=== PATIENT | female | born 1955 | race Caucasian/White ===

== ENCOUNTER 2018-11-03 09:38 | Inpatient (IN) | payer BC ==
[~2018-11-03] VITALS: Ht 170.2 cm; Wt 59.4 kg
[2018-11-03] MEDS ORDERED: MELATONIN 3 MG TABLET PO PRN (12:30)
[2018-11-03] MEDS ORDERED: ONDANSETRON 4 MG (ZOFRAN) ORAL DISSOLVE TAB PO PRN (12:30)
[2018-11-03] MEDS ORDERED: diphenhydrAMINE 25 MG TAB (BENADRYL) PO PRN (12:30)
[2018-11-03] MEDS ORDERED: LOPERAMIDE 2 MG (IMODIUM) TABLET PO PRN (12:30)
[2018-11-03] MEDS ORDERED: ACETAMINOPHEN 500 MG TAB (TYLENOL) PO PRN (12:30)
[2018-11-03] MEDS ORDERED: CALCIUM CARBONATE 500 MG (TUMS) TAB.CHEW PO PRN (12:30)
[2018-11-03] MEDS ORDERED: DOCUSATE SODIUM 100 MG (COLACE) CAP PO PRN (12:30)
[2018-11-03 14:11] VITALS: BP 87/54
--- OUTSIDE RECORDS SUMMARY | 2018-11-03 14:15 | XMS REPORT ---
Author Author [facility] Medical Staff Organization [facility] Address [address] [id number] Phone [phone] Care Team Providers Care Handbag Finisher Name Role Phone TABITHA VALADEZ MD PP [phone] Summary purpose TRANSITION OF CARE AUTO GENERATION Chief Complaint and Reason for Visit Admit Diagnosis 1 BACKACHE NOS Problem list No authorized problems tracked for continuity of care are available for this vis it. Encounters No authorized problems tracked for encounter diagnoses are available for this vi sit. Medications No medications recorded for this patient visit Allergies, adverse reactions, alerts Allergen Category Ingredient Status Reaction Severity Onset No known drug allergies No known drug allergies No known drug allergies Confirmed or Verified Immunizations No immunizations recorded for this patient visit Relevant diagnostic tests and/or laboratory data RESULTS Radiology Results [id number]:00 LUMBAR SPINE XRAY - 5V PACs Image DATE OF EXAM: 2014 RAD 1050-LUMBAR SPINE XRAY-5 VIEW : RADIOLOGY REPORT DATE OF SERVICE: 12/24/14 HISTORY: Patient has back pain. LUMBAR SPINE 5 VIEWS 1115 HOURS There is mild scoliosis, convex right. Vertebral body heights are maintained. There is apparent mild grade 1 anterolisthesis of L4 on L5 measuring 3 to 4 mm. The pars interarticularis are maintained and therefore this is likely pseudospondylolisthesis from degenerative change in facet joints. Unilateral partial sacralization of L5 is seen on the left with enlarged transverse process and remnant joint to the sacrum. Right transverse process is lumbar type. Interspace narrowing is seen of prominent degree on the right at L3-4 and there is at least mild, if not moderate narrowing at L4-5. On the left at L2-3, there is moderate narrowing. Sacroiliac joints are maintained. No acute fracture is seen. IMPRESSION: Scoliosis. Degenerative change. Pseudospondylolisthesis of L4 on L5 grade 1. Degenerative change in facet joints at L4-5. DO ABAD Walters/car 12/24/2014 11:43:00 / 12/24/2014 11:54:22 cc:Ankit Velasquez PA-C This document has been electronically Signed by: On: DATE OF EXAM: 2014 RAD 1050-LUMBAR SPINE XRAY-5 VIEW : RADIOLOGY REPORT DATE OF SERVICE: 12/24/14 HISTORY: Patient has back pain. LUMBAR SPINE 5 VIEWS 1115 HOURS There is mild scoliosis, convex right. Vertebral body heights are maintained. There is apparent mild grade 1 anterolisthesis of L4 on L5 measuring 3 to 4 mm. The pars interarticularis are maintained and therefore this is likely pseudospondylolisthesis from degenerative change in facet joints. Unilateral partial sacralization of L5 is seen on the left with enlarged transverse process and remnant joint to the sacrum. Right transverse process is lumbar type. Interspace narrowing is seen of prominent degree on the right at L3-4 and there is at least mild, if not moderate narrowing at L4-5. On the left at L2-3, there is moderate narrowing. Sacroiliac joints are maintained. No acute fracture is seen. IMPRESSION: Scoliosis. Degenerative change. Pseudospondylolisthesis of L4 on L5 grade 1. Degenerative change in facet joints at L4-5. Elena Coto DO /dc 12/24/2014 11:43:00 / 12/24/2014 11:54:22 cc:Ankit Velasquez PA-C This document has been electronically Signed by: ELENA COTO DO On: 20149:02P Result Amended on 2014-12-24 at 21:02:37. Previous status was MA. History of procedures Procedure Code Code Type Description Date Performed Performing Physician 32740 CPT-4 X-RAY EXAM OF LOWER SPINE 12-24-2014 ANKIT VELASQUEZ Functional status No functional or cognitive status observations are available for this visit. Vital signs No authorized vital signs are available for this visit. Social history No Social History or smoking status observations were recorded for this visit. ( Unknown if ever smoked.) Treatment Plan No treatment plan text is available for this visit. Hospital discharge instructions No discharge instruction text is available for this visit.
--- OUTSIDE RECORDS SUMMARY | 2018-11-03 14:15 | XMS REPORT ---
Author [facility] Medical Staff Organization [facility] Address [address] [id number] Phone [phone] Care Team Providers Care Diet Consultant Name Role Phone TABITHA VALADEZ MD PP [phone] TABITHA VALADEZ MD PP [phone] Summary purpose TRANSITION OF CARE AUTO GENERATION Chief Complaint and Reason for Visit Admit Diagnosis 1 RIGHT CHEVRON OSTOMY 1ST METATARSAL AND Admit Diagnosis 2 HAMMER TOE CORRECTION 2&3 TOES W/ PINS Problem list No authorized problems tracked for [...] Relevant diagnostic tests and/or laboratory data RESULTS Chemistry :20:00 Result Normal Range Units Sodium 143 134-145 mEq/l Potassium 3.7 3.5-5.1 mEq/l Chloride H 108 98-107 mEq/l CO2 H 28.3 22-28 mEq/l Glucose 102 70-105 mg/dl BUN H 29 7-18 mg/dl Creatinine 0.79 0.6-1.0 mg/dl Calcium L 8.2 8.4-10.2 mg/dl Osmolality 291.0 280-300 mOsm/L Anion GAP L 6.7 8-16 BUN/Creatinine Ratio H 36.7 10-20 Estimated GFR 74 >=60 mL/min/1.7 Hematology :20:00 Result Normal Range Units WBC 7.9 4.8-10.8 103/uL RBC 4.7 4.2-5.4 106/uL HGB 13.6 12.0-16.0 g/dl HCT 42.8 36.9-47.0 % MCV 91.5 81-99 FL MCH 29.1 27-31 pg MCHC L 31.8 33-37 g/dl RDW 12.2 11.5-15.5 % PLT 298 130-400 103/uL MPV 10.2 7.3-10.4 FL Neutro % 69.5 40-70 % Lymph % 21.8 20-40 % [place] % 5.2 0-10.0 % Eos % 2.4 0-7.0 % Baso % 0.8 0-2 % Neutro # 5.5 1.5-7.5 103/uL Lymph # 1.7 0.9-4.0 103/uL [place] # 0.4 0-0.8 103/uL Eos # 0.2 0-0.6 103/uL Baso # 0.1 0-0.1 103/uL Radiology Results :20:00 Result Normal Range Units MPV 10.2 7.3-10.4 FL History of procedures Procedure Code Code Type Description Date Performed Performing Physician 37730 CPT-4 COMPLETE CBC W/AUTO DIFF WBC 04-07-2015 MATTHEW KRISHNAMURTHY 52299 CPT-4 METABOLIC PANEL TOTAL CA 04-07-2015 MATTHEW KRISHNAMURTHY 99485 CPT-4 ROUTINE VENIPUNCTURE 04-07-2015 MATTHEW KRISHNAMURTHY 04909 CPT-4 ELECTROCARDIOGRAM, TRACING 04-07-2015 MATTHEW KRISHNAMURTHY Functional status Functional Status Finding Observation Time Hearing Prob Loc none [id number] Vision Problems no :02 Ambulation Asst Dev none [id number] Range of Motion full :55 Muscle Strength RUE 5 ROM full resist :55 Muscle Strength RLE 5 ROM full resist :55 Muscle Strength LUE 5 ROM full resist :55 Muscle Strength LLE 5 ROM full resist :55 Transfers assist x 1 :55 Ambulation in room :55 Balance unsteady :55 Bathing Assistance none :02 Eating Assistance none :02 Dressing Assistance none :02 Toileting Assistance none :02 Transfer Assistance none :02 Decline Slf Care/Mob no :02 Phys Cond Stable yes :02 Nutrition normal :55 Diet regular :55 Oral Cavity moist and intact :55 Teeth intact :55 Dental Hygiene good [id number]:55 Abdomen Appearance flat :55 Abdomen soft :55 Bowel Sounds present :55 NG Tube no :55 Feeding Tube none :55 Shaw no :55 Cont Bladder Irr no :55 Ostomy no :55 Stool normal :55 Urination normal :55 Quality sym/unlabored :55 Cough absent :55 Secretions no :55 Breath Sounds RUL clear :55 Breath Sounds RML clear :55 Breath Sounds RLL clear :55 Breath Sounds ASHKAN clear :55 Breath Sounds LLL clear :55 Airway natural :55 Oxygen no :45 C-PAP no :55 BI-PAP no :55 Temp >100.4 no :55 Temp <96.8 no :55 Chills with rigors no :55 HR > 90bpm no :55 Respirations > 20 no :55 Systolic <90 no :55 headache stiff neck no :55 Rapid Resp no :55 IV Site Location L forearm :00 IV Type peripheral :00 IV Site Information discontinued :00 IV Site Start Attmpt 2 times [id number] IV Site Deshaun 20 :00 IV Site Appearance WNL :00 IV Site Color clear : IV Site Patent yes : Dressing Type occlusive : Nursing Note pt dismissed from the unit at this time. pt in stable condition to go home. discharge instructions in hand. parents to drive pt home. :30 Cognitive Status Finding Observation Time Learning Ability comprehends well : Neurological no : Psychological no : Physical no : Hearing no : Supervisor Dumping Needed no : Sign Language no : Emotional no : Vision no : Laguage no : Financial no : Vital signs Type Value Date Respiration Rate 18breaths per minute :45 Pulse 76beats per minute :45 Oxygen Saturation 98% :45 BP Systolic 162mmHg :45 BP Diastolic 95mmHg :45 Temperature 96.7F :55 Height 67inches :57 Weight 159LB :57 Social history No Social History or smoking status observations were recorded for this visit. ( Unknown if ever smoked.) Treatment Plan No treatment plan text is available for this visit. Hospital discharge instructions Discharge Date/Time 04/09/15 1430 Accompanied By parents Relationship parent Dismissal Condition good Disposition on DC home Valuables yes Valuable Type billfold/purse DC Inst/Educ Give yes Exit Care Educ Given yes Med/Side Effects Rev yes PNE Vac never Flu Vac never Tetanus Vac 2009 Diet Explained yes Follow up appt already scheduled Follow Up Appt D/T 04/22/15 4697
--- OUTSIDE RECORDS SUMMARY | 2018-11-03 14:15 | XMS REPORT ---
Author Author [facility] Medical Staff Organization [facility] Address [address] [id number] Phone [phone] Care Team Providers Care Head Of Product Name Role Phone GALA EVANS MD PP [phone] Summary purpose TRANSITION OF CARE AUTO GENERATION Chief Complaint and Reason for Visit No authorized Reason for Visit (Admitting Diagnosis) is available for this visit . Problem list No authorized problems tracked for [...] visit Relevant diagnostic tests and/or laboratory data No authorized results are available for this patient visit History of procedures No procedures recorded for this patient visit. Functional status No functional or cognitive status [...]
--- OUTSIDE RECORDS SUMMARY | 2018-11-03 14:15 | XMS REPORT ---
Author Author [facility] Medical Staff Organization [facility] Address [address] [id number] Phone [phone] Summary purpose TRANSITION OF CARE AUTO GENERATION [...] for this patient visit History of procedures Procedure Code Code Type Description Date Performed Performing Physician 84385 CPT-4 THERAPEUTIC EXERCISES 09-23-2015 PAULINA GRULLON Functional status No functional or cognitive status [...]
--- OUTSIDE RECORDS SUMMARY | 2018-11-03 14:15 | XMS REPORT ---
Author Author [facility] Medical Staff Organization [facility] Address [address] [id number] Phone [phone] Summary purpose TRANSITION OF CARE AUTO GENERATION [...]
--- OUTSIDE RECORDS SUMMARY | 2018-11-03 14:15 | XMS REPORT ---
Author Author [facility] Medical Staff Organization [facility] [employer] [facility] Address [address] [id number] Phone [phone] Summary purpose TRANSITION OF CARE AUTO GENERATION [...] tests and/or laboratory data RESULTS Radiology Results [id number]:00 FOOT XRAY - 3 VIEW PACs Image DATE OF EXAM: May 06 2015 RAD 0649-FOOT XRAY-3 VIEW- RIGHT: RADIOLOGY REPORT DATE OF SERVICE: 05/06/15 HISTORY: Followup bunionectomy. RIGHT FOOT 3 VIEWS 1255 HOURS There are changes of distal first metatarsal osteotomy that is partially healed. Surgical line is somewhat indistinct and alignment is well maintained. There are surgical changes involving the proximal phalanx of the second toe and longitudinal wires are in place traversing the length of the second and third toes. Alignment is otherwise unremarkable. IMPRESSION: Healing distal metatarsal osteotomies. MD JOHN Coates/co05/06/2015 13:30:00 / 05/06/2015 13:35:01 cc:Dr. Ranjeet Springer This document has been electronically Signed by: On: DATE OF EXAM: May 06 2015 RAD 0649-FOOT XRAY-3 VIEW- RIGHT: RADIOLOGY REPORT DATE OF SERVICE: 05/06/15 HISTORY: Followup bunionectomy. RIGHT FOOT 3 VIEWS 1255 HOURS There are changes of distal first metatarsal osteotomy that is partially healed. Surgical line is somewhat indistinct and alignment is well maintained. There are surgical changes involving the proximal phalanx of the second toe and longitudinal wires are in place traversing the length of the second and third toes. Alignment is otherwise unremarkable. IMPRESSION: Healing distal metatarsal osteotomies. Vega Ribera MD MWBhavin/nh05/06/2015 13:30:00 / 05/06/2015 13:35:01 cc:Dr. Ranjeet Springer This document has been electronically Signed by: VEGA RIBERA MD On: May 06 20152:10P Result Amended on 2015-05-06 at 14:10:26. Previous status was PA. History of procedures No procedures recorded for [...]
--- OUTSIDE RECORDS SUMMARY | 2018-11-03 14:15 | XMS REPORT ---
Author Author [facility] Medical Staff Organization [facility] Address [address] [id number] Phone [phone] Care Team Providers Care Watch Mechanic Name Role Phone GALA EVANS MD PP [phone] Summary purpose TRANSITION OF CARE AUTO GENERATION [...]
--- OUTSIDE RECORDS SUMMARY | 2018-11-03 14:15 | XMS REPORT | CCD ---
Author Author [facility] Unknown Address [address] [place], [place] [id number] Care Team Providers Care Chemical Supervisor Name Role Phone YADI GILMORE, PAULINA SANTAMARIA Attphys S., GENET Bazan NASST B., MYLA NASST J., KYLER NASST F., DAGO NASST S., SAMANTHA GUTIERREZ NASST C., LEROY BAKER NASST M., JORDAN Walker NASST B., KAMRYN NASST K., SHADE Delcid NASST S., COLLIN NASST Vital Signs Vital Sign Value Unit Date/Time Recent/Initial? Weight Measured 140 lbs 10/22/2015 12:55 Initial VS Height 67 in 10/22/2015 12:55 Initial VS BMI (Body Mass Index) 21.93 kg/m^2 10/22/2015 12:55 Initial VS BSA (Body Surface Area) 1.73 m^2 10/22/2015 12:55 Initial VS BP Systolic 156 mmHg 10/27/2015 08:45 Initial VS BP Diastolic 82 mmHg 10/27/2015 08:45 Initial VS Respiratory Rate 13 bpm 10/27/2015 08:46 Initial VS Heart Rate 77 bpm 10/27/2015 08:46 Initial VS O2 % BldC Oximetry 98 % 10/27/2015 11:36 Initial VS Body Temperature 96.3 degrees 10/27/2015 12:50 Initial VS BP Systolic 131 mmHg 10/29/2015 11:14 Most Recent VS BP Diastolic 72 mmHg 10/29/2015 11:14 Most Recent VS Respiratory Rate 16 bpm 10/29/2015 11:14 Most Recent VS Heart Rate 75 bpm 10/29/2015 11:14 Most Recent VS O2 % BldC Oximetry 96 % 10/29/2015 11:14 Most Recent VS Body Temperature 96.9 degrees 10/29/2015 11:14 Most Recent VS Allergies Allergy Code Allergy Type Reaction Status No Known Drug Allergies 0 No known drug allergies Active Procedures Procedure Code Procedure Type Date Replacement of Left Knee Joint with Synthetic Substitute, Cemented, Open A [id number] ICD-10 PCS 10/27/2015 PT GROUP THERAPY 081566837 SNOMED CT 10/29/2015 PT GAIT TRAINING/STAIRS EA [address] 10/29/2015 KNEE 1V OR 2V 68499726 SNOMED CT 10/27/2015 CBC W/ AUTO DIFF (RFLX MAN DIFF IF IND) 1556601 SNOMED CT 10/29/2015 CBC W/ AUTO DIFF (RFLX MAN DIFF IF IND) 8224015 SNOMED CT 10/28/2015 PT GROUP THERAPY 423240051 SNOMED CT 10/28/2015 PT GROUP THERAPY 662418235 SNOMED CT 10/28/2015 PT EVALUATION 784895568 SNOMED CT 10/27/2015 THERAPEP SUBSEQUENT 595328785 SNOMED CT 10/29/2015 THERAPEP SUBSEQUENT 604209779 SNOMED CT 10/29/2015 THERAPEP SUBSEQUENT 901445901 SNOMED CT 10/29/2015 THERAPEP SUBSEQUENT 600130897 SNOMED CT 10/28/2015 THERAPEP SUBSEQUENT 388825873 SNOMED CT 10/28/2015 THERAPEP SUBSEQUENT 704726522 SNOMED CT 10/28/2015 THERAPEP SUBSEQUENT 965326289 SNOMED CT 10/28/2015 THERAPEP SUBSEQUENT 959708605 SNOMED CT 10/27/2015 THERAPEP TREATMENT 524775980 SNOMED CT 10/27/2015 ^CBC W/AUTO DIFF 4250555 SNOMED CT 10/29/2015 ^CBC W/AUTO DIFF 7548819 SNOMED CT 10/28/2015 History of Immunizations Unknown or Not Available. Problems Problem Code Start Date Resolved Date Status Primary osteoarthritis of left knee 440832456 Active Post op pain 143853628 10/27/2015 Active Status post knee replacement 8238972257268 10/27/2015 Active Degenerative joint disease 642141411 10/27/2015 Resolved Post op pain 282828426 10/27/2015 Resolved Status post knee replacement 2794784705208 10/27/2015 Resolved Results CBC W/ AUTO DIFF (RFLX MAN DIFF IF IND) - Collect Date/Time: 10/29/2015 06:10 Test Name Code Test Result Test Units Test Ref Range WBC 81345-6 7.3 TH/CMM L=4.5 H=10.8 RBC 789-8 3.27 ML/CMM L=4.20 H=5.40 HGB 718-7 9.2 G/DL L=12.0 H=16.0 HCT 4544-3 30.5 % L=37.0 H=47.0 MCV 93 FL L=81 H=99 MCH 28.1 PG L=27.0 H=33.0 MCHC 30.2 G/DL L=31.0 H=36.0 RDW SD 45 FL L=36 H=50 RDW CV 13.3 % L=0.0 H=14.8 MPV 10.5 FL L=9.3 H=12.5 PLT 777-3 214 TH/CMM L=130 H=440 NRBC# 0.00 TH/CMM L=0.00 H=0.00 NRBC% 0.0 /100WBC L=0.0 H=2.0 %NEUT 61.0 % %LYMP 25.8 % %MONO 7.1 % %EOS 5.3 % %BASO 0.5 % #NEUT 4.44 TH/CMM L=2.10 H=8.20 #LYMP 1.88 TH/CMM L=0.90 H=5.20 #MONO 0.52 TH/CMM L=0.16 H=1.00 #EOS 0.39 TH/CMM L=0.00 H=0.80 #BASO 0.04 TH/CMM L=0.00 H=0.20 MANUAL DIFF NOT IND N/A CBC W/ AUTO DIFF (RFLX MAN DIFF IF IND) - Collect Date/Time: 10/28/2015 06:40 Test Name Code Test Result Test Units Test Ref Range WBC 22253-2 11.3 TH/CMM L=4.5 H=10.8 RBC 789-8 3.75 ML/CMM L=4.20 H=5.40 HGB 718-7 10.7 G/DL L=12.0 H=16.0 HCT 4544-3 35.1 % L=37.0 H=47.0 MCV 94 FL L=81 H=99 MCH 28.5 PG L=27.0 H=33.0 MCHC 30.5 G/DL L=31.0 H=36.0 RDW SD 44 FL L=36 H=50 RDW CV 13.0 % L=0.0 H=14.8 MPV 9.9 FL L=9.3 H=12.5 PLT 777-3 266 TH/CMM L=130 H=440 NRBC# 0.00 TH/CMM L=0.00 H=0.00 NRBC% 0.0 /100WBC L=0.0 H=2.0 %NEUT 77.0 % %LYMP 16.5 % %MONO 5.5 % %EOS 0.3 % %BASO 0.3 % #NEUT 8.74 TH/CMM L=2.10 H=8.20 #LYMP 1.87 TH/CMM L=0.90 H=5.20 #MONO 0.62 TH/CMM L=0.16 H=1.00 #EOS 0.03 TH/CMM L=0.00 H=0.80 #BASO 0.03 TH/CMM L=0.00 H=0.20 MANUAL DIFF NOT IND N/A Active Medications Medication Code Dose Units Frequency Route Modification Start Date/Time Percocet 5MG-325MG Oral Tablet 9448891 1 - 2 TABLET EVERY 4 HOURS BY MOUTH 10/28/2015 18:00 Prescription Detail 1 - 2 TABLET BY MOUTH EVERY 4 HOURS amLODIPine Besylate 5MG Oral Tablet 985064 5 MILLIGRAMS AT BEDTIME ORAL 10/28/2015 17:47 Prescription Detail 5 MILLIGRAMS ORAL AT BEDTIME Tylenol 325MG Oral Tablet 288826 325 MILLIGRAMS NEEDED ORAL 10/28/2015 17:47 Prescription Detail 325 MILLIGRAMS ORAL NEEDED Aspirin 325MG Oral Tablet 990238 325 MILLIGRAMS NEEDED ORAL 10/28/2015 17:46 Prescription Detail 325 MILLIGRAMS ORAL NEEDED hold until ASA EC 325 BID is completed Aspirin 325MG Oral Tablet, Enteric Coated 880799 1 TABLET TWO TIMES A DAY BY MOUTH 10/28/2015 17:45 Prescription Detail 1 TABLET BY MOUTH TWO TIMES A DAY start 24hrs after the last Xarleto dose Thera-M Enhanced 90MG-0.03MG-0.15MG-4 Oral Tablet 543248 1 TABLET DAILY BY MOUTH 10/28/2015 17:45 Prescription Detail 1 TABLET BY MOUTH DAILY Xarelto 10MG Oral Tablet 5411959 1 TABLET DAILY BY MOUTH 10/28/2015 17:45 Prescription Detail 1 TABLET BY MOUTH DAILY for ten days Docusate Sodium 100MG Oral Capsule 4101037 1 TABLET TWO TIMES A DAY BY MOUTH 10/28/2015 17:44 Prescription Detail 1 TABLET BY MOUTH TWO TIMES A DAY hold with loose stools Medications Administered During Visit Medication Dose Units Frequency Route Date/Time of Last Dose LR 1000ML IV [PREDEFINED] CONT IV IV 10/27/2015 19:50 CEFAZOLIN [ANCEF] 2 GM IV PREMIX BAG Q6H IVPB 10/28/2015 04:29 VITAMIN (LH SUB FOR ALL MULTIVITAMINS) 1 TAB DAILY PO 10/29/2015 08:16 ASCORBIC ACID [VITAMIN C] TAB : 500 MG 500 MG DAILY PO 10/29/2015 08:16 FERROUS SULFATE 325MG TABLET 325 MG ACBID PO 10/29/2015 08:16 DOCUSATE SODIUM 100 MG [COLACE] CAPSULE 100 MG BID PO 10/29/2015 08:16 RIVAROXABAN [XARELTO] TABLET : 10MG 10 MG X1 PO 10/28/2015 08:18 RIVAROXABAN [XARELTO] TABLET : 10MG 10 MG DAILY PO 10/29/2015 08:16 HYDROmorphone [DILAUDID] INJ: 2MG/ML 0.5 MG PRN Q 1 HR IVP 10/28/2015 13:33 NORCO [HYDROCODONE/APAP] 10/325MG TAB 1 TAB PRN PO 10/28/2015 15:29 CELECOXIB [CELEBREX] CAPSULE : 200 MG 200 MG BID PO 10/29/2015 08:16 TRANEXAMIC ACID 1000MG/100ML [PREDEFINED X1 IVPB 10/27/2015 13:18 AMLODIPINE [NORVASC] TABLET : 5 MG 5 MG HS PO 10/28/2015 21:06 PERCOCET 5/325 MG TABLET (ROXICET) 2 TAB PRN PO 10/29/2015 14:26 Encounters Encounter Diagnosis Diagnosis Code Start Date Unilateral primary osteoarthritis, left knee [id number] 10/27/2015 Social History Smoking Status Code Start Date End Date Never smoker [id number] Patient Decision Aids Unknown or Not Available. Discharge Instructions You were admitted to [facility] on 10/27/2015 07:57 with a principal diagnosis of Unilateral primary osteoarthritis, left knee You had the following procedures done: Replacement of Left Knee Joint with Synthetic Substitute, Cemented, Open A You had the following tests done: CBC W/ AUTO DIFF (RFLX MAN DIFF IF IND) CBC W/ AUTO DIFF (RFLX MAN DIFF IF IND) You were discharged from [facility] on 10/29/2015 15:20 Should you have any questions prior to discharge, please contact a member of your healthcare team. If you have left the hospital and have any questions, please contact your primary care physician. INSTRUCTIONS GIVEN AND DISCHARGE TO: Patient. VOICES UNDERSTANDING OF INSTRUCTIONS: Yes. INSTRUCTIONS GIVEN BY (TYPE IN NAME AND DATE) SULEIMAN GARCÍA RNCUTTING TABLE OPERATOR PHYSICIAN OR PRACTITIONER: Paulina Maria MD, . HOME MEDICATION INSTRUCTIONS: XARELTO FOR 10 DAYS, THAN ASPIRIN 325MG TWICE DAILY FOR 30 DAYS. CHIEF COMPLAINT: C/O LEFT KNEE PAIN Chief Complaint and Reason For Visit Chief Complaint Date of Onset L TKR Function Status Unknown or Not Available. Plan of Care Unknown or Not Available. Referral/Transition of Care Unknown or Not Available.
--- OUTSIDE RECORDS SUMMARY | 2018-11-03 14:15 | XMS REPORT | CCD ---
Author KRYSTA Parker Unknown Address [address] [facility] [address] [place], [place] [id number] Care Team Providers Care Manufacturing Engineer Paint Name Role Phone YADI GILMORE, PAULINA SANTAMARIA Attphys F., DAGO NASST O., YOSELIN Sr NASST C., SCOTTY NASST C., LEROY BAKER NASST S., SCOTTY NASST G., ERIC NASST K., BETTY CUNNINGHAM NASST K., SHADE Delcid NASST S., COLLIN NASST B., MYLA NASST Vital Signs Vital Sign Value Unit Date/Time Recent/Initial? BP Systolic 166 mmHg 09/06/2015 11:00 Initial VS BP Diastolic 85 mmHg 09/06/2015 11:00 Initial VS Respiratory Rate 16 bpm 09/06/2015 11:00 Initial VS Heart Rate 81 bpm 09/06/2015 11:00 Initial VS O2 % BldC Oximetry 98 % 09/06/2015 11:00 Initial VS Weight Measured 145 lbs 09/07/2015 14:51 Initial VS Height 67 in 09/07/2015 14:51 Initial VS BMI (Body Mass Index) 22.71 kg/m^2 09/07/2015 14:51 Initial VS BSA (Body Surface Area) 1.76 m^2 09/07/2015 14:51 Initial VS Body Temperature 97.2 degrees 09/15/2015 15:45 Initial VS BP Systolic 138 mmHg 09/17/2015 10:59 Most Recent VS BP Diastolic 78 mmHg 09/17/2015 10:59 Most Recent VS Respiratory Rate 16 bpm 09/17/2015 10:59 Most Recent VS Heart Rate 76 bpm 09/17/2015 10:59 Most Recent VS O2 % BldC Oximetry 99 % 09/17/2015 10:59 Most Recent VS Body Temperature 97.1 degrees 09/17/2015 10:59 Most Recent VS Allergies Allergy Code Allergy Type Reaction Status No Known Drug Allergies 0 No known drug allergies Active Procedures Procedure Code Procedure Type Date Replacement of Right Knee Joint with Synthetic Substitute, Cemented, Open [id number] ICD-10 PCS 09/15/2015 PT GROUP THERAPY 833884230 SNOMED CT 09/17/2015 PT GAIT TRAINING/STAIRS EA [address] 09/17/2015 KNEE 1V OR 2V 08019260 SNOM[address] CT 09/15/2015 CBC W/ AUTO DIFF (RFLX MAN DIFF IF IND) 1286403 SNOMED CT 09/17/2015 CBC W/ AUTO DIFF (RFLX MAN DIFF IF IND) 4454828 SNOMED CT 09/16/2015 PT GROUP THERAPY 796433452 SNOMED CT 09/17/2015 PT GROUP THERAPY 276354613 SNOMED CT 09/16/2015 PT GROUP THERAPY 698454024 SNOMED CT 09/16/2015 PT EVALUATION 940738902 SNOMED CT 09/15/2015 THERAPEP SUBSEQUENT 663712293 SNOMED CT 09/17/2015 THERAPEP SUBSEQUENT 571921358 SNOMED CT 09/17/2015 THERAPEP SUBSEQUENT 308510301 SNOMED CT 09/16/2015 THERAPEP SUBSEQUENT 328976152 SNOMED CT 09/16/2015 THERAPEP SUBSEQUENT 751014680 SNOMED CT 09/16/2015 THERAPEP SUBSEQUENT 271405759 SNOMED CT 09/16/2015 THERAPEP TREATMENT 109183349 SNOMED CT 09/15/2015 ^CBC W/AUTO DIFF 6487348 SNOMED CT 09/17/2015 ^CBC W/AUTO DIFF 3507140 SNOMED CT 09/16/2015 History of Immunizations Unknown or Not Available. Problems Problem Code Start Date Resolved Date Status Primary osteoarthritis of left knee [id number] Active Post op pain 714439755 10/27/2015 Active Status post knee replacement 9106742882261 10/27/2015 Active Degenerative joint disease 941907969 10/27/2015 Resolved Post op pain 894218178 10/27/2015 Resolved Status post knee replacement 9652211422181 10/27/2015 Resolved Results CBC W/ AUTO DIFF (RFLX MAN DIFF IF IND) - Collect Date/Time: 09/17/2015 06:10 Test Name Code Test Result Test Units Test Ref Range WBC 95713-0 8.1 TH/CMM L=4.5 H=10.8 RBC 789-8 3.48 ML/CMM L=4.20 H=5.40 HGB 718-7 10.0 G/DL L=12.0 H=16.0 HCT 4544-3 32.3 % L=37.0 H=47.0 MCV 93 FL L=81 H=99 MCH 28.7 PG L=27.0 H=33.0 MCHC 31.0 G/DL L=31.0 H=36.0 RDW SD 45 FL L=36 H=50 RDW CV 13.3 % L=0.0 H=14.8 MPV 10.8 FL L=9.3 H=12.5 PLT 777-3 197 TH/CMM L=130 H=440 NRBC# 0.00 TH/CMM L=0.00 H=0.00 NRBC% 0.0 /100WBC L=0.0 H=2.0 %NEUT 64.5 % %LYMP 22.1 % %MONO 9.9 % %EOS 3.0 % %BASO 0.4 % #NEUT 5.20 TH/CMM L=2.10 H=8.20 #LYMP 1.78 TH/CMM L=0.90 H=5.20 #MONO 0.80 TH/CMM L=0.16 H=1.00 #EOS 0.24 TH/CMM L=0.00 H=0.80 #BASO 0.03 TH/CMM L=0.00 H=0.20 MANUAL DIFF NOT IND N/A CBC W/ AUTO DIFF (RFLX MAN DIFF IF IND) - Collect Date/Time: 09/16/2015 06:15 Test Name Code Test Result Test Units Test Ref Range WBC 50122-8 13.7 TH/CMM L=4.5 H=10.8 RBC 789-8 4.28 ML/CMM L=4.20 H=5.40 HGB 718-7 12.3 G/DL L=12.0 H=16.0 HCT 4544-3 38.7 % L=37.0 H=47.0 MCV 90 FL L=81 H=99 MCH 28.7 PG L=27.0 H=33.0 MCHC 31.8 G/DL L=31.0 H=36.0 RDW SD 43 FL L=36 H=50 RDW CV 13.1 % L=0.0 H=14.8 MPV 10.8 FL L=9.3 H=12.5 PLT 777-3 275 TH/CMM L=130 H=440 NRBC# 0.00 TH/CMM L=0.00 H=0.00 NRBC% 0.0 /100WBC L=0.0 H=2.0 %NEUT 79.9 % %LYMP 11.7 % %MONO 7.8 % %EOS 0.0 % %BASO 0.2 % #NEUT 10.90 TH/CMM L=2.10 H=8.20 #LYMP 1.60 TH/CMM L=0.90 H=5.20 #MONO 1.07 TH/CMM L=0.16 H=1.00 #EOS 0.00 TH/CMM L=0.00 H=0.80 #BASO 0.03 TH/CMM L=0.00 H=0.20 MANUAL DIFF NOT IND N/A Active Medications Medications Administered During Visit Medication Dose Units Frequency Route Date/Time of Last Dose LR 1000ML IV [PREDEFINED] CONT IV 09/15/2015 16:24 CEFAZOLIN [ANCEF] 2 GM IV PREMIX BAG Q6H 09/16/2015 08:04 VITAMIN ( SUB FOR ALL MULTIVITAMINS) 1 TAB DAILY PO 09/17/2015 08:09 ASCORBIC ACID [VITAMIN C] TAB : 500 MG 500 MG DAILY PO 09/17/2015 08:09 FERROUS SULFATE 325MG TABLET 325 MG BID PO 09/17/2015 08:09 DOCUSATE SODIUM 100 MG [COLACE] CAPSULE 100 MG BID PO 09/16/2015 20:02 RIVAROXABAN [XARELTO] TABLET : 10MG 10 MG DAILY PO 09/17/2015 08:09 NORCO [HYDROCODONE/APAP] 10/325MG TAB 1 TAB PRN PO 09/17/2015 08:09 CELECOXIB [CELEBREX] CAPSULE : 200 MG 200 MG BID PO 09/17/2015 08:09 TRANEXAMIC ACID 1000MG/100ML [PREDEFINED X1 09/15/2015 16:24 RIVAROXABAN [XARELTO] TABLET : 10MG 10 MG X1 PO 09/16/2015 10:14 AMLODIPINE [NORVASC] TABLET : 5 MG 5 MG DAILY PO 09/17/2015 08:09 Encounters Encounter Diagnosis Diagnosis Code Start Date Unilateral primary osteoarthritis, right knee [id number] 09/15/2015 Social History Smoking Status Code Start Date End Date Never smoker [id number] Patient Decision Aids Unknown or Not Available. Discharge Instructions You were admitted to [facility] on 09/15/2015 11:04 with a principal diagnosis of Unilateral primary osteoarthritis, right knee You had the following procedures done: Replacement of Right Knee Joint with Synthetic Substitute, Cemented, Open You had the following tests done: CBC W/ AUTO DIFF (RFLX MAN DIFF IF IND) CBC W/ AUTO DIFF (RFLX MAN DIFF IF IND) You were discharged from [facility] on 09/17/2015 15:45 Should you have any questions prior to discharge, please contact a member of your healthcare team. If you have left the hospital and have any questions, please contact your primary care physician. HOME DIET: as before hospitalization CONDITION AT DISMISSAL Stable. SCRIPTS WRITTEN BY DOCTOR GIVEN TO PATIENT? docusate sodium, xarelto, Finley, Aspirin, out patient therapy PRIMARY CARE PHYSICIAN OR PRACTITIONER: Paulina Maria MD, . CONTACT PHYSICIAN IF YOU EXPERIENCE ANY: pain, dizziness, bleeding, numbness in your hands/feet, fever. Shortness of Breath, Nausea/Vomiting, Redness or soreness in calf area. Odor or drainage from incision, Difficulty urinating. Swelling of extremities, Difficulty swallowing. PATIENT PORTAL/OTHER INSTRUCTIONS: Provided education info on Patient Josemanuel. INSTRUCTIONS GIVEN AND DISCHARGE TO: Patient. VOICES UNDERSTANDING OF INSTRUCTIONS: Yes. INSTRUCTIONS GIVEN BY (TYPE IN NAME AND DATE) Luis Alberto Pires RN 09/17/15 SPECIAL INSTRUCTIONS: Take Xarelto 10mg pill by mouth daily for 10 days. When taking Xarelto do not take IBUPROFEN, MOTRIN, ADVIL, ALEVE, MOBIC. 24 HOURS AFTER TAKING THE LAST XARELTO START TAKEN ASPIRIN 325MG 2 TIMES A DAY FOR 30 DAYS. CHIEF COMPLAINT: C/O RIGHT KNEE PAIN Chief Complaint and Reason For Visit Chief Complaint Date of Onset R TKR Function Status Unknown or Not Available. Plan of Care Unknown or Not Available. Referral/Transition of Care Unknown or Not Available.
--- OUTSIDE RECORDS SUMMARY | 2018-11-03 14:15 | XMS REPORT ---
Author Author [facility] Medical Staff Organization [facility] Address [address] [place] [id number] Phone [phone] Summary purpose TRANSITION OF CARE AUTO GENERATION [...] tests and/or laboratory data RESULTS Radiology Results [id number]:52:00 DEXA Scan Axial Skeletal PACs Image DATE OF EXAM: Oct 14 2015 RAD 2199-DEXA SCAN AXIAL SKELETAL : RADIOLOGY REPORT DATE OF SERVICE: 10/14/15 HISTORY: Postmenopausal female, back pain DUAL ENERGY BONE ABSORPTIOMETRY STUDY HIP AND SPINE 1500 HOURS TECHNIQUE: Dual energy x-ray densitometry was performed for both femora and the L1 through L4 levels of the lumbar spine.The T-Value represents the number of standard deviations from the measurements of a young normal person matched for gender and ethnicity. FINDINGS: Lumbar spine (L1-L4)BMD1.028! g/cm2 Young adult %87! % T-score-1.3! Age-matched 101! % Z-score0.1! Total hip meanBMD0.658! g/cm2 Young adult %65! % T-score-2.8! Age-matched 75! % Z-score-1.7! According to the guidelines of the World Health Organization: NormalT-score> -1.0 YnszzwpytkO-fdcpu-7.0 to -2.5 OsteoporosisT-score< -2.5 IMPRESSION: 1. Mild lumbar osteopenia. 2. Femoral osteoporosis. MD JOHN Coates/nh10/15/2015 10:32:00 / 10/15/2015 10:49:30 cc:Eligio Novak APRN This document has been electronically Signed by: On: DATE OF EXAM: Oct 14 2015 RAD 2199-DEXA SCAN AXIAL SKELETAL : RADIOLOGY REPORT DATE OF SERVICE: 10/14/15 HISTORY: Postmenopausal female, back pain DUAL ENERGY BONE ABSORPTIOMETRY STUDY HIP AND SPINE 1500 HOURS TECHNIQUE: Dual energy x-ray densitometry was performed for both femora and the L1 through L4 levels of the lumbar spine.The T-Value represents the number of standard deviations from the measurements of a young normal person matched for gender and ethnicity. FINDINGS: Lumbar spine (L1-L4)BMD1.028! g/cm2 Young adult %87! % T-score-1.3! Age-matched 101! % Z-score0.1! Total hip meanBMD0.658! g/cm2 Young adult %65! % T-score-2.8! Age-matched 75! % Z-score-1.7! According to the guidelines of the World Health Organization: NormalT-score> -1.0 JaemywnmvzT-tewzk-6.0 to -2.5 OsteoporosisT-score< -2.5 IMPRESSION: 1. Mild lumbar osteopenia. 2. Femoral osteoporosis. Vega Ribera MD MWD/nh10/15/2015 10:32:10/15/2015 10:49:30 cc:Eligio Novak APRN This document has been electronically Signed by: VEGA RIBERA MD On: Oct 16 20159:52A Result Amended on 2015-10-16 at 09:52:15. Previous status was MT. [id number]:54:00 MRI BRAIN W/WO CONT PACs Image DATE OF EXAM: Oct 14 2015 MRI 0036-MRI BRAIN W/WO CONTRAST : RADIOLOGY REPORT DATE OF SERVICE: 10/14/15 HISTORY: Patient has an unsteady gait and memory problems for over a year. MRI BRAIN WITH AND WITHOUT CONTRAST 1405 HOURS Multiplanar multisequence study was performed. Patient received 14 ml of Magnevist contrast intravenously. There is a solitary lesion in the white matter of the left parietal lobe measuring 7 mm. No enhancement of this structure is seen and the structure is not seen on any sequence except T2 proton density and FLAIR images. Otherwise signal intensity throughout brain is normal. There is no abnormal enhancement. Ventricular system is normal. The orbits and sinuses are normal. Flow voids of major vessels are intact. There is no evidence of an acute or subacute infarct. IMPRESSION: Solitary lesion in the white matter of the left parietal lobe likely on basis of aging. Otherwise normal study. Elena Coto DO [facility] 10/14/2015 14:18: / 10/14/2015 14:51:31 cc:Erin Borrero PA-C This document has been electronically Signed by: On: DATE OF EXAM: Oct 14 2015 MRI 0036-MRI BRAIN W/WO CONTRAST : RADIOLOGY REPORT DATE OF SERVICE: 10/14/15 HISTORY: Patient has an unsteady gait and memory problems for over a year. MRI BRAIN WITH AND WITHOUT CONTRAST 1405 HOURS Multiplanar multisequence study was performed. Patient received 14 ml of Magnevist contrast intravenously. There is a solitary lesion in the white matter of the left parietal lobe measuring 7 mm. No enhancement of this structure is seen and the structure is not seen on any sequence except T2 proton density and FLAIR images. Otherwise signal intensity throughout brain is normal. There is no abnormal enhancement. Ventricular system is normal. The orbits and sinuses are normal. Flow voids of major vessels are intact. There is no evidence of an acute or subacute infarct. IMPRESSION: Solitary lesion in the white matter of the left parietal lobe likely on basis of aging. Otherwise normal study. Elena Coto DO [facility] 10/14/2015 14:18: / 10/14/2015 14:51:31 cc:Erin Borrero PA-C This document has been electronically Signed by: ELENA COTO DO On: Oct 14 20156:54P Result Amended on 2015-10-14 at 18:54:53. Previous status was MT. History of procedures No procedures recorded for [...]
--- OUTSIDE RECORDS SUMMARY | 2018-11-03 14:15 | XMS REPORT ---
Author Author [facility] Medical Staff Organization [facility] Address [address] [place] [id number] Phone [phone] Summary purpose CCDA Sent to [facility] Chief Complaint and Reason for Visit No authorized Reason for Visit (Admitting Diagnosis) is available for this visit . Problem list No authorized problems tracked for continuity of care are available for this vis it. Encounters No authorized problems tracked for encounter diagnoses are available for this vi sit. Medications No medications recorded for this patient visit Allergies, adverse reactions, alerts No allergy information is available for this patient. Immunizations No immunizations recorded for this patient visit Relevant diagnostic tests and/or laboratory data No authorized results are available for this patient visit History of procedures Procedure Code Code Type Description Date Performed Performing Physician 64838 CPT-4 X-RAY EXAM OF KNEE, 1 OR 2 08-24-2015 PAULINA GRULLON 44607 CPT-4 X-RAY EXAM OF KNEES 08-24-2015 PAULINA GRULLON Functional status No functional or [...]
--- OUTSIDE RECORDS SUMMARY | 2018-11-03 14:15 | XMS REPORT ---
Author Author [facility] Medical Staff Organization [facility] [employer] [facility] Address [address] [id number] Phone [phone] Summary purpose TRANSITION OF CARE AUTO GENERATION [...] tests and/or laboratory data RESULTS Radiology Results [id number]:10:00 FOOT XRAY - 3 VIEW PACs Image [...] IMPRESSION: Healing distal metatarsal osteotomies. MD JOHN Coates/ak05/06/2015 13:30:00 / 05/06/2015 13:35:01 cc:Dr. Ranjeet Springer [...] IMPRESSION: Healing distal metatarsal osteotomies. MD JOHN Coates/nh05/06/2015 13:30:00 / 05/06/2015 13:35:01 cc:Dr. Ranjeet Springer This document has been electronically Signed by: LATOSHA BOGGS MD On: May 06 20152:10P Result Amended on 2015-05-06 at 14:10:26. Previous status was MS. History of procedures Procedure Code Code Type Description Date Performed Performing Physician 17874 CPT-4 X-RAY EXAM OF FOOT 05-06-2015 RANJEET SPRINGER Functional status No functional or cognitive status [...]
--- OUTSIDE RECORDS SUMMARY | 2018-11-03 14:15 | XMS REPORT ---
Author [facility] [employer] [facility] Medical Staff Organization [facility] Address [address] [id number] Phone [phone] Summary purpose TRANSITION OF CARE AUTO GENERATION [...]
--- OUTSIDE RECORDS SUMMARY | 2018-11-03 14:16 | XMS REPORT ---
Author Author [facility] [employer] [facility] Medical Staff Organization [facility] [employer] [facility] Address [address] [place] [id number] Phone [phone] Summary purpose TRANSITION OF CARE AUTO GENERATION [...] diagnostic tests and/or laboratory data RESULTS Chemistry [id number]:27:00 Result Normal Range Units Sodium 140 134-145 mEq/l Potassium L 3.1 3.5-5.1 mEq/l Chloride 103 98-107 mEq/l CO2 26.7 22-28 mEq/l Glucose H 122 70-105 mg/dl BUN H 20 7-18 mg/dl Creatinine 0.85 0.6-1.0 mg/dl Calcium 9.0 8.4-10.2 mg/dl TP - Total Protein 7.2 6.0-8.3 g/dl Albumin L 3.2 3.5-5 g/dl Bilirubin - Total 0.2 0.1-1.0 mg/dl AST 15 10-42 IU/L ALT 20 12-65 IU/L ALP H 101 25-72 IU/L Osmolality 283.3 280-300 mOsm/L Albumin/Globulin Ratio 0.8 0-8 Anion GAP 10.3 8-16 BUN/Creatinine Ratio H 23.5 10-20 Estimated GFR 68 >=60 mL/min/1.7 Hematology [id number]:27:00 Result Normal Range Units WBC 9.7 4.8-10.8 103/uL RBC 4.7 4.2-5.4 106/uL HGB 13.2 12.0-16.0 g/dl HCT 40.7 36.9-47.0 % MCV 87.0 81-99 FL MCH 28.2 27-31 pg MCHC L 32.4 33-37 g/dl RDW 13.3 11.5-15.5 % PLT 317 130-400 103/uL MPV H 11.0 7.3-10.4 FL Neutro % H 74.8 40-70 % Lymph % L 14.8 20-40 % [place] % 7.6 0-10.0 % Eos % 2.0 0-7.0 % Baso % 0.5 0-2 % Neutro # 7.3 1.5-7.5 103/uL Lymph # 1.4 0.9-4.0 103/uL [place] # 0.7 0-0.8 103/uL Eos # 0.2 0-0.6 103/uL Baso # 0.1 0-0.1 103/uL Radiology Results :27:00 Result Normal Range Units MPV H 11.0 7.3-10.4 FL History of procedures No procedures recorded for this patient visit. Functional status Functional Status Finding Observation Time Ambulation Asst Dev none :15 Diet regular :15 Abdomen Appearance flat :15 Abdomen non-tender :15 Bowel Sounds present :15 Shaw no :15 Urination normal :15 Quality sym/unlabored :15 Cough absent :15 Secretions no :15 Secretion Consist thin :15 Secretion Color clear :15 Breath Sounds RUL clear :15 Breath Sounds RML clear :15 Breath Sounds RLL clear :15 Breath Sounds ASHKAN clear :15 Breath Sounds LLL clear :15 Airway natural :15 Oxygen no :05 Temp >100.4 no :15 Temp <96.8 no :15 Chills with rigors no :15 HR > 90bpm no :15 Respirations > 20 no :15 Systolic <90 no :15 headache stiff neck no :15 Rapid Resp no :15 Nursing Note Dismissed home per Fredrick Alamo PA-C. Discharge instructions given and understood by pt who verbalized understanding. Wheeled to exit in stable condition. :05 Vital signs Type Value Date Respiration Rate 18breaths per minute :05 Pulse 100beats per minute :05 Oxygen Saturation 99% :05 BP Systolic 146mmHg :05 BP Diastolic 82mmHg :05 Temperature 99.4F :05 Weight 140LB 60-30-853858:45 Social history No Social History or smoking status observations were recorded for this visit. ( Unknown if ever smoked.) Treatment Plan No treatment plan text is available for this visit. Hospital discharge instructions Dismissal Condition good Disposition on DC home DC Inst/Educ Give yes Med/Side Effects Rev yes PNE Vac None Flu Vac None Tetanus Vac Current
--- OUTSIDE RECORDS SUMMARY | 2018-11-03 14:16 | XMS REPORT ---
Author Author [facility] Medical Staff Organization [facility] Address [address] [id number] Phone [phone] Care Team Providers Care Towel Hemmer Name Role Phone NATHAN GILMORE, GALA PP [phone] Summary purpose TRANSITION OF CARE AUTO GENERATION [...] Relevant diagnostic tests and/or laboratory data RESULTS Blood Cultures [id number]:00:00 Blood Culture Plate Date and Time 09/21/2015 22:10 SourceBLOOD CULTURE REPORT NoGrowth at 1 day. Unless otherwise notified. Final report in 5 Days. Release Date/Time: 09/23/2015 09:31 CULTURE REPORT No growth in 5 days. Release Date/Time: 09/27/2015 07:29 [id number]:55:00 Blood Culture Plate Date and Time 09/21/2015 22:10 SourceBLOOD CULTURE REPORT NoGrowth at 1 day. Unless otherwise notified. Final report in 5 Days. Release Date/Time: 09/23/2015 09:31 CULTURE REPORT No growth in 5 days. Release Date/Time: 09/27/2015 07:29 Chemistry [id number]:00:00 Result Normal Range Units Sodium 138 134-145 mEq/l Potassium 3.8 3.5-5.1 mEq/l Chloride 102 98-107 mEq/l CO2 H 28.8 22-28 mEq/l Glucose 98 70-105 mg/dl BUN 15 7-18 mg/dl Creatinine 0.69 0.6-1.0 mg/dl Calcium 8.5 8.4-10.2 mg/dl TP - Total Protein 6.7 6.0-8.3 g/dl Albumin L 3.0 3.5-5 g/dl Bilirubin - Total 0.8 0.1-1.0 mg/dl AST 18 10-42 IU/L ALT 32 12-65 IU/L ALP H 112 25-72 IU/L Osmolality L 276.5 280-300 mOsm/L Albumin/Globulin Ratio 0.8 0-8 Anion GAP L 7.2 8-16 BUN/Creatinine Ratio H 21.7 10-20 Estimated GFR 86 >=60 mL/min/1.7 Hematology [id number]:00:00 Result Normal Range Units WBC 8.4 4.8-10.8 103/uL RBC L 3.6 4.2-5.4 106/uL HGB L 10.6 12.0-16.0 g/dl HCT L 32.3 36.9-47.0 % MCV 90.5 81-99 FL MCH 29.7 27-31 pg MCHC L 32.8 33-37 g/dl RDW 12.5 11.5-15.5 % PLT 330 130-400 103/uL MPV H 10.5 7.3-10.4 FL Neutro % H 71.3 40-70 % Lymph % L 15.0 20-40 % [place] % 7.8 0-10.0 % Eos % 5.1 0-7.0 % Baso % 0.6 0-2 % Neutro # 6.0 1.5-7.5 103/uL Lymph # 1.3 0.9-4.0 103/uL [place] # 0.7 0-0.8 103/uL Eos # 0.4 0-0.6 103/uL Baso # 0.1 0-0.1 103/uL Radiology Results [id number]:00:00 Result Normal Range Units MPV H 10.5 7.3-10.4 FL History of procedures Procedure Code Code Type Description Date Performed Performing Physician 23698 CPT-4 COMPLETE CBC W/AUTO DIFF WBC 09-21-2015 DEMETRIA ROBERTS 05165 CPT-4 COMPREHEN METABOLIC PANEL 09-21-2015 DEMETRIA ROBERTS 50993 CPT-4 BLOOD CULTURE FOR BACTERIA 09-21-2015 DEMETRIA ROBERTS 51545 CPT-4 BLOOD CULTURE FOR BACTERIA 09-21-2015 DEMETRIA ROBERTS 66722 CPT-4 ROUTINE VENIPUNCTURE 09-21-2015 DEMETRIA ROBERTS 40910 CPT-4 ROUTINE VENIPUNCTURE 09-21-2015 DEMETRIA ROBERTS 15391 CPT-4 EMERGENCY DEPT VISIT 09-21-2015 DEMETRIA ROBERTS 32581 CPT-4 EMERGENCY DEPT VISIT 09-21-2015 DEMETRIA ROBERTS Functional status Functional Status Finding Observation Time Diet regular :30 Abdomen Appearance flat :30 Abdomen non-tender :30 Shaw no :30 Urination normal :30 Quality sym/unlabored : Cough absent : Secretions no : Breath Sounds RUL clear :30 Breath Sounds RML clear :30 Breath Sounds RLL clear :30 Breath Sounds ASHKAN clear : Breath Sounds LLL clear :30 Airway natural :30 Chest Tube no :30 Oxygen no :00 Temp >100.4 no : Temp <96.8 no : Chills with rigors no : HR > 90bpm no : Respirations > 20 no : Systolic <90 no :30 headache stiff neck no :30 IV Site Location L forearm :55 IV Type peripheral :55 IV Site Information new :55 IV Site Start Attmpt 1 times :55 IV Site Deshaun 20 :55 IV Site Appearance WNL :55 IV Site Color clear :55 IV Site Patent yes :55 Dressing Type occlusive :55 Nursing Note Dismissed home per Dr Roberts. Discharge instructions given and understood by pt and son who verbalized understanding. Wheeled to exit in stable condition escorted by this RN. :02 Vital signs Type Value Date Respiration Rate 18breaths per minute : Pulse 92beats per minute Oxygen Saturation 99% : BP Systolic 130mmHg : BP Diastolic 84mmHg : Temperature 98.7F : Social history Type Value Smoking Status NEVER SMOKER Treatment Plan No treatment plan text is available for this visit. Hospital discharge instructions Dismissal Condition good Disposition on DC home DC Inst/Educ Give yes Med/Side Effects Rev yes PNE Vac None Flu Vac None Tetanus Vac Current
--- OUTSIDE RECORDS SUMMARY | 2018-11-03 14:16 | XMS REPORT ---
Author Author [facility] Medical Staff Organization [facility] Address [address] [place] [id number] Phone [phone] Care Team Providers Care Java Lead Architect Name Role Phone RORY GILMORE, TABITHA PP [phone] Summary purpose TRANSITION OF CARE AUTO GENERATION [...] Relevant diagnostic tests and/or laboratory data RESULTS Therapeutic Drug Monitoring [id number]:40:00 Result Normal Range Units Vancomycin Trough 14.8 10-22 ug/ml [id number]:25:00 Result Normal Range Units Vancomycin Trough 16.2 10-22 ug/ml 50-55-088022:35:00 Result Normal Range Units Vancomycin Trough L 2.9 10-22 ug/ml History of procedures Procedure Code Code Type Description Date Performed Performing Physician 38300 CPT-4 ROUTINE VENIPUNCTURE 04-24-2015 ANKIT FLORENCE 24204 CPT-4 ROUTINE VENIPUNCTURE 04-26-2015 ANKIT FLORENCE 77479 CPT-4 ASSAY OF VANCOMYCIN 04-24-2015 ANKIT FLORENCE 34520 CPT-4 ASSAY OF VANCOMYCIN 04-26-2015 ANKTI FLORENCE 36300 CPT-4 THER/PROPH/DIAG IV INF, INIT 04-23-2015 ANKIT FLORENCE 17488 CPT-4 THER/PROPH/DIAG IV INF, INIT 04-23-2015 ANKIT FLORENCE 90401 CPT-4 THER/PROPH/DIAG IV INF, INIT 04-24-2015 ANKIT FLORENCE 30179 CPT-4 THER/PROPH/DIAG IV INF, INIT 04-25-2015 ANKIT FLORENCE 37630 CPT-4 THER/PROPH/DIAG IV INF, INIT 04-25-2015 ANKIT FLORENCE 88542 CPT-4 THER/PROPH/DIAG IV INF, INIT 04-26-2015 ANKIT FLORENCE 38987 CPT-4 THER/PROPH/DIAG IV INF, INIT 04-26-2015 ANKIT FLORENCE 40839 CPT-4 THER/PROPH/DIAG IV INF, INIT 04-27-2015 ANKIT FLORENCE 32572 CPT-4 THER/PROPH/DIAG IV INF, INIT 04-27-2015 ANKIT LFORENCE 92885 CPT-4 THER/PROPH/DIAG IV INF ADDON 04-24-2015 ANKIT FLORENCE 59193 CPT-4 THER/PROPH/DIAG IV INF ADDON 04-25-2015 ANKIT FLORENCE 25514 CPT-4 THER/PROPH/DIAG IV INF ADDON 04-25-2015 ANKIT FLORENCE 11446 CPT-4 THER/PROPH/DIAG IV INF ADDON 04-26-2015 ANKIT FLORENCE 67017 CPT-4 THER/PROPH/DIAG IV INF ADDON 04-26-2015 ANKIT FLORENCE 79028 CPT-4 THER/PROPH/DIAG IV INF ADDON 04-27-2015 ANKIT FLORENCE 58793 CPT-4 THER/PROPH/DIAG IV INF ADDON 04-27-2015 ANKIT FLORENCE 39724 CPT-4 TX/PROPH/DG ADDL SEQ IV INF 04-26-2015 ANKIT FLORENCE 67236 CPT-4 TX/PROPH/DG ADDL SEQ IV INF 04-27-2015 ANKIT FLORENCE 67595 CPT-4 TX/PROPH/DG ADDL SEQ IV INF 04-27-2015 ANKIT FLORENCE J0696 CPT-4 CEFTRIAXONE SODM 250MG INJ 04-26-2015 ANKIT FLORENCE J0696 CPT-4 CEFTRIAXONE SODM 250MG INJ 04-27-2015 ANKIT FLORENCE J0696 CPT-4 CEFTRIAXONE SODM 250MG INJ 04-27-2015 ANKIT FLORENCE J0696 CPT-4 CEFTRIAXONE SODM 250MG INJ 04-28-2015 ANKIT FLORENCE J0696 CPT-4 CEFTRIAXONE SODM 250MG INJ 04-28-2015 ANKIT FLORENCE J3370 CPT-4 VANCOMYCIN HCL INJECTION 04-23-2015 ANKIT FLORENCE J3370 CPT-4 VANCOMYCIN HCL INJECTION 04-24-2015 ANKIT FLORENCE J3370 CPT-4 VANCOMYCIN HCL INJECTION 04-25-2015 ANKIT FLORENCE J3370 CPT-4 VANCOMYCIN HCL INJECTION 04-25-2015 ANKIT FLORENCE J3370 CPT-4 VANCOMYCIN HCL INJECTION 04-26-2015 ANKIT FLORENCE J3370 CPT-4 VANCOMYCIN HCL INJECTION 04-26-2015 ANKIT FLORENCE J3370 CPT-4 VANCOMYCIN HCL INJECTION 04-26-2015 ANKIT FLORENCE J3370 CPT-4 VANCOMYCIN HCL INJECTION 04-27-2015 ANKIT FLORENCE J3370 CPT-4 VANCOMYCIN HCL INJECTION 04-27-2015 ANKIT FLORENCE J3370 CPT-4 VANCOMYCIN HCL INJECTION 04-28-2015 ANKIT FLORENCE J3370 CPT-4 VANCOMYCIN HCL INJECTION 04-28-2015 ANKIT FLORENCE J7040 CPT-4 NORMAL SALINE SOLUTION INFUS 04-23-2015 ANKIT FLORENCE J7040 CPT-4 NORMAL SALINE SOLUTION INFUS 04-24-2015 ANKIT FLORENCE J7040 CPT-4 NORMAL SALINE SOLUTION INFUS 04-25-2015 ANKIT FLORENCE J7040 CPT-4 NORMAL SALINE SOLUTION INFUS 04-26-2015 ANKIT FLORENCE J7040 CPT-4 NORMAL SALINE SOLUTION INFUS 04-26-2015 ANKIT FLORENCE J7040 CPT-4 NORMAL SALINE SOLUTION INFUS 04-26-2015 ANKIT FLORENCE J7040 CPT-4 NORMAL SALINE SOLUTION INFUS 04-27-2015 ANKIT FLORENCE J7040 CPT-4 NORMAL SALINE SOLUTION INFUS 04-27-2015 ANKIT FLORENCE J7040 CPT-4 NORMAL SALINE SOLUTION INFUS 04-28-2015 ANKIT FLORENCE J7040 CPT-4 NORMAL SALINE SOLUTION INFUS 04-28-2015 ANKIT FLORENCE J7050 CPT-4 NORMAL SALINE SOLUTION INFUS 04-25-2015 ANKIT FLORENCE Functional status Functional Status Finding Observation Time Hearing Prob Loc none 98-06-474724:00 Vision Problems no 43-61-043316:00 Ambulation Asst Dev none 19-65-340291:00 Bathing Assistance none 15-50-683790:00 Eating Assistance none [id number]:00 Dressing Assistance none 32-82-450434:00 Toileting Assistance none :00 Transfer Assistance none :00 Decline Slf Care/Mob no :00 Phys Cond Stable yes :00 Oxygen no :15 Oxygen Flow Rate RA :23 IV Site Location RFA :20 IV Type peripheral :20 IV Site Information discontinued :20 IV Site Start Attmpt 2 times :05 IV Site Deshaun 20 :35 IV Site Appearance WNL :35 IV Site Color clear :35 IV Site Patent no :35 Dressing Changed no (explain) Comment: CDI :00 Dressing Type occlusive :35 Nursing Note Pt dismissed to home in stable condition. This RN escorted pt out ER admission exit via WC to private vehicle. :30 Cognitive Status Finding Observation Time Oriented To Date 5 Yes :[address] 5 Yes :00 Name 3 Objects 3 Yes :00 Name Object in Rm 2 Yes :00 Recall 3 Objects 3 Yes :00 Repeats a Phrase 1 Yes :00 Follows Verbal Direc 3 Yes :00 Follows Written Dire 1 Yes :00 Write a Sentance 1 Yes :00 Draw an Object 1 Yes :00 Mini Mental Total 25 points :00 Less than 20 Phys not applicable :00 Learning Ability comprehends well : Neurological no :00 Psychological no :00 Physical no :00 Hearing no :00 Braille Teacher Needed no :00 Sign Language no :00 Emotional no :00 Vision no :00 Laguage no :00 Financial no :00 Vital signs Type Value Date Respiration Rate 18breaths per minute :15 Pulse 97beats per minute :15 Oxygen Saturation 99% :15 BP Systolic 162mmHg :15 BP Diastolic 97mmHg :15 Temperature 97.7F :15 Height 67inches :16 Weight 145.0LB :16 Social history No Social History or smoking status observations were recorded for this visit. ( Unknown if ever smoked.) Treatment Plan No treatment plan text is available for this visit. Hospital discharge instructions Valuables no PNE Vac never Flu Vac never Tetanus Vac 2009
--- OUTSIDE RECORDS SUMMARY | 2018-11-03 14:16 | XMS REPORT ---
Author Author [facility] Medical Staff Organization [facility] Address [address] [id number] Phone [phone] Care Team Providers Care Pit Crane Operator Name Role Phone GALA EVANS MD PP [phone] Summary purpose TRANSITION OF CARE AUTO GENERATION [...]
--- OUTSIDE RECORDS SUMMARY | 2018-11-03 14:16 | XMS REPORT ---
Author Author [facility] Medical Staff Organization [facility] Address [address] [id number] Phone [phone] Care Team Providers Care Clay Pigeon Loader Name Role Phone NATHAN GILMORE, GALA PP [phone] Summary purpose TRANSITION OF CARE AUTO GENERATION [...] diagnostic tests and/or laboratory data RESULTS Chemistry :00:00 Result Normal Range Units Sodium 138 134-145 [...] 10-20 Estimated GFR 86 >=60 mL/min/1.7 Hematology :00:00 Result Normal Range Units WBC 8.4 4.8-10.8 103/uL RBC L 3.6 4.2-5.4 106/uL HGB L 10.6 12.0-16.0 g/dl HCT L 32.3 36.9-47.0 % MCV 90.5 81-99 FL MCH 29.7 27-31 pg MCHC L 32.8 33-37 g/dl RDW 12.5 11.5-15.5 % PLT 330 130-400 103/uL MPV H 10.5 7.3-10.4 FL Neutro % H 71.3 40-70 % Lymph % L 15.0 20-40 % [place] % 7.8 0-10.0 % Eos % 5.1 0-7.0 % Baso % 0.6 0-2 % Neutro # 6.0 1.5-7.5 103/uL Lymph # 1.3 0.9-4.0 103/uL [place] # 0.7 0-0.8 103/uL Eos # 0.4 0-0.6 103/uL Baso # 0.1 0-0.1 103/uL Radiology Results :00:00 Result Normal Range Units MPV H 10.5 7.3-10.4 FL History of procedures No procedures recorded for this patient visit. Functional status Functional Status Finding Observation Time Diet regular : Abdomen Appearance flat :30 Abdomen non-tender :30 Shaw no :30 Urination normal :30 Quality sym/unlabored : Cough absent :30 Secretions no :30 Breath Sounds RUL clear :30 Breath Sounds RML clear :30 Breath Sounds RLL clear :30 Breath Sounds ASHKAN clear :30 Breath Sounds LLL clear :30 Airway natural :30 Chest Tube no :30 Oxygen no [id number]:00 Temp >100.4 no :30 Temp <96.8 no 52-05-289939:30 Chills with rigors no :30 HR > 90bpm no :30 Respirations > 20 no : Systolic <90 no : headache stiff neck no :30 IV Site Location L forearm :55 IV Type peripheral :55 IV Site Information new :55 IV Site Start Attmpt 1 times :55 IV Site Deshaun 20 :55 IV Site Appearance WNL :55 IV Site Color clear : IV Site Patent yes : Dressing Type occlusive :55 Nursing Note Dismissed home per Dr Kitchen. Discharge instructions given and understood by pt and son who verbalized understanding. Wheeled to exit in stable condition escorted by this RN. :02 Vital signs Type Value Date Respiration Rate 18breaths per minute : Pulse 92beats per minute : Oxygen Saturation 99% :00 BP Systolic 130mmHg :00 BP Diastolic 84mmHg :00 Temperature 98.7F :00 Social history Type Value Smoking Status NEVER SMOKER Treatment Plan No treatment plan text is available for this visit. Hospital discharge instructions Dismissal Condition good Disposition on DC home DC Inst/Educ Give yes Med/Side Effects Rev yes PNE Vac None Flu Vac None Tetanus Vac Current
--- OUTSIDE RECORDS SUMMARY | 2018-11-03 14:16 | XMS REPORT ---
Author Author [facility] Medical Staff Organization [facility] Address [address] [place] [id number] Phone [phone] Summary purpose TRANSITION OF CARE AUTO GENERATION [...] diagnostic tests and/or laboratory data RESULTS Chemistry [id number]:38:00 Result Normal Range Units Sodium 141 134-145 mEq/l Potassium L 3.3 3.5-5.1 mEq/l Chloride 104 98-107 mEq/l CO2 26.9 22-28 mEq/l Glucose H 114 70-105 mg/dl BUN 17 7-18 mg/dl Creatinine 0.80 0.6-1.0 mg/dl Calcium 8.9 8.4-10.2 mg/dl TP - Total Protein 7.2 6.0-8.3 g/dl Albumin 3.7 3.5-5 g/dl Bilirubin - Total 0.3 0.1-1.0 mg/dl AST 22 10-42 IU/L ALT 24 12-65 IU/L ALP H 116 25-72 IU/L Osmolality 283.7 280-300 mOsm/L Albumin/Globulin Ratio 1.1 0-8 Anion GAP 10.1 8-16 BUN/Creatinine Ratio H 21.2 10-20 Estimated GFR 73 >=60 mL/min/1.7 Hematology [id number]:38:00 Result Normal Range Units WBC 6.9 4.8-10.8 103/uL RBC 4.2 4.2-5.4 106/uL HGB 12.2 12.0-16.0 g/dl HCT 37.6 36.9-47.0 % MCV 90.4 81-99 FL MCH 29.3 27-31 pg MCHC L 32.4 33-37 g/dl RDW 12.7 11.5-15.5 % PLT 312 130-400 103/uL MPV H 10.6 7.3-10.4 FL Neutro % 60.2 40-70 % Lymph % 28.8 20-40 % [place] % 5.5 0-10.0 % Eos % 4.4 0-7.0 % Baso % 1.0 0-2 % Neutro # 4.1 1.5-7.5 103/uL Lymph # 2.0 0.9-4.0 103/uL [place] # 0.4 0-0.8 103/uL Eos # 0.3 0-0.6 103/uL Baso # 0.1 0-0.1 103/uL Reference Lab ([facility]) [id number]:38:00 Result Normal Range Units Parathyroid Hormone 57 14-64 pg/mL Interpretive GuideIntact PTH Calcium ------- Normal ParathyroidNormal Normal HypoparathyroidismLow or Low NormalLow Hyperparathyroidism PrimaryNormal or High High SecondaryHigh Normal or Low Tertiary High High Non-Parathyroid HypercalcemiaLow or Low NormalHigh TEST PERFORMED AT: [facility] [address] [place] [address] MATTHEW MEJIA DO,MPH Vit D 25 OH Total L 25 30-100 ng/mL 25-OHD3 indicates both endogenous production and supplementation. 25-OHD2 is an indicator of exogenous sources, such as diet or supplementation. Therapy is based on measurement of Total 25-OHD, with levels <20 ng/mL indicative of Vitamin D deficiency, while levels between 20 ng/mL and 30 ng/mL suggest insufficiency. Optimal levels are > or=30 ng/mL. Vit D 25 OH D3 25 See Below ng/mL Reference Range: Not established Vit D 25 OH D2 < 4 See Below ng/mL Reference Range: Not established TEST PERFORMED AT: [facility] [address] [place] [address] JEFF SEVERINO MD,FCAP Radiology Results [id number]:38:00 Result Normal Range Units MPV H 10.6 7.3-10.4 FL History of procedures Procedure Code Code Type Description Date Performed Performing Physician 86708 CPT-4 COMPLETE CBC W/AUTO DIFF WBC 10-26-2015 ROGER TAYLOR 16541 CPT-4 COMPREHEN METABOLIC PANEL 10-26-2015 ROGER TAYLOR 63428 CPT-4 ASSAY OF PARATHORMONE 10-26-2015 ROGER TAYLOR 42243 CPT-4 ASSAY OF VITAMIN D 10-26-2015 ROGER TAYLOR Functional status No functional or cognitive status [...]
--- OUTSIDE RECORDS SUMMARY | 2018-11-03 14:16 | XMS REPORT ---
Author Author [facility] Medical Staff Organization [facility] Address [address] [id number] Phone [phone] Care Team Providers Care Cullet Crusher Name Role Phone NATHAN GILMORE, GALA PP [phone] Summary purpose TRANSITION OF CARE AUTO GENERATION [...] Code Type Description Date Performed Performing Physician 80344 CPT-4 PT EVALUATION 11-03-2015 PAULINA GRULLON 11885 CPT-4 THERAPEUTIC EXERCISES 11-03-2015 PAULINA GRULLON 17881 CPT-4 THERAPEUTIC EXERCISES 11-05-2015 PAULINA GRULLON Functional status No functional or [...]
--- OUTSIDE RECORDS SUMMARY | 2018-11-03 14:16 | XMS REPORT ---
Author Author [facility] Medical Staff Organization [facility] Address [address] [id number] Phone [phone] Care Team Providers Care Biomedical Analytical Scientist Name Role Phone RORY GILMORE, TABITHA PP [phone] Summary purpose TRANSITION OF CARE AUTO GENERATION [...] Relevant diagnostic tests and/or laboratory data RESULTS Other Hematology - Misc. [id number]:15:00 Result Normal Range Units WBC 313674 /cumm RBC 876331 /cumm Segs 97.0 % Lymphs 3.0 % Crystal Evaluation Calcium pyrophosphate crystals (pseudogout). Body Fluid 96-15-141404:15:00 Result Normal Range Units WBC 774488 /cumm RBC 190252 /cumm Segs 97.0 % Lymphs 3.0 % Hematology - Other (Misc) 96-78-178564:15:00 Crystal Evaluation Calcium pyrophosphate crystals (pseudogout). History of procedures No procedures recorded for [...]
--- OUTSIDE RECORDS SUMMARY | 2018-11-03 14:16 | XMS REPORT ---
Author Author [facility] Medical Staff Organization [facility] Address [address] [id number] Phone [phone] Care Team Providers Care Radio Tester Name Role Phone RORY GILMORE, TABITHA PP [phone] Summary purpose TRANSITION OF CARE AUTO GENERATION [...] tests and/or laboratory data RESULTS Radiology Results [id number]:24:00 FOOT XRAY - 3 VIEW PACs Image DATE OF EXAM: 2014 RAD 0649-FOOT XRAY-3 VIEW- RIGHT: RADIOLOGY REPORT DATE OF SERVICE: 03/25/15 HISTORY: Right foot pain, bunion. RIGHT FOOT 3 VIEWS 1245 HOURS There is metatarsus primus varus and mild hallux valgus. There is dorsal subluxation of the second toe at the metatarsophalangeal joint. There are no erosive changes. There is a small inferior heel spur. There is no fracture. IMPRESSION: Dorsal subluxation of the second MTP joint. Hallux valgus and metatarsus primus varus with bunion formation. MD JOHN Coates/il03/25/2015 13:01:00 / 03/25/2015 13:20:57 cc:Dr. Ranjeet Springer This document has been electronically Signed by: On: DATE OF EXAM: 2014 RAD 0649-FOOT XRAY-3 VIEW- RIGHT: RADIOLOGY REPORT DATE OF SERVICE: 03/25/15 HISTORY: Right foot pain, bunion. RIGHT FOOT 3 VIEWS 1245 HOURS There is metatarsus primus varus and mild hallux valgus. There is dorsal subluxation of the second toe at the metatarsophalangeal joint. There are no erosive changes. There is a small inferior heel spur. There is no fracture. IMPRESSION: Dorsal subluxation of the second MTP joint. Hallux valgus and metatarsus primus varus with bunion formation. Vega Ribera MD MWD/nh03/25/2015 13:01:00 / 03/25/2015 13:20:57 cc:Dr. Ranjeet Springer This document has been electronically Signed by: VEGA RIBERA MD On: 20143:24P Result Amended on 2015-03-25 at 15:24:34. Previous status was [place]. History of procedures No procedures recorded for [...]
--- OUTSIDE RECORDS SUMMARY | 2018-11-03 14:16 | XMS REPORT ---
Author Author [facility] Medical Staff Organization [facility] Address [address] [id number] Phone [phone] Care Team Providers Care Communications Professional Name Role Phone NATHAN GILMORE, GALA PP [phone] Summary purpose TRANSITION OF CARE AUTO GENERATION [...] Code Type Description Date Performed Performing Physician 92193 CPT-4 THERAPEUTIC EXERCISES 09-21-2015 PAULINA GRULLON 65635 CPT-4 PT RE-EVALUATION 09-21-2015 PAULINA GRULLON Functional status No functional or [...]
--- OUTSIDE RECORDS SUMMARY | 2018-11-03 14:17 | XMS REPORT | Continuity of Care Document ---
Author Author [facility] Organization [facility] Address [address] [place] [address] Phone Unavailable Care Team Providers Care Blood Bank Attendant Name Role Phone KRZYSZTOF NARAYAN DPM PCP Insurance Providers Guarantor Mukul Aguilar Address [address] [place] [address] Payer [facility] Policy Number [id number] Subscriber's Name AguilarMukul luis Hortensia Relationship 18 Self / Same As Patient Group Number [id number] Effective Date 17 Advance Directives Directive Response Recorded Date/Time Living Will No 10/03/17 6:46am Power of Spar Cap Beveler No 10/03/17 6:46am Advance Directives No 10/03/17 6:59am Problems No problem information available. Medications Current Home Medications Medication Dose Units Route Directions Days Qty Instructions Start Date Amantadine Hcl (Amantadine) 100 Mg Capsule 100 Mg Oral As Directed for Unknown Amlodipine Besylate 10 Mg Tablet 10 Mg Oral Once A Day for Hypertension Carbidopa/Levodopa (Sinemet Cr 25-100 Tablet) 1 Each Tablet.er 1 Each Oral As Directed for Parkinson's Disease Diclofenac Sodium 50 Mg Tablet.dr 50 Mg Oral As Directed for Pain Hydrocodone Bit/Acetaminophen (Louise 5/325 Mg Tablet) 1 Tab Tablet 1 Tab Oral As Directed as needed for Pain Social History No social history information available. Hospital Discharge Instructions No hospital discharge instruction information available. Plan of Care Discharge Date 10/03/17 10:23am Prescriptions See Medication Section Functional Status No functional status information available. Allergies, Adverse Reactions, Alerts No known allergies. Immunizations No immunization information available. Vital Signs Acute Vital Signs Vital Response Date/Time Temperature (Fahrenheit) 97.3 degrees F (97.6 - 99.5) 10/03/2017 10:20am Temperature (Calculated Celsius) 36.39644 degrees C (36.4 - 37.5) 10/03/2017 10:20am Temperature Source Temporal Artery Scan 10/03/2017 10:20am Pulse Pulse Rate (adult) 67 beats per minute (60 - 90) 10/03/2017 10:20am Oxygen Saturation Respiratory Rate 18 breaths per minute (12 - 24) 10/03/2017 10:20am O2 Sat by Pulse Oximetry 95 % (90 - 100) 10/03/2017 10:20am Blood Pressure 149/83 mm Hg 10/03/2017 10:20am Blood Pressure Mean 105 mm Hg 10/03/2017 10:20am Results No relevant diagnostic test, laboratory data and/or discharge summary informatio n available. Procedures Procedure Status Date Provider(s) Sergio osteotomy Completed 10/03/17 KRZYSZTOF NARAYAN DPM Amputation of toe through metatarsal head Completed 10/03/17 KRZYSZTOF NARAYAN DPM Resection, bone, metatarsal Completed 10/03/17 KRZYSZTOF NARAYAN DPM Encounters Encounter Location Arrival/Admit Date Discharge/Depart Date Attending Provider Departed [facility] Day [facility] 10/03/17 6:48am 10/03/17 10:23am KRZYSZTOF NARAYAN DPM
--- OUTSIDE RECORDS SUMMARY | 2018-11-03 14:17 | XMS REPORT | Continuity of Care Document ---
Author Author [facility] Organization [facility] Address [address] [place] [address] Phone Unavailable Care Team Providers Care Button Station Worker Name Role Phone JANIS MICHELLE PCP Insurance Providers Guarantor Mukul Aguilar Address [address] [place] [address] Payer [facility] Policy Number [id number] Subscriber's Name Mukul Aguilar Relationship 18 Self / Same As Patient Group Number [id number] Effective Date 17 Advance Directives Directive Response Recorded Date/Time Living Will No 10/03/17 6:46am Advance Directives No 10/02/18 6:35am Advance Directive on File No 10/02/18 6:35am Problems No problem information available. Medications Current Home Medications Medication Dose Units Route Directions Days Qty Instructions Start Date Amantadine Hcl (Amantadine) 100 Mg Capsule 100 Mg Oral Twice A Day for Unknown Amlodipine Besylate 10 Mg Tablet 10 Mg Oral Once A Day for Hypertension Carbidopa/Levodopa (Sinemet Cr 25-100 Tablet) 1 Each Tablet.er 1 Each Oral As Directed for Parkinson's Disease Diclofenac Sodium 50 Mg Tablet.dr 50 Mg Oral Twice A Day for Pain Hydrocodone Bit/Acetaminophen (Clifton 5/325 Mg Tablet) 1 Tab Tablet 1 Tab Oral Every Six Hours as needed for Pain Losartan Potassium 25 Mg Tablet 25 Mg Oral Once A Day for Hypertension Past Home Medications Medication Directions Ordered Status Hydrocodone Bit/Acetaminophen (Clifton 5/325 Mg Tablet) 1 Tab Tablet, 1 Tab Oral As Directed as needed for Pain Discontinued Social History No social history information available. Hospital Discharge Instructions No hospital discharge instruction information available. Plan of Care Discharge Date 10/02/18 10:35am Prescriptions See Medication Section Functional Status No functional status information available. Allergies, Adverse Reactions, Alerts No known allergies. Immunizations No immunization information available. Vital Signs Acute Vital Signs Vital Response Date/Time Temperature (Fahrenheit) 97.4 degrees F (97.6 - 99.5) 10/02/2018 10:30am Temperature (Calculated Celsius) 36.22073 degrees C (36.4 - 37.5) 10/02/2018 10:30am Temperature Source Temporal Artery Scan 10/02/2018 10:30am Pulse Pulse Rate (adult) 67 beats per minute (60 - 90) 10/02/2018 10:30am Oxygen Saturation Respiratory Rate 19 breaths per minute (12 - 24) 10/02/2018 10:30am O2 Sat by Pulse Oximetry 96 % (90 - 100) 10/02/2018 10:30am Blood Pressure 130/77 mm Hg 10/02/2018 10:30am Blood Pressure Mean 94 mm Hg 10/02/2018 10:30am Results No relevant diagnostic test, laboratory data and/or discharge summary informatio n available. Procedures Procedure Status Date Provider(s) Osteotomy, metatarsal, second Completed 10/02/18 KRZYSZTOF NARAYAN DPM Osteotomy, metatarsal, second Completed 10/02/18 KRZYSZTOF NARAYAN DPM X-ray of foot, three views Completed 10/02/18 KRZYSZTOF NARAYAN DPM X-ray of foot, three views Completed 10/02/18 KRZYSZTOF NARAYAN DPM Encounters Encounter Location Arrival/Admit Date Discharge/Depart Date Attending Provider Departed Surgical Day Care [facility] 10/02/18 6:32am 10/02/18 10:35am KRZYSZTOF NARAYAN DPM
--- OUTSIDE RECORDS SUMMARY | 2018-11-03 14:17 | XMS REPORT ---
Author Author [facility] Medical Staff Organization [facility] Address [address] [id number] Phone [phone] Care Team Providers Care Art Editor Name Role Phone NATHAN GILMORE, GALA PP [phone] Summary purpose TRANSITION OF CARE AUTO GENERATION [...] Code Type Description Date Performed Performing Physician 83536 CPT-4 PT EVALUATION 11-03-2015 PAULINA GRULLON 20587 CPT-4 THERAPEUTIC EXERCISES 11-03-2015 PAULINA GRULLON 67374 CPT-4 THERAPEUTIC EXERCISES 11-05-2015 PAULINA GRULLON Functional [...]
--- OUTSIDE RECORDS SUMMARY | 2018-11-03 14:17 | XMS REPORT ---
Author Author [facility] Medical Staff Organization [facility] Address [address] [id number] Phone [phone] Care Team Providers Care Studio Musician Name Role Phone GALA EVANS MD PP [phone] Summary purpose TRANSITION OF CARE AUTO GENERATION [...]
--- OUTSIDE RECORDS SUMMARY | 2018-11-03 14:17 | XMS REPORT ---
Author Author [facility] [employer] [facility] Medical Staff Organization [facility] Address [address] [place] [id number] Phone [phone] Summary purpose TRANSITION OF CARE AUTO GENERATION [...] diagnostic tests and/or laboratory data RESULTS Chemistry [id number]:38:00 Result Normal Range Units Sodium 141 134-145 [...] 10-20 Estimated GFR 73 >=60 mL/min/1.7 Hematology 83-42-460605:38:00 Result Normal Range Units WBC 6.9 4.8-10.8 103/uL RBC 4.2 4.2-5.4 106/uL HGB 12.2 12.0-16.0 g/dl HCT 37.6 36.9-47.0 % MCV 90.4 81-99 FL MCH 29.3 27-31 pg MCHC L 32.4 33-37 g/dl RDW 12.7 11.5-15.5 % PLT 312 130-400 103/uL MPV H 10.6 7.3-10.4 FL Neutro % 60.2 40-70 % Lymph % 28.8 20-40 % [place] % 5.5 0-10.0 % Eos % 4.4 0-7.0 % Baso % 1.0 0-2 % Neutro # 4.1 1.5-7.5 103/uL Lymph # 2.0 0.9-4.0 103/uL [place] # 0.4 0-0.8 103/uL Eos # 0.3 0-0.6 103/uL Baso # 0.1 0-0.1 103/uL Radiology Results [id number]:38:00 Result Normal Range Units MPV H 10.6 7.3-10.4 FL History of procedures No procedures [...]
--- OUTSIDE RECORDS SUMMARY | 2018-11-03 14:17 | XMS REPORT ---
Author Author [facility] Medical Staff Organization [facility] Address [address] [id number] Phone [phone] Care Team Providers Care Senior Speech Pathologist Name Role Phone RORY GILMORE, TABITHA PP [phone] Summary purpose TRANSITION OF CARE AUTO GENERATION [...]
--- OUTSIDE RECORDS SUMMARY | 2018-11-03 14:17 | XMS REPORT ---
Author Author [email or web address] Medical Staff Organization [facility] Address [address] [id number] Phone [phone] Summary purpose TRANSITION OF CARE AUTO GENERATION [...] Code Type Description Date Performed Performing Physician 14692 CPT-4 THERAPEUTIC EXERCISES 09-23-2015 PAULINA GRULLON Functional [...]
--- OUTSIDE RECORDS SUMMARY | 2018-11-03 14:17 | XMS REPORT ---
Author Author [facility] Organization [facility] Address [address] [place] [id number] Phone [phone] Care Team Providers Care Sewing Pattern Layout Technician Name Role Phone RORY GILMORE, TABITHA PP [phone] Summary purpose TRANSITION OF CARE AUTO GENERATION [...] and/or laboratory data RESULTS Therapeutic Drug Monitoring [id number]:40:00 Result Normal Range Units Vancomycin Trough 14.8 10-22 ug/ml 16-00-079518:25:00 Result Normal Range Units Vancomycin Trough 16.2 10-22 ug/ml 48-40-649485:35:00 Result Normal Range Units Vancomycin Trough L 2.9 10-22 ug/ml History of procedures Procedure Code Code Type Description Date Performed Performing Physician 67693 CPT-4 ROUTINE VENIPUNCTURE 04-24-2015 ANKIT FLORENCE 18054 CPT-4 ROUTINE VENIPUNCTURE 04-26-2015 ANKIT FLORENCE 94787 CPT-4 ASSAY OF VANCOMYCIN 04-24-2015 ANKIT FLORENCE 14601 CPT-4 ASSAY OF VANCOMYCIN 04-26-2015 ANKIT FLORENCE 90069 CPT-4 THER/PROPH/DIAG IV INF, INIT 04-23-2015 ANKIT FLORENCE 69957 CPT-4 THER/PROPH/DIAG IV INF, INIT 04-23-2015 ANKIT FLORENCE 03209 CPT-4 THER/PROPH/DIAG IV INF, INIT 04-24-2015 ANKIT FLORENCE 78390 CPT-4 THER/PROPH/DIAG IV INF, INIT 04-25-2015 ANKIT FLORENCE 13432 CPT-4 THER/PROPH/DIAG IV INF, INIT 04-25-2015 ANKIT FLORENCE 73730 CPT-4 THER/PROPH/DIAG IV INF, INIT 04-26-2015 ANKIT FLORENCE 02720 CPT-4 THER/PROPH/DIAG IV INF, INIT 04-26-2015 ANKIT FLORENCE 05412 CPT-4 THER/PROPH/DIAG IV INF, INIT 04-27-2015 ANKIT FLORENCE 95538 CPT-4 THER/PROPH/DIAG IV INF, INIT 04-27-2015 ANKIT FLORENCE 13811 CPT-4 THER/PROPH/DIAG IV INF ADDON 04-24-2015 ANKIT FLORENCE 98463 CPT-4 THER/PROPH/DIAG IV INF ADDON 04-25-2015 ANKIT FLORENCE 24087 CPT-4 THER/PROPH/DIAG IV INF ADDON 04-25-2015 ANKIT FLORENCE 38855 CPT-4 THER/PROPH/DIAG IV INF ADDON 04-26-2015 ANKIT FLORENCE 27645 CPT-4 THER/PROPH/DIAG IV INF ADDON 04-26-2015 ANKIT FLORENCE 86697 CPT-4 THER/PROPH/DIAG IV INF ADDON 04-27-2015 ANKIT FLORENCE 58969 CPT-4 THER/PROPH/DIAG IV INF ADDON 04-27-2015 ANKIT FLORENCE 68602 CPT-4 TX/PROPH/DG ADDL SEQ IV INF 04-26-2015 ANKIT FLORENCE 98170 CPT-4 TX/PROPH/DG ADDL SEQ IV INF 04-27-2015 ANKIT FLORENCE 14721 CPT-4 TX/PROPH/DG ADDL SEQ IV INF 04-27-2015 [...] Finding Observation Time Hearing Prob Loc none 47-97-834295:00 Vision Problems no 43-76-463943:00 Ambulation Asst Dev none 68-54-356980:00 Bathing Assistance none 89-60-858115:00 Eating Assistance none 56-91-345890:00 Dressing Assistance none 64-68-894147:00 Toileting Assistance none :00 Transfer Assistance none [...] :00 Physical no :00 Hearing no :00 Binder Operator Needed no :00 Sign Language no :00 [...]
--- OUTSIDE RECORDS SUMMARY | 2018-11-03 14:17 | XMS REPORT ---
Author Author [facility] Medical Staff Organization [facility] Address [address] [id number] Phone [phone] Care Team Providers Care Human Resources Analyst Name Role Phone GALA EVANS MD PP [phone] Summary purpose TRANSITION OF CARE AUTO GENERATION [...]
--- OUTSIDE RECORDS SUMMARY | 2018-11-03 14:17 | XMS REPORT ---
Author Author [facility] Medical Staff Organization [facility] [employer] [facility] Address [address] [id number] Phone [phone] Care Team Providers Care Mobile Developer Name Role Phone TABITHA VALADEZ MD PP [phone] Summary purpose TRANSITION OF CARE AUTO GENERATION [...] tests and/or laboratory data RESULTS Radiology Results [id number]:02:00 LUMBAR SPINE XRAY - 5V PACs Image [...] change in facet joints at L4-5. Elena Coto, DO MW/car 12/24/2014 11:43: / 12/24/2014 11:54:22 cc:Kings Velasquez PA-C This document has been electronically [...] facet joints at L4-5. Elena Coto DO [facility] 12/24/2014 11:43:12/24/2014 11:54:22 cc:Kings Velasquez PA-C This document has been electronically Signed by: ELENA COTO DO On: 20149:02P Result Amended on 2014-12-24 at 21:02:37. Previous status was [place]. History of procedures No procedures recorded for [...]
--- OUTSIDE RECORDS SUMMARY | 2018-11-03 14:17 | XMS REPORT ---
Author Author [facility] Medical Staff Organization [place] [employer] [facility] Address [address] [id number] Phone [phone] Care Team Providers Care Powerbuilder Name Role Phone RORY GILMORE, TABITHA PP [phone] Summary purpose TRANSITION OF CARE AUTO GENERATION [...] Code Type Description Date Performed Performing Physician J1885 CPT-4 TORADOL SYR 30MG/ML 04-11-2015 COLIN MART J3010 CPT-4 FENTANYL CITRATE INJECITON 04-11-2015 COLIN MART J3360 CPT-4 DIAZEPAM INJECTION 04-11-2015 COLIN MART 16280 CPT-4 EMERGENCY DEPT VISIT 04-11-2015 COLIN MART 24455 CPT-4 EMERGENCY DEPT VISIT 04-11-2015 COLIN MART 48361 CPT-4 THER/PROPH/DIAG INJ, IV PUSH 04-11-2015 COLIN MART 81877 CPT-4 TX/PRO/DX INJ NEW DRUG ADDON 04-11-2015 COLIN MART Functional status Functional Status Finding Observation Time Diet regular 18-30-943871:05 Abdomen Appearance flat 47-74-539807:05 Abdomen non-tender 90-51-593031:05 Shaw no 55-14-043808:05 Urination normal 64-48-026800:05 Quality sym/unlabored 68-70-484959:05 Cough absent : Secretions no :05 Breath Sounds RUL clear :05 Breath Sounds RML clear : Breath Sounds RLL clear : Breath Sounds ASHKAN clear : Breath Sounds LLL clear :05 Airway natural : Chest Tube no : Oxygen no :15 Temp >100.4 no : Temp <96.8 no :15 Chills with rigors no : HR > 90bpm no : Respirations > 20 no : Systolic <90 no :15 headache stiff neck no :15 Rapid Resp no :15 IV Site Location L FA :15 IV Type peripheral :25 IV Site Information discontinued :15 IV Site Start Attmpt 1 times :25 IV Site Deshaun 20 :25 IV Site Appearance WNL :25 IV Site Color clear : IV Site Patent yes :25 Dressing Type occlusive :25 Nursing Note SL dcd intact. Pt verb understanding of inst and pt assisted off unit per w/c in stable condition. :15 Vital signs Type Value Date Respiration Rate 16breaths per minute :15 Pulse 83beats per minute :15 Oxygen Saturation 100% :15 BP Systolic 138mmHg :15 BP Diastolic 82mmHg :15 Temperature 98.0F :15 Social history Type Value Smoking Status NEVER SMOKER Treatment Plan No treatment plan text is available for this visit. Hospital discharge instructions Dismissal Condition fair Disposition on DC home DC Inst/Educ Give yes Med/Side Effects Rev yes PNE Vac None Flu Vac None Tetanus Vac Current
--- OUTSIDE RECORDS SUMMARY | 2018-11-03 14:17 | XMS REPORT ---
Author Author [facility] Medical Staff Organization [facility] Address [address] [place] [id number] Phone [phone] Summary purpose TRANSITION OF CARE AUTO GENERATION [...] tests and/or laboratory data RESULTS Radiology Results [id number]:54:00 MRI BRAIN W/WO CONT PACs Image DATE [...] on basis of aging. Otherwise normal study. DO ABAD Walters/car 10/14/2015 14:18:00 / 10/14/2015 14:51:31 cc:Erin Borrero PA-C This [...] aging. Otherwise normal study. Elena Coto DO /ma 10/14/2015 14:18:00 / 10/14/2015 14:51:31 cc:Erin Borrero PA-C This document has been electronically Signed by: ELENA COTO DO On: Oct 14 20156:54P Result Amended on 2015-10-14 at 18:54:53. Previous status was [place]. History of procedures No procedures recorded for [...]
--- OUTSIDE RECORDS SUMMARY | 2018-11-03 14:17 | XMS REPORT ---
Author Author [facility] Medical Staff Organization [place] [employer] [facility] Address [address] [id number] Phone [phone] Care Team Providers Care Internal Revenue Agent Name Role Phone RORY GILMORE, TABITHA PP [phone] Summary purpose TRANSITION OF CARE AUTO GENERATION [...] Relevant diagnostic tests and/or laboratory data RESULTS Routine Cultures [id number]:10:00 Wound Culture Plate Date and Time 04/26/2015 11:32 Source[employer]OT CULTURE REPORT No Pathogens Isolated at 24 hours. Release Date/Time: 04/27/2015 09:55 CULTURE REPORT Small Amount of Staphylococcus species.ID & Sensitivity to follow Release Date/Time: 04/28/2015 10:43 GRAM STAIN Rare Amount WBC's No Organisms Seen. Release Date/Time: 04/27/2015 09:32 ORGID #1:Small Amount STAPHYLOCOCCUS AUREUS Release Date/Time: 04/29/2015 08:38 Sensitivity #1: STAAUR AMPICILLIN > 8 R AMOX CLAV<=4/2 S CLINDAMYCIN<=0.5S CEFAZOLIN<=4S CIPROFLOXACIN<=1S DAPTOMYCIN 1 S GENTAMICIN <=4S AMPICILLIN SULBACTAM <=8/4 S LEVOFLOXACIN <=1S LINEZOLID4 S MOXIFLOXACIN <=0.5S OXACILLIN0.5 S PENICILLIN > 8 R RIFAMPIN <=1S TRIMETHSULFA <=0.5/9.5 S TETRACYCLINE <=4S VANCOMYCIN 2 S History of procedures Procedure Code Code Type Description Date Performed Performing Physician 82000 CPT-4 CULTR BACTERIA EXCEPT BLOOD 04-26-2015 ANKIT FLORENCE 22998 CPT-4 SMEAR GRAM STAIN 04-26-2015 ANKIT FLORENCE Functional status No functional or cognitive status [...]
--- OUTSIDE RECORDS SUMMARY | 2018-11-03 14:18 | XMS REPORT | Continuity of Care Document ---
Author Organization Unknown Address Unknown Allergies Active Description Code Type Severity Reaction Onset Reported/Identified Relationship to Patient Clinical Status Yes No known drug allergies [id number] ND N/A N/A Yes No known allergies Drug N/A N/A Medications There is no data. Problems Date Dx Coded Attending Type Code Diagnosis Diagnosed By 08/24/2015 YADI GILMORE, PAULINA Delcid M25.561 Pain in right knee 08/24/2015 PAULINA GRULLON MD M25.562 Pain in left knee 09/25/2018 Magaly Brady Final I10 Essential (primary) hypertension 09/25/2018 Magaly Brady Final M19.90 Unspecified osteoarthritis, unspecified site 09/25/2018 Magaly Brady Reason For Visit Z01.818 Encounter for other preprocedural examination 10/09/2018 VALENTINE HOSKINS Reason For Visit R56.9 Unspecified convulsions 10/10/2018 ROBIN RUSSELL Final B95.62 Methicillin resistant Staphylococcus aureus infection as the cause of diseases classified elsewhere 10/10/2018 ROBIN RUSSELL D72.829 Elevated white blood cell count, unspecified 10/10/2018 ROBIN RUSSELL Final E87.6 Hypokalemia 10/10/2018 ROBIN RUSSELL Final G20 Parkinson's disease 10/10/2018 ROBIN RUSSELL Final I10 Essential (primary) hypertension 10/10/2018 ROBIN RUSSELL Final L03.116 Cellulitis of left lower limb 10/10/2018 ROBIN RUSSELL Final R41.82 Altered mental status, unspecified 10/10/2018 ROBIN RUSSELL Final R53.1 Weakness 10/10/2018 ROBIN RUSSELL Reason For Visit R56.9 Unspecified convulsions 10/10/2018 ROBIN RUSSELL Final R73.9 Hyperglycemia, unspecified 10/10/2018 ROBIN RUSSELL Final T81.49XA Infection following a procedure, other surgical site, initial encounter 10/10/2018 ROBIN RUSSELL Final Z16.11 Resistance to penicillins 10/10/2018 ROBIN RUSSELL Final Z79.899 Other prison (current) drug therapy 10/13/2018 VALENTINE HOSKINS Final G20 Parkinson's disease 10/13/2018 VALENTINE HOSKINS Final G25.81 Restless legs syndrome 10/13/2018 VALENTINE HOSKINS Reason For Visit R56.9 Unspecified convulsions 10/23/2018 ROBIN RUSSELL Final G20 Parkinson's disease 10/23/2018 ROBIN RUSSELL Final I10 Essential (primary) hypertension 10/23/2018 ROBIN RUSSELL Final R35.0 Frequency of micturition 10/23/2018 ROBIN RUSSELL Final R53.83 Other fatigue 10/23/2018 ROBIN RUSSELL Admitting T81.40XA Infection following a procedure, unspecified, initial encounter 10/23/2018 ROBIN RUSSELL Final T81.49XA Infection following a procedure, other surgical site, initial encounter 10/23/2018 ROBIN RUSSELL Final Z79.899 Other prison (current) drug therapy 10/25/2018 Darwin Justice Final 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 10/25/2018 Darwin Justice Reason For Visit T81.49XA Infection following a procedure, other surgical site, initial encounter 10/26/2018 Darwin Justice Final 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 10/26/2018 Darwin Justice Reason For Visit T81.49XA Infection following a procedure, other surgical site, initial encounter Procedures Code Description [place] [address] X-RAY EXAM OF FOOT 03/26/2015 66445 ROUTINE VENIPUNCTURE 04/08/2015 92029 METABOLIC PANEL TOTAL CA 04/08/2015 37684 COMPLETE CBC W/AUTO DIFF WBC 04/08/2015 97487 ROUTINE VENIPUNCTURE 04/09/2015 36873 METABOLIC PANEL TOTAL CA 04/09/2015 81462 COMPLETE CBC W/AUTO DIFF WBC 04/09/2015 06894 ELECTROCARDIOGRAM, TRACING 04/09/2015 12281 THER/PROPH/DIAG INJ, IV PUSH 04/11/2015 16097 TX/PRO/DX INJ NEW DRUG ADDON 04/11/2015 08117 EMERGENCY DEPT VISIT 04/11/2015 J1885 TORADOL SYR 30MG/ML 04/11/2015 J3010 FENTANYL CITRATE INJECITON 04/11/2015 J3360 DIAZEPAM INJECTION 04/11/2015 74241 ROUTINE VENIPUNCTURE 05/05/2015 49316 ASSAY OF VANCOMYCIN 05/05/2015 J7040 NORMAL SALINE SOLUTION INFUS 05/05/2015 J7050 NORMAL SALINE SOLUTION INFUS 05/05/2015 77041 X-RAY EXAM OF KNEE 1 OR 2 PAULINA GRULLON MD R 08/24/2015 75070 X-RAY EXAM OF KNEES PAULINA GRULLON MD R 08/24/2015 46369 ROUTINE VENIPUNCTURE 09/21/2015 86143 COMPREHEN METABOLIC PANEL 09/21/2015 71833 COMPLETE CBC W/AUTO DIFF WBC 09/21/2015 00428 BLOOD CULTURE FOR BACTERIA 09/21/2015 29926 EMERGENCY DEPT VISIT 09/21/2015 47754 EMERGENCY DEPT VISIT 09/21/2015 21915 PT RE-EVALUATION 09/21/2015 46233 THERAPEUTIC EXERCISES 09/21/2015 22814 THERAPEUTIC EXERCISES 09/29/2015 48429 COMPREHEN METABOLIC PANEL 10/26/2015 11645 ASSAY OF VITAMIN D 10/26/2015 82141 ASSAY OF PARATHORMONE 10/26/2015 32365 COMPLETE CBC W/AUTO DIFF WBC 10/26/2015 Results Test Result Range CRYSTAL EXAM - 10/22/14 00:00 CRYST CAPYRO CELL COUNT BDY FLD - 10/22/14 00:00 FLD WBC 693348 /cumm FLD RBC 927318 /cumm FLD MENG 97.0 % FLD LYM 3.0 % CBC WITH DIFF - 10/23/14 00:00 BASO% 0.5 % 0-2 EOS% 2.0 % 0-7.0 HCT 40.7 % 36.9-47.0 HGB 13.2 G/DL 12.0-16.0 LYMPH% 14.8 % 20-40 MCH 28.2 PG 27-31 MCHC 32.4 G/DL 33-37 MCV 87.0 FL 81-99 MONO% 7.6 % 0-10.0 MPV 11.0 FL 7.3-10.4 NEUTRO% 74.8 % 40-70 PLT 317 10^3u 130-400 RBC 4.7 10^6u 4.2-5.4 RDW 13.3 % 11.5-15.5 WBC 9.7 10^3u 4.8-10.8 NEUTRO# 7.3 10^3u 1.5-7.5 LYMPH# 1.4 10^3u 0.9-4.0 MONO# 0.7 10^3u 0-0.8 EOS# 0.2 10^3u 0-0.6 BASO# 0.1 10^3u 0-0.1 IMM GRANULOCYTE % 0.3 % IMM GRANULOCYTE # 0.0 10^3u 0-5 CMP - 10/23/14 00:00 ALB 3.2 G/DL 3.5-5 ALP 101 IU/L 25-72 ALT 20 IU/L 12-65 AST 15 IU/L 10-42 BCR 23.5 10-20 BUN 20 MG/DL 7-18 CA 9.0 MG/DL 8.4-10.2 CL 103 MEQ/L 98-107 CO2 26.7 MEQ/L 22-28 CREA 0.85 MG/DL 0.6-1.0 EGFR 68 eGFR >=60 GLU 122 MG/DL 70-105 K 3.1 MEQ/L 3.5-5.1 NA 140 MEQ/L 134-145 OSMSC 283.3 MOSML 280-300 TBIL 0.2 MG/DL 0.1-1.0 TP 7.2 G/DL 6.0-8.3 Albumin/Globulin Ratio 0.8 0-8 Anion Gap 10.3 8-16 CBC WITH DIFF - 04/07/15 00:00 BASO% 0.8 % 0-2 EOS% 2.4 % 0-7.0 HCT 42.8 % 36.9-47.0 HGB 13.6 G/DL 12.0-16.0 LYMPH% 21.8 % 20-40 MCH 29.1 PG 27-31 MCHC 31.8 G/DL 33-37 MCV 91.5 FL 81-99 MONO% 5.2 % 0-10.0 MPV 10.2 FL 7.3-10.4 NEUTRO% 69.5 % 40-70 PLT 298 10^3u 130-400 RBC 4.7 10^6u 4.2-5.4 RDW 12.2 % 11.5-15.5 WBC 7.9 10^3u 4.8-10.8 NEUTRO# 5.5 10^3u 1.5-7.5 LYMPH# 1.7 10^3u 0.9-4.0 MONO# 0.4 10^3u 0-0.8 EOS# 0.2 10^3u 0-0.6 BASO# 0.1 10^3u 0-0.1 IMM GRANULOCYTE % 0.3 % IMM GRANULOCYTE # 0.0 10^3u 0-5 BMP - 04/07/15 00:00 BCR 36.7 10-20 BUN 29 MG/DL 7-18 CA 8.2 MG/DL 8.4-10.2 CL 108 MEQ/L 98-107 CO2 28.3 MEQ/L 22-28 CREA 0.79 MG/DL 0.6-1.0 EGFR 74 eGFR >=60 GLU 102 MG/DL 70-105 K 3.7 MEQ/L 3.5-5.1 NA 143 MEQ/L 134-145 OSMSC 291.0 MOSML 280-300 Anion Gap 6.7 12-06 VANCOT - 04/24/15 00:00 VANCOT 2.9 UG/ML 02-11 VANCOT - 04/26/15 00:00 VANCOT 16.2 UG/ML 02-11 VANCOT - 04/29/15 00:00 VANCOT 14.8 UG/ML 02-11 CBC WITH DIFF - 09/21/15 00:00 BASO% 0.6 % 0-2 EOS% 5.1 % 0-7.0 HCT 32.3 % 36.9-47.0 HGB 10.6 G/DL 12.0-16.0 LYMPH% 15.0 % 20-40 MCH 29.7 PG 27-31 MCHC 32.8 G/DL 33-37 MCV 90.5 FL 81-99 MONO% 7.8 % 0-10.0 MPV 10.5 FL 7.3-10.4 NEUTRO% 71.3 % 40-70 PLT 330 10^3u 130-400 RBC 3.6 10^6u 4.2-5.4 RDW 12.5 % 11.5-15.5 WBC 8.4 10^3u 4.8-10.8 NEUTRO# 6.0 10^3u 1.5-7.5 LYMPH# 1.3 10^3u 0.9-4.0 MONO# 0.7 10^3u 0-0.8 EOS# 0.4 10^3u 0-0.6 BASO# 0.1 10^3u 0-0.1 IMM GRANULOCYTE % 0.2 % IMM GRANULOCYTE # 0.0 10^3u 0-5 CMP - 09/21/15 00:00 ALB 3.0 G/DL 3.5-5 ALP 112 IU/L 25-72 ALT 32 IU/L 12-65 AST 18 IU/L 10-42 BCR 21.7 10-20 BUN 15 MG/DL 7-18 CA 8.5 MG/DL 8.4-10.2 CL 102 MEQ/L 98-107 CO2 28.8 MEQ/L 22-28 CREA 0.69 MG/DL 0.6-1.0 EGFR 86 eGFR >=60 GLU 98 MG/DL 70-105 K 3.8 MEQ/L 3.5-5.1 NA 138 MEQ/L 134-145 OSMSC 276.5 MOSML 280-300 TBIL 0.8 MG/DL 0.1-1.0 TP 6.7 G/DL 6.0-8.3 Albumin/Globulin Ratio 0.8 0-8 Anion Gap 7.2 8-16 CMP - 10/26/15 00:00 ALB 3.7 G/DL 3.5-5 ALP 116 IU/L 25-72 ALT 24 IU/L 12-65 AST 22 IU/L 10-42 BCR 21.2 10-20 BUN 17 MG/DL 7-18 CA 8.9 MG/DL 8.4-10.2 CL 104 MEQ/L 98-107 CO2 26.9 MEQ/L 22-28 CREA 0.80 MG/DL 0.6-1.0 EGFR 73 eGFR >=60 GLU 114 MG/DL 70-105 K 3.3 MEQ/L 3.5-5.1 NA 141 MEQ/L 134-145 OSMSC 283.7 MOSML 280-300 TBIL 0.3 MG/DL 0.1-1.0 TP 7.2 G/DL 6.0-8.3 Albumin/Globulin Ratio 1.1 0-8 Anion Gap 10.1 8-16 CBC WITH DIFF - 10/26/15 00:00 BASO% 1.0 % 0-2 EOS% 4.4 % 0-7.0 HCT 37.6 % 36.9-47.0 HGB 12.2 G/DL 12.0-16.0 LYMPH% 28.8 % 20-40 MCH 29.3 PG 27-31 MCHC 32.4 G/DL 33-37 MCV 90.4 FL 81-99 MONO% 5.5 % 0-10.0 MPV 10.6 FL 7.3-10.4 NEUTRO% 60.2 % 40-70 PLT 312 10^3u 130-400 RBC 4.2 10^6u 4.2-5.4 RDW 12.7 % 11.5-15.5 WBC 6.9 10^3u 4.8-10.8 NEUTRO# 4.1 10^3u 1.5-7.5 LYMPH# 2.0 10^3u 0.9-4.0 MONO# 0.4 10^3u 0-0.8 EOS# 0.3 10^3u 0-0.6 BASO# 0.1 10^3u 0-0.1 IMM GRANULOCYTE % 0.1 % IMM GRANULOCYTE # 0.0 10^3u 0-5 PTH INTACT - 10/26/15 00:00 PTH INTACT 57 pg/mL 14-64 VITAMIN D 25 HYDROXY - 10/26/15 00:00 VITD 25 OH TOTAL 25 ng/mL 30-100 VIT D 25 OH D2 < 4 ng/mL See Below VIT D 25 OH D3 25 ng/mL See Below Encounters ACCT No. Visit Date/Time Discharge Status Pt. Type Provider Facility Loc./Unit Complaint [id number] 08/24/2015 14:34:00 08/24/2015 14:34:00 DIS Outpatient YADI GILMORE, PAULINA Duran [facility] OTHER [id number] 11/22/2015 00:01:00 12/22/2015 23:59:00 DIS Outpatient PAULINA GRULLON [facility] PT [id number] 11/03/2015 10:54:00 11/21/2015 23:59:00 DIS Outpatient PAULINA GRULLON [facility] PT [id number] 10/22/2015 00:01:00 11/21/2015 23:59:00 DIS Outpatient PAULINA GRULLON [facility] PT [id number] 10/26/2015 16:25:00 10/26/2015 16:25:00 DIS Outpatient ROGER TAYLOR [facility] PANACE [id number] 09/22/2015 00:01:00 10/21/2015 23:59:00 DIS Outpatient PAULINA GRULLON [facility] PT [id number] 10/14/2015 12:48:00 10/14/2015 12:48:00 DIS Outpatient GAGANDEEP TRA [facility] RAD [id number] 10/12/2015 12:54:00 10/12/2015 12:54:00 CAN Outpatient GAGANDEEP TRA [facility] RAD [id number] 09/21/2015 09:20:00 09/21/2015 23:59:00 DIS Outpatient PAULINA GRULLON [facility] PT [id number] 09/21/2015 21:14:00 09/21/2015 23:06:00 DIS Emergency DEMETRIA ROBERTS [facility] EMR [id number] 05/06/2015 12:35:00 05/06/2015 12:35:00 DIS Outpatient MATTHEW KRISHNAMURTHY [facility] RAD [id number] 05/06/2015 07:48:00 05/06/2015 07:48:00 DIS Outpatient GAGANDEEP TRA [facility] RAD [id number] 04/23/2015 19:51:00 05/04/2015 20:30:00 DIS Outpatient ANKIT FLORENCE [facility] OBS [id number] 04/26/2015 11:19:00 04/26/2015 11:19:00 DIS Outpatient ANKIT FLORENCE [facility] LAB [id number] 04/11/2015 04:53:00 04/11/2015 10:20:00 DIS Emergency COLIN MART [facility] EMR [id number] 04/09/2015 09:23:00 04/09/2015 14:30:00 DIS Outpatient MATTHEW KRISHNAMURTHY [facility] OPS [id number] 03/25/2015 00:00:00 03/25/2015 00:00:00 DIS Outpatient MATTHEW KRISHNAMURTHY [facility] RAD [id number] 12/24/2014 10:53:00 12/24/2014 10:53:00 DIS Outpatient ANKIT FLORENCE Bhavin [facility] RAD [id number] 10/23/2014 18:47:00 10/23/2014 20:10:00 DIS Emergency MIKAEL AMAYA [facility] EMR [id number] 10/22/2014 14:14:00 10/22/2014 23:59:59 CLS Outpatient ANKIT FLORENCE [facility] ORTHO [id number] 03/22/2015 00:00:00 Document Registration [id number] 03/22/2015 00:00:00 Document Registration [id number] 03/22/2015 00:00:00 Document Registration [id number] 03/22/2014 00:00:00 Document Registration [id number] 03/22/2014 00:00:00 Document Registration [id number] 03/22/2014 00:00:00 Document Registration [id number] 10/13/2018 12:38:05 10/28/2018 16:11:00 DIS R YVONNE [facility] SARA INF Left foot post op infection; MRSA [id number] 10/26/2018 20:39:58 10/26/2018 23:59:59 DIS Outpatient Vinh [facility] [id number] 10/25/2018 16:54:00 10/25/2018 18:36:00 DIS Emergency Vinh [facility] SARA ED ed visit [id number] 10/23/2018 13:08:04 10/23/2018 23:59:59 CLS Preadmit [facility] SARA PT D/C from Hospital [id number] 10/20/2018 09:16:21 10/23/2018 14:08:00 DIS Inpatient ROBIN RUSSELL [facility] SARA MS weakness, frequent falls, inability to do ADLs, cellulitis [id number] 10/13/2018 09:49:00 10/13/2018 12:20:00 DIS Emergency VALENTINE HOSKINS [facility] SRAA ED ed visit [id number] 10/10/2018 11:06:01 10/12/2018 14:15:00 DIS Inpatient ROBIN RUSSELL [facility] SARA MS (L) FOOT CELLULITIS, POST-OP INFECTION, ABCESS, NEW ONSET SEIZURE-LIKE ACTIVITY, WEAKNESS, AMS [id number] 10/09/2018 15:58:00 10/10/2018 10:28:00 DIS V ROBIN RUSSELL [facility] SARA MS new onset seizure activity [id number] 10/09/2018 05:57:18 10/09/2018 23:59:59 DIS Outpatient VALENTINE HOSKINS [facility] [id number] 09/25/2018 14:00:00 09/25/2018 23:59:59 DIS Outpatient Magaly Brady [facility] [id number] 09/24/2018 13:30:00 09/24/2018 23:59:59 CLS Outpatient Magaly Brady [facility] [id number] 09/17/2018 14:30:00 09/17/2018 23:59:59 CLS Outpatient Aminta Price [facility] [id number] 09/10/2018 14:57:19 09/10/2018 23:59:59 DIS Outpatient Aminta Price [facility] SARA RAD blue toe left foot 3rd toe [id number] 09/10/2018 14:19:50 09/10/2018 23:59:59 DIS Outpatient Aminta Price [facility] lab, xray [id number] 09/10/2018 13:46:08 09/10/2018 23:59:59 DIS Outpatient Aminta Price [facility] [id number] 04/10/2018 14:02:31 06/19/2018 16:25:00 DIS Naomi Phillips [facility] SARA PT Parkinsons [id number] 05/03/2018 13:45:00 05/03/2018 23:59:59 DIS Outpatient ROBIN RUSSELL [facility] [id number] 09/26/2017 11:22:17 09/26/2017 23:59:59 DIS Outpatient Magaly Brady [facility] lab [id number] 09/26/2017 10:45:00 09/26/2017 23:59:59 DIS Outpatient Magaly Brady [facility] [id number] 03/12/2017 14:33:02 03/12/2017 23:59:59 DIS Outpatient YVONNE ROBIN [facility] Lab lab [id number] 03/12/2017 13:30:00 03/12/2017 23:59:59 DIS Outpatient YVONNE [facility] [id number] 01/22/2017 13:30:00 01/22/2017 23:59:59 DIS Outpatient YVONNE [facility] [id number] 01/22/2017 13:58:08 Document Registration [id number] 10/25/2018 20:05:56 ACT Unknown [id number] 04/05/2016 09:47:36 04/05/2016 23:59:59 CLS Outpatient Jarad Donaldson [id number] 11/04/2015 11:50:58 11/04/2015 23:59:59 CLS Outpatient Selam Yee
[2018-11-03 15:34] VITALS: BP 80/44
[2018-11-03] MEDS ORDERED: NS IV 1000 ML 1,000 ML IV SCH (15:45)
[2018-11-03 15:56] LABS: BASOPHILS % (AUTO) 0 % (0-10); EOSINOPHILS # (AUTO) 0.1 10^3/uL (0.0-0.3); EOSINOPHILS % (AUTO) 1 % (0-10); HEMATOCRIT 33 % (35-52); LYMPHOCYTES # (AUTO) 1.1 X 10^3 (1.0-4.0); LYMPHOCYTES % (AUTO) 6 % (12-44); MEAN CORPUSCULAR HEMOGLOBIN 27 PG (25-34); MEAN CORPUSCULAR HGB CONC 31 G/DL (32-36); MEAN CORPUSCULAR VOLUME 87 FL (80-99); MEAN PLATELET VOLUME 10.4 FL (7.4-10.4); MONOCYTES # (AUTO) 1.6 X 10^3 (0.0-1.0); MONOCYTES % (AUTO) 9 % (0-12); NEUTROPHILS # (AUTO) 15.4 X 10^3 (1.8-7.8); NEUTROPHILS % (AUTO) 85 % (42-75); PLATELET COUNT 600 10^3/uL (130-400); RED CELL DISTRIBUTION WIDTH 20.5 % (10.0-14.5); WHITE BLOOD COUNT 18.2 10^3/uL (4.3-11.0)
[2018-11-03] MEDS ORDERED: ACETAMINOPHEN 325 MG TABLET PO PRN (16:00)
[2018-11-03 16:12] LABS: ANISOCYTOSIS MODERATE; BAND NEUTROPHILS 0 %; BASOPHILS % (MANUAL) 0 %; ELLIPT/OVALOCYTES SLIGHT; EOSINOPHILS % (MANUAL) 0 %; HYPOCHROMASIA MODERATE; LYMPHOCYTES % (MANUAL) 7 %; MONOCYTES % (MANUAL) 7 %; NEUTROPHILS % (MANUAL) 86 %; POLYCHROMASIA SLIGHT; TARGET CELLS SLIGHT; TEAR DROP CELLS SLIGHT
[2018-11-03 16:16] LABS: ALANINE AMINOTRANSFERASE < 6 U/L (0-55); ALBUMIN 3.5 GM/DL (3.2-4.5); ALKALINE PHOSPHATASE 130 U/L (40-136); BILIRUBIN,TOTAL 0.3 MG/DL (0.1-1.0); BUN/CREATININE RATIO 31; CALCIUM 9.1 MG/DL (8.5-10.1); CARBON DIOXIDE 19 MMOL/L (21-32); CHLORIDE 103 MMOL/L (98-107); CREATININE SERUM 1.43 MG/DL (0.60-1.30); GFR ESTIMATED 37; GLUCOSE 108 MG/DL (70-105); SODIUM 136 MMOL/L (135-145); TOTAL PROTEIN 6.3 GM/DL (6.4-8.2)
[2018-11-03] MEDS ORDERED: ARTIFICAL TEARS 0.4 ML UNIT DOSE (REFRESH PLUS) OU PRN (16:30)
[2018-11-03] MEDS ORDERED: HALOPERIDOL 5 MG (HALDOL) TAB PO PRN (16:30)
[2018-11-03] MEDS ORDERED: DOXYCYCLINE 100 MG (VIBRAMYCIN) TABLET PO SCH (17:00)
[2018-11-03] MEDS ORDERED: SINEMET 25/100 (CARBIDOPA/LEVODOPA) TAB PO SCH (17:00)
[2018-11-03] MEDS ORDERED: LEVETIRACETAM 500 MG (KEPPRA) TAB PO SCH (21:00)
[2018-11-03] MEDS ORDERED: LOSARTAN 25 MG (COZAAR) TAB PO SCH (21:00)
[2018-11-03] MEDS ORDERED: SINEMET CR 50/200 (CARBIDOPA/LEVODOPA SA) TAB PO SCH (21:00)
[2018-11-03] MEDS ORDERED: QUEtiapine 25 MG (SEROquel) TAB IMMEDIATE RELEASE PO SCH (21:00)
[2018-11-03] MEDS ORDERED: AMANTADINE 100 MG (SYMMETREL) CAP PO SCH (21:00)
[2018-11-03] MEDS ORDERED: SENNA W/DOCUSATE (SENOKOT S) TABLET PO SCH (21:00)
[2018-11-03] MEDS ORDERED: MELATONIN 3 MG TABLET PO SCH (21:00)
[2018-11-04] MEDS ORDERED: COLLAGENASE 30 GM (SANTYL) TUBE TP SCH (09:00)
[2018-11-04 10:38] LABS: POTASSIUM 4.3 MMOL/L (3.6-5.0)
--- NOTE | 2018-11-04 10:59 | PM&R H&P / Post Admit Assess ---
History of Present Illness HPI/Chief Complaint Proposed IRF admit but patient required ICU transfer shortly after arrival due to severe hypotension with sepsis: Chief complaint: Severe sepsis requiring ICU transfer History of present illness: This is a 62-year-old white female patient of health care provider Ayde Hickman out of [place], [place] who originally was to be admitted in inpatient rehab today from [facility] for intensive rehab and recovery following encephalopathy and seizure-like activity with severe rigidity from Parkinson's disease following a very complex left foot surgery status post bunionectomy 1 month ago 10/02/18 in [facility]. Apparently she had problems and required a revision 1 week after the original surgery then it showed an a bscess formation on 10/13/18 which required incision and drainage and placement of IV antibiotics of Vanc and Levaquin to cover MRSA and Pseudomonas in the infusion center at [place], [place]. She had presented to the ER there with confusion and visual hallucinations on 10/25/18 and her son reported that her Parkinson's medications have been "messed up" since before her surgery when she originally was told to stop taking her blood pressure medication of losartan and instead she stopped the amantadine that further complicated the situation. Patient was transferred to on 10/27/18 for higher level of care and to be treated by Dr Fernandez her Neurologist. She was placed on Keppra for the seizure-like activity and EEG showed slowed background and they suspected to not be an epileptic seizure but maintained on Keppra in the meantime. Orthopedics saw her found the patient not to be a surgical candidate at this time until the ulcers healed and hardware would be removed in 6-12 months from now. She remains not weightbearing on the left foot. Extensive records from reviewed and conferred with Dr. Choi ship officer since she presented to inpatient rehab with a blood pressure of 80/43 and that was rechecked and confirmed patient appeared to be lethargic so labs were obtained stat showing leukocytosis of 18,000 and elevated lactic acid 2.1 that was rechecked at 3.0 requiring aggressive IV fluids per severe sepsis protocol. I appreciate Dr. Choi's intervention and her plan is to check a C. difficile colitis sample because of diarrhea reports and placement back on antibiotic coverage recommended by infectious disease at . Source: patient, RN/MD, old records Exam Limitations: clinical condition Date Seen 11/03/18 Time Seen by a Provider: 17:15 Attending Physician Roxanne Lima DO PCP No,Local Physician Referring Physician Date of Admission Nov 03, 2018 at 13:41 Home Medications & Allergies Home Medications Reviewed patient Home Medication Reconciliation performed by pharmacy medication reconciliations microcomputer technician and/or nursing. Patients Allergies have been reviewed. Allergies Allergies Coded Allergies No Known Drug Allergies (Unverified11/03/18) Past Jeynize-Ftxfrn-Erncyv Hx Past Med/Social Hx: Reviewed Nursing Past Med/Soc Hx, Reviewed and Corrections made Patient Social History Marrital Status: single Employed/Student: employed ([employer]) Alcohol Use: Denies Use Recreational Drug Use: No Smoking Status: Never a Smoker Physical Abuse Screen: No Sexual Abuse: No Recent Foreign Travel: No Contact w/other who traveled: No Recent Hopitalizations: Yes Recent Infectious Disease Expo: No Immunizations Up To Date Pediatric: Yes Seasonal Allergies Seasonal Allergies: No Past Medical History Surgeries: Orthopedic Currently Using CPAP: No Currently Using BIPAP: No Neurological: Parkinson's Disease : No Psychosocial: Anxiety History of Blood Disorders: No Adverse Reaction to Blood Degroot: No Family History Alcoholism 19 MOTHER Diabetes mellitus G8 BROTHER Parkinson's disease 19 FATHER Review of Systems Constitutional: see HPI, dizziness, fever, malaise, weakness EENTM: no symptoms reported Respiratory: no symptoms reported Cardiovascular: no symptoms reported Gastrointestinal: diarrhea, loss of appetite Genitourinary: no symptoms reported Musculoskeletal: joint pain (left foot) Skin: no symptoms reported Psychiatric/Neurological: No Symptoms Reported All Other Systems Reviewed Negative Unless Noted: Yes Physical Exam Exam Vital Signs Vital Signs Date Time Temp Pulse Resp B/P (MAP) Pulse Ox O2 Delivery O2 Flow Rate FiO2 11/03/18 15:34 99.0 80 18 80/44 (56) 96 Room Air Capillary Refill : Less Than 3 Seconds General Appearance: Anxious, Chronically ill, Cachetic, Mild Distress, Thin HEENT: PERRL/EOMI, Normal ENT Inspection, Pharynx Normal, Moist Mucous Membranes, Other (dry MM) Neck: Full Range of Motion, Normal Inspection, Non Tender, Supple Respiratory: Chest Non Tender, Lungs Clear, Normal Breath Sounds, No Accessory Muscle Use, No Respiratory Distress Cardiovascular: Regular Rate, Rhythm, No Edema, No Gallop, No JVD, No Murmur Gastrointestinal: Normal Bowel Sounds, No Organomegaly, No Pulsatile Mass, Non Tender, Soft Back: Normal Inspection, No CVA Tenderness, No Vertebral Tenderness Extremity: Normal Capillary Refill, Normal Inspection, Normal Range of Motion, Non Tender, No Calf Tenderness, No Pedal Edema, Other (left foot dressing intact reviewed ulcers ) Neurologic/Psychiatric: Alert, Oriented x3, No Motor/Sensory Deficits, Normal Mood/Affect, blueprint machine operator II-XII Norm as Tested Skin: Normal Color, Warm/Dry Lymphatic: No Adenopathy Results Results/Procedures Labs Laboratory Tests 11/03/18 15:44 Patient resulted labs reviewed. Assessment/Plan Assessment and Plan Assess & Plan/Chief Complaint Assessment: Severe sepsis requiring ICU transfer Plan: See ICU plan Admit back to IRF once stable Post Admission Physician Asses Date seen by provider: Nov 03, 2018 Time seen by provider: 17:15 Admisison Dx: (1) Severe sepsis Status: Acute (2) Cachexia Status: Acute (3) Dehydration Status: Acute (4) Anemia of chronic disease Status: Chronic (5) Confusion Status: Acute (6) Diarrhea Status: Acute (7) Renal failure, acute Status: Acute (8) Leukocytosis Status: Acute (9) Parkinson disease Status: Chronic (10) Visual hallucinations Status: Acute (11) Sepsis Status: Acute (12) Debility Status: Acute (13) Hypotension Status: Acute (14) Thrombocytosis Status: Acute (15) Encephalopathy acute Status: Acute (16) Rigidity Status: Acute (17) Polymicrobial bacterial infection Status: Acute (18) Osteomyelitis of foot Status: Acute (19) Witnessed seizure-like activity Status: Acute (20) Wound of left foot Status: Acute The preadmission screen agrees with the post admission assessment that the patient is a good candidate for inpatient rehabilitation. The patient will have a comprehensive program of inpatient rehabilitation with a goal of maximizing level of functional independence prior to discharge home with family. The patient will have PT/OT ninety minutes per day, each discipline, five days a week for gait, strengthening, conditioning, balance, ADLs, any patient/family/caregiver training as necessary. Speech therapy to do cognitive assessment and treat as indicated. Rehabilitation nursing to assist with bowel, bladder, skin, wound care, medication administration, pain management. Compressed Gases Tester to assist with discharge planning, community reentry. SCD's for DVT prophylaxis. She appears to be well motivated to participate in three hours of therapy a day. She should be able to tolerate three hours of therapy a day from a medical standpoint. She should benefit from the three hours of therapy a day. She has a reasonable discharge plan, reasonable discharge rehabilitation goals and a supportive family. She has various comorbidities that need to be closely monito red with medications and treatments adjusted on a daily basis as needed. These include: see list Barriers to discharge for this patient who had been independent prior to this are for her to be modified independent to supervision for ADLs and mobility skills prior to discharge home with family, so as to lessen the burden of the caregivers. Risks for this patient include: 1. Fall 2. Fracture 3. DVT 4. Pulmonary embolism 5. Wound infection 6. Skin breakdown 7. Contractures 8. Poorly controlled pain 9. Urinary retention 10. UTI 11. Respiratory infection 12. Aspiration Estimated Length of Stay: 14 days Prognosis: Rehab prognosis appears good for goal of discharge home with family modified independent to supervision for ADLs and mobility skills. Will assess the patient after stable from ICU ROXANNE LIMA DO Nov 04, 2018 10:59
[2018-11-04] MEDS ORDERED: LEVOFLOXACIN 750 MG TAB (LEVAQUIN) PO SCH (11:00)
[2018-11-04] MEDS ORDERED: GABA-486 PO (11:34)
[2018-11-04] MEDS ORDERED: HYDR-3812 PO (11:34)
[2018-11-04] MEDS ORDERED: MIRT30TA6 PO (11:34)
[2018-11-04] MEDS ORDERED: DICL50TA6 PO (11:34)
[2018-11-04] MEDS ORDERED: CARB1TAB19 PO (11:34)
[2018-11-04] MEDS ORDERED: LOSA25TA41 PO (11:34)
[2018-11-04] MEDS ORDERED: LEVO500T80 PO (11:34)
[2018-11-04] MEDS ORDERED: CARB1TAB41 PO (11:34)
[2018-11-04] MEDS ORDERED: AMAN100C18 PO (11:34)
[2018-11-04] MEDS ORDERED: LEVE500T99 PO (11:36)
== END 2018-11-03 17:20 | disposition short-term general hospital (02) | DRG 56 ==
LOC: UNDOLOA 17:34
PROVIDERS: ADMIT Internal Medicine; ATTEND Internal Medicine
DX: G20 Parkinson's disease (principal); G93.40 Encephalopathy, unspecified; A41.9 Sepsis, unspecified organism; N17.9 Acute kidney failure, unspecified; L97.529 Non-pressure chronic ulcer of other part of left foot with unspecified severity; I95.9 Hypotension, unspecified; R19.7 Diarrhea, unspecified; F41.9 Anxiety disorder, unspecified
CPT/HCPCS: 36415; 80053; 83605; 85007; 85027; 87040

== ENCOUNTER 2018-11-03 17:21 | Inpatient (IN) | payer BC ==
[2018-11-03] VITALS (7 sets, daily range): BP systolic 119–147; BP diastolic 66–91
[~2018-11-03] VITALS: Ht 170.2 cm; Wt 59.9 kg
--- OUTSIDE RECORDS SUMMARY | 2018-11-03 17:29 | XMS REPORT | Continuity of Care Document ---
Author Organization Unknown Address Unknown Allergies Active Description Code Type Severity Reaction Onset Reported/Identified Relationship to Patient Clinical Status Yes No known drug allergies [id number] ND N/A N/A Yes No known allergies [...] penicillins 10/10/2018 ROBIN RUSSELL Final Z79.899 Other custodial (current) drug therapy 10/13/2018 VALENTINE HOSKINS Final [...] encounter 10/23/2018 ROBIN RUSSELL Final Z79.899 Other custodial (current) drug therapy 10/25/2018 Darwin Justice Final [...] Procedures Code [place] [address] X-RAY EXAM OF FOOT 03/26/2015 39203 ROUTINE VENIPUNCTURE 04/08/2015 74269 METABOLIC PANEL TOTAL CA 04/08/2015 68170 COMPLETE CBC W/AUTO DIFF WBC 04/08/2015 15326 ROUTINE VENIPUNCTURE 04/09/2015 63499 METABOLIC PANEL TOTAL CA 04/09/2015 52236 COMPLETE CBC W/AUTO DIFF WBC 04/09/2015 93069 ELECTROCARDIOGRAM, TRACING 04/09/2015 01072 THER/PROPH/DIAG INJ, IV PUSH 04/11/2015 56837 TX/PRO/DX INJ NEW DRUG ADDON 04/11/2015 49927 EMERGENCY DEPT VISIT 04/11/2015 J1885 TORADOL SYR 30MG/ML 04/11/2015 J3010 FENTANYL CITRATE INJECITON 04/11/2015 J3360 DIAZEPAM INJECTION 04/11/2015 43282 ROUTINE VENIPUNCTURE 05/05/2015 09233 ASSAY OF VANCOMYCIN 05/05/2015 J7040 NORMAL SALINE SOLUTION INFUS 05/05/2015 J7050 NORMAL SALINE SOLUTION INFUS 05/05/2015 75883 X-RAY EXAM OF KNEE 1 OR 2 PAULINA GRULLON MD R 08/24/2015 92907 X-RAY EXAM OF KNEES PAULINA GRULLON MD R 08/24/2015 04465 ROUTINE VENIPUNCTURE 09/21/2015 04080 COMPREHEN METABOLIC PANEL 09/21/2015 73342 COMPLETE CBC W/AUTO DIFF WBC 09/21/2015 08406 BLOOD CULTURE FOR BACTERIA 09/21/2015 05812 EMERGENCY DEPT VISIT 09/21/2015 50767 EMERGENCY DEPT VISIT 09/21/2015 98869 PT RE-EVALUATION 09/21/2015 18395 THERAPEUTIC EXERCISES 09/21/2015 19021 THERAPEUTIC EXERCISES 09/29/2015 75836 COMPREHEN METABOLIC PANEL 10/26/2015 76358 ASSAY OF VITAMIN D 10/26/2015 79511 ASSAY OF PARATHORMONE 10/26/2015 46224 COMPLETE CBC W/AUTO DIFF WBC 10/26/2015 Results Test Result Range CRYSTAL EXAM - 10/22/14 00:00 CRYST CAPYRO CELL COUNT BDY FLD - 10/22/14 00:00 FLD WBC 937799 /cumm FLD RBC 756649 /cumm FLD MENG 97.0 % FLD LYM [...] Status Pt. Type Provider Facility Loc./Unit Complaint [id number] 08/24/2015 14:34:00 08/24/2015 14:34:00 DIS Outpatient YADI GILMORE, PAULINA [facility] OTHER [id number] 11/22/2015 00:01:00 12/22/2015 23:59:00 DIS Outpatient PAULINA GRULLON [facility] PT [id number] 11/03/2015 10:54:00 11/21/2015 23:59:00 DIS Outpatient PAULINA GRULLON [facility] PT [id number] 10/22/2015 00:01:00 11/21/2015 23:59:00 DIS Outpatient PAULINA GRULLON [facility] PT [id number] 10/26/2015 16:25:00 10/26/2015 16:25:00 DIS Outpatient ROGER TAYLOR [facility] PANACE [id number] 09/22/2015 00:01:00 10/21/2015 23:59:00 DIS Outpatient PAULINA GRULLON [facility] PT [id number] 10/14/2015 12:48:00 10/14/2015 12:48:00 DIS Outpatient GAGANDEEP TRA [facility] RAD [id number] 10/12/2015 12:54:00 10/12/2015 12:54:00 CAN Outpatient GAGANDEEP TRA [facility] RAD [id number] 09/21/2015 09:20:00 09/21/2015 23:59:00 DIS Outpatient PAULINA GRULLON [facility] PT [id number] 09/21/2015 21:14:00 09/21/2015 23:06:00 DIS Emergency DEMETRIA ROBERTS [facility] EMR [id number] 05/06/2015 12:35:00 05/06/2015 12:35:00 DIS Outpatient MATTHEW KRISHNAMURTHY [facility] RAD [id number] 05/06/2015 07:48:00 05/06/2015 07:48:00 DIS Outpatient GAGANDEEP TRA [facility] RAD [id number] 04/23/2015 19:51:00 05/04/2015 20:30:00 DIS Outpatient ANKIT FLORENCE [facility] OBS [id number] 04/26/2015 11:19:00 04/26/2015 11:19:00 DIS Outpatient ANKIT FLORENCE [facility] LAB [id number] 04/11/2015 04:53:00 04/11/2015 10:20:00 DIS Emergency COLIN MART [facility] EMR [id number] 04/09/2015 09:23:00 04/09/2015 14:30:00 DIS Outpatient MATTHEW KRISHNAMURTHY [facility] OPS [id number] 03/25/2015 00:00:00 03/25/2015 00:00:00 DIS Outpatient MATTHEW KRISHNAMURTHY [facility] RAD [id number] 12/24/2014 10:53:00 12/24/2014 10:53:00 DIS Outpatient ANKIT FLORENCE Bhavin [facility] RAD [id number] 10/23/2014 18:47:00 10/23/2014 20:10:00 DIS Emergency MIKAEL AMAYA [facility] EMR [id number] 10/22/2014 14:14:00 10/22/2014 23:59:59 CLS Outpatient ANKIT FLORENCE [facility] ORTHO [id number] 03/22/2015 00:00:00 Document Registration [id number] 03/22/2015 00:00:00 Document Registration [id number] 03/22/2015 00:00:00 Document Registration [id number] 03/22/2014 00:00:00 Document Registration [id number] 03/22/2014 00:00:00 Document Registration [id number] 03/22/2014 00:00:00 Document Registration [id number] 10/13/2018 12:38:05 10/28/2018 16:11:00 DIS R YVONNE [facility] SARA INF Left foot post op infection; MRSA [id number] 10/26/2018 20:39:58 10/26/2018 23:59:59 DIS Outpatient Vinh [facility] [id number] 10/25/2018 16:54:00 10/25/2018 18:36:00 DIS Emergency Vinh [facility] SARA ED ed visit [id number] 10/23/2018 13:08:04 10/23/2018 23:59:59 CLS Preadmit [facility] SARA PT D/C from Hospital [id number] 10/20/2018 09:16:21 10/23/2018 14:08:00 DIS Inpatient ROBIN RUSSELL [facility] SARA MS weakness, frequent falls, inability to do ADLs, cellulitis [id number] 10/13/2018 09:49:00 10/13/2018 12:20:00 DIS Emergency VALENTINE HOSKINS [facility] SARA ED ed visit [id number] 10/10/2018 11:06:01 10/12/2018 14:15:00 DIS Inpatient ROBIN RUSSELL [facility] SARA MS (L) FOOT CELLULITIS, POST-OP INFECTION, ABCESS, NEW ONSET SEIZURE-LIKE ACTIVITY, WEAKNESS, AMS [id number] 10/09/2018 15:58:00 10/10/2018 10:28:00 DIS V ROBIN RUSSELL [facility] SARA MS new onset seizure activity [id number] 10/09/2018 05:57:18 10/09/2018 23:59:59 DIS Outpatient VALENTINE HOSKINS [facility] [id number] 09/25/2018 14:00:00 09/25/2018 23:59:59 DIS Outpatient Magaly Brady [facility] [id number] 09/24/2018 13:30:00 09/24/2018 23:59:59 CLS Outpatient Magaly Brady [facility] [id number] 09/17/2018 14:30:00 09/17/2018 23:59:59 CLS Outpatient Aminta Price [facility] [id number] 09/10/2018 14:57:19 09/10/2018 23:59:59 DIS Outpatient Aminta Price [facility] SARA RAD blue toe left foot 3rd toe [id number] 09/10/2018 14:19:50 09/10/2018 23:59:59 DIS Outpatient Aminta Price [facility] lab, xray [id number] 09/10/2018 13:46:08 09/10/2018 23:59:59 DIS Outpatient Aminta Price [facility] [id number] 04/10/2018 14:02:31 06/19/2018 16:25:00 DIS Naomi Phillips [facility] SARA PT Parkinsons [id number] 05/03/2018 13:45:00 05/03/2018 23:59:59 DIS Outpatient ROBIN RUSSELL [facility] [id number] 09/26/2017 11:22:17 09/26/2017 23:59:59 DIS Outpatient Magaly Brady [facility] lab [id number] 09/26/2017 10:45:00 09/26/2017 23:59:59 DIS Outpatient Magaly Brady [facility] [id number] 03/12/2017 14:33:02 03/12/2017 23:59:59 DIS Outpatient YVONNE ROBIN [facility] Lab lab [id number] 03/12/2017 13:30:00 03/12/2017 23:59:59 DIS Outpatient YVONNE [facility] [id number] 01/22/2017 13:30:00 01/22/2017 23:59:59 DIS Outpatient YVONNE [facility] [id number] 01/22/2017 13:58:08 Document Registration [id number] 10/25/2018 20:05:56 ACT Unknown [id number] 04/05/2016 09:47:36 04/05/2016 23:59:59 CLS Outpatient Jarad Donaldson [id number] 11/04/2015 11:50:58 11/04/2015 23:59:59 CLS Outpatient Selam Yee
[2018-11-03] MEDS ORDERED: VANCOMYCIN INJECTION 0.1 MG in NS (IVPB) 250 ML IV SCH (17:45)
[2018-11-03] MEDS ORDERED: MEROPENEM 1,000 MG in WATER (STERILE) FOR INJECTION 20 ML IV SCH (17:45)
[2018-11-03] MEDS ORDERED: MEROPENEM 1000 MG (MERREM) VIAL IV ONE (18:07)
[2018-11-03] MEDS ORDERED: WATER (STERILE) FOR INJECTION 20 ML ONE (18:08)
[2018-11-03] MEDS: NS IV 1000 ML 1,000 ML IV SCH ×3 (18:21→21:12)
[2018-11-03] MEDS ORDERED: NS IV 1000 ML 1,000 ML IV SCH (18:45)
[2018-11-03] MEDS ORDERED: HALOPERIDOL 5 MG/ML (HALDOL) AMP IV PRN (20:00)
[2018-11-03] MEDS ORDERED: HALOPERIDOL 5 MG/ML (HALDOL) AMP IV ONE (20:00)
[2018-11-03] MEDS: metroNIDAZOLE 500MG/100ML IVPB 100 ML IV SCH (21:12)
[2018-11-03] MEDS: morphine INJ 10 MG/ML 1ML (SYR OR VIAL) IVP PRN (21:13)
--- NOTE | 2018-11-03 21:21 | History & Physical ---
History of Present Illness HPI/Chief Complaint Chief complaint: Severe sepsis requiring ICU transfer History of present illness: This is a 62-year-old white female patient of health care provider Ayde Hickman out of [place], [place] who originally was to be admitted in inpatient rehab today from [facility] for intensive rehab and recovery following encephalopathy and seizure-like activity with severe rigidity from Parkinson's disease following a very complex left foot surgery status post bunionectomy 1 month ago 10/02/18 in [facility]. Apparently she had problems and required a revision 1 week after the original surgery then it showed an abscess formation on 10/13/18 which required incision and drainage and placement of IV antibiotics of Vanc and Levaquin to cover MRSA and Pseudomonas in the infusion center at [place], [place]. She had presented to the ER there with confusion and visual hallucinations on 10/25/18 and her son reported that her Parkinson's medications have been "messed up" since before her surgery when she originally was told to stop taking her blood pressure medication of losartan and instead she stopped the amantadine that further complicated the situation. Patient was transferred to on 10/27/18 for higher level of care and to be treated by Dr Fernandez her Neurologist. She was placed on Keppra for the seizure- like activity and EEG showed slowed background and they suspected to not be an epileptic seizure but maintained on Keppra in the meantime. Orthopedics saw her found the patient not to be a surgical candidate at this time until the ulcers healed and hardware would be removed in 6-12 months from now. She remains not weightbearing on the left foot. Extensive records from reviewed and conferred with Dr. Choi tie maker since she presented to inpatient rehab with a blood pressure of 80/43 and that was rechecked and confirmed patient appeared to be lethargic so labs were obtained stat showing leukocytosis of 18,000 and elevated lactic acid 2.1 that was rechecked at 3.0 requiring aggressive IV fluids per severe sepsis protocol. I appreciate Dr. Choi's intervention and her plan is to check a C. difficile colitis sample because of diarrhea reports and placement back on antibiotic coverage recommended by i nfectious disease at . Source: patient, RN/MD, old records Exam Limitations: clinical condition Date Seen 11/03/18 Time Seen by a Provider: 17:15 Attending Physician Roxanne Lima DO PCP No,Local Physician Referring Physician Date of Admission Nov 03, 2018 at 17:21 Home Medications & Allergies Home Medications Reviewed patient Home Medication Reconciliation performed by pharmacy medication reconciliations r and d lab technician and/or nursing. Patients Allergies have been reviewed. Allergies Allergies Coded Allergies No Known Drug Allergies (Unverified11/03/18) Past Hfbydvi-Udlbim-Vmympz Hx Past Med/Social Hx: Reviewed Nursing Past Med/Soc Hx, Reviewed and Corrections made Patient Social History Marrital Status: single Employed/Student: employed ([employer]) Alcohol Use: Denies Use Smoking Status: Never a Smoker Recent Hopitalizations: Yes Immunizations Up To Date Pediatric: Yes Seasonal Allergies Seasonal Allergies: No Past Medical History Surgeries: Orthopedic (left foot 10/09 bunion) Currently Using CPAP: No Currently Using BIPAP: No Cardiac: Hypertension Neurological: Parkinson's Disease Psychosocial: Anxiety History of Blood Disorders: No Adverse Reaction to Blood Degroot: No Family History Alcoholism 19 MOTHER Diabetes mellitus G8 BROTHER Parkinson's disease 19 FATHER Review of Systems Constitutional: see HPI, dizziness, malaise, weakness EENTM: no symptoms reported Respiratory: no symptoms reported Cardiovascular: no symptoms reported Gastrointestinal: diarrhea, loss of appetite, nausea Genitourinary: no symptoms reported Musculoskeletal: joint pain (left foot) Skin: see HPI Psychiatric/Neurological: Anxiety, Depressed All Other Systems Reviewed Negative Unless Noted: Yes Physical Exam Physical Exam Vital Signs Vital Signs - First Documented 11/03/18 11/03/18 17:03 20:00 Temp 98.5 Pulse 87 Resp 15 B/P (MAP) 119/91 (100) Pulse Ox 100 O2 Delivery Room Air Capillary Refill : Height, Weight, BMI Height: 5'7.00" Weight: 130lbs. 0.3oz. 58.565014ja; 20.4 BMI Method: General Appearance: WD/WN, Anxious, Chronically ill, Cachetic, Mild Distress, Thin, Other (frail, frightened) Eyes: Bilateral Eye Normal Inspection, Bilateral Eye PERRL HEENT: PERRL/EOMI, Normal ENT Inspection, Pharynx Normal, Other (dry mucous membranes) Neck: Full Range of Motion, Normal Inspection, Non Tender, Supple, Carotid Bruit Respiratory: Chest Non Tender, Lungs Clear, Normal Breath Sounds, No Accessory Muscle Use, No Respiratory Distress Cardiovascular: No Edema, No Gallop, No JVD, No Murmur, Normal Peripheral Pulses, Tachycardia Gastrointestinal: Normal Bowel Sounds, No Organomegaly, No Pulsatile Mass, Non Tender, Soft Back: Normal Inspection, No CVA Tenderness, No Vertebral Tenderness Extremity: Normal Capillary Refill, Normal Inspection, Normal Range of Motion, Non Tender, No Calf Tenderness, No Pedal Edema, Other (left foot with dressing and foot brace) Neurologic/Psychiatric: Alert, Oriented x3, No Motor/Sensory Deficits, Normal Mood/Affect Skin: Normal Color, Warm/Dry Lymphatic: No Adenopathy Results Results/Procedures Labs Patient resulted labs reviewed. Assessment/Plan Admission Diagnosis Assessment: Severe Sepsis Hypotension Leukocytosis Dehydration Encephalopathy Poor reserve with severe debility Seizure-like activity requiring Keppra initiation EEG 10/10/18 mild background slowing 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 per [facility] AR[facility] Severe PD Left foot cellulitis and osteomyelitis placed on Levaquin and Doxycycline per ID at [facility] s/p two dorsal open foot ulcers with tendon visible previous bunion surgery 10/02/18 in [place], [place] with revision 1 week later s/p abscess drained now ortho allowing wounds to heal before hardware removed Anemia Diarrhea Plan: Aggressive IVF Abx Seizure precautions C diff check Pain control ICU monitoring Admission Status: Inpatient Order (span 2 midnights) Reason for Inpatient Admission: Severe sepsis with ARF and hypotension will require ICU management and pancultured Diagnosis/Problems Diagnosis/Problems (1) Severe sepsis Status: Acute (2) Sepsis Status: Acute Qualifiers: Sepsis type: sepsis due to unspecified organism Qualified Codes: A41.9 - Sepsis, unspecified organism (3) Parkinson disease Status: Chronic (4) Cachexia Status: Acute (5) Dehydration Status: Acute (6) Anemia of chronic disease Status: Chronic (7) Confusion Status: Acute (8) Diarrhea Status: Acute Qualifiers: Diarrhea type: presumed infectious Qualified Codes: R19.7 - Diarrhea, unspecified (9) Renal failure, acute Status: Acute Qualifiers: Acute renal failure type: unspecified Qualified Codes: N17.9 - Acute kidney failure, unspecified (10) Leukocytosis Status: Acute Qualifiers: Leukocytosis type: leukemoid reaction Qualified Codes: D72.823 - Leukemoid reaction (11) Visual hallucinations Status: Acute (12) Debility Status: Acute (13) Hypotension Status: Acute Qualifiers: Hypotension type: unspecified hypotension type Qualified Codes: I95.9 - Hypotension, unspecified (14) Thrombocytosis Status: Acute (15) Encephalopathy acute Status: Acute (16) Rigidity Status: Acute (17) Polymicrobial bacterial infection Status: Acute (18) Osteomyelitis of foot Status: Acute Qualifiers: Laterality: left (19) Witnessed seizure-like activity Status: Acute (20) Wound of left foot Status: Acute Clinical Quality Measures DVT/VTE Risk/Contraindication: Risk Factor Score Per Nursin RFS Level Per Nursing on Admit: 4+=Very High ROXANNE LIMA DO Nov 03, 2018 21:21
[2018-11-03] MEDS ORDERED: morphine INJ 4 MG/ML 1 ML (VIAL/SYRINGE) IVP PRN (22:30)
[2018-11-04] VITALS (18 sets, daily range): BP systolic 105–164; BP diastolic 61–94
[2018-11-04] MEDS: NS IV 1000 ML 1,000 ML IV SCH ×3 (00:47→16:10)
[2018-11-04] MEDS: MEROPENEM 500 MG/SWFI 10 ML IV PUSH IV SCH ×6 (02:49→18:58)
[2018-11-04 03:17] LABS: BASOPHILS % (AUTO) 0 % (0-10); EOSINOPHILS # (AUTO) 0.2 10^3/uL (0.0-0.3); EOSINOPHILS % (AUTO) 2 % (0-10); HEMATOCRIT 32 % (35-52); LYMPHOCYTES # (AUTO) 1.7 X 10^3 (1.0-4.0); LYMPHOCYTES % (AUTO) 11 % (12-44); MEAN CORPUSCULAR HEMOGLOBIN 27 PG (25-34); MEAN CORPUSCULAR HGB CONC 31 G/DL (32-36); MEAN CORPUSCULAR VOLUME 86 FL (80-99); MEAN PLATELET VOLUME 10.4 FL (7.4-10.4); MONOCYTES # (AUTO) 1.2 X 10^3 (0.0-1.0); MONOCYTES % (AUTO) 8 % (0-12); NEUTROPHILS # (AUTO) 12.1 X 10^3 (1.8-7.8); NEUTROPHILS % (AUTO) 79 % (42-75); PLATELET COUNT 476 10^3/uL (130-400); RED CELL DISTRIBUTION WIDTH 20.1 % (10.0-14.5); WHITE BLOOD COUNT 15.3 10^3/uL (4.3-11.0)
[2018-11-04 03:42] LABS: CREATININE SERUM 1.24 MG/DL (0.60-1.30); MAGNESIUM 1.9 MG/DL (1.8-2.4); PHOSPHORUS 4.6 MG/DL (2.3-4.7); POTASSIUM 4.1 MMOL/L (3.6-5.0)
[2018-11-04] MEDS: morphine INJ 10 MG/ML 1ML (SYR OR VIAL) IVP PRN (05:22)
[2018-11-04] MEDS: metroNIDAZOLE 500MG/100ML IVPB 100 ML IV SCH ×3 (05:27→22:50)
--- NOTE | 2018-11-04 05:41 | Pulmonary Consultation ---
History of Present Illness History of Present Illness Date of Consultation 11/04/18 05:41 Time Seen by Provider: 06:49 Date of Admission History of Present Illness 62yo pt presented as direct admit to ICU from ARU secondary to worsening sepsis, and hypotension. PT was just admitted to ARU today from for rehabilitation. She has a dx of encephalopathy, Parkinson's, cellulitis/osteomyelitis of left foot post buninectomy 1 month ago at [place]. After buninectomy pt required revision then developed abscess that required I&D. She was treated in patient with Levaquin, and vanco from MRSA and Pseudomonas infections. While at pt was placed on Keppra for seizure-like activity. Ortho is planning on removing hardware in 6-12months after ulcer heals. Pt has also been having diarrhea. I am consulted for ICU management. Allergies and Home Medications Allergies Coded Allergies: No Known Drug Allergies (Unverified , 11/03/18) Past Idywvaf-Hnvnro-Lphssw Hx Past Med/Social Hx: Reviewed Nursing Past Med/Soc Hx, Reviewed and Corrections made Patient Social History Alcohol Use: Denies Use Smoking Status: Never a Smoker Recent Hopitalizations: Yes Immunizations Up To Date PED Vaccines UTD: Yes Seasonal Allergies Seasonal Allergies: No Past Medical History Surgeries: Yes Orthopedic (left foot 10/09 bunion) Respiratory: No Currently Using CPAP: No Currently Using BIPAP: No Cardiac: Yes Hypertension Neurological: Yes Parkinson's Disease Genitourinary: No Gastrointestinal: No Musculoskeletal: Yes (osteomylitis-2nd/3rd toe removed) Endocrine: No HEENT: No Cancer: No Psychosocial: Yes Anxiety Integumentary: No Blood Disorders: No Adverse Reaction/Blood Tranf: No Family Medical History Alcoholism 19 MOTHER Diabetes mellitus G8 BROTHER Parkinson's disease 19 FATHER Review of Systems Time Seen by Provider: 06:57 Constitutional: Fever, Chills, Sweats, Weakness, Malaise, Other Eyes: No: Pain, Vision change, Conjunctivae inflammation, Eyelid inflammation, Other, Redness ENT: Nose congestion; No: Ear pain, Ear discharge, Nose pain, Nose discharge, Mouth pain, Mouth swelling, Throat pain, Throat swelling, Other Respiratory: Shortness of breath, SOB with excertion; No: Cough, Dry, Wheezing, Hemoptysis, Pleuritic Pain, Sputum, Wheezing, Other Cardiovascular: Lt Headedness; No: Chest Pain, Palpitations, Orthopnea, Paroxysmal Noc. Dyspnea, Edema, Other Gastrointestinal: No: Nausea, Vomiting, Abdominal Pain, Diarrhea, Constipation, Melena, Hematochezia, Other Neurological: Incoordination, Confusion, Seizures; No: Change in speech Sepsis Event Evaluation Height, Weight, BMI Height: 5'7.00" Weight: 130lbs. 0.3oz. 58.739573yd; 20.4 BMI Method: Exam Exam Vital Signs Date Time Temp Pulse Resp B/P (MAP) Pulse Ox O2 Delivery O2 Flow Rate FiO2 11/04/18 04:55 98.2 11/04/18 03:00 101 11 141/87 (105) 100 Room Air 11/04/18 02:00 97 15 159/89 (112) 100 Room Air 11/04/18 01:00 104 13 160/88 (112) 97 Room Air 11/04/18 01:00 104 11/04/18 00:46 97.9 11/04/18 00:20 Room Air 11/04/18 00:00 96 20 155/87 (109) 98 Room Air 11/03/18 23:00 104 12 147/74 (98) 100 Room Air 11/03/18 22:00 98 9 141/68 (92) 99 Room Air 11/03/18 21:00 99 12 119/66 (83) 100 Room Air 11/03/18 20:02 Room Air 11/03/18 20:00 98.5 11/03/18 20:00 90 12 147/76 (99) 93 Room Air 11/03/18 19:00 106 11/03/18 19:00 106 11 137/76 (96) Room Air 11/03/18 18:00 83 14 135/67 (89) 100 Room Air 11/03/18 17:30 96 Room Air 11/03/18 17:03 84 15 119/91 (100) 100 Room Air 11/03/18 17:03 87 I & O 11/04/18 06:59 Intake Total 3100 ml Output Total 0 ml Balance 3100 ml Height & Weight Height: 5'7.00" Weight: 130lbs. 0.3oz. 58.838767mg; 20.4 BMI Method: General Appearance: WD/WN, Anxious, Chronically ill, Cachetic, Mild Distress, Thin, Other (frail, frightened) HEENT: PERRL/EOMI, Normal ENT Inspection, Pharynx Normal, Other (dry mucous membranes) Neck: Full Range of Motion, Normal Inspection, Non Tender, Supple, Carotid Bruit Respiratory: Chest Non Tender, Lungs Clear, Normal Breath Sounds, No Accessory Muscle Use, No Respiratory Distress Cardiovascular: No Edema, No Gallop, No JVD, No Murmur, Normal Peripheral Pulses, Tachycardia Extremity: Normal Capillary Refill, Normal Inspection, Normal Range of Motion, Non Tender, No Calf Tenderness, No Pedal Edema, Other (left foot with dressing and foot brace) Neurologic/Psychiatric: Alert, Oriented x3, No Motor/Sensory Deficits, Normal Mood/Affect Skin: Normal Color, Warm/Dry Lymphatic: No Adenopathy Results Lab Laboratory Tests 11/04/18 03:02 Assessment/Plan Assessment/Plan Severe sepsis probably secondary to osteomyelitis and left foot wound -Consult wound care -Not septic shock -Start Vanco, Merrem, and Flagyl -Yoon cultures Hypotension secondary to dehydration -Improved with IVF Diarrhea -check Cdiff toxin Delirium/ Psychosis with visual hallucinations -Haldol PRN -Add morphine PRN Parkinson's with dementia Acute renal failure with dehydration -IVF Anemia -Monitor Seizures -BREEZY Bragg DO Nov 04, 2018 05:41
--- NOTE | 2018-11-04 05:47 | Pulmonary Progress Note ---
Subjective Time Seen by a Provider: 07:08 Subjective/Events-last exam PT required Haldol last night secondary to confusion and agitation. Sepsis Event Evaluation Height, Weight, BMI Height: 5'7.00" Weight: 130lbs. 0.3oz. 58.112145db; 20.4 BMI Method: Exam Exam Vital Signs Date Time Temp Pulse Resp B/P (MAP) Pulse Ox O2 Delivery O2 Flow Rate FiO2 11/04/18 04:55 98.2 11/04/18 03:00 101 11 141/87 (105) 100 Room Air 11/04/18 02:00 97 15 159/89 (112) 100 Room Air 11/04/18 01:00 104 13 160/88 (112) 97 Room Air 11/04/18 01:00 104 11/04/18 00:46 97.9 11/04/18 00:20 Room Air 11/04/18 00:00 96 20 155/87 (109) 98 Room Air 11/03/18 23:00 104 12 147/74 (98) 100 Room Air 11/03/18 22:00 98 9 141/68 (92) 99 Room Air 11/03/18 21:00 99 12 119/66 (83) 100 Room Air 11/03/18 20:02 Room Air 11/03/18 20:00 98.5 11/03/18 20:00 90 12 147/76 (99) 93 Room Air 11/03/18 19:00 106 11/03/18 19:00 106 11 137/76 (96) Room Air 11/03/18 18:00 83 14 135/67 (89) 100 Room Air 11/03/18 17:30 96 Room Air 11/03/18 17:03 84 15 119/91 (100) 100 Room Air 11/03/18 17:03 87 I & O 11/04/18 06:59 Intake Total 3100 ml Output Total 0 ml Balance 3100 ml Height & Weight Height: 5'7.00" Weight: 130lbs. 0.3oz. 58.115383bg; 20.4 BMI Method: General Appearance: WD/WN, Anxious, Chronically ill, Cachetic, Mild Distress, Thin HEENT: PERRL/EOMI, Normal ENT Inspection, Pharynx Normal, Other (dry mucous membranes) Neck: Full Range of Motion, Normal Inspection, Non Tender, Supple, Carotid Bruit Respiratory: Chest Non Tender, Lungs Clear, Normal Breath Sounds, No Accessory Muscle Use, No Respiratory Distress Cardiovascular: No Edema, No Gallop, No JVD, No Murmur, Normal Peripheral Pulses, Tachycardia Extremity: Normal Capillary Refill, Normal Inspection, Normal Range of Motion, Non Tender, No Calf Tenderness, No Pedal Edema, Other (left foot with dressing and foot brace) Neurologic/Psychiatric: Alert, Oriented x3, No Motor/Sensory Deficits, Normal Mood/Affect Skin: Normal Color, Warm/Dry Lymphatic: No Adenopathy Results Lab Laboratory Tests 11/04/18 03:02 Assessment/Plan Assessment/Plan Severe sepsis probably secondary to osteomyelitis and left foot wound -Consult wound care -Not septic shock -Vanco, Merrem, and Flagyl -Yoon cultures Hypotension secondary to dehydration - Now resolved -Improved with IVF Metabolic acidosis -repeat LA and check ABG HTN -Add Lopressor, and Lisinopril Diarrhea -check Cdiff toxin - pending Delirium/ Psychosis with visual hallucinations -Haldol PRN - morphine PRN -Family requests Seroquel QHS - Will add Parkinson's with dementia -Obtain and restart home meds Acute renal failure with dehydration -IVF Anemia -Monitor Seizures -BREEZY Bragg DO Nov 04, 2018 05:47
[2018-11-04] MEDS ORDERED: POTASSIUM CL 10MEQ/50ML IVPB 50 ML IV SCH (06:00)
[2018-11-04] MEDS ORDERED: KCL 20 MEQ TAB (K-DUR) PO SCH (06:00)
[2018-11-04] MEDS ORDERED: MAGNESIUM 1 GM/100 ML IVPB 100 ML IV SCH (06:00)
[2018-11-04 06:53] LABS: ABG BASE EXCESS -7.3 MMOL/L (-2.5-2.5); ABG OXYGEN SATURATION 97 % (94-100); ABG PCO2 31 MMHG (35-45); ABG PH 7.36 (7.37-7.43); ABG PO2 96 MMHG (79-93); ABG TCO2 17.9 MMOL/L (21.0-31.0)
[2018-11-04 07:13] LABS: ALLENS TEST YES-POS; INSPIRED O2 ROOM AIR; PATIENT TEMP 99.1; VENTILATOR NO
[2018-11-04] MEDS ORDERED: HALOPERIDOL 5 MG/ML (HALDOL) AMP IV PRN (07:15)
[2018-11-04] MEDS: meTOprolol TARTRATE 25 MG (LOPRESSOR) TABLET PO SCH ×2 (08:24→21:36)
[2018-11-04] MEDS: lisINopril 10 MG (PRINIVIL) TABLET PO SCH (08:25)
[2018-11-04] MEDS ORDERED: VANCOMYCIN 1250 MG/NS 250 ML IVPB IV NR ×2 (08:30)
[2018-11-04] MEDS ORDERED: LEVETIRACETAM 500 MG (KEPPRA) TAB PO SCH (09:00)
--- NOTE | 2018-11-04 09:27 | Diagnostic Imaging Report ---
EXAMINATION: Chest radiograph, portable AP view. DATE: November 04, 2018 at 0506 hours. INDICATION: 62-year-old female, sepsis. COMPARISON: None. FINDINGS: Heart size and mediastinal contours are unremarkable. There is no identified pneumothorax. There is no large pleural effusion. There is no identified focal airspace consolidation. IMPRESSION: No identified acute cardiopulmonary abnormality. Dictated by: Dictated on workstation # [id number]
[2018-11-04 09:50] LABS: BILIRUBIN,URINE NEGATIVE (NEGATIVE); CLARITY,URINE CLEAR; COLOR,URINE YELLOW; GLUCOSE, URINE (UA) NEGATIVE (NEGATIVE); KETONES,URINE NEGATIVE (NEGATIVE); LEUKOCYTE ESTERASE ,URINE 2+ (NEGATIVE); NITRITE,URINE NEGATIVE (NEGATIVE); PH,URINE 5 (5-9); PROTEIN,URINE 1+ (NEGATIVE); UROBILINOGEN,URINE NORMAL (NORMAL)
[2018-11-04 10:06] LABS: BACTERIA,URINE FEW /HPF; SQUAMOUS EPITHELIAL CELL,UR 0-2 /HPF
--- NOTE | 2018-11-04 10:46 | Progress Note - Hospitalist ---
Subjective HPI/CC On Admission Date Seen by Provider: Nov 04, 2018 Time Seen by Provider: 09:30 Chief complaint: Severe sepsis requiring ICU transfer History of present illness: This is a 62-year-old white female patient of health care provider Ayde Hickman out of [place], [place] who originally was to be admitted in inpatient rehab today from [facility] for intensive rehab and recovery following encephalopathy and seizure-like activity with severe rigidity from Parkinson's disease following a very complex left foot surgery status post bunionectomy 1 month ago 10/02/18 in [facility]. Apparently she had problems and required a revision 1 week after the original surgery then it showed an abscess formation on 10/13/18 which required incision and drainage and placement of IV antibiotics of Vanc and Levaquin to cover MRSA and Pseudomonas in the infusion center at [place], [place]. She had presented to the ER there with confusion and visual hallucinations on 10/25/18 and her son reported that her Parkinson's medications have been "messed up" since before her surgery when she originally was told to stop taking her blood pressure medication of losartan and instead she stopped the amantadine that further complicated the situation. Patient was transferred to on 10/27/18 for higher level of care and to be christian ated by Dr Fernandez her Neurologist. She was placed on Keppra for the seizure-like activity and EEG showed slowed background and they suspected to not be an epileptic seizure but maintained on Keppra in the meantime. Orthopedics saw her found the patient not to be a surgical candidate at this time until the ulcers healed and hardware would be removed in 6-12 months from now. She remains not weightbearing on the left foot. Extensive records from reviewed and conferred with Dr. Choi computer network and systems engineer since she presented to inpatient rehab with a blood pressure of 80/43 and that was rechecked and confirmed patient appeared to be lethargic so labs were obtained stat showing leukocytosis of 18,000 and elevated lactic acid 2.1 that was rechecked at 3.0 requiring aggressive IV fluids per severe sepsis protocol. I appreciate Dr. Choi's intervention and her plan is to check a C. difficile colitis sample because of diarrhea reports and placement back on antibiotic coverage recommended by [facility] ctious disease at . Subjective/Events-last exam Pt had an uneventful night in the ICU Home meds will be restarted Increased oral intake of nutrition noted PT and OT will be ordered will see the left foot wound and manage accordingly Shaw catheter in No more diarrhea BUN remains high at 51 making me suspicious of GI bleed but she denies any blood in her stool but will check that to be sure Checked meds and labs Reviewed Dr. Choi consultation Creatinine improved at 1.2 Review of Systems General: Fatigue Musculoskeletal: foot pain Neurological: Weakness, Numbness, Incoordination, Confusion Focused Exam Lactate Level 11/04/18 06:10: Lactic Acid Level 0.94 Objective Exam Vital Signs Vital Signs Date Time Temp Pulse Resp B/P (MAP) Pulse Ox O2 Delivery O2 Flow Rate FiO2 11/04/18 18:00 100.2 86 18 154/77 (102) 97 Room Air Capillary Refill : General Appearance: No Apparent Distress, WD/WN, Anxious, Chronically ill, Cachetic, Thin HEENT: PERRL/EOMI, Normal ENT Inspection, Pharynx Normal, Other (dry mucous membranes) Neck: Full Range of Motion, Normal Inspection, Non Tender, Supple, Carotid Bruit Respiratory: Chest Non Tender, Lungs Clear, Normal Breath Sounds, No Accessory Muscle Use, No Respiratory Distress Cardiovascular: No Edema, No Gallop, No JVD, No Murmur, Normal Peripheral Pulses, Tachycardia Gastrointestinal: Normal Bowel Sounds, No Organomegaly, No Pulsatile Mass, Non Tender, Soft Back: Normal Inspection, No CVA Tenderness, No Vertebral Tenderness Extremity: Normal Capillary Refill, Normal Inspection, Normal Range of Motion, Non Tender, No Calf Tenderness, No Pedal Edema, Other (left foot with dressing and foot brace) Neurologic/Psychiatric: Alert, Oriented x3, No Motor/Sensory Deficits, Normal Mood/Affect Skin: Normal Color, Warm/Dry Lymphatic: No Adenopathy Results/Procedures Lab Laboratory Tests 11/04/18 03:02 Patient resulted labs reviewed. Assessment/Plan Assessment and Plan Assess & Plan/Chief Complaint Assessment: Severe Sepsis Hypotension Leukocytosis Dehydration Encephalopathy Poor reserve with severe debility Seizure-like activity requiring Keppra initiation EEG 10/10/18 mild background slowing 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 per [facility] Severe PD Left foot cellulitis and osteomyelitis placed on Levaquin and Doxycycline per ID at [facility] s/p two dorsal open foot ulcers with tendon visible previous bunion surgery 10/02/18 in [place], [place] with revision 1 week later s/p abscess drained now ortho allowing wounds to heal before hardware removed Anemia Diarrhea Plan: Continue IVF Abx Seizure precautions C diff check Pain control Transfer to 4th floor Diagnosis/Problems Diagnosis/Problems (1) Severe sepsis Status: Acute (2) Sepsis Status: Acute Qualifiers: Sepsis type: sepsis due to unspecified organism Qualified Codes: A41.9 - Sepsis, unspecified organism (3) Parkinson disease Status: Chronic (4) Cachexia Status: Acute (5) Dehydration Status: Acute (6) Anemia of chronic disease Status: Chronic (7) Confusion Status: Acute (8) Diarrhea Status: Acute Qualifiers: Diarrhea type: presumed infectious Qualified Codes: R19.7 - Diarrhea, unspecified (9) Renal failure, acute Status: Acute Qualifiers: Acute renal failure type: unspecified Qualified Codes: N17.9 - Acute kidney failure, unspecified (10) Leukocytosis Status: Acute Qualifiers: Leukocytosis type: leukemoid reaction Qualified Codes: D72.823 - Leukemoid reaction (11) Visual hallucinations Status: Acute (12) Debility Status: Acute (13) Hypotension Status: Acute Qualifiers: Hypotension type: unspecified hypotension type Qualified Codes: I95.9 - Hypotension, unspecified (14) Thrombocytosis Status: Acute (15) Encephalopathy acute Status: Acute (16) Rigidity Status: Acute (17) Polymicrobial bacterial infection Status: Acute (18) Osteomyelitis of foot Status: Acute Qualifiers: Laterality: left (19) Witnessed seizure-like activity Status: Acute (20) Wound of left foot Status: Acute Clinical Quality Measures DVT/VTE Risk/Contraindication: Risk Factor Score Per Nursin RFS Level Per Nursing on Admit: 4+=Very High SHANNON LIMA DO Nov 04, 2018 10:46
[2018-11-04] MEDS ORDERED: AMAN100C18 PO (11:34)
[2018-11-04] MEDS ORDERED: MIRT30TA6 PO (11:34)
[2018-11-04] MEDS ORDERED: CARB1TAB19 PO (11:34)
[2018-11-04] MEDS ORDERED: LOSA25TA41 PO (11:34)
[2018-11-04] MEDS ORDERED: DICL50TA6 PO (11:34)
[2018-11-04] MEDS ORDERED: CARB1TAB41 PO (11:34)
[2018-11-04] MEDS ORDERED: LEVO500T80 PO (11:34)
[2018-11-04] MEDS ORDERED: GABA-486 PO (11:34)
[2018-11-04] MEDS ORDERED: HYDR-3812 PO (11:34)
[2018-11-04] MEDS ORDERED: LEVE500T99 PO (11:36)
--- NOTE | 2018-11-04 11:37 | NUR ---
PATIENT WAS TO BE ADMITTED TO REHAB HOWEVER IS IN ICU NOW. I UPDATED HER MED REC TO THE LIST OF MEDICATIONS SHE WAS TAKING AT HOME PRIOR TO DISCHARGE FROM USING THE EXT MED HX WELL THE DISCHARGE ORDERS FROM . THE FOLLOWING CHANGES WERE MADE AT DISCHARGE FROM THAT ARE NOT CURRENTLY REFLECTED ON THE HOME MED REC: START TAKING: TYLENOL 325MG 2 TABS Q4H PRN SANTYL OINTMENT APPLY TO FOOT DAILY GENTEAL TEARS 1 DROP OU QID PRN DRY EYES DOXYCYCLINE 100MG TABLET BID HALDOL 0.5MG 5 TABS Q4H PRN MELATONIN 5MG HS SEROQUEL 50MG HS CONTINUE THESE MEDICATIONS WHICH HAVE BEEN CHANGED OR REFILLED: SINEMET 25/100 1.5 TAB QID (WAS FILLED 2 TID BUT PATIENT REPORTED TAKING IT 2 BID) LEVAQUIN 750MG DAILY (HAD FILLED 250MG BID) CONTINUE THESE WHICH HAVE NOT CHANGED: AMANTADINE 10MG BID SINEMET CR 50-200MG HS KEPPRA 250MG TAKE 500MG BID (WAS MOST RECENTLY FILLED 250MG BID) LOSARTAN 25MG BID DISCONTINUE: VOLTAREN 50MG (FILLED BID, PUT IT ON MED REC PRN) GABAPENTIN 100MG (FILLED BID, BUT HAD BEEN REPORTED HS ONLY) HYDROCODONE 5-325MG (FILLED Q4H PRN) I PUT THE SINEMET 25-100 AND GABAPENTIN DOSES REPORTED AT HOW THE PATIENT WAS TAKING IT PRIOR TO ADMISSION DESPITE THEM BEING FILLED DIFFERENTLY. I DID ADD REMERON TO THE MED REC THAT WAS NOT ADDRESSED ON [facility]S DISCHARGE BECAUSE IT WAS FILLED AND PICKED UP RECENTLY.
--- NOTE | 2018-11-04 11:55 | Physical Therapy Evaluation ---
PT Evaluation-General Medical Diagnosis Admission Date Nov 03, 2018 at 17:21 Medical Diagnosis: sepsis Onset Date: Nov 03, 2018 Therapy Diagnosis Therapy Diagnosis: generalized weakness/debility Height/Weight Height (Feet): 5 Height (Inches): 7.00 Weight (Pounds): 128 Weight (Ounces): 3.0 Precautions Precautions/Isolations: Contact Isolation, Fall Prevention Referral Physician: Jerry Reason for Referral: Evaluation/Treatment Medical History Pertinent Medical History: HTN, Parkinson's, Renal Insufficiency Additional Medical History seizure protocol Current History transfer from to ARU to ICU due to sepsis Reviewed History: Yes Social History Home: Single Level Prior/Core FIM Prior Level of Function Therapy Code Descriptions/Definitions Functional [place] Measure: 0=Not Assessed/NA 4=Minimal Assistance 1=Total Assistance 5=Supervision or Setup 2=Maximal Assistance 6=Modified [place] 3=Moderate Assistance 7=Complete [place] Therapy Quality Codes: 6 Independent with activity with or without an assistive device 5 Patient requires set up or clean up by helper. Patient completes activity by themselves 4 Supervision or touching assist (CGA). [place] provide cues , steadying assist 3 The helper provides less than half the effort to complete the activity 2 The helper provides more than half the effort to complete the activity 1 Dependent. The helper does all the effort to complete an activity 7 Patient refused to complete or attempt activity 9 The patient did not perform the activity before the current illness or injury 88 Not attempted due to Medical conditions or safety concerns Functional Abilities and Goals: Independent: Patient completed the activities by him/herself, with or without an assistive device, with no assistance from a helper. Needed Some Help: Patient needed partial assistance from another person to complete activities. Dependent: A helper completed the activities for the patient. Unknown: Not Applicable: Bed Mobility: 6 Transfers (B,C,W/C) (FIM): 6 Gait: 6 Indoor Mobility (Ambulation): Independent Prior Devices Use: Walker PT Evaluation-Current Subjective Patient is very confused. Objective Patient Orientation: Confused Problem Solving: Poor Attachments: Shaw Catheter, IV ROM/Strength ROM Lower Extremities rigid LE due to Parkinson's and no medication currently Strength Lower Extremities 2-/5 grossly bilaterally Integumentary/Posture Integumentary left foot wrapped and in surgical shoe due to osteomyelitis Bladder Incontinence: Shaw Cath Posture slightly kyphotic/cervical flexion Neuromuscular (Tone, Coordination, Reflexes) currently, severe Parkinson's Sensory Vision: Functional Sensation Right Lower Extremit: Impaired Sensation Left Lower Extremity: Impaired Transfers Therapy Code Descriptions/Definitions Functional [place] Measure: 0=Not Assessed/NA 4=Minimal Assistance 1=Total Assistance 5=Supervision or Setup 2=Maximal Assistance 6=Modified [place] 3=Moderate Assistance 7=Complete [place] Transfers (B, C, W/C) (FIM): 1 Scootin Supine to/from Sit: 1 Sit to/from Stand: 1 bed t/f WC(FIM only if WC use): 1 patient unable to assist with all mobility/no weight bearing through bilateral LE with transfers Balance Sitting Static: Fair Sitting Dynamic: Poor Standing Static: Poor Standing Dynamic: Poor Assessment/Needs 62 y.o. female, will benefit from skilled PT to address functional strength and mobility to improve current LOF. Patient, when medically stable may transfer to 4th floor medical or to ARU. From a PT standpoint, patient would benefit from extended care facility due to severity of Parkinson's and inability to assist with any mobility. Rehab Potential: Guarded PT Engineer Byproduct Goals Fpc Goals PT Fpc Goals Time Frame: Nov 23, 2018 Transfers (B,C,W/C) (FIM): 3 Gait (FIM): 1 Gait distance (FIM): 1=up to 49 ft Distance: 15' Gait Level of Assist: 3 Gait Assistive Device: FWW PT Plan Problem List Problem List: Activity Tolerance, Functional Strength, Safety, Balance, Gait, Transfer, Bed Mobility, ROM Treatment/Plan Treatment Plan: Continue Plan of Care Treatment Plan: Bed Mobility, Education, Functional Activity Bakari, Functional Strength, Gait, Safety, Therapeutic Exercise, Transfers Treatment Duration: Nov 23, 2018 Frequency: 6 times per week Estimated Hrs Per Day: .5 hour per day Patient and/or Family Agrees t: Yes Discharge Recommendations Therapy D/C Recommendations: Acute Rehab, Long-Term Placement, Residential (TCU/NH) Time/GCodes Time In: 1125 Time Out: 1145 Total Billed Treatment Time: 20 Total Billed Treatment 1 visit EVModC 20 min SRIDHAR ARMENDARIZ PT Nov 04, 2018 11:55
[2018-11-04] MEDS ORDERED: NON-FORMULARY MEDICATION 1 EA EA (Mirtazapine 15 MG) PO PRN (14:00)
--- NOTE | 2018-11-04 14:08 | Occupational Therapy Eval ---
OT Evaluation-General/PLF Medical Diagnosis Admission Date Nov 03, 2018 at 17:21 Medical Diagnosis: sepsis Onset Date: Nov 03, 2018 Therapy Diagnosis Therapy Diagnosis: impaired ADLs and mobility Height/Weight Height (Feet): 5 Height (Inches): 7.00 Weight (Pounds): 128 Weight (Ounces): 3.0 Precautions Precautions/Isolations: Contact Isolation, Fall Prevention Safety Interventions: Notify Family, Bed Exit Alarm, Diversional Activity, Reorient-Attempt, Reorient-PRN Referral Physician: Jerry Referral Reason: Activity Tolerance, Self Care, Evaluation/Treatment, Strengthening/ROM Medical History Pertinent Medical History: HTN, Parkinson's, Renal Insufficiency Additional Medical History Surgeries: Orthopedic (left foot 10/09 bunion) Currently Using CPAP: No Currently Using BIPAP: No Cardiac: Hypertension Neurological: Parkinson's Disease Psychosocial: Anxiety History of Blood Disorders: No Adverse Reaction to Blood Degroot: No Current History per H&P: "History of present illness: This is a 62-year-old white female patient of health care provider Ayde Hickman out of [place], [place] who originally was to be admitted in inpatient rehab today from [facility] for intensive rehab and recovery following encephalopathy and seizure-like activity with severe rigidity from Parkinson's disease following a very complex left foot surgery status post bunionectomy 1 month ago 10/02/[address] [facility]. Apparently she had problems and required a revision 1 week after the original surgery then it showed an abscess formation on 10/13/18 which required incision and drainage and placement of IV antibiotics of Vanc and Levaquin to cover MRSA and Pseudomonas in the infusion center at [place], [place]. She had presented to the ER there with confusion and visual hallucinations on 10/25/18 and her son reported that her Parkinson's medications have been "messed up" since before her surgery when she originally was told to stop taking her blood pressure medication of losartan and instead she stopped the amantadine that further complicated the situation. Patient was transferred to on 10/27/18 for higher level of care and to be treated by Dr Fernandez her Neurologist. She was placed on Keppra for the seizure- like activity and EEG showed slowed background and they suspected to not be an epileptic seizure but maintained on Keppra in the meantime. Orthopedics saw her found the patient not to be a surgical candidate at this time until the ulcers healed and hardware would be removed in 6-12 months from now. She remains not weightbearing on the left foot. Extensive records from reviewed and conferred with Dr. Choi master printer since she presented to inpatient rehab with a blood pressure of 80/43 and that was rechecked and confirmed patient cy kamara to be lethargic so labs were obtained stat showing leukocytosis of 18,000 and elevated lactic acid 2.1 that was rechecked at 3.0 requiring aggressive IV fluids per severe sepsis protocol. I appreciate Dr. Choi's intervention and her plan is to check a C. difficile colitis sample because of diarrhea reports and placement back on antibiotic coverage recommended by infectious disease at ." Reviewed History: Yes Social History Home: Single Level Current Living Status: Alone Entry Into Home: Stairs With Railing Steps Into Home: 3 ADL-Prior Level of Function Therapy Code Descriptions/Definitions Functional [place] Measure: 0=Not Assessed/NA 4=Minimal Assistance 1=Total Assistance 5=Supervision or Setup 2=Maximal Assistance 6=Modified [place] 3=Moderate Assistance 7=Complete [place] Therapy Quality Codes: 6 Independent with activity with or without an assistive device 5 Patient requires set up or clean up by helper. Patient completes activity by themselves 4 Supervision or touching assist (CGA). [place] provide cues , steadying assist 3 The helper provides less than half the effort to complete the activity 2 The helper provides more than half the effort to complete the activity 1 Dependent. The helper does all the effort to complete an activity 7 Patient refused to complete or attempt activity 9 The patient did not perform the activity before the current illness or injury 88 Not attempted due to Medical conditions or safety concerns Functional Abilities and Goals: Independent: Patient completed the activities by him/herself, with or without an assistive device, with no assistance from a helper. Needed Some Help: Patient needed partial assistance from another person to comp lete activities. Dependent: A helper completed the activities for the patient. 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 pt agreed to OT evaluation session. pt reports no pain. 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 pt stated she has not had her Parkinson medication in the past c ouple days leading to rigidity. Mental Status/Objective Patient Orientation: Normal For Age Attachments: Shaw Catheter, Other-See Comments (L surgical shoe ) Current Glasses/Contacts: Yes Hearing Aids: No Dentures/Partials: No Hand Dominance: Right Upper Extremity ROM limited ROM secondary to UE rigidity likely related to Parkinson's. shoulder flexion approx 100 degrees, elbow flex 90 degrees. Upper Extremity Coordination decrease GMC and FMC secondary to Parkinsons. Upper Extremity Sensation impaired light touch UE/ LE Upper Extremity Strength 2-/5 MMT ADL-Treatment Therapy Code Descriptions/Definitions Functional [place] Measure: 0=Not Assessed/NA 4=Minimal Assistance 1=Total Assistance 5=Supervision or Setup 2=Maximal Assistance 6=Modified [place] 3=Moderate Assistance 7=Complete [place] Therapy Quality Codes: 6 Independent with activity with or without an assistive device 5 Patient requires set up or clean up by helper. Patient completes activity by themselves 4 Supervision or touching assist (CGA). [place] provide cues , steadying assist 3 The helper provides less than half the effort to complete the activity 2 The helper provides more than half the effort to complete the activity 1 Dependent. The helper does all the effort to complete an activity 7 Patient refused to complete or attempt activity 9 The patient did not perform the activity before the current illness or injury 88 Not attempted due to Medical conditions or safety concerns pt currently requires TA for all ADLs and functional transfers secondary to rigidity of UE/ LE and Parkinson's. build up handles given to pt to increase indep with eating. noted decrease coordination and MAX spillage of food items requiring TA for eating. Other Treatments pt required MAX A to perform supine to sit and MOD A to maintain static seated balance pt attempt to wash face while seated EOB but unable to complete and required TA. pt required TA to perform sit to supine. pt laying in bed post OT Session, call light within reach, NSG aware of pt position. all needs met. Education OT Patient Education: Modified ADL techniques, Progress toward Goal/Update tx plan, Purpose of tx/functional activities, Reviewed precautions, Safety issues, Transfer techniques, Use of adapted equipment Teaching Recipient: Patient Teaching Methods: Demonstration, Discussion Response to Teaching: Verbalize Understanding, Return Demonstration OT Short Term Goals Short Term Goals Time Frame: Nov 18, 2018 Eating(FIM): 4 Grooming(FIM): 4 Bathing(FIM): 4 Upper Body Dressing(FIM): 4 Lower Body Dressing(FIM): 4 Toileting(FIM): 3 Transfers (B,C,W/C) (FIM): 3 Toilet/Commode Transfer(FIM): 3 Additional Short Term Goals: 1-Demonstrate ADL Tasks, 2-Verbalize Understanding, 3-ImproveStrength/Bakari 1=Demonstrate adherence to instructed precautions during ADL tasks. 2=Patient will verbalize/demonstrate understanding of assistive devices/modifications for ADL. 3=Patient will improve strength/tolerance for activity to enable patient to perform ADL's. OT Sales Representative Education Courses Goals Group Home Goals Time Frame: Dec 02, 2018 Eating (FIM): 6 Grooming(FIM): 5 Bathing(FIM): 5 Bathing Location: L Arm, R Arm, L Upper Leg, R Upper Leg, L Lower Leg (including foot), R Lower Leg (including foot), Chest, Abdomen, Buttocks, Perineal Area Upper Body Dressing(FIM): 5 Lower Body Dressing(FIM): 5 Toileting(FIM): 5 Transfers (B,C,W/C) (FIM): 5 Toilet/Commode Transfer(FIM): 5 Additional Goals: 1-Demonstrate ADL Tasks, 2-Verbalize Understanding, 3- ImproveStrength/Bakari 1=Demonstrate adherence to instructed precautions during ADL tasks. 2=Patient will verbalize/demonstrate understanding of assistive devices/modifications for ADL. 3=Patient will improve strength/tolerance for activity to enable patient to perform ADL's. OT Education/Plan Problem List/Assessment Assessment: Decreased Activ Tolerance, Decreased Safety Aware, Decreased UE Strength, Dependent Transfers, Impaired Bed Mobility, Impaired Coordination, Impaired Funct Balance, Impaired I ADL's, Impaired Self-Care Skills, Restricted Funct UE ROM, Visual-Perceptual Deficit pt presents with functional limitations affecting areas of ADLS and functional transfers with deficits in the above mention. pt would benefit from OT services to increase independence with ADLs and functional transfers. Based on today's evaluation pt will benefit from extended care facility due to severity of Parkinson's requiring total assist for all ADLs and functional mobility. Discharge Recommendations Plan/Recommendations: Continue POC Therapy D/C Recommendations: 24 hr Supervision, Intermediate (TCU/NH) Treatment Plan/Plan of Care Treatment,Training & Education: Yes Patient would benefit from OT for education, treatment and training to promote independence in ADL's, mobility, safety and/or upper extremity function for ADL's. Plan of Care: ADL Retraining, Caregiver Training, Functional Mobility, Group Exercise/Act as Ind, UE Funct Exercise/Act Treatment Duration: Dec 02, 2018 Frequency: 5 times per week Estimated Hrs Per Day: .25 hour per day Agreement: Yes Rehab Potential: Guarded Time/GCodes Start Time: 13:35 Stop Time: 14:00 Billed Treatment Time EVM 15 minutes ADL 10 minutes, 1 unit ROSENDO BARROSO OT Nov 04, 2018 14:07
[2018-11-04] MEDS ORDERED: SINEMET 25/100 (CARBIDOPA/LEVODOPA) TAB PO SCH (14:26)
[2018-11-04] MEDS ORDERED: ETODOLAC 200 MG (LODINE) CAP PO PRN (14:45)
--- NOTE | 2018-11-04 17:03 | Wound Care Assessment ---
Wound Care Assessment Date Seen by Provider: Nov 04, 2018 Time Seen by Provider: 12:45 Chief Complaint Ulcers dorsum L foot x 2. HPI The patient is an unfortunate 62 year old female with a complicated recent medical history, involving multiple recent L foot operations, abscess, and two resulting ulcers of the L foot. She is [id number] on that foot, was to be admitted for rehab, but found to have evidence of sepsis. She has Parkinson's disease, and control of her symptoms has decreased and she has developed seizure-like activity. She is interviewed in ICU bed 10, is alert and in no distress. She reportedly has had an abscess of the foot drained and is on antibiotics, per Infectious Disease service. Past Medical History: Denies Diabetes Type II, Denies Heart Disease, Denies Peripheral Artery Disease (Has Parkinson's Disease.) Smoking Status: Never a Smoker Alcohol Use: Denies Use Review of Systems General: No Chills; Fatigue HEENT: No Visual Changes Pulmonary: No Dyspnea Cardiovascular: No: Chest Pain Gastrointestinal: No: Abdominal Pain Genitourinary: No Dysuria Musculoskeletal: leg pain, foot pain Neurological: Weakness, Incoordination (Has Parkinson's Disease.) Other systems Integumentary -- wounds of L foot. Endocrine -- No abnormalities. Exam Vital Signs Date Time Temp Pulse Resp B/P (MAP) Pulse Ox O2 Delivery O2 Flow Rate FiO2 11/04/18 16:00 87 12 156/79 (104) 99 Room Air 11/04/18 12:00 98.6 Capillary Refill : General Appearance: no apparent distress, thin HEENT: normal ENT inspection Neck: normal inspection Cardiovascular: regular rate, rhythm Respiratory: lungs clear, no respiratory distress Gastrointestinal: normal bowel sounds, non tender, soft Extremities: No normal range of motion (Mild hip flexion.) Neurologic/Psychiatric: alert (Very soft spoken, slow responses.) Skin: other (Dorsum L foot, medial -- 2.1 x 1.4 x 0.2 cm, base 100% slough, mod. s.s. drainage; Dorsum L foot, lateral -- 2.5 x 0.9 x 0.2 cm, base 100% slough, mod. s.s drainage.) Results Laboratory Tests 11/04/18 03:02: White Blood Count 15.3H, Red Blood Count 3.74L, Hemoglobin 10.0L, Hematocrit 32L , Mean Corpuscular Volume 86, Mean Corpuscular Hemoglobin 27, Mean Corpuscular Hemoglobin Concent 31L, Red Cell Distribution Width 20.1H, Platelet Count 476H, Mean Platelet Volume 10.4, Neutrophils (%) (Auto) 79H, Lymphocytes (%) (Auto) 11L, Monocytes (%) (Auto) 8, Eosinophils (%) (Auto) 2, Basophils (%) (Auto) 0, Neutrophils # (Auto) 12.1H, Lymphocytes # (Auto) 1.7, Monocytes # (Auto) 1.2H, Eosinophils # (Auto) 0.2, Basophils # (Auto) 0.0, Sodium Level 140, Potassium Level 4.1, Chloride Level 111H, Carbon Dioxide Level 16L, Anion Gap 13, Blood Urea Nitrogen 51H, Creatinine 1.24, Estimat Glomerular Filtration Rate 44, BUN/Creatinine Ratio 41, Glucose Level 100, Calcium Level 9.0, Phosphorus Level 4.6, Magnesium Level 1.9 11/04/18 06:10: Lactic Acid Level 0.94 11/04/18 06:46: Blood Gas Puncture Site RT RADIAL, Blood Gas Patient Temperature 99.1, Arterial Blood pH 7.36L, Arterial Blood Partial Pressure CO2 31L, Arterial Blood Partial Pressure O2 96H, Arterial Blood HCO3 17*L, Arterial Blood Total CO2 17.9L, Arterial Blood Oxygen Saturation 97, Arterial Blood Base Excess -7.3L, Bernard Test YES-POS, Blood Gas Ventilator Setting NO, Blood Gas Inspired Oxygen ROOM AIR 11/04/18 09:31: Urine Color YELLOW, Urine Clarity CLEAR, Urine pH 5, Urine Specific Perry 1.025H, Urine Protein 1+H, Urine Glucose (UA) NEGATIVE, Urine Ketones NEGATIVE, Urine Nitrite NEGATIVE, Urine Bilirubin NEGATIVE, Urine Urobilinogen NORMAL, Urine Leukocyte Esterase 2+H, Urine RBC (Auto) 2+H, Urine RBC 2-5H, Urine WBC 10-25H, Urine Squamous Epithelial Cells 0-2, Urine Crystals NONE, Urine Bacteria FEWH, Urine Casts NONE, Urine Mucus NEGATIVE, Urine Culture Indicated YES Microbiology 11/03/18 Blood Culture - Preliminary, Resulted No growth Microbiology 11/03/18 Blood Culture - Preliminary, Resulted No growth Assessment/Plan/Dx 1. Ulcer, dorsum L foot, x 2, full thickness. 2. Disruption of superficial operative site. 3. Abscess L foot, s/p drainage with residual open wounds. 4. Parkinson's Disease, with interval deterioration of functioning. Plan: In view of the level slough present in the wound base, will begin dakin's dressings and monitor for resolution of inflammation. Will follow and plan to change to a less aggressive dressing when wound progress warrants. LATOSHA GERARDO MD Nov 04, 2018 17:03
[2018-11-04] MEDS ORDERED: diphenhydrAMINE 25 MG TAB (BENADRYL) PO PRN (20:15)
[2018-11-04] MEDS ORDERED: MELATONIN 3 MG TABLET PO PRN (20:15)
[2018-11-04] MEDS ORDERED: ACETAMINOPHEN 500 MG TAB (TYLENOL) PO PRN (20:15)
[2018-11-04] MEDS ORDERED: CALCIUM CARBONATE 500 MG (TUMS) TAB.CHEW PO PRN (20:15)
[2018-11-04] MEDS ORDERED: ONDANSETRON 4 MG/2 ML (SDV) Z0FRAN IVP PRN (20:15)
[2018-11-04] MEDS: GABAPENTIN 100 MG (NEURONTIN) CAP PO SCH (21:36)
[2018-11-04] MEDS: QUEtiapine 25 MG (SEROquel) TAB IMMEDIATE RELEASE PO SCH (21:37)
[2018-11-04] MEDS: VANCOMYCIN 1 GM/NS 250 ML IVPB IV SCH ×2 (21:37)
[2018-11-04] MEDS: LEVETIRACETAM 500 MG (KEPPRA) TAB PO SCH (21:37)
[2018-11-04] MEDS: SINEMET CR 50/200 (CARBIDOPA/LEVODOPA SA) TAB PO SCH (21:37)
[2018-11-04] MEDS: SENNA W/DOCUSATE (SENOKOT S) TABLET PO SCH (21:37)
[2018-11-04] MEDS: DAKIN'S 1/4 STRENGTH (0.125%) 473 ML BTL TOP SCH (21:38)
[2018-11-04] MEDS: POTASSIUM CHLORIDE INJ 10 MEQ in NS IV 1000 ML 1,000 ML IV SCH (22:50)
[2018-11-05 00:07] VITALS: BP 129/56
[2018-11-05] MEDS: MEROPENEM 500 MG/SWFI 10 ML IV PUSH IV SCH ×6 (03:30→18:49)
[2018-11-05 04:42] VITALS: BP 119/69
[2018-11-05 05:50] LABS: BASOPHILS % (AUTO) 0 % (0-10); EOSINOPHILS # (AUTO) 0.1 10^3/uL (0.0-0.3); EOSINOPHILS % (AUTO) 1 % (0-10); HEMATOCRIT 28 % (35-52); HEMOGLOBIN 8.5 G/DL (11.5-16.0); LYMPHOCYTES # (AUTO) 0.9 X 10^3 (1.0-4.0); LYMPHOCYTES % (AUTO) 8 % (12-44); MEAN CORPUSCULAR HEMOGLOBIN 26 PG (25-34); MEAN CORPUSCULAR HGB CONC 31 G/DL (32-36); MEAN CORPUSCULAR VOLUME 86 FL (80-99); MONOCYTES # (AUTO) 1.1 X 10^3 (0.0-1.0); MONOCYTES % (AUTO) 10 % (0-12); NEUTROPHILS # (AUTO) 8.7 X 10^3 (1.8-7.8); NEUTROPHILS % (AUTO) 80 % (42-75); PLATELET COUNT 401 10^3/uL (130-400); RED CELL DISTRIBUTION WIDTH 20.9 % (10.0-14.5); WHITE BLOOD COUNT 10.8 10^3/uL (4.3-11.0)
[2018-11-05 06:08] LABS: ALANINE AMINOTRANSFERASE < 6 U/L (0-55); ALKALINE PHOSPHATASE 122 U/L (40-136); BILIRUBIN,TOTAL 0.5 MG/DL (0.1-1.0); BUN/CREATININE RATIO 35; CALCIUM 8.9 MG/DL (8.5-10.1); CARBON DIOXIDE 18 MMOL/L (21-32); CHLORIDE 115 MMOL/L (98-107); GFR ESTIMATED > 60; GLUCOSE 99 MG/DL (70-105); POTASSIUM 3.8 MMOL/L (3.6-5.0); SODIUM 140 MMOL/L (135-145); TOTAL PROTEIN 5.2 GM/DL (6.4-8.2)
[2018-11-05] MEDS: metroNIDAZOLE 500MG/100ML IVPB 100 ML IV SCH ×3 (06:16→22:30)
[2018-11-05 08:00] VITALS: BP 125/68
--- NOTE | 2018-11-05 08:23 | Pulmonary Progress Note ---
Subjective Time Seen by a Provider: 08:21 Subjective/Events-last exam PT appears to be doing better. Sepsis Event Evaluation Height, Weight, BMI Height: 5'7.00" Weight: 128lbs. 3.0oz. [id number]; 20.4 BMI Method: Focused Exam Lactate Level 11/04/18 06:10: Lactic Acid Level 0.94 Exam Exam Vital Signs Date Time Temp Pulse Resp B/P (MAP) Pulse Ox O2 Delivery O2 Flow Rate FiO2 11/05/18 04:42 98.8 78 20 119/69 (86) 97 Room Air 11/05/18 00:07 99.7 77 16 129/56 (80) 97 Room Air 11/04/18 20:30 97 Room Air 11/04/18 20:00 99.9 96 20 160/76 (104) 97 Room Air 11/04/18 18:00 100.2 86 18 154/77 (102) 97 Room Air 11/04/18 17:00 101 22 156/79 (104) 97 11/04/18 16:00 87 12 156/79 (104) 99 Room Air 11/04/18 15:00 86 14 100 Room Air 11/04/18 14:00 91 15 156/81 (106) 98 Room Air 11/04/18 13:00 82 11/04/18 13:00 85 14 144/80 (101) 99 Room Air 11/04/18 12:15 90 40 160/83 (108) Room Air 11/04/18 12:00 98.6 11/04/18 12:00 Room Air 11/04/18 11:00 82 17 125/94 (104) 98 Room Air 11/04/18 10:00 82 14 105/65 (78) 98 Room Air 11/04/18 09:00 92 20 98 Room Air I & O 11/05/18 07:00 Intake Total 660 ml Output Total 2175 ml Balance -1515 ml Height & Weight Height: 5'7.00" Weight: 128lbs. 3.0oz. [id number]; 20.4 BMI Method: General Appearance: No Apparent Distress, WD/WN, Anxious, Chronically ill, Cachetic, Thin HEENT: PERRL/EOMI, Normal ENT Inspection, Pharynx Normal, Other (dry mucous membranes) Neck: Full Range of Motion, Normal Inspection, Non Tender, Supple, Carotid Bruit Respiratory: Chest Non Tender, Lungs Clear, Normal Breath Sounds, No Accessory Muscle Use, No Respiratory Distress Cardiovascular: No Edema, No Gallop, No JVD, No Murmur, Normal Peripheral Pulses, Tachycardia Gastrointestinal: normal bowel sounds, non tender, soft Extremity: Normal Capillary Refill, Normal Inspection, Normal Range of Motion, Non Tender, No Calf Tenderness, No Pedal Edema, Other (left foot with dressing and foot brace) Neurologic/Psychiatric: Alert, Oriented x3, No Motor/Sensory Deficits, Normal Mood/Affect Skin: Normal Color, Warm/Dry Lymphatic: No Adenopathy Results Lab Laboratory Tests 11/04/18 03:02 11/05/18 05:20 Assessment/Plan Assessment/Plan Severe sepsis probably secondary to osteomyelitis and left foot wound - Improving -Consult wound care -Carie Dacosta -Yoon cultures HTN Delirium/ Psychosis with visual hallucinations -Haldol PRN - morphine PRN -Family requests Seroquel QHS - Will add Parkinson's with dementia Acute renal failure with dehydration -IVF Anemia -Monitor Seizures -BREEZY Bragg DO Nov 05, 2018 08:23
[2018-11-05] MEDS ORDERED: SINEMET 25/100 (CARBIDOPA/LEVODOPA) TAB PO SCH (09:00)
[2018-11-05] MEDS: lisINopril 10 MG (PRINIVIL) TABLET PO SCH (09:42)
[2018-11-05] MEDS: meTOprolol TARTRATE 25 MG (LOPRESSOR) TABLET PO SCH ×2 (09:43→21:11)
[2018-11-05] MEDS: LEVETIRACETAM 500 MG (KEPPRA) TAB PO SCH ×2 (09:43→21:11)
[2018-11-05] MEDS: SENNA W/DOCUSATE (SENOKOT S) TABLET PO SCH ×2 (09:43→21:11)
--- NOTE | 2018-11-05 09:43 | Physical Therapy Daily Note ---
PT Daily Note-Current Subjective Patient is in bed, incontinent BM (everywhere), unresponsive to verbal stimuli, responded minimally to sternal rub. Mental Status Patient Orientation: Mumbles, Listless Transfers Therapy Code Descriptions/Definitions Functional [place] Measure: 0=Not Assessed/NA 4=Minimal Assistance 1=Total Assistance 5=Supervision or Setup 2=Maximal Assistance 6=Modified [place] 3=Moderate Assistance 7=Complete [place] Therapy Quality Codes: 6 Independent with activity with or without an assistive device 5 Patient requires set up or clean up by helper. Patient completes activity by themselves 4 Supervision or touching assist (CGA). [place] provide cues , steadying assist 3 The helper provides less than half the effort to complete the activity 2 The helper provides more than half the effort to complete the activity 1 Dependent. The helper does all the effort to complete an activity 7 Patient refused to complete or attempt activity 9 The patient did not perform the activity before the current illness or in jury 88 Not attempted due to Medical conditions or safety concerns Transfers (B, C, W/C) (FIM): 1 Scootin Rollin Supine to/from Sit: 1 Sit to/from Stand: 1 Bed to/from Chair: 1 Patient incontinent BM requiring dependent assist x 2 to cleanse and change patient. Dependent assist x 2 with all bed mobility and transfer bed to recliner with patient not weight bearing on her legs at all. Surgical shoe donned left foot to protect wound. Exercises Supine Ex: Heel Slides, Straight leg raise, Hip abd/add Supine Reps: 10 (PROM) Seated Therapy Exercises: Long arc quads Seated Reps: 15 (PROM) Assessment Patient became more alert during transfer to recliner with ROUNDHOUSE FIRER/FIREMAN in to assist with feeding patient due to patient's inability to perform this task. From a PT sta ndpoint, patient will require extended care to regain functional mobility and strength. PT Short Term Goals Short Term Goals Transfers (B,C,W/C) (FIM): 3 PT Procurement Inspector Goals Procurement Inspector Goals PT Procurement Inspector Goals Time Frame: Nov 23, 2018 Transfers (B,C,W/C) (FIM): 3 Gait (FIM): 1 Gait distance (FIM): 1=up to 49 ft Distance: 15' Gait Level of Assist: 3 Gait Assistive Device: FWW PT Plan Treatment/Plan Treatment Plan: Continue Plan of Care Treatment Plan: Bed Mobility, Education, Functional Activity Bakari, Functional Strength, Gait, Safety, Therapeutic Exercise, Transfers Treatment Duration: Nov 23, 2018 Frequency: 6 times per week Estimated Hrs Per Day: .5 hour per day Patient and/or Family Agrees t: Yes Discharge Recommendations Therapy D/C Recommendations: Residential Placement, Jail (TCU/NH) Time/GCodes Time In: 847 Time Out: 912 Total Billed Treatment Time: 25 Total Billed Treatment 1 visit FA x 2 25 min SRIDHAR ARMENDARIZ PT Nov 05, 2018 09:43
[2018-11-05] MEDS: DAKIN'S 1/4 STRENGTH (0.125%) 473 ML BTL TOP SCH ×2 (09:44→21:12)
[2018-11-05] MEDS: VANCOMYCIN 1 GM/NS 250 ML IVPB IV SCH ×4 (09:46→21:10)
--- NOTE | 2018-11-05 09:52 | Progress Note - Hospitalist ---
Subjective HPI/CC On Admission Date Seen by Provider: Nov 05, 2018 Time Seen by Provider: 09:00 Chief complaint: Severe sepsis requiring ICU transfer History of present illness: This is a 62-year-old white female patient of health care provider Ayde Hickman out of [place], [place] who originally was to be admitted in inpatient rehab today from [facility] for intensive rehab and recovery following encephalopathy and seizure-like activity with severe rigidity from Parkinson's disease following a very complex left foot surgery status post bunionectomy 1 month ago 10/02/18 in [facility]. Apparently she had problems and required a revision 1 week after the original surgery then it showed an abscess formation on 10/13/18 which required incision and drainage and placement of IV antibiotics of Vanc and Levaquin to cover MRSA and Pseudomonas in the infusion center at [place], [place]. She had presented to the ER there with confusion and visual hallucinations on 10/25/18 and her son reported that her Parkinson's medications have been "messed up" since before her surgery when she originally was told to stop taking her blood pressure medication of losartan and instead she stopped the amantadine that further complicated the situation. Patient was transferred to on 10/27/18 for higher level of care and to be christian ated by Dr Fernandez her Neurologist. She was placed on Keppra for the seizure-like activity and EEG showed slowed background and they suspected to not be an epileptic seizure but maintained on Keppra in the meantime. Orthopedics saw her found the patient not to be a surgical candidate at this time until the ulcers healed and hardware would be removed in 6-12 months from now. She remains not weightbearing on the left foot. Extensive records from reviewed and conferred with Dr. Choi derrick barge operator since she presented to inpatient rehab with a blood pressure of 80/43 and that was rechecked and confirmed patient appeared to be lethargic so labs were obtained stat showing leukocytosis of 18,000 and elevated lactic acid 2.1 that was rechecked at 3.0 requiring aggressive IV fluids per severe sepsis protocol. I appreciate Dr. Choi's intervention and her plan is to check a C. difficile colitis sample because of diarrhea reports and placement back on antibiotic coverage recommended by infe ctious disease at . Subjective/Events-last exam Pt had an uneventful night. No Haldol was given for 24 hours now. Feels very frustrated and very difficult to express herself due to the severity of her Parkinson's. No SOB. No significant pain reported. Fecal and urinary incontinence continues as she had at . PT and OT will work with her. Low-grade fever noted that she did not have at admission. WBC count is much improved. Overall labs improved with IV fluid since BUN is near normal at 22 and creatinine 1.0. Will monitor Pt closely. Will adjust Levadopa per dosing and that will be corrected by pharmacy. I feel like she deserves a chance at inpatient rehab to aggressively treat her to see if we can lessen the burden even if she ends up going to skilled to i mprove her quality of life. Review of Systems General: Fatigue Gastrointestinal: Diarrhea Genitourinary: Incontinence Musculoskeletal: foot pain Neurological: Confusion Focused Exam Lactate Level 11/04/18 06:10: Lactic Acid Level 0.94 Objective Exam Vital Signs Vital Signs Date Time Temp Pulse Resp B/P (MAP) Pulse Ox O2 Delivery O2 Flow Rate FiO2 11/05/18 16:00 98.3 77 20 158/79 (105) 100 Room Air Capillary Refill : General Appearance: No Apparent Distress, WD/WN, Anxious, Chronically ill, Cachetic, Thin HEENT: PERRL/EOMI, Normal ENT Inspection, Pharynx Normal, Other (dry mucous membranes) Neck: Full Range of Motion, Normal Inspection, Non Tender, Supple, Carotid Bruit Respiratory: Chest Non Tender, Lungs Clear, Normal Breath Sounds, No Accessory Muscle Use, No Respiratory Distress Cardiovascular: No Edema, No Gallop, No JVD, No Murmur, Normal Peripheral Pulses, Tachycardia Gastrointestinal: Normal Bowel Sounds, No Organomegaly, No Pulsatile Mass, Non Tender, Soft Back: Normal Inspection, No CVA Tenderness, No Vertebral Tenderness Extremity: Normal Capillary Refill, Normal Inspection, Normal Range of Motion, Non Tender, No Calf Tenderness, No Pedal Edema, Other (left foot with dressing and foot brace) Neurologic/Psychiatric: Alert, Oriented x3, No Motor/Sensory Deficits, Normal Mood/Affect Skin: Normal Color, Warm/Dry Lymphatic: No Adenopathy Results/Procedures Lab Laboratory Tests 11/05/18 05:20 Patient resulted labs reviewed. Assessment/Plan Assessment and Plan Assess & Plan/Chief Complaint Assessment: Severe Sepsis Hypotension Leukocytosis Dehydration Encephalopathy Poor reserve with severe debility Seizure-like activity requiring Keppra initiation EEG 10/10/18 mild background slowing 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 per [facility] Severe PD Left foot cellulitis and osteomyelitis placed on Levaquin and Doxycycline per ID at [facility] s/p two dorsal open foot ulcers with tendon visible previous bunion surgery 10/02/18 in [place], [place] with revision 1 week later s/p abscess drained now ortho allowing wounds to heal before hardware removed Anemia Diarrhea Incontinence bowel and bladder Plan: Continue IVF but decrease rate to prevent overload Abx Seizure precautions Pain control IRF but long recovery expected Diagnosis/Problems Diagnosis/Problems (1) Severe sepsis Status: Acute (2) Sepsis Status: Acute Qualifiers: Sepsis type: sepsis due to unspecified organism Qualified Codes: A41.9 - Sepsis, unspecified organism (3) Parkinson disease Status: Chronic (4) Cachexia Status: Acute (5) Dehydration Status: Acute (6) Anemia of chronic disease Status: Chronic (7) Confusion Status: Acute (8) Diarrhea Status: Acute Qualifiers: Diarrhea type: presumed infectious Qualified Codes: R19.7 - Diarrhea, unspecified (9) Renal failure, acute Status: Acute Qualifiers: Acute renal failure type: unspecified Qualified Codes: N17.9 - Acute kidney failure, unspecified (10) Leukocytosis Status: Acute Qualifiers: Leukocytosis type: leukemoid reaction Qualified Codes: D72.823 - Leukemoid reaction (11) Visual hallucinations Status: Acute (12) Debility Status: Acute (13) Hypotension Status: Acute Qualifiers: Hypotension type: unspecified hypotension type Qualified Codes: I95.9 - Hypotension, unspecified (14) Thrombocytosis Status: Acute (15) Encephalopathy acute Status: Acute (16) Rigidity Status: Acute (17) Polymicrobial bacterial infection Status: Acute (18) Osteomyelitis of foot Status: Acute Qualifiers: Laterality: left (19) Witnessed seizure-like activity Status: Acute (20) Wound of left foot Status: Acute (21) Incontinence of bowel Status: Acute Qualifiers: Fecal incontinence type: unspecified Qualified Codes: R15.9 - Full incontinence of feces (22) Incontinence of urine Status: Acute Qualifiers: Urinary Incontinence type: unspecified incontinence Qualified Codes: R32 - Unspecified urinary incontinence (23) Anemia Status: Chronic Qualifiers: Anemia type: unspecified type Qualified Codes: D64.9 - Anemia, unspecified Clinical Quality Measures DVT/VTE Risk/Contraindication: Risk Factor Score Per Nursin RFS Level Per Nursing on Admit: 4+=Very High SHANNON LIMA DO Nov 05, 2018 09:52
[2018-11-05] MEDS: SINEMET 25/100 (CARBIDOPA/LEVODOPA) TAB PO SCH ×3 (11:40→18:49)
[2018-11-05 12:00] VITALS: BP 134/72
--- NOTE | 2018-11-05 12:01 | Occupational Ther Daily Note ---
OT Current Status-Daily Note Subjective Pt alert, sitting in recliner. Pt mumbles, difficult to understand. Pt was able to say that she was in [place], [place]. During session, pt was attempting to scoot forward in chair because she saw two ants on bed spread. Mental Status/Objective Patient Orientation: Person, Place Therapy Code Descriptions/Definitions Functional [place] Measure: 0=Not Assessed/NA 4=Minimal Assistance 1=Total Assistance 5=Supervision or Setup 2=Maximal Assistance 6=Modified [place] 3=Moderate Assistance 7=Complete [place] ADL-Treatment Pt's grasp is loose and uncoordinated making it difficult to use hands for any functional tasks. Attempted universal cuff, pt able to bring food to mouth with some spillage and CGA. Pt unable to scoop food with universal cuff at this time. Pt unable to activate nrsg call light, easy push call light place in pt's room. Pt required CGA and using two hands to hold milk carton then bring to mouth with guidance. Pt demonstrated decreased coordination throughout session, decrease UE/hand strength and decreased ROM of UE/hand. Light resistance therapy foam given to pt. Pt having difficulty also with visual perceptual skills. After therapy, pt sitting in recliner with call light/phone in reach. All needs met in room. OT Short Term Goals Short Term Goals Time Frame: Nov 18, 2018 Eating(FIM): 4 Grooming(FIM): 4 Bathing(FIM): 4 Upper Body Dressing(FIM): 4 Lower Body Dressing(FIM): 4 Toileting(FIM): 3 Transfers (B,C,W/C) (FIM): 3 Toilet/Commode Transfer(FIM): 3 Additional Short Term Goals: 1-Demonstrate ADL Tasks, 2-Verbalize Understanding, 3-ImproveStrength/Bakari 1=Demonstrate adherence to instructed precautions during ADL tasks. 2=Patient will verbalize/demonstrate understanding of assistive devices/modifications for ADL. 3=Patient will improve strength/tolerance for activity to enable patient to perform ADL's. OT Program Host Goals Program Host Goals Time Frame: Dec 02, 2018 Eating (FIM): 6 Grooming(FIM): 5 Bathing(FIM): 5 Bathing Location: L Arm, R Arm, L Upper Leg, R Upper Leg, L Lower Leg (including foot), R Lower Leg (including foot), Chest, Abdomen, Buttocks, Perineal Area Upper Body Dressing(FIM): 5 Lower Body Dressing(FIM): 5 Toileting(FIM): 5 Transfers (B,C,W/C) (FIM): 5 Toilet/Commode Transfer(FIM): 5 Additional Goals: 1-Demonstrate ADL Tasks, 2-Verbalize Understanding, 3-Improv eStrength/Bakari 1=Demonstrate adherence to instructed precautions during ADL tasks. 2=Patient will verbalize/demonstrate understanding of assistive devices/modifications for ADL. 3=Patient will improve strength/tolerance for activity to enable patient to p erform ADL's. OT Education/Plan Problem List/Assessment Assessment: Decreased Activ Tolerance, Decreased Safety Aware, Decreased UE Strength, Dependent Transfers, Impaired Cognition, Impaired Coordination, Impa ired Funct Balance, Impaired I ADL's, Impaired Self-Care Skills, Restricted Funct UE ROM, Visual-Perceptual Deficit pt presents with functional limitations affecting areas of ADLS and functional transfers with deficits in the above mention. pt would benefit from OT services to increase independence with ADLs and functional transfers. Based on today's evaluation pt will benefit from extended care facility due to severity of Parkinson's requiring total assist for all ADLs and functional mobility. Discharge Recommendations Plan/Recommendations: Continue POC Treatment Plan/Plan of Care Patient would benefit from OT for education, treatment and training to promote independence in ADL's, mobility, safety and/or upper extremity function for ADL's. Plan of Care: ADL Retraining, Caregiver Training, Functional Mobility, Group Exercise/Act as Ind, UE Funct Exercise/Act Treatment Duration: Dec 02, 2018 Frequency: 5 times per week Estimated Hrs Per Day: .25 hour per day Agreement: Yes Rehab Potential: Guarded Time/GCodes Start Time: 11:17 Stop Time: 11:35 Total Time Billed (hr/min): 52 Billed Treatment Time 1 visit-ADL 2 (35 min) FA 1 (17 min) MARCY BOUDREAUX Nov 05, 2018 12:01
[2018-11-05] MEDS: POTASSIUM CHLORIDE INJ 10 MEQ in NS IV 1000 ML 1,000 ML IV SCH (14:57)
[2018-11-05 16:00] VITALS: BP 158/79
--- NOTE | 2018-11-05 16:31 | Pulmonary Progress Note ---
Subjective Time Seen by a Provider: 16:30 Subjective/Events-last exam No complications noted. Sepsis Event Evaluation Height, Weight, BMI Height: 5'7.00" Weight: 128lbs. 3.0oz. 58.475946ed; 20.4 BMI Method: Focused Exam Lactate Level 11/04/18 06:10: Lactic Acid Level 0.94 Exam Exam Vital Signs Date Time Temp Pulse Resp B/P (MAP) Pulse Ox O2 Delivery O2 Flow Rate FiO2 11/05/18 12:00 98.6 63 18 134/72 (92) 97 Room Air 11/05/18 09:00 97 Room Air 11/05/18 08:00 98.6 84 18 125/68 (87) 98 Room Air 11/05/18 04:42 98.8 78 20 119/69 (86) 97 Room Air 11/05/18 00:07 99.7 77 16 129/56 (80) 97 Room Air 11/04/18 20:30 97 Room Air 11/04/18 20:00 99.9 96 20 160/76 (104) 97 Room Air 11/04/18 18:00 100.2 86 18 154/77 (102) 97 Room Air 11/04/18 17:00 101 22 156/79 (104) 97 I & O 11/05/18 07:00 Intake Total 660 ml Output Total 2175 ml Balance -1515 ml Height & Weight Height: 5'7.00" Weight: 128lbs. 3.0oz. 58.535870eb; 20.4 BMI Method: General Appearance: No Apparent Distress, WD/WN, Anxious, Chronically ill, Cachetic, Thin HEENT: PERRL/EOMI, Normal ENT Inspection, Pharynx Normal, Other (dry mucous membranes) Neck: Full Range of Motion, Normal Inspection, Non Tender, Supple, Carotid Bruit Respiratory: Chest Non Tender, Lungs Clear, Normal Breath Sounds, No Accessory Muscle Use, No Respiratory Distress Cardiovascular: No Edema, No Gallop, No JVD, No Murmur, Normal Peripheral Pulses, Tachycardia Gastrointestinal: normal bowel sounds, non tender, soft Extremity: Normal Capillary Refill, Normal Inspection, Normal Range of Motion, Non Tender, No Calf Tenderness, No Pedal Edema, Other (left foot with dressing and foot brace) Neurologic/Psychiatric: Alert, Oriented x3, No Motor/Sensory Deficits, Normal Mood/Affect Skin: Normal Color, Warm/Dry Lymphatic: No Adenopathy Results Lab Laboratory Tests 11/04/18 03:02 11/05/18 05:20 Assessment/Plan Assessment/Plan Severe sepsis probably secondary to osteomyelitis and left foot wound - Improving -Consult wound care -Carie Dacosta -Yoon cultures HTN Delirium/ Psychosis with visual hallucinations -Haldol PRN - morphine PRN -Seroquel QHS - Parkinson's with dementia Acute renal failure with dehydration -IVF Anemia -Monitor Seizures -BREEZY Bragg DO Nov 05, 2018 16:31
[2018-11-05 20:00] VITALS: BP 137/67
[2018-11-05] MEDS ORDERED: TROUGH ORDER-PHARMACY XX NR (20:00)
[2018-11-05] MEDS: QUEtiapine 25 MG (SEROquel) TAB IMMEDIATE RELEASE PO SCH (21:10)
[2018-11-05] MEDS: SINEMET CR 50/200 (CARBIDOPA/LEVODOPA SA) TAB PO SCH (21:11)
[2018-11-05] MEDS: GABAPENTIN 100 MG (NEURONTIN) CAP PO SCH (21:11)
[2018-11-06] VITALS (7 sets, daily range): BP systolic 94–138; BP diastolic 54–76
[2018-11-06] MEDS: MEROPENEM 500 MG/SWFI 10 ML IV PUSH IV SCH ×6 (03:10→18:11)
[2018-11-06] MEDS: POTASSIUM CHLORIDE INJ 10 MEQ in NS IV 1000 ML 1,000 ML IV SCH ×2 (04:13→05:39)
[2018-11-06 05:33] LABS: BASOPHILS % (AUTO) 0 % (0-10); EOSINOPHILS # (AUTO) 0.2 10^3/uL (0.0-0.3); EOSINOPHILS % (AUTO) 2 % (0-10); HEMATOCRIT 28 % (35-52); HEMOGLOBIN 8.7 G/DL (11.5-16.0); LYMPHOCYTES # (AUTO) 0.9 X 10^3 (1.0-4.0); LYMPHOCYTES % (AUTO) 10 % (12-44); MEAN CORPUSCULAR HEMOGLOBIN 27 PG (25-34); MEAN CORPUSCULAR HGB CONC 31 G/DL (32-36); MEAN CORPUSCULAR VOLUME 86 FL (80-99); MEAN PLATELET VOLUME 10.9 FL (7.4-10.4); MONOCYTES % (AUTO) 10 % (0-12); NEUTROPHILS # (AUTO) 7.5 X 10^3 (1.8-7.8); NEUTROPHILS % (AUTO) 78 % (42-75); PLATELET COUNT 344 10^3/uL (130-400); RED CELL DISTRIBUTION WIDTH 20.6 % (10.0-14.5); WHITE BLOOD COUNT 9.7 10^3/uL (4.3-11.0)
[2018-11-06 05:51] LABS: ALANINE AMINOTRANSFERASE < 6 U/L (0-55); ALBUMIN 2.9 GM/DL (3.2-4.5); ALKALINE PHOSPHATASE 114 U/L (40-136); BILIRUBIN,TOTAL 0.3 MG/DL (0.1-1.0); BUN/CREATININE RATIO 35; CALCIUM 8.6 MG/DL (8.5-10.1); CARBON DIOXIDE 18 MMOL/L (21-32); CHLORIDE 116 MMOL/L (98-107); CREATININE SERUM 0.71 MG/DL (0.60-1.30); GFR ESTIMATED > 60; GLUCOSE 99 MG/DL (70-105); POTASSIUM 3.9 MMOL/L (3.6-5.0); SODIUM 141 MMOL/L (135-145); TOTAL PROTEIN 5.2 GM/DL (6.4-8.2)
[2018-11-06] MEDS: metroNIDAZOLE 500MG/100ML IVPB 100 ML IV SCH ×3 (06:07→21:58)
[2018-11-06] MEDS: SINEMET 25/100 (CARBIDOPA/LEVODOPA) TAB PO SCH ×4 (06:08→18:11)
--- NOTE | 2018-11-06 07:25 | Pulmonary Progress Note ---
Subjective Time Seen by a Provider: 07:25 Subjective/Events-last exam No complications noted. Sepsis Event Evaluation Height, Weight, BMI Height: 5'7.00" Weight: 143lbs. 1.0oz. 64.423620hp; 20.4 BMI Method: Focused Exam Lactate Level 11/04/18 06:10: Lactic Acid Level 0.94 Exam Exam Vital Signs Date Time Temp Pulse Resp B/P (MAP) Pulse Ox O2 Delivery O2 Flow Rate FiO2 11/06/18 04:27 99.0 84 18 132/70 (90) 98 Room Air 11/06/18 00:05 98.2 84 18 106/54 (71) 97 Room Air 11/05/18 21:00 Room Air 11/05/18 20:00 98.9 89 18 137/67 (90) 98 Room Air 11/05/18 16:00 98.3 77 20 158/79 (105) 100 Room Air 11/05/18 12:00 98.6 63 18 134/72 (92) 97 Room Air 11/05/18 09:00 97 Room Air 11/05/18 08:00 98.6 84 18 125/68 (87) 98 Room Air I & O 11/06/18 07:00 Intake Total 2620 ml Output Total 1825 ml Balance 795 ml Height & Weight Height: 5'7.00" Weight: 143lbs. 1.0oz. 64.829506se; 20.4 BMI Method: General Appearance: No Apparent Distress, WD/WN, Anxious, Chronically ill, Cachetic, Thin HEENT: PERRL/EOMI, Normal ENT Inspection, Pharynx Normal, Other (dry mucous membranes) Neck: Full Range of Motion, Normal Inspection, Non Tender, Supple, Carotid Br uit Respiratory: Chest Non Tender, Lungs Clear, Normal Breath Sounds, No Accessory Muscle Use, No Respiratory Distress Cardiovascular: No Edema, No Gallop, No JVD, No Murmur, Normal Peripheral Pulses, Tachycardia Gastrointestinal: normal bowel sounds, non tender, soft Extremity: Normal Capillary Refill, Normal Inspection, Normal Range of Motion, Non Tender, No Calf Tenderness, No Pedal Edema, Other (left foot with dressing and foot brace) Neurologic/Psychiatric: Alert, Oriented x3, No Motor/Sensory Deficits, Normal Mood/Affect Skin: Normal Color, Warm/Dry Lymphatic: No Adenopathy Results Lab Laboratory Tests 11/05/18 05:20 11/06/18 05:18 Assessment/Plan Assessment/Plan Severe sepsis probably secondary to osteomyelitis and left foot wound - Improving - wound care -Carie Dacosta Flagyl -Yoon cultures HTN Delirium/ Psychosis with visual hallucinations -improved Parkinson's with dementia Acute renal failure with dehydration -IVF Anemia -Monitor Seizures -Keppra I am going to sign off please call with any questions or concerns. BREEZY HERNÁNDEZ DO Nov 06, 2018 07:25
[2018-11-06] MEDS: VANCOMYCIN 1 GM/NS 250 ML IVPB IV SCH ×4 (09:01→20:41)
[2018-11-06] MEDS: meTOprolol TARTRATE 25 MG (LOPRESSOR) TABLET PO SCH ×2 (09:02→20:40)
[2018-11-06] MEDS: LEVETIRACETAM 500 MG (KEPPRA) TAB PO SCH ×2 (09:02→20:40)
[2018-11-06] MEDS: lisINopril 10 MG (PRINIVIL) TABLET PO SCH (09:02)
[2018-11-06] MEDS: SENNA W/DOCUSATE (SENOKOT S) TABLET PO SCH ×2 (09:03→20:40)
[2018-11-06] MEDS: DAKIN'S 1/4 STRENGTH (0.125%) 473 ML BTL TOP SCH ×2 (09:06→20:41)
--- NOTE | 2018-11-06 09:26 | Physical Therapy Daily Note ---
PT Daily Note-Current Subjective Patient in bed pre tx, agrees to PT, has no complaints of pain. Will be co- treating with OT due to poor patient mobility, strength, sitting and standing balance, the need to coordinate UE and LE activity for safety. Appearance Patient in recliner post tx with nurse call, phone, tray, chair alarm on. Mental Status Patient Orientation: Person, Confused Attachments: IV Transfers Therapy Code Descriptions/Definitions Functional [place] Measure: 0=Not Assessed/NA 4=Minimal Assistance 1=Total Assistance 5=Supervision or Setup 2=Maximal Assistance 6=Modified [place] 3=Moderate Assistance 7=Complete [place] Therapy Quality Codes: 6 Independent with activity with or without an assistive device 5 Patient requires set up or clean up by helper. Patient completes activity by themselves 4 Supervision or touching assist (CGA). [place] provide cues , steadying assist 3 The helper provides less than half the effort to complete the activity 2 The helper provides more than half the effort to complete the activity 1 Dependent. The helper does all the effort to complete an activity 7 Patient refused to complete or attempt activity 9 The patient did not perform the activity before the current illness or injury 88 Not attempted due to Medical conditions or safety concerns Transfers (B, C, W/C) (FIM): 2 Scootin Rollin Supine to/from Sit: 2 Sit to/from Stand: 2 Bed to/from Chair: 2 Cues for hand placement and safety. Very stiff. Knees buckle when sitting. Patient performed a stand pivot transfer to recliner. OT helped bathe patient when going from supine to sit and while sitting and assisted with UE positioning during transfer. Exercises Seated Therapy Exercises: Ankle pumps, Long arc quads Seated Reps: 10 Treatments bed mobility and transfers, ambulation Assessment Current Status: Fair Progress Patient is more awake today and was able to participate in therapy. PT Short Term Goals Short Term Goals Transfers (B,C,W/C) (FIM): 3 PT Building Insulation Installer Goals Building Insulation Installer Goals PT Chcf Goals Time Frame: Nov 23, 2018 Transfers (B,C,W/C) (FIM): 3 Gait (FIM): 1 Gait distance (FIM): 1=up to 49 ft Distance: 15' Gait Level of Assist: 3 Gait Assistive Device: FWW PT Plan Problem List Problem List: Activity Tolerance, Functional Strength, Safety, Balance, Gait, Transfer, Bed Mobility, ROM Treatment/Plan Treatment Plan: Continue Plan of Care Treatment Plan: Bed Mobility, Education, Functional Activity Bakari, Functional Strength, Gait, Safety, Therapeutic Exercise, Transfers Treatment Duration: Nov 23, 2018 Frequency: 6 times per week Estimated Hrs Per Day: .5 hour per day Patient and/or Family Agrees t: Yes Safety Risks/Education Patient Education: Transfer Techniques, Correct Positioning, Safety Issues Teaching Recipient: Patient Teaching Methods: Demonstration, Discussion Response to Teaching: Reinforcement Needed Time/GCodes Time In: 09 Time Out: 919 Total Billed Treatment Time: 20 Total Billed Treatment 1 visit FA 20' co-treated with OT for the whole ' TIGIST PAIGE PT Nov 06, 2018 09:26
--- NOTE | 2018-11-06 09:49 | Occupational Ther Daily Note ---
OT Current Status-Daily Note Subjective Pt alert, lying in bed. Pt agrees to therapy. Nrsg in room. Pt mumbles and is difficult to understand. Pt states where she is. Mental Status/Objective Patient Orientation: Person, Place Therapy Code Descriptions/Definitions Functional [place] Measure: 0=Not Assessed/NA 4=Minimal Assistance 1=Total Assistance 5=Supervision or Setup 2=Maximal Assistance 6=Modified [place] 3=Moderate Assistance 7=Complete [place] ADL-Treatment Pt dependent on bathing. Attempted to get pt to wash her face and she stated, "I don't want to wash my face with pee water." EVANS assured pt that it was a clean cloth. Co-treat with PT due to need of 2 skilled clinicians for bed mobility, transfers, core stabilization, UE/LE placement with transfers. PT worked on LE strengthening, transfers and bed mobility. OT worked on ADLs, UE placement during transfers and bed mobility. Pt did finally take cloth and wash face once sitting. Pt dependent of bed mobility and transfers. Using universal cuff and physical cues, pt able to spear banana and bring to mouth. Pt then wanted to call , while on phone pt tried to get to come get her at 1:30 stating that she was discharging. Pt then started yelling saying that her sister and mother were supposed to come and if she didn't get to see them people would be in trouble. Pt reassured that if visitors came they would be able to come into her room. After therapy, nrsg in room and call light/phone in reach. Safety measures in place all needs met in room. Eating (FIM): 2 Grooming (FIM): 1 Bathing (FIM): 1 Upper Body (FIM): 1 Lower Body Dressing (FIM): 1 Transfers (B, C, W/C) (FIM): 1 OT Short Term Goals Short Term Goals Time Frame: Nov 18, 2018 Eating(FIM): 4 Grooming(FIM): 4 Bathing(FIM): 4 Upper Body Dressing(FIM): 4 Lower Body Dressing(FIM): 4 Toileting(FIM): 3 Transfers (B,C,W/C) (FIM): 3 Toilet/Commode Transfer(FIM): 3 Additional Short Term Goals: 1-Demonstrate ADL Tasks, 2-Verbalize Understand ing, 3-ImproveStrength/Bakari 1=Demonstrate adherence to instructed precautions during ADL tasks. 2=Patient will verbalize/demonstrate understanding of assistive devices/modifications for ADL. 3=Patient will improve strength/tolerance for activity to enable patient to perform ADL's. OT Machine Heel Builder Goals Machine Heel Builder Goals Time Frame: Dec 02, 2018 Eating (FIM): 6 Grooming(FIM): 5 Bathing(FIM): 5 Bathing Location: L Arm, R Arm, L Upper Leg, R Upper Leg, L Lower Leg (including foot), R Lower Leg (including foot), Chest, Abdomen, Buttocks, Perineal Area Upper Body Dressing(FIM): 5 Lower Body Dressing(FIM): 5 Toileting(FIM): 5 Transfers (B,C,W/C) (FIM): 5 Toilet/Commode Transfer(FIM): 5 Additional Goals: 1-Demonstrate ADL Tasks, 2-Verbalize Understanding, 3-I mproveStrength/Bakari 1=Demonstrate adherence to instructed precautions during ADL tasks. 2=Patient will verbalize/demonstrate understanding of assistive devices/modifications for ADL. 3=Patient will improve strength/tolerance for activity to enable patient to perform ADL's. OT Education/Plan Problem List/Assessment Assessment: Decreased Activ Tolerance, Decreased Safety Aware, Decreased UE Strength, Dependent Transfers, Impaired Bed Mobility, Impaired Cognition, Impaired Coordination, Impaired Funct Balance, Impaired I ADL's, Impaired Self- Care Skills, Restricted Funct UE ROM pt presents with functional limitations affecting areas of ADLS and functional transfers with deficits in the above mention. pt would benefit from OT services to increase independence with ADLs and functional transfers. Based on today's evaluation pt will benefit from extended care facility due to severity of Parkinson's requiring total assist for all ADLs and functional mobility. Discharge Recommendations Plan/Recommendations: Continue POC Treatment Plan/Plan of Care Patient would benefit from OT for education, treatment and training to promote independence in ADL's, mobility, safety and/or upper extremity function for ADL's. Plan of Care: ADL Retraining, Caregiver Training, Functional Mobility, Group Exercise/Act as Ind, UE Funct Exercise/Act Treatment Duration: Dec 02, 2018 Frequency: 5 times per week Estimated Hrs Per Day: .25 hour per day Agreement: Yes Rehab Potential: Guarded Time/GCodes Start Time: 09:00 Stop Time: 09:35 Total Time Billed (hr/min): 35 Billed Treatment Time 1 visit-ADL 2 (30 min) co-treat with PT [id number], individual [id number] MARCY BOUDREAUX Nov 06, 2018 09:48
--- NOTE | 2018-11-06 10:36 | Progress Note - Hospitalist ---
Subjective HPI/CC On Admission Date Seen by Provider: Nov 06, 2018 Time Seen by Provider: 09:30 Chief complaint: Severe sepsis requiring ICU transfer History of present illness: This is a 62-year-old white female patient of health care provider Ayde Hickman out of [place], [place] who originally was to be admitted in inpatient rehab today from [facility] for intensive rehab and recovery following encephalopathy and seizure-like activity with severe rigidity from Parkinson's disease following a very complex left foot surgery status post bunionectomy 1 month ago 10/02/18 in [facility]. Apparently she had problems and required a revision 1 week after the original surgery then it showed an abscess formation on 10/13/18 which required incision and drainage and placement of IV antibiotics of Vanc and Levaquin to cover MRSA and Pseudomonas in the infusion center at [place], [place]. She had presented to the ER there with confusion and visual hallucinations on 10/25/18 and her son reported that her Parkinson's medications have been "messed up" since before her surgery when she originally was told to stop taking her blood pressure medication of losartan and instead she stopped the amantadine that further complicated the situation. Patient was transferred to on 10/27/18 for higher level of care and to be christian ated by Dr Fernandez her Neurologist. She was placed on Keppra for the seizure-like activity and EEG showed slowed background and they suspected to not be an epileptic seizure but maintained on Keppra in the meantime. Orthopedics saw her found the patient not to be a surgical candidate at this time until the ulcers healed and hardware would be removed in 6-12 months from now. She remains not weightbearing on the left foot. Extensive records from reviewed and conferred with Dr. Choi equipment engineering technician since she presented to inpatient rehab with a blood pressure of 80/43 and that was rechecked and confirmed patient appeared to be lethargic so labs were obtained stat showing leukocytosis of 18,000 and elevated lactic acid 2.1 that was rechecked at 3.0 requiring aggressive IV fluids per severe sepsis protocol. I appreciate Dr. Choi's intervention and her plan is to check a C. difficile colitis sample because of diarrhea reports and placement back on antibiotic coverage recommended by [facility] at . Subjective/Events-last exam Pt very much improved but confusion continues but much improved Will DC Shaw No BM produced yet so no fecal incontinence Will heplock IV fluid and will increase PO nutrition and fluids Overall denies any pain Extensive medical management required for this pt, it appears sepsis has resolved but pt is very complex need to pursue inpatient rehab prior to going home because she is so debilitated and hopefully confusion will clear also Dramatically improved but still a lot of work to do before she can go home Wants to go home desperately Review of Systems General: Fatigue Musculoskeletal: foot pain Neurological: Confusion Focused Exam Lactate Level 11/04/18 06:10: Lactic Acid Level 0.94 Objective Exam Vital Signs Vital Signs Date Time Temp Pulse Resp B/P (MAP) Pulse Ox O2 Delivery O2 Flow Rate FiO2 11/06/18 19:33 99.5 95 18 131/71 (91) 98 Room Air Capillary Refill : General Appearance: No Apparent Distress, WD/WN, Anxious, Chronically ill, Cachetic, Thin HEENT: PERRL/EOMI, Normal ENT Inspection, Pharynx Normal, Other (dry mucous membranes) Neck: Full Range of Motion, Normal Inspection, Non Tender, Supple, Carotid Bruit Respiratory: Chest Non Tender, Lungs Clear, Normal Breath Sounds, No Accessory Muscle Use, No Respiratory Distress Cardiovascular: No Edema, No Gallop, No JVD, No Murmur, Normal Peripheral Pulses, Tachycardia Gastrointestinal: Normal Bowel Sounds, No Organomegaly, No Pulsatile Mass, Non Tender, Soft Back: Normal Inspection, No CVA Tenderness, No Vertebral Tenderness Extremity: Normal Capillary Refill, Normal Inspection, Normal Range of Motion, Non Tender, No Calf Tenderness, No Pedal Edema, Other (left foot with dressing and foot brace) Neurologic/Psychiatric: Alert, Oriented x3, No Motor/Sensory Deficits, Normal Mood/Affect Skin: Normal Color, Warm/Dry Lymphatic: No Adenopathy Results/Procedures Lab Laboratory Tests 11/06/18 05:18 Patient resulted labs reviewed. Assessment/Plan Assessment and Plan Assess & Plan/Chief Complaint Assessment: Severe Sepsis Hypotension Leukocytosis Dehydration Encephalopathy Poor reserve with severe debility Seizure-like activity requiring Keppra initiation EEG 10/10/18 mild background slowing 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 per [facility] Severe PD Left foot cellulitis and osteomyelitis placed on Levaquin and Doxycycline per ID at [facility] s/p two dorsal open foot ulcers with tendon visible previous bunion surgery 10/02/18 in [place], [place] with revision 1 week later s/p abscess drained now ortho allowing wounds to heal before hardware removed Anemia Diarrhea Incontinence bowel and bladder Plan: HLIVF Abx Seizure precautions Pain control IRF but long recovery expected PT/OT Lovenox for DVT PPx small dose Diagnosis/Problems Diagnosis/Problems (1) Severe sepsis Status: Resolved Resolution Date/Time: 11/06/18 @ 21:05 (2) Sepsis Status: Resolved Qualifiers: Sepsis type: sepsis due to unspecified organism Qualified Codes: A41.9 - Sepsis, unspecified organism Resolution Date/Time: 11/06/18 @ 21:05 (3) Parkinson disease Status: Chronic (4) Cachexia Status: Acute (5) Dehydration Status: Acute (6) Anemia of chronic disease Status: Chronic (7) Confusion Status: Acute (8) Diarrhea Status: Acute Qualifiers: Diarrhea type: presumed infectious Qualified Codes: R19.7 - Diarrhea, unspecified (9) Renal failure, acute Status: Acute Qualifiers: Acute renal failure type: unspecified Qualified Codes: N17.9 - Acute kidney failure, unspecified (10) Leukocytosis Status: Acute Qualifiers: Leukocytosis type: leukemoid reaction Qualified Codes: D72.823 - Leukemoid reaction (11) Visual hallucinations Status: Acute (12) Debility Status: Acute (13) Hypotension Status: Acute Qualifiers: Hypotension type: unspecified hypotension type Qualified Codes: I95.9 - Hypotension, unspecified (14) Thrombocytosis Status: Acute (15) Encephalopathy acute Status: Acute (16) Rigidity Status: Acute (17) Polymicrobial bacterial infection Status: Acute (18) Osteomyelitis of foot Status: Acute Qualifiers: Laterality: left (19) Witnessed seizure-like activity Status: Acute (20) Wound of left foot Status: Acute (21) Incontinence of bowel Status: Acute Qualifiers: Fecal incontinence type: unspecified Qualified Codes: R15.9 - Full incontinence of feces (22) Incontinence of urine Status: Acute Qualifiers: Urinary Incontinence type: unspecified incontinence Qualified Codes: R32 - Unspecified urinary incontinence (23) Anemia Status: Chronic Qualifiers: Anemia type: unspecified type Qualified Codes: D64.9 - Anemia, unspecified Clinical Quality Measures DVT/VTE Risk/Contraindication: Risk Factor Score Per Nursin RFS Level Per Nursing on Admit: 4+=Very High SHANNON LIMA DO Nov 06, 2018 10:36
[2018-11-06] MEDS: SINEMET CR 50/200 (CARBIDOPA/LEVODOPA SA) TAB PO SCH (20:40)
[2018-11-06] MEDS: QUEtiapine 25 MG (SEROquel) TAB IMMEDIATE RELEASE PO SCH (20:40)
[2018-11-06] MEDS: GABAPENTIN 100 MG (NEURONTIN) CAP PO SCH (20:40)
[2018-11-06] MEDS: MIRTAZAPINE 15 MG (REMERON) TAB PO PRN (20:40)
[2018-11-06] MEDS: HYDROcodone/APAP 5 MG/325 MG (LORTAB) TAB PO PRN (20:57)
[2018-11-06] MEDS ORDERED: HALOPERIDOL 5 MG/ML (HALDOL) AMP IM PRN (21:15)
[2018-11-07] MEDS: MEROPENEM 500 MG/SWFI 10 ML IV PUSH IV SCH ×6 (02:55→18:14)
[2018-11-07 04:45] VITALS: BP 132/70
[2018-11-07] MEDS: metroNIDAZOLE 500MG/100ML IVPB 100 ML IV SCH (05:49)
[2018-11-07] MEDS: SINEMET 25/100 (CARBIDOPA/LEVODOPA) TAB PO SCH ×4 (05:49→18:15)
[2018-11-07 07:01] LABS: BASOPHILS % (AUTO) 0 % (0-10); EOSINOPHILS # (AUTO) 0.4 10^3/uL (0.0-0.3); EOSINOPHILS % (AUTO) 4 % (0-10); HEMATOCRIT 29 % (35-52); HEMOGLOBIN 9.2 G/DL (11.5-16.0); LYMPHOCYTES % (AUTO) 12 % (12-44); MEAN CORPUSCULAR HEMOGLOBIN 27 PG (25-34); MEAN CORPUSCULAR HGB CONC 31 G/DL (32-36); MEAN CORPUSCULAR VOLUME 85 FL (80-99); MEAN PLATELET VOLUME 10.5 FL (7.4-10.4); MONOCYTES # (AUTO) 0.8 X 10^3 (0.0-1.0); MONOCYTES % (AUTO) 10 % (0-12); NEUTROPHILS # (AUTO) 6.2 X 10^3 (1.8-7.8); NEUTROPHILS % (AUTO) 74 % (42-75); PLATELET COUNT 368 10^3/uL (130-400); RED CELL DISTRIBUTION WIDTH 20.6 % (10.0-14.5); WHITE BLOOD COUNT 8.3 10^3/uL (4.3-11.0)
[2018-11-07 07:24] LABS: ALANINE AMINOTRANSFERASE < 6 U/L (0-55); ALBUMIN 3.1 GM/DL (3.2-4.5); ALKALINE PHOSPHATASE 119 U/L (40-136); BILIRUBIN,TOTAL 0.4 MG/DL (0.1-1.0); BUN/CREATININE RATIO 33; CALCIUM 8.7 MG/DL (8.5-10.1); CARBON DIOXIDE 20 MMOL/L (21-32); CHLORIDE 112 MMOL/L (98-107); CREATININE SERUM 0.66 MG/DL (0.60-1.30); GFR ESTIMATED > 60; GLUCOSE 97 MG/DL (70-105); POTASSIUM 3.6 MMOL/L (3.6-5.0); SODIUM 139 MMOL/L (135-145); TOTAL PROTEIN 5.6 GM/DL (6.4-8.2)
[2018-11-07 07:59] VITALS: BP 154/74
[2018-11-07] MEDS ORDERED: ENOXAPARIN 40 MG/0.4 ML (LOVENOX) SYR SC SCH (08:00)
[2018-11-07] MEDS: LEVETIRACETAM 500 MG (KEPPRA) TAB PO SCH ×2 (08:39→20:55)
[2018-11-07] MEDS: metroNIDAZOLE 500 MG (FLAGYL) TAB PO SCH ×3 (08:39→20:55)
[2018-11-07] MEDS: VANCOMYCIN 1 GM/NS 250 ML IVPB IV SCH ×4 (08:39→20:54)
[2018-11-07] MEDS: DAKIN'S 1/4 STRENGTH (0.125%) 473 ML BTL TOP SCH ×2 (08:40→20:56)
[2018-11-07] MEDS: lisINopril 10 MG (PRINIVIL) TABLET PO SCH (08:40)
[2018-11-07] MEDS: SENNA W/DOCUSATE (SENOKOT S) TABLET PO SCH ×2 (08:40→20:56)
[2018-11-07] MEDS: meTOprolol TARTRATE 25 MG (LOPRESSOR) TABLET PO SCH ×2 (08:40→20:55)
--- NOTE | 2018-11-07 10:23 | Progress Note - Hospitalist ---
Subjective HPI/CC On Admission Date Seen by Provider: Nov 07, 2018 Time Seen by Provider: 09:30 Chief complaint: Severe sepsis requiring ICU transfer History of present illness: This is a 62-year-old white female patient of health care provider Ayde Hickman out of [place], [place] who originally was to be admitted in inpatient rehab today from [facility] for intensive rehab and recovery following encephalopathy and seizure-like activity with severe rigidity from Parkinson's disease following a very complex left foot surgery status post bunionectomy 1 month ago 10/02/18 in [facility]. Apparently she had problems and required a revision 1 week after the original surgery then it showed an abscess formation on 10/13/18 which required incision and drainage and placement of IV antibiotics of Vanc and Levaquin to cover MRSA and Pseudomonas in the infusion center at [place], [place]. She had presented to the ER there with confusion and visual hallucinations on 10/25/18 and her son reported that her Parkinson's medications have been "messed up" since before her surgery when she originally was told to stop taking her blood pressure medication of losartan and instead she stopped the amantadine that further complicated the situation. Patient was transferred to on 10/27/18 for higher level of care and to be christian ated by Dr Fernandez her Neurologist. She was placed on Keppra for the seizure-like activity and EEG showed slowed background and they suspected to not be an epileptic seizure but maintained on Keppra in the meantime. Orthopedics saw her found the patient not to be a surgical candidate at this time until the ulcers healed and hardware would be removed in 6-12 months from now. She remains not weightbearing on the left foot. Extensive records from reviewed and conferred with Dr. Choi equipment validation engineer since she presented to inpatient rehab with a blood pressure of 80/43 and that was rechecked and confirmed patient appeared to be lethargic so labs were obtained stat showing leukocytosis of 18,000 and elevated lactic acid 2.1 that was rechecked at 3.0 requiring aggressive IV fluids per severe sepsis protocol. I appreciate Dr. Choi's intervention and her plan is to check a C. difficile colitis sample because of diarrhea reports and placement back on antibiotic coverage recommended by infe ctious disease at . Subjective/Events-last exam Inpatient rehab evaluation put in. Eating about 60% with feeder. Large BM early this morning. Pain is not reported. Still on broad spectrum antibiotics. T Max 99.5. Checked labs and meds. Hgb remains at 9.2. Will initiate Lovenox for DVT prophylaxis. Review of Systems General: Fatigue Neurological: Confusion Objective Exam Vital Signs Vital Signs Date Time Temp Pulse Resp B/P (MAP) Pulse Ox O2 Delivery O2 Flow Rate FiO2 11/07/18 20:13 98.9 80 18 142/74 (96) 100 Room Air Capillary Refill : General Appearance: No Apparent Distress, WD/WN, Anxious, Chronically ill, Cachetic, Thin HEENT: PERRL/EOMI, Normal ENT Inspection, Pharynx Normal, Other (dry mucous membranes) Neck: Full Range of Motion, Normal Inspection, Non Tender, Supple, Carotid Bruit Respiratory: Chest Non Tender, Lungs Clear, Normal Breath Sounds, No Accessory Muscle Use, No Respiratory Distress Cardiovascular: No Edema, No Gallop, No JVD, No Murmur, Normal Peripheral Pulses, Tachycardia Gastrointestinal: Normal Bowel Sounds, No Organomegaly, No Pulsatile Mass, Non Tender, Soft Back: Normal Inspection, No CVA Tenderness, No Vertebral Tenderness Extremity: Normal Capillary Refill, Normal Inspection, Normal Range of Motion, Non Tender, No Calf Tenderness, No Pedal Edema, Other (left foot with dressing and foot brace) Neurologic/Psychiatric: Alert, Oriented x3, No Motor/Sensory Deficits, Normal Mood/Affect Skin: Normal Color, Warm/Dry Lymphatic: No Adenopathy Results/Procedures Lab Laboratory Tests 11/07/18 06:50 Patient resulted labs reviewed. Assessment/Plan Assessment and Plan Assess & Plan/Chief Complaint Assessment: Severe Sepsis Hypotension Leukocytosis Dehydration Encephalopathy Poor reserve with severe debility Seizure-like activity requiring Keppra initiation EEG 10/10/18 mild background slowing 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 per [facility] Severe PD Left foot cellulitis and osteomyelitis placed on Levaquin and Doxycycline per ID at [facility] s/p two dorsal open foot ulcers with tendon visible previous bunion surgery 10/02/18 in [place], [place] with revision 1 week later s/p abscess drained n ow ortho allowing wounds to heal before hardware removed Anemia Diarrhea Incontinence bowel and bladder Plan: HLIVF Abx Seizure precautions Pain control IRF but long recovery expected PT/OT Lovenox for DVT PPx small dose Diagnosis/Problems Diagnosis/Problems (1) Severe sepsis Status: Resolved Resolution Date/Time: 11/06/18 @ 21:05 (2) Sepsis Status: Resolved Qualifiers: Sepsis type: sepsis due to unspecified organism Qualified Codes: A41.9 - Sepsis, unspecified organism Resolution Date/Time: 11/06/18 @ 21:05 (3) Parkinson disease Status: Chronic (4) Cachexia Status: Acute (5) Dehydration Status: Acute (6) Anemia of chronic disease Status: Chronic (7) Confusion Status: Acute (8) Diarrhea Status: Acute Qualifiers: Diarrhea type: presumed infectious Qualified Codes: R19.7 - Diarrhea, unspecified (9) Renal failure, acute Status: Acute Qualifiers: Acute renal failure type: unspecified Qualified Codes: N17.9 - Acute kidney failure, unspecified (10) Leukocytosis Status: Acute Qualifiers: Leukocytosis type: leukemoid reaction Qualified Codes: D72.823 - Leukemoid reaction (11) Visual hallucinations Status: Acute (12) Debility Status: Acute (13) Hypotension Status: Acute Qualifiers: Hypotension type: unspecified hypotension type Qualified Codes: I95.9 - Hypotension, unspecified (14) Thrombocytosis Status: Acute (15) Encephalopathy acute Status: Acute (16) Rigidity Status: Acute (17) Polymicrobial bacterial infection Status: Acute (18) Osteomyelitis of foot Status: Acute Qualifiers: Laterality: left (19) Witnessed seizure-like activity Status: Acute (20) Wound of left foot Status: Acute (21) Incontinence of bowel Status: Acute Qualifiers: Fecal incontinence type: unspecified Qualified Codes: R15.9 - Full incontinence of feces (22) Incontinence of urine Status: Acute Qualifiers: Urinary Incontinence type: unspecified incontinence Qualified Codes: R32 - Unspecified urinary incontinence (23) Anemia Status: Chronic Qualifiers: Anemia type: unspecified type Qualified Codes: D64.9 - Anemia, unspecified Clinical Quality Measures DVT/VTE Risk/Contraindication: Risk Factor Score Per Nursin RFS Level Per Nursing on Admit: 4+=Very High SHANNON LIMA DO Nov 07, 2018 10:23
--- NOTE | 2018-11-07 10:41 | Physical Therapy Daily Note ---
PT Daily Note-Current Subjective Patient in bed pre tx, agrees to PT, has no complaints of pain. Appearance Patient in recliner post tx with nurse call, phone, tray, all needs met, chair alarm on. Patient has a sitter. Mental Status Patient Orientation: Person, Confused Transfers Therapy Code Descriptions/Definitions Functional [place] Measure: 0=Not Assessed/NA 4=Minimal Assistance 1=Total Assistance 5=Supervision or Setup 2=Maximal Assistance 6=Modified [place] 3=Moderate Assistance 7=Complete [place] Therapy Quality Codes: 6 Independent with activity with or without an assistive device 5 Patient requires set up or clean up by helper. Patient completes activity by themselves 4 Supervision or touching assist (CGA). [place] provide cues , steadying assist 3 The helper provides less than half the effort to complete the activity 2 The helper provides more than half the effort to complete the activity 1 Dependent. The helper does all the effort to complete an activity 7 Patient refused to complete or attempt activity 9 The patient did not perform the activity before the current illness or injury 88 Not attempted due to Medical conditions or safety concerns Transfers (B, C, W/C) (FIM): 2 Scootin Rollin Supine to/from Sit: 3 Sit to/from Stand: 2 Bed to/from Chair: 2 Improved supine to sit, still max assist during transfer, she bears little to no weight through her right leg. Attempted to get patient to stand using a rolling walker but she is not able to certified professional controller the walker and bear weight through her arms. Exercises Seated Therapy Exercises: Ankle pumps, Long arc quads, Hip flexion Seated Reps: 20 Patient has poor compliance with exercises, has trouble following directions due to confusion. Treatments bed mobility and transfers, LE exercise Assessment Current Status: Fair Progress improved bed mobility and supine to sit PT Short Term Goals Short Term Goals Transfers (B,C,W/C) (FIM): 3 PT Broiler Supervisor Goals Residential Goals PT Broiler Supervisor Goals Time Frame: Nov 23, 2018 Transfers (B,C,W/C) (FIM): 3 Gait (FIM): 1 Gait distance (FIM): 1=up to 49 ft Distance: 15' Gait Level of Assist: 3 Gait Assistive Device: FWW PT Plan Problem List Problem List: Activity Tolerance, Functional Strength, Safety, Balance, Gait, Transfer, Bed Mobility, ROM Treatment/Plan Treatment Plan: Continue Plan of Care Treatment Plan: Bed Mobility, Education, Functional Activity Bakari, Functional Strength, Gait, Safety, Therapeutic Exercise, Transfers Treatment Duration: Nov 23, 2018 Frequency: 6 times per week Estimated Hrs Per Day: .5 hour per day Patient and/or Family Agrees t: Yes Safety Risks/Education Patient Education: Transfer Techniques, Reviewed Precautions, Correct Positioning, Safety Issues Teaching Recipient: Patient Teaching Methods: Demonstration, Discussion Response to Teaching: Reinforcement Needed Time/GCodes Time In: 1020 Time Out: 1035 Total Billed Treatment Time: 15 Total Billed Treatment 1 visit FA Lorenza' TIGIST PAIGE PT Nov 07, 2018 10:41
[2018-11-07 12:00] VITALS: BP 113/59
--- NOTE | 2018-11-07 13:41 | Occupational Ther Daily Note ---
OT Current Status-Daily Note Subjective Pt alert, sitting in recliner. Pt has sitter in room. Pt continues to demonstrate confusion mingled with times of lucidity. Mental Status/Objective Patient Orientation: Person, Place Therapy Code Descriptions/Definitions Functional [place] Measure: 0=Not Assessed/NA 4=Minimal Assistance 1=Total Assistance 5=Supervision or Setup 2=Maximal Assistance 6=Modified [place] 3=Moderate Assistance 7=Complete [place] Attachments: IV ADL-Treatment Pt requested to use BSC. Max A x's 2 for toilet transfer and toileting x2. Pt used universal cuff to feed self after set up. Pt then decided not to feed self and have nrsg feed self. After therapy, pt sitting in room with call light/phone in reach. Nrsg in room. Other Treatment Pt's hand coordination appears to have progressed slightly, able to reach to designated area but unable to sustain controlled movement. Light resistance therapy foam in room, completed 1 set 10 reps of hand site damage prevention technician strengthening. Pt then able to follow directions to complete shldr flexion 1 set 10 reps. OT Short Term Goals Short Term Goals Time Frame: Nov 18, 2018 Eating(FIM): 4 Grooming(FIM): 4 Bathing(FIM): 4 Upper Body Dressing(FIM): 4 Lower Body Dressing(FIM): 4 Toileting(FIM): 3 Transfers (B,C,W/C) (FIM): 3 Toilet/Commode Transfer(FIM): 3 Additional Short Term Goals: 1-Demonstrate ADL Tasks, 2-Verbalize Understanding, 3-ImproveStrength/[place]ak[place] 1=Demonstrate adherence to instructed precautions during ADL tasks. 2=Patient will verbalize/demonstrate understanding of assistive devices/modifications for ADL. 3=Patient will improve strength/tolerance for activity to enable patient to perform ADL's. OT Skilled Nursing Goals Skilled Nursing Goals Time Frame: Dec 02, 2018 Eating (FIM): 6 Grooming(FIM): 5 Bathing(FIM): 5 Bathing Location: L Arm, R Arm, L Upper Leg, R Upper Leg, L Lower Leg (including foot), R Lower Leg (including foot), Chest, Abdomen, Buttocks, Perineal Area Upper Body Dressing(FIM): 5 Lower Body Dressing(FIM): 5 Toileting(FIM): 5 Transfers (B,C,W/C) (FIM): 5 Toilet/Commode Transfer(FIM): 5 Additional Goals: 1-Demonstrate ADL Tasks, 2-Verbalize Understanding, 3- ImproveStrength/Bakari 1=Demonstrate adherence to instructed precautions during ADL tasks. 2=Patient will verbalize/demonstrate understanding of assistive devices/modifications for ADL. 3=Patient will improve strength/tolerance for activity to enable patient to perform ADL's. OT Education/Plan Problem List/Assessment Assessment: Decreased Activ Tolerance, Decreased Safety Aware, Impaired Cogniti on, Impaired Coordination, Impaired Funct Balance, Impaired Self-Care Skills, Restricted Funct UE ROM pt presents with functional limitations affecting areas of ADLS and functional transfers with deficits in the above mention. pt would benefit from OT services to increase independence with ADLs and functional transfers. Based on today's evaluation pt will benefit from extended care facility due to severity of Parkinson's requiring total assist for all ADLs and functional mobility. Discharge Recommendations Plan/Recommendations: Continue POC Treatment Plan/Plan of Care Patient would benefit from OT for education, treatment and training to promote independence in ADL's, mobility, safety and/or upper extremity function for ADL's. Plan of Care: ADL Retraining, Caregiver Training, Functional Mobility, Group Exercise/Act as Ind, UE Funct Exercise/Act Treatment Duration: Dec 02, 2018 Frequency: 5 times per week Estimated Hrs Per Day: .25 hour per day Agreement: Yes Rehab Potential: Guarded Time/GCodes Start Time: 13:05 Stop Time: 13:31 Total Time Billed (hr/min): 26 Billed Treatment Time 1 visit-EX 1 (10 min) ADL 1 (16 min) MARCY BOUDREAUX Nov 07, 2018 13:41
--- NOTE | 2018-11-07 15:06 | Wound Care Assessment ---
Wound Care Assessment Date Seen by Provider: Nov 07, 2018 Time Seen by Provider: 14:40 Chief Complaint Ulcers dorsum L foot x 2. HPI The patient is an unfortunate 62 year old female with a complicated recent medical history, involving multiple recent L foot operations, abscess, and two resulting ulcers of the L foot. She is [id number] on that foot, was to be admitted for rehab, but found to have evidence of sepsis. She has Parkinson's disease, and control of her symptoms has decreased and she has developed seizure-like activity. She is interviewed in ICU bed 10, is alert and in no distress. She reportedly has had an abscess of the foot drained and is on antibiotics, per Infectious Disease service. 11/07/18 -- Interval not: The patient is confused, in no distress. Tolerating dressings, wounds improving. will continue same dressings. At discharge, will be followed up in [facility]. Past Medical History: Denies Diabetes Type II, Denies Heart Disease, Denies Peripheral Artery Disease (Has Parkinson's Disease.) Smoking Status: Never a Smoker Alcohol Use: Denies Use Exam Vital Signs Date Time Temp Pulse Resp B/P (MAP) Pulse Ox O2 Delivery O2 Flow Rate FiO2 11/07/18 12:00 98.7 83 20 113/59 (77) 100 Room Air Capillary Refill : Results Laboratory Tests 11/07/18 06:50: White Blood Count 8.3, Red Blood Count 3.46L, Hemoglobin 9.2L, Hematocrit 29L, Mean Corpuscular Volume 85, Mean Corpuscular Hemoglobin 27, Mean Corpuscular Hemoglobin Concent 31L, Red Cell Distribution Width 20.6H, Platelet Count 368, Mean Platelet Volume 10.5H, Neutrophils (%) (Auto) 74, Lymphocytes (%) (Auto) 12, Monocytes (%) (Auto) 10, Eosinophils (%) (Auto) 4, Basophils (%) (Auto) 0, Neutrophils # (Auto) 6.2, Lymphocytes # (Auto) 1.0, Monocytes # (Auto) 0.8, Eosinophils # (Auto) 0.4H, Basophils # (Auto) 0.0, Sodium Level 139, Potassium Level 3.6, Chloride Level 112H, Carbon Dioxide Level 20L, Anion Gap 7, Blood Urea Nitrogen 22H, Creatinine 0.66, Estimat Glomerular Filtration Rate > 60, BUN/Creatinine Ratio 33, Glucose Level 97, Calcium Level 8.7, Corrected Calcium 9.4, Total Bilirubin 0.4, Aspartate Amino Transf (AST/SGOT) 20, Alanine Aminotransferase (ALT/SGPT) < 6, Alkaline Phosphatase 119, Total Protein 5.6L, Albumin 3.1L Microbiology 11/03/18 Blood Culture - Preliminary, Resulted No growth 11/05/18 C. difficile GDH Antigen & Toxins - Final, Complete 11/04/18 MRSA Screen - Final, Complete MRSA not isolated 11/04/18 Urine Culture - Final, Complete NO GROWTH Assessment/Plan/Dx 1. Ulcer, dorsum L foot, x 2, full thickness. 2. Disruption of superficial operative site. 3. Abscess L foot, s/p drainage with residual open wounds. 4. Parkinson's Disease, with interval deterioration of functioning. Plan: In view of the level slough present in the wound base, will begin dakin's dressings and monitor for resolution of inflammation. Will follow and plan to change to a less aggressive dressing when wound progress warrants. LATOSHA GERARDO MD Nov 07, 2018 15:06
[2018-11-07 15:50] VITALS: BP 128/70
[2018-11-07 20:13] VITALS: BP 142/74
[2018-11-07] MEDS: MIRTAZAPINE 15 MG (REMERON) TAB PO PRN (20:54)
[2018-11-07] MEDS: HYDROcodone/APAP 5 MG/325 MG (LORTAB) TAB PO PRN (20:55)
[2018-11-07] MEDS: GABAPENTIN 100 MG (NEURONTIN) CAP PO SCH (20:55)
[2018-11-07] MEDS: SINEMET CR 50/200 (CARBIDOPA/LEVODOPA SA) TAB PO SCH (20:55)
[2018-11-07] MEDS: QUEtiapine 25 MG (SEROquel) TAB IMMEDIATE RELEASE PO SCH (20:55)
--- NOTE | 2018-11-07 23:44 | NUR ---
PATIENT WAS IN ROOM YELLING "SHUT THE FUCK UP! FUCK YOU!" AT THE SITTER IN THE ROOM WHEN THE SITTER WOULD ASK PATIENT NOT TO GET OUT OF BED. THIS NURSE WENT TO PATIENT ROOM TO ASSESS AND PATIENT WAS UPSET BECAUSE SHE WANTS TO GET OUT OF BED AND GO TO HER CAR SO THAT SHE CAN GO TO [employer]. THIS NURSE ATTEMPTED TO RE-ORIENT PATIENT WITHOUT SUCCESS. PATIENT AGITATION WAS INCREASING. PRN HALDOL ADMINISTERED PER ORDER. PATIENT THEN REQUESTED THE CAKE FAMILY HAD BROUGHT IN EARLIER. THIS NURSE ASSISTED PATIENT WITH EATING HER SNACK. PATIENT IS RESTING QUIETLY WITH EYES CLOSED AT THIS TIME.
[2018-11-08] MEDS: MEROPENEM 500 MG/SWFI 10 ML IV PUSH IV SCH ×4 (03:11→11:15)
[2018-11-08 03:49] VITALS: BP 151/75
[2018-11-08 05:24] VITALS: BP 175/91
[2018-11-08 05:34] LABS: BASOPHILS % (AUTO) 0 % (0-10); EOSINOPHILS # (AUTO) 0.4 10^3/uL (0.0-0.3); EOSINOPHILS % (AUTO) 4 % (0-10); HEMATOCRIT 31 % (35-52); HEMOGLOBIN 9.7 G/DL (11.5-16.0); LYMPHOCYTES % (AUTO) 11 % (12-44); MEAN CORPUSCULAR HEMOGLOBIN 27 PG (25-34); MEAN CORPUSCULAR HGB CONC 31 G/DL (32-36); MEAN CORPUSCULAR VOLUME 85 FL (80-99); MEAN PLATELET VOLUME 11.5 FL (7.4-10.4); MONOCYTES # (AUTO) 0.8 X 10^3 (0.0-1.0); MONOCYTES % (AUTO) 8 % (0-12); NEUTROPHILS # (AUTO) 7.2 X 10^3 (1.8-7.8); NEUTROPHILS % (AUTO) 77 % (42-75); PLATELET COUNT 372 10^3/uL (130-400); RED CELL DISTRIBUTION WIDTH 20.8 % (10.0-14.5); WHITE BLOOD COUNT 9.4 10^3/uL (4.3-11.0)
[2018-11-08 05:52] LABS: ALANINE AMINOTRANSFERASE < 6 U/L (0-55); ALBUMIN 3.2 GM/DL (3.2-4.5); ALKALINE PHOSPHATASE 125 U/L (40-136); BILIRUBIN,TOTAL 0.2 MG/DL (0.1-1.0); BUN/CREATININE RATIO 32; CARBON DIOXIDE 20 MMOL/L (21-32); CHLORIDE 112 MMOL/L (98-107); CREATININE SERUM 0.69 MG/DL (0.60-1.30); GFR ESTIMATED > 60; GLUCOSE 107 MG/DL (70-105); POTASSIUM 3.4 MMOL/L (3.6-5.0); SODIUM 143 MMOL/L (135-145)
[2018-11-08] MEDS: SINEMET 25/100 (CARBIDOPA/LEVODOPA) TAB PO SCH ×2 (06:25→11:15)
[2018-11-08] MEDS ORDERED: ENOXAPARIN 40 MG/0.4 ML (LOVENOX) SYR SC SCH (08:00)
[2018-11-08 08:08] VITALS: BP 192/97
[2018-11-08] MEDS: meTOprolol TARTRATE 25 MG (LOPRESSOR) TABLET PO SCH (08:53)
[2018-11-08] MEDS: metroNIDAZOLE 500 MG (FLAGYL) TAB PO SCH ×2 (08:53→13:18)
[2018-11-08] MEDS: VANCOMYCIN 1 GM/NS 250 ML IVPB IV SCH ×2 (08:53)
[2018-11-08] MEDS: lisINopril 10 MG (PRINIVIL) TABLET PO SCH (08:53)
[2018-11-08] MEDS: SENNA W/DOCUSATE (SENOKOT S) TABLET PO SCH (08:53)
[2018-11-08] MEDS: LEVETIRACETAM 500 MG (KEPPRA) TAB PO SCH (08:53)
[2018-11-08] MEDS: DAKIN'S 1/4 STRENGTH (0.125%) 473 ML BTL TOP SCH (08:54)
--- NOTE | 2018-11-08 10:21 | Physical Therapy Daily Note ---
PT Daily Note-Current Subjective Pt mumbles nonsensical; but can give her home address, where she works and what she does there. Mental Status Patient Orientation: Person, Confused Transfers Therapy Code Descriptions/Definitions Functional [place] Measure: 0=Not Assessed/NA 4=Minimal Assistance 1=Total Assistance 5=Supervision or Setup 2=Maximal Assistance 6=Modified [place] 3=Moderate Assistance 7=Complete [place] Therapy Quality Codes: 6 Independent with activity with or without an assistive device 5 Patient requires set up or clean up by helper. Patient completes activity by themselves 4 Supervision or touching assist (CGA). [place] provide cues , steadying assist 3 The helper provides less than half the effort to complete the activity 2 The helper provides more than half the effort to complete the activity 1 Dependent. The helper does all the effort to complete an activity 7 Patient refused to complete or attempt activity 9 The patient did not perform the activity before the current illness or injury 88 Not attempted due to Medical conditions or safety concerns Transfers (B, C, W/C) (FIM): 2 Sit to/from Stand: 2 (Sit to stand x 5 reps with max assist of 2. ) pt requires max assist to come to astand with assist of 2 to help her hold onto the walker for for foot placement and to maintain standing. Does not fully extend hips or knees; attempts to with skilled cues but is ineffective. Uncoordinated and jerky movement noted. Pt in chair with chair alarm activated and nurse present post treatment. Exercises Seated Therapy Exercises: Ankle pumps, Long arc quads, Hip flexion Seated Reps: 5 (to promote LE ROM and activity) Assessment Pt was cooperative and does follow cues. Unable to come to a full stand. Confused. PT Short Term Goals Short Term Goals Transfers (B,C,W/C) (FIM): 3 PT Extended Insurance Clerk Goals Extended Insurance Clerk Goals PT Snf Goals Time Frame: Nov 23, 2018 Transfers (B,C,W/C) (FIM): 3 Gait (FIM): 1 Gait distance (FIM): 1=up to 49 ft Distance: 15' Gait Level of Assist: 3 Gait Assistive Device: FWW PT Plan Problem List Problem List: Activity Tolerance, Functional Strength, Safety Treatment/Plan Treatment Plan: Continue Plan of Care Treatment Plan: Bed Mobility, Education, Functional Activity Bakari, Functional Strength, Gait, Safety, Therapeutic Exercise, Transfers Treatment Duration: Nov 23, 2018 Frequency: 6 times per week Estimated Hrs Per Day: .5 hour per day Patient and/or Family Agrees t: Yes Safety Risks/Education Patient Education: Safety Issues Teaching Recipient: Patient Teaching Methods: Discussion Response to Teaching: Reinforcement Needed Time/GCodes Time In: 845 Time Out: 905 Total Billed Treatment Time: 20 Total Billed Treatment visit FA 20 MARCY RO PT Nov 08, 2018 10:21
--- NOTE | 2018-11-08 10:55 | Progress Note - Hospitalist ---
Subjective HPI/CC On Admission Date Seen by Provider: Nov 08, 2018 Time Seen by Provider: 09:30 Chief complaint: Severe sepsis requiring ICU transfer History of present illness: This is a 62-year-old white female patient of health care provider Ayde Hickman out of [place], [place] who originally was to be admitted in inpatient rehab today from [facility] for intensive rehab and recovery following encephalopathy and seizure-like activity with severe rigidity from Parkinson's disease following a very complex left foot surgery status post bunionectomy 1 month ago 10/02/18 in [facility]. Apparently she had problems and required a revision 1 week after the original surgery then it showed an abscess formation on 10/13/18 which required incision and drainage and placement of IV antibiotics of Vanc and Levaquin to cover MRSA and Pseudomonas in the infusion center at [place], [place]. She had presented to the ER there with confusion and visual hallucinations on 10/25/18 and her son reported that her Parkinson's medications have been "messed up" since before her surgery when she originally was told to stop taking her blood pressure medication of losartan and instead she stopped the amantadine that further complicated the situation. Patient was transferred to on 10/27/18 for higher level of care and to be christian ated by Dr Fernandez her Neurologist. She was placed on Keppra for the seizure-like activity and EEG showed slowed background and they suspected to not be an epileptic seizure but maintained on Keppra in the meantime. Orthopedics saw her found the patient not to be a surgical candidate at this time until the ulcers healed and hardware would be removed in 6-12 months from now. She remains not weightbearing on the left foot. Extensive records from reviewed and conferred with Dr. Choi sole stitcher hand since she presented to inpatient rehab with a blood pressure of 80/43 and that was rechecked and confirmed patient appeared to be lethargic so labs were obtained stat showing leukocytosis of 18,000 and elevated lactic acid 2.1 that was rechecked at 3.0 requiring aggressive IV fluids per severe sepsis protocol. I appreciate Dr. Choi's intervention and her plan is to check a C. difficile colitis sample because of diarrhea reports and placement back on antibiotic coverage recommended by eliezere ctious disease at . Objective Exam Vital Signs Vital Signs Date Time Temp Pulse Resp B/P (MAP) Pulse Ox O2 Delivery O2 Flow Rate FiO2 11/08/18 09:00 Room Air 11/08/18 08:08 98.8 93 20 192/97 (128) 95 Capillary Refill : General Appearance: No Apparent Distress, WD/WN, Anxious, Chronically ill, Cachetic, Thin HEENT: PERRL/EOMI, Normal ENT Inspection, Pharynx Normal, Other (dry mucous membranes) Neck: Full Range of Motion, Normal Inspection, Non Tender, Supple, Carotid Bruit Respiratory: Chest Non Tender, Lungs Clear, Normal Breath Sounds, No Accessory Muscle Use, No Respiratory Distress Cardiovascular: No Edema, No Gallop, No JVD, No Murmur, Normal Peripheral Pulses, Tachycardia Gastrointestinal: Normal Bowel Sounds, No Organomegaly, No Pulsatile Mass, Non Tender, Soft Back: Normal Inspection, No CVA Tenderness, No Vertebral Tenderness Extremity: Normal Capillary Refill, Normal Inspection, Normal Range of Motion, Non Tender, No Calf Tenderness, No Pedal Edema, Other (left foot with dressing and foot brace) Neurologic/Psychiatric: Alert, Oriented x3, No Motor/Sensory Deficits, Normal Mood/Affect Skin: Normal Color, Warm/Dry Lymphatic: No Adenopathy Results/Procedures Lab Laboratory Tests 11/08/18 04:29 Patient resulted labs reviewed. Assessment/Plan Assessment and Plan Assess & Plan/Chief Complaint Assessment: Severe Sepsis Hypotension Leukocytosis Dehydration Encephalopathy Poor reserve with severe debility Seizure-like activity requiring Keppra initiation EEG 10/10/18 mild background slowing 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 per [facility] Severe PD Left foot cellulitis and osteomyelitis placed on Levaquin and Doxycycline per ID at [facility] s/p two dorsal open foot ulcers with tendon visible previous bunion surgery 10/02/18 in [place], [place] with revision 1 week later s/p abscess drained now ortho allowing wounds to heal before hardware removed Anemia Diarrhea Incontinence bowel and bladder Plan: HLIVF Abx Seizure precautions Pain control IRF but long recovery expected PT/OT Lovenox for DVT PPx small dose Diagnosis/Problems Diagnosis/Problems (1) Severe sepsis Status: Resolved Resolution Date/Time: 11/06/18 @ 21:05 (2) Sepsis Status: Resolved Qualifiers: Sepsis type: sepsis due to unspecified organism Qualified Codes: A41.9 - Sepsis, unspecified organism Resolution Date/Time: 11/06/18 @ 21:05 (3) Parkinson disease Status: Chronic (4) Cachexia Status: Acute (5) Dehydration Status: Acute (6) Anemia of chronic disease Status: Chronic (7) Confusion Status: Acute (8) Diarrhea Status: Acute Qualifiers: Diarrhea type: presumed infectious Qualified Codes: R19.7 - Diarrhea, unspecified (9) Renal failure, acute Status: Acute Qualifiers: Acute renal failure type: unspecified Qualified Codes: N17.9 - Acute kidney failure, unspecified (10) Leukocytosis Status: Acute Qualifiers: Leukocytosis type: leukemoid reaction Qualified Codes: D72.823 - Leukemoid reaction (11) Visual hallucinations Status: Acute (12) Debility Status: Acute (13) Hypotension Status: Acute Qualifiers: Hypotension type: unspecified hypotension type Qualified Codes: I95.9 - Hypotension, unspecified (14) Thrombocytosis Status: Acute (15) Encephalopathy acute Status: Acute (16) Rigidity Status: Acute (17) Polymicrobial bacterial infection Status: Acute (18) Osteomyelitis of foot Status: Acute Qualifiers: Laterality: left (19) Witnessed seizure-like activity Status: Acute (20) Wound of left foot Status: Acute (21) Incontinence of bowel Status: Acute Qualifiers: Fecal incontinence type: unspecified Qualified Codes: R15.9 - Full incontinence of feces (22) Incontinence of urine Status: Acute Qualifiers: Urinary Incontinence type: unspecified incontinence Qualified Codes: R32 - Unspecified urinary incontinence (23) Anemia Status: Chronic Qualifiers: Anemia type: unspecified type Qualified Codes: D64.9 - Anemia, unspecified Clinical Quality Measures DVT/VTE Risk/Contraindication: Risk Factor Score Per Nursin RFS Level Per Nursing on Admit: 4+=Very High SHANNON LIMA DO Nov 08, 2018 10:54
--- NOTE | 2018-11-08 11:11 | Discharge Summary ---
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 per [facility] Severe PD Left foot cellulitis and osteomyelitis placed on Levaquin and Doxycycline per ID at [facility] s/p two dorsal open foot ulcers with tendon visible previous bunion s urgery 10/02/18 in [place], [place] with revision 1 week later s/p abscess drained now ortho allowing wounds to heal before hardware removed Anemia Diarrhea Plan: Aggressive IVF Abx Seizure precautions C diff check Pain control ICU monitoring Discharge Diagnosis (1) Severe sepsis Status: Resolved (2) Sepsis Status: Resolved (3) Parkinson disease Status: Chronic (4) Cachexia Status: Acute (5) Dehydration Status: Acute (6) Anemia of chronic disease Status: Chronic (7) Confusion Status: Acute (8) Diarrhea Status: Acute (9) Renal failure, acute Status: Acute (10) Leukocytosis Status: Acute (11) Visual hallucinations Status: Acute (12) Debility Status: Acute (13) Hypotension Status: Acute (14) Thrombocytosis Status: Acute (15) Encephalopathy acute Status: Acute (16) Rigidity Status: Acute (17) Polymicrobial bacterial infection Status: Acute (18) Osteomyelitis of foot Status: Acute (19) Witnessed seizure-like activity Status: Acute (20) Wound of left foot Status: Acute (21) Incontinence of bowel Status: Acute (22) Incontinence of urine Status: Acute (23) Anemia Status: Chronic Discharge Summary Discharge Physical Exam Allergies: Coded Allergies: No Known Drug Allergies (Unverified , 11/03/18) Vitals & I&Os Vital Signs Date Time Temp Pulse Resp B/P (MAP) Pulse Ox O2 Delivery O2 Flow Rate FiO2 11/08/18 09:00 Room Air 11/08/18 08:08 98.8 93 20 192/97 (128) 95 General Appearance: No Apparent Distress, WD/WN, Chronically ill, Thin Respiratory: Chest Non Tender, Lungs Clear, Normal Breath Sounds, No Accessory Muscle Use, No Respiratory Distress Cardiovascular: Regular Rate, Rhythm, No Edema, No Gallop, No JVD, No Murmur, Normal Peripheral Pulses Neurologic/Psychiatric: Alert, No Motor/Sensory Deficits, Normal Mood/Affect, returned goods sorter II-XII Norm as Tested, Depressed Affect, Disoriented Hospital Course Was the Problem List Reviewed?: Yes Hospital course: Patient had an uneventful hospital course although she was originally admitted from to inpatient rehabilitation unit and within 2 hours was transferred to the ICU for hypotension and presumed sepsis. Workup ensued and no definitive source of infection confirmed but she was placed on broad- spectrum antibiotics of meropenem along with Levaquin that she had been on and remained on aggressive IV fluid resuscitation along with Dr. Choi nuclear weapons mechanical specialist consultation. Labs returned back to normal and stability. All home medications including Parkinson's specialty meds were restarted with psychosis and confusion from encephalopathy continued. She was felt to still have benefit from inpatient rehabilitation so she was transferred down and reverted back to Levaquin and doxycycline per infectious disease direction from [facility] and will initiate Haldol oral on a scheduled basis and maintained on Seroquel at night. Prognosis guarded and may need skilled care at [place]. Labs (last 24 hrs) Laboratory Tests 11/08/18 04:29: White Blood Count 9.4, Red Blood Count 3.65L, Hemoglobin 9.7L, Hematocrit 31L, Mean Corpuscular Volume 85, Mean Corpuscular Hemoglobin 27, Mean Corpuscular Hemoglobin Concent 31L, Red Cell Distribution Width 20.8H, Platelet Count 372, Mean Platelet Volume 11.5H, Neutrophils (%) (Auto) 77H, Lymphocytes (%) (Auto) 11L, Monocytes (%) (Auto) 8, Eosinophils (%) (Auto) 4, Basophils (%) (Auto) 0, Neutrophils # (Auto) 7.2, Lymphocytes # (Auto) 1.0, Monocytes # (Auto) 0.8, Eosinophils # (Auto) 0.4H, Basophils # (Auto) 0.0, Sodium Level 143, Potassium Level 3.4L, Chloride Level 112H, Carbon Dioxide Level 20L, Anion Gap 11, Blood Urea Nitrogen 22H, Creatinine 0.69, Estimat Glomerular Filtration Rate > 60, BUN/Creatinine Ratio 32, Glucose Level 107H, Calcium Level 9.0, Corrected Calcium 9.6, Total Bilirubin 0.2, Aspartate Amino Transf (AST/SGOT) 17, Alanine Aminotransferase (ALT/SGPT) < 6, Alkaline Phosphatase 125, Total Protein 6.0L, Albumin 3.2 Microbiology 11/03/18 Blood Culture - Preliminary, Resulted No growth 11/05/18 C. difficile GDH Antigen & Toxins - Final, Complete 11/04/18 MRSA Screen - Final, Complete MRSA not isolated 11/04/18 Urine Culture - Final, Complete NO GROWTH Patient resulted labs reviewed. Pending Labs Laboratory Tests 11/08/18 04:29: White Blood Count 9.4, Red Blood Count 3.65, Hemoglobin 9.7, Hematocrit 31, Mean Corpuscular Volume 85, Mean Corpuscular Hemoglobin 27, Mean Corpuscular Hemoglobin Concent 31, Red Cell Distribution Width 20.8, Platelet Count 372, Mean Platelet Volume 11.5, Neutrophils (%) (Auto) 77, Lymphocytes (%) (Auto) 11, Monocytes (%) (Auto) 8, Eosinophils (%) (Auto) 4, Basophils (%) (Auto) 0, Neutrophils # (Auto) 7.2, Lymphocytes # (Auto) 1.0, Monocytes # (Auto) 0.8, Eosinophils # (Auto) 0.4, Basophils # (Auto) 0.0, Sodium Level 143, Potassium Level 3.4, Chloride Level 112, Carbon Dioxide Level 20, Anion Gap 11, Blood Urea Nitrogen 22, Creatinine 0.69, Estimat Glomerular Filtration Rate > 60, BUN/Creatinine Ratio 32, Glucose Level 107, Calcium Level 9.0, Corrected Calcium 9.6, Total Bilirubin 0.2, Aspartate Amino Transf (AST/SGOT) 17, Alanine Aminotransferase (ALT/SGPT) < 6, Alkaline Phosphatase 125, Total Protein 6.0, Albumin 3.2 Discussion & Recommendations Discharge Planning: <30 minutes discharge planning Discharge Home Medications: Active Scripts Active Reported Keppra (Levetiracetam) 500 Mg Tablet 250 Mg PO BID Mirtazapine 30 Mg Tablet 15 Mg PO HS PRN TAKES 1/2 (30MG) TABLET Losartan Potassium 25 Mg Tablet 25 Mg PO BID Levofloxacin 500 Mg Tablet 250 Mg PO DAILY 5 Days #3 TABLETS FOR A 5 DAY SUPPLY FILLED 10-23-18 Hydrocodone-Acetamin 5-325 mg (Hydrocodone/Acetaminophen) 1 Each Tablet 1 Tab PO Q4H PRN Gabapentin 100 Mg Capsule 100 Mg PO HS Diclofenac Sodium 50 Mg Tablet.dr 50 Mg PO BID PRN Carbidopa-Levodopa 25-100 Tab (Carbidopa/Levodopa) 1 Each Tablet 2 Tab PO BID Carbidopa-Levo ER 50-200 Tab (Carbidopa/Levodopa) 1 Each Tablet.er 1 Tab PO HS Amantadine (Amantadine HCl) 100 Mg Capsule 100 Mg PO BID Instructions to patient/family Please see electronic discharge instructions given to patient. Clinical Quality Measures DVT/VTE Risk/Contraindication: Risk Factor Score Per Nursin RFS Level Per Nursing on Admit: 4+=Very High Problem Qualifiers (1) Sepsis: Sepsis type: sepsis due to unspecified organism Qualified Codes: A41.9 - Sepsis, unspecified organism (2) Diarrhea: Diarrhea type: presumed infectious Qualified Codes: R19.7 - Diarrhea, unspecified (3) Renal failure, acute: Acute renal failure type: unspecified Qualified Codes: N17.9 - Acute kidney failure, unspecified (4) Leukocytosis: Leukocytosis type: leukemoid reaction Qualified Codes: D72.823 - Leukemoid reaction (5) Hypotension: Hypotension type: unspecified hypotension type Qualified Codes: I95.9 - Hypotension, unspecified (6) Osteomyelitis of foot: Laterality: left (7) Incontinence of bowel: Fecal incontinence type: unspecified Qualified Codes: R15.9 - Full incontinence of feces (8) Incontinence of urine: Urinary Incontinence type: unspecified incontinence Qualified Codes: R32 - Unspecified urinary incontinence (9) Anemia: Anemia type: unspecified type Qualified Codes: D64.9 - Anemia, unspecified SHANNON LIMA DO Nov 08, 2018 11:11
[2018-11-08 13:23] VITALS: BP 192/97
--- NOTE | 2018-11-08 13:32 | NUR ---
PT DISCHARGED DOWN TO REHAP -- PT TO FLOOR AND TOOK PT DOWN TO REHAP PER BAD --
== END 2018-11-08 13:25 | DRG 872 ==
LOC: ICU 17:21 → 4TH 11-04 17:33
PROVIDERS: ADMIT Internal Medicine; ATTEND Internal Medicine
DX: A41.9 Sepsis, unspecified organism (principal); R65.20 Severe sepsis without septic shock; M86.9 Osteomyelitis, unspecified; L97.506 Non-pressure chronic ulcer of other part of unspecified foot with bone involvement without evidence of necrosis; G93.40 Encephalopathy, unspecified; T81.31XA Disruption of external operation (surgical) wound, not elsewhere classified, initial encounter; N17.9 Acute kidney failure, unspecified; R64 Cachexia; G20 Parkinson's disease; E86.0 Dehydration; I95.89 Other hypotension; R32 Unspecified urinary incontinence; R15.9 Full incontinence of feces; R56.9 Unspecified convulsions; R53.81 Other malaise; Z98.890 Other specified postprocedural states; D63.8 Anemia in other chronic diseases classified elsewhere; R19.7 Diarrhea, unspecified; F41.9 Anxiety disorder, unspecified; F32.9 Major depressive disorder, single episode, unspecified; G31.83 Neurocognitive disorder with Lewy bodies; F02.80 Dementia in other diseases classified elsewhere, unspecified severity, without behavioral disturbance, psychotic disturbance, mood disturbance, and anxiety; R44.1 Visual hallucinations; D47.3 Essential (hemorrhagic) thrombocythemia
CPT/HCPCS: 36415; 36600; 71045; 80048; 80053; 80202; 81000; 82274; 82805; 83605; 83735; 84100; 85025; 87040; 87081; 87088; 87324; 87449

== ENCOUNTER 2018-11-08 11:13 | Inpatient (IN) | payer MEDICARE, BC ==
[~2018-11-08] VITALS: Ht 170.2 cm; Wt 56.9 kg
[~2018-11-08 11:13] MED LIST: AMAN100C18 PO; CARB1TAB19 PO; CARB1TAB41 PO; DICL50TA6 PO; GABA-486 PO; HYDR-3812 PO; LEVE500T99 PO; LEVO500T80 PO; LOSA25TA41 PO; MIRT30TA6 PO
--- NOTE | 2018-11-08 13:41 | Occupational Therapy Eval ---
OT Evaluation-General/PLF Medical Diagnosis Admission Date November 08, 2018 Medical Diagnosis: sepsis Onset Date: Nov 03, 2018 Therapy Diagnosis Therapy Diagnosis: decr self care, weaknes, decr funct mobility, decr act giselle, decr coord Height/Weight Height (Feet): 5 Height (Inches): 7.00 Weight (Pounds): 132 Weight (Ounces): 2.0 Precautions Precautions/Isolations: Contact Isolation (MRSA in wound), Fall Prevention Safety Interventions: Bed Exit Alarm, Reorient-PRN Weight Bear Status Weight Bearing Restriction: Non Weight Bearing Location Restriction: LT FOOT Medical History Pertinent Medical History: HTN, Parkinson's, Renal Insufficiency Additional Medical History L foot surgery 10-02-18, with revision, then abscess. Transferred to [facility] 10-27-18. Admitted to IRF on 11-03-18 but had sepsis to transferred to ICU. Non-weight bearing L foot. Anxiety Current History Admitted to IRF 11-08-18 Reviewed History: Yes Social History Home: Single Level Current Living Status: Alone Entry Into Home: Stairs With Railing Steps Into Home: 3 ADL-Prior Level of Function Therapy Code Descriptions/Definitions Functional [place] Measure: 0=Not Assessed/NA 4=Minimal Assistance 1=Total Assistance 5=Supervision or Setup 2=Maximal Assistance 6=Modified [place] 3=Moderate Assistance 7=Complete [place] Therapy Quality Codes: 6 Independent with activity with or without an assistive device 5 Patient requires set up or clean up by helper. Patient completes activity by themselves 4 Supervision or touching assist (CGA). [place] provide cues , steadying assist 3 The helper provides less than half the effort to complete the activity 2 The helper provides more than half the effort to complete the activity 1 Dependent. The helper does all the effort to complete an activity 7 Patient refused to complete or attempt activity 9 The patient did not perform the activity before the current illness or injury 88 Not attempted due to Medical conditions or safety concerns Functional Abilities and Goals: Independent: Patient completed the activities by him/herself, with or without an assistive device, with no assistance from a helper. Needed Some Help: Patient needed partial assistance from another person to complete activities. Dependent: A helper completed the activities for the patient. 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 Pain not mentioned Appearance Sleepy, some difficulty to keep awake. Speech initially intelligible, then more difficulty to understand. She mumbles at times Current Glasses/Contacts: Yes Hearing Aids: No Dentures/Partials: No Hand Dominance: Right Upper Extremity ROM Grossly WFL bilat except hands. Shoulder and elbow movement have improved since acute care OT eval. Unable to make complete fist due to arthritic changes in hands. Unable to oppose with L thumb Upper Extremity Coordination Impaired bilat Upper Extremity Strength 3/5 bilat ADL-Treatment ADL-Current ADLs deferred. Pt has been requiring max assist of two people for toilet tr ansfer/toileting and using universal cuff for self feeding, with help. Education OT Patient Education: Purpose of tx/functional activities, Rehab process Teaching Recipient: Patient Teaching Methods: Discussion Response to Teaching: Verbalize Understanding, Reinforcement Needed OT Short Term Goals Short Term Goals Time Frame: Nov 15, 2018 Eating(FIM): 5 Upper Body Dressing(FIM): 4 Toileting(FIM): 3 Toilet/Commode Transfer(FIM): 3 Additional Short Term Goals: 1-Demonstrate ADL Tasks, 2-Verbalize Understandin g, 3-ImproveStrength/Bakari 1=Demonstrate adherence to instructed precautions during ADL tasks. 2=Patient will verbalize/demonstrate understanding of assistive devices/modifications for ADL. 3=Patient will improve strength/tolerance for activity to enable patient to perform ADL's. OT Half-Way Goals Half-Way Goals Time Frame: Nov 29, 2018 Eating (FIM): 6 Eating (QC): 6 Groomin Oral Hygiene (QC): 6 Bathing(FIM): 5 Shower/Bathe Self (QC): 5 Upper Body Dressing(FIM): 6 Upper Body Dressing (QC): 6 Lower Body Dressing(FIM): 6 Lower Body Dressing (QC): 6 On/Off Footwear (QC): 6 Toileting(FIM): 6 Toileting Hygiene (QC): 6 Toilet/Commode Transfer(FIM): 6 Toilet/Commode Transfer (QC): 6 Shower Transfer(FIM): 5 Additional Goals: 1-Demonstrate ADL Tasks, 2-Verbalize Understanding, 3- ImproveStrength/Bakari 1=Demonstrate adherence to instructed precautions during ADL tasks. 2=Patient will verbalize/demonstrate understanding of assistive devices/modifications for ADL. 3=Patient will improve strength/tolerance for activity to enable patient to perform ADL's. OT Education/Plan Problem List/Assessment Assessment: Decreased Activ Tolerance, Decreased Safety Aware, Decreased UE Strength, Dependent Transfers, Impaired Bed Mobility, Impaired Cognition, Impaired Coordination, Impaired Funct Balance, Impaired Self-Care Skills Pt would benefit from skilled OT to increase her independence iin basic self car to allow her to return to her home safely after surgery and medical care. Discharge Recommendations Plan/Recommendations: Continue POC Treatment Plan/Plan of Care Treatment,Training & Education: Yes Patient would benefit from OT for education, treatment and training to promote independence in ADL's, mobility, safety and/or upper extremity function for ADL's. Plan of Care: ADL Retraining, Functional Mobility, Group Exercise/Act as Ind (education, exercise, funct activity, funct mobility, socialization, communication), UE Funct Exercise/Act, UE Neuromus Re-Ed/Coord, W/C Management Training Treatment Duration: Nov 29, 2018 Frequency: Modified Program (IRF) Estimated Hrs Per Day: 1.5 hours per day (1.25 to 1.5) Agreement: Yes Rehab Potential: Fair Time/GCodes Start Time: 13:20 Stop Time: 13:30 Total Time Billed (hr/min): 10 Billed Treatment Time visit, 10 minutes evaluation moderate intensity ANY AKERS OT Nov 08, 2018 13:41
--- NOTE | 2018-11-08 14:38 | Physical Therapy Evaluation ---
PT Evaluation-General Medical Diagnosis Admission Date Nov 08, 2018 at 13:20 Medical Diagnosis: sepsis Onset Date: Nov 03, 2018 Therapy Diagnosis Therapy Diagnosis: impaired mobility, strength, endurance, balance Height/Weight Height (Feet): 5 Height (Inches): 7.00 Weight (Pounds): 132 Weight (Ounces): 2.0 Precautions Precautions/Isolations: Contact Isolation (MRSA in wound), Fall Prevention Weight Bear Status Left Lower Extremity: Left Non Weight Bearing Referral Physician: Roxanne Edwards DO Reason for Referral: Evaluation/Treatment Medical History Pertinent Medical History: HTN, Parkinson's, Renal Insufficiency Reviewed History: Yes Social History Home: Single Level Current Living Status: Alone Entry Into Home: Stairs With Railing PT Steps Into Home: 3 Prior/Core FIM Prior Level of Function Therapy Code Descriptions/Definitions Functional E[place] Measure: 0=Not Assessed/NA 4=Minimal Assistance 1=Total Assistance 5=Supervision or Setup 2=Maximal Assistance 6=Modified Ewing 3=Moderate Assistance 7=Complete Ewing Therapy Quality Codes: 6 Independent with activity with or without an assistive device 5 Patient requires set up or clean up by helper. Patient completes activity by themselves 4 Supervision or touching assist (CGA). [place] provide cues , steadying assist 3 The helper provides less than half the effort to complete the activity 2 The helper provides more than half the effort to complete the activity 1 Dependent. The helper does all the effort to complete an activity 7 Patient refused to complete or attempt activity 9 The patient did not perform the activity before the current illness or injury 88 Not attempted due to Medical conditions or safety concerns Functional Abilities and Goals: Independent: Patient completed the activities by him/herself, with or without an assistive device, with no assistance from a helper. Needed Some Help: Patient needed partial assistance from another person to complete activities. Dependent: A helper completed the activities for the patient. Unknown: Not Applicable: Bed Mobility: 6 Transfers (B,C,W/C) (FIM): 6 Gait: 6 Stairs: 6 Indoor Mobility (Ambulation): Independent Stairs: Independent Prior Devices Use: Walker PT Evaluation-Current Subjective Patient in bed pre tx, she seems to agree to PT, she says she has some back pain. Patient mumbles and speaks incredibly fast and is extremely hard to understand. She is confused and talks about inapropriate things. Pt/Family Goals none stated Objective Patient Orientation: Person, Confused, Mumbles surgical shoe left foot ROM/Strength ROM Lower Extremities Impaired due to significantly increased muscle tone in legs and spasms. Strenght Lower Extremities Unable to assess accurately but she seems to have about 2/5 gross in bilateral lower extremities Sensory Vision: Wears Glasses Hearing: Functional Hand Dominance: Right Sensation Right Lower Extremit: Impaired Sensation Left Lower Extremity: Impaired Transfers Therapy Code Descriptions/Definitions Functional Ewing Measure: 0=Not Assessed/NA 4=Minimal Assistance 1=Total Assistance 5=Supervision or Setup 2=Maximal Assistance 6=Modified Ewing 3=Moderate Assistance 7=Complete Ewing Therapy Quality Codes: 6 Independent with activity with or without an assistive device 5 Patient requires set up or clean up by helper. Patient completes activity by themselves 4 Supervision or touching assist (CGA). [place] provide cues , steadying assist 3 The helper provides less than half the effort to complete the activity 2 The helper provides more than half the effort to complete the activity 1 Dependent. The helper does all the effort to complete an activity 7 Patient refused to complete or attempt activity 9 The patient did not perform the activity before the current illness or injury 88 Not attempted due to Medical conditions or safety concerns Transfers (B, C, W/C) (FIM): 1 Scootin Rollin Roll Left to Right (QC): 2 Supine to/from Sit: 2 Sit to/from Stand: 1 bed t/f WC(FIM only if WC use): 1 Sit to Lying (QC): 2 Lying to Sitting/Side of Bed(Q: 2 Sit to Stand (QC): 1 Chair/Ypm-nl-Vtttp Xfer(QC): 1 Car Transfer (QC): 1 Patient performs bed mobility with max assist, supine <-> sit with max assist, sit <-> stand dependent, transfers dependent, car transfer dependent. 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 She is not compliant with her weight bearing status but even if she tried she could because she is too weak to bear any weight. Gait Does the Patient Walk?: No and Walking Goal NOT indicated Wheelchair Training Does the Pt Use a Wheelchair?: Yes Wheelchair (FIM): 1 Distance: 150' Wheelchair Level of Assist: 1 Wheel 50 ft with 2 turns (QC): 1 Wheel 150 ft (QC): 1 Type of Wheelchair: Manual Patient is dependent for wheelchair mobility. She cannot push the wheels with her weak hands and she attempts to help propel her wheelchair using her right leg but it is not enough to be considered even max assist. Stairs If not tested on admit;explain patient is non-ambulatory Balance Sitting Static: Fair Sitting Dynamic: Poor Standing Static: Poor Standing Dynamic: Poor Treatment extensive wheelchair adjustments, she needs a left footrest that also has a calf rest or she will flex at the knee and drag her toes on the ground when in her wheelchair. Also, seated exercises x20 (AP, LAQ, marching) Assessment/Needs Patient has impaired mobility, strength, endurance, balance. She is confused and a high fall risk. Patient handed off to OT after PT. Rehab Potential: Poor PT Short Term Goals Short Term Goals Time Frame: Nov 15, 2018 Transfers (B,C,W/C) (FIM): 2 Wheelchair (FIM): 1 Wheelchair Distance: 20' Wheelchair Level of Assist: 4 PT Sql Developer Goals Correction Goals PT Correction Goals Time Frame: Nov 29, 2018 Transfers (B,C,W/C) (FIM): 3 Sit to Lying (QC): 2 Lying-Sitting on Side/Bed(QC): 2 Sit to Stand (QC): 2 Rollin Roll Left to Right (QC): 2 Chair/Yqo-sz-Ewskh Xfer(QC): 2 Car Transfer (QC): 2 Wheelchair (FIM): 2 Distance: 50' Wheelchair Level of Assist: 4 Wheel 50 feet with 2 turns (QC: 3 PT Plan Problem List Problem List: Activity Tolerance, Functional Strength, Safety, Balance, Gait, Transfer, Bed Mobility, ROM Treatment/Plan Treatment Plan: Continue Plan of Care Treatment Plan: Bed Mobility, Concurrent Therapy, Education, Functional Activity Bakari, Functional Strength, Group Therapy, Gait, Safety, Therapeutic E xercise, Transfers Treatment Duration: Nov 29, 2018 Frequency: At least 5 of 7 days/Wk (IRF) Estimated Hrs Per Day: 1.5 hours per day Patient and/or Family Agrees t: Yes Safety Risks/Education Patient Education: Transfer Techniques, Reviewed Precautions, Correct Positioning, W/C Management, Safety Issues Teaching Recipient: Patient Teaching Methods: Demonstration, Discussion Response to Teaching: Reinforcement Needed Discharge Recommendations Plan Patient will perform bed mobility and transfer training, balance and endurance training, functional strengthening, gait training, and education, to improve functional mobility and independence at home. Therapy D/C Recommendations: Home w/ Family Support, Intermediate (TCU/NH) Time/GCodes Time In: 1330 Time Out: 1430 Total Billed Treatment Time: 60 Total Billed Treatment 1 visit EV 30' [facility] 15' FA 15' TGIIST PAIGE PT Nov 08, 2018 14:38
--- NOTE | 2018-11-08 15:31 | NUR ---
Within 30minutes of admission to ARU,HEALTH OCCUPATIONS TEACHER received call from patient's son, Isidro requesting that patient be transferred to [facility] in [place]. Isidro states that he was unaware that patient would transfer from 4th floor to ARU, but had requested [facility] as the first option, since finding out that patient has Medicare benefits as a secondary insurance source. HEALTH OCCUPATIONS TEACHER reviewed the benefits of ARU and the level of therapies that will be provided at this setting in comparison to the duration and intensity level at a SNF. Isidro voices understanding, but states that he believe patient's cognition will improve when being at a facility closer to home with familiar visitors and believes that this will reduce her agitation. Isidro requests HEALTH OCCUPATIONS TEACHER to send referral to campus administrator of [facility], Marco. HEALTH OCCUPATIONS TEACHER sent referral and spoke with Ion regarding the patient's current need for Max A x2 and a sitter due to impulsivity, agitation and confusion. Marco will discuss with team and contact HEALTH OCCUPATIONS TEACHER on Sunday to provide determination. HEALTH OCCUPATIONS TEACHER contacted patient's primary insurance, [employer] to inquire about skilled benefit. Per Demetrice GOLDEN, patient does not have SNF benefits; therefore, SNF can defer to [facility] for billing purposes. Dr. Edwards and RN have been informed of current status. HEALTH OCCUPATIONS TEACHER will continue to follow.
--- NOTE | 2018-11-08 15:43 | Physical Therapy Daily Note ---
PT Daily Note-Current Subjective Pt. confused part of the time, stating we are at [facility]. Pt. speaks non sense 75%of time, needs reoriented and guided Pain Comment: pt. reports pain but does not rate Appearance eyes closed, flexed at trunk, reaches for things not there Mental Status Patient Orientation: Person Attachments: Other-See Comments (boot left foot) Transfers Therapy Code Descriptions/Definitions Functional [place] Measure: 0=Not Assessed/NA 4=Minimal Assistance 1=Total Assistance 5=Supervision or Setup 2=Maximal Assistance 6=Modified [place] 3=Moderate Assistance 7=Complete [place] Therapy Quality Codes: 6 Independent with activity with or without an assistive device 5 Patient requires set up or clean up by helper. Patient completes activity by themselves 4 Supervision or touching assist (CGA). [place] provide cues , steadying assist 3 The helper provides less than half the effort to complete the activity 2 The helper provides more than half the effort to complete the activity 1 Dependent. The helper does all the effort to complete an activity 7 Patient refused to complete or attempt activity 9 The patient did not perform the activity before the current illness or in jury 88 Not attempted due to Medical conditions or safety concerns Transfers (B, C, W/C) (FIM): 1 Scootin Rollin Supine to/from Sit: 1 Sit to/from Stand: 1 Bed to/from Chair: 1 sup to sit and sit to sup assist of 2, TRF seated at bed to BSC max assist 2, shoe on right foot but pt. still not completely compliant with NWBing left, attempted sit to stand using FWW but pt. slides forward needing stabilized at knees bilat. Weight Bearing Left Lower Extremity: Left Non Weight Bearing Exercises Supine Ex: Ankle pumps (HC stretches R 3 x 20s), Rolling (max assist), Heel Slides (passive), Scooting (max), Straight leg raise (PROM bilat gentle), Hip abd/add (PROM) Treatments co Rx OT PT for bathing, sit to stand attempts , toilet on BSC, rolling, all max to mod assist of 2, pt. rigid, confused , resistive at times Assessment Current Status: Fair Progress difficult movement patterns, confusion, rigidity, max assist for stablization balance and total [place] for all ADLs PT Short Term Goals Short Term Goals Time Frame: Nov 15, 2018 Transfers (B,C,W/C) (FIM): 2 Wheelchair (FIM): 1 Wheelchair Distance: 20' Wheelchair Level of Assist: 4 PT Investigation Division Captain Goals Senior Care Goals PT Senior Care Goals Time Frame: Nov 29, 2018 Transfers (B,C,W/C) (FIM): 3 Sit to Lying (QC): 2 Lying-Sitting on Side/Bed(QC): 2 Sit to Stand (QC): 2 Rollin Roll Left to Right (QC): 2 Chair/Vat-jj-Baokn Xfer(QC): 2 Car Transfer (QC): 2 Wheelchair (FIM): 2 Distance: 50' Wheelchair Level of Assist: 4 Wheel 50 feet with 2 turns (QC: 3 PT Plan Treatment/Plan Treatment Plan: Continue Plan of Care Treatment Plan: Bed Mobility, Concurrent Therapy, Education, Functional Activity Bakari, Functional Strength, Group Therapy, Gait, Safety, Therapeutic Exercise, Transfers Treatment Duration: Nov 29, 2018 Frequency: At least 5 of 7 days/Wk (IRF) Estimated Hrs Per Day: 1.5 hours per day Patient and/or Family Agrees t: Yes Safety Risks/Education Patient Education: Transfer Techniques, Correct Positioning, Disease Process, Safety Issues Teaching Recipient: Patient Teaching Methods: Discussion Response to Teaching: Unable to Return Demonstration, Unable to Comprehend, Reinforcement Needed Time/GCodes Time In: 1430 Time Out: 1530 Total Billed Treatment Time: 60 Total Billed Treatment 1,FA45m,EX15m G Codes Necessary: ADIN Goodrich DETECTIVE HOMICIDE SQUAD Nov 08, 2018 15:43
--- NOTE | 2018-11-08 15:44 | Occupational Ther Daily Note ---
OT Current Status-Daily Note Subjective Pt alert, sitting on EOB. Pt agrees to therapy. Pt talks rapidly and is difficulty to understand. Pt has hallucinations and attempts to reach and grab. Pt crying at times due to these hallucinations and not being able to do what she would normally be able to do. Mental Status/Objective Patient Orientation: Person, Confused Therapy Code Descriptions/Definitions Functional [place] Measure: 0=Not Assessed/NA 4=Minimal Assistance 1=Total Assistance 5=Supervision or Setup 2=Maximal Assistance 6=Modified [place] 3=Moderate Assistance 7=Complete [place] Attachments: IV ADL-Treatment OT/PT co-treat, requires skills of 2 clinicians for core stability, standing balance, adhering to NWB in standing and UE/LE placement during transfers and functional tasks. PT worked on standing, transferring, bed mobility and core stabilization. OT worked on ADLs, functional transfers and UE placement with transfers and mobility. Pt would become rigid during transfers and EOB sitting. Assist x2 for transfers and bed mobility. Therapy Code Descriptions/Definitions Functional [place] Measure: 0=Not Assessed/NA 4=Minimal Assistance 1=Total Assistance 5=Supervision or Setup 2=Maximal Assistance 6=Modified [place] 3=Moderate Assistance 7=Complete [place] Therapy Quality Codes: 6 Independent with activity with or without an assistive device 5 Patient requires set up or clean up by helper. Patient completes activity by themselves 4 Supervision or touching assist (CGA). [place] provide cues , steadying assist 3 The helper provides less than half the effort to complete the activity 2 The helper provides more than half the effort to complete the activity 1 Dependent. The helper does all the effort to complete an activity 7 Patient refused to complete or attempt activity 9 The patient did not perform the activity before the current illness or injury 88 Not attempted due to Medical conditions or safety concerns Eating (FIM): 2 (Pt has universal cuff to assist grasping in eating. Pt requires physical cues to spear food and bring to mouth a few times before ability to complete. ) Eating (QC): 2 Grooming (FIM): 2 (Assist to set up, built up handle for utensils and assist to coordinate movement for combing hair or brushing teeth.) Oral Hygiene (QC): 2 Bathing (FIM): 1 (Assist x2 to stand and cleanse buttocks and amairani area. Sitting EOB pt attempts to cleanse self though unable to hold onto clothes. Assist to complete all bath.) Shower/Bathe Self (QC): 1 Upper Body (FIM): 2 (Pt attempts to assist though with decreased emergency technician, unable to emergency technician material and pull. Assist needed.) Upper Body Dressing (QC): 2 Lower Body Dressing (FIM): 1 (Assist x2 to complete hiking pants over hips. Assist to don/doff clothing over feet.) Lower Body Dressing (QC): 1 On/Off Footwear (QC): 2 Toileting (FIM): 1 (Assist x2 to complete hygiene and clothing manipulation.) Toileting Hygiene (QC): 1 Transfers (B, C, W/C) (FIM): 1 (Assist x2) Toilet/Commode Transfer (FIM): 1 (Assist x2 for transfer.) Toilet Transfer (QC): 1 OT Short Term Goals Short Term Goals Time Frame: Nov 15, 2018 Eating(FIM): 5 Upper Body Dressing(FIM): 4 Toileting(FIM): 3 Transfers (B,C,W/C) (FIM): 2 Toilet/Commode Transfer(FIM): 3 Additional Short Term Goals: 1-Demonstrate ADL Tasks, 2-Verbalize Understanding, 3-ImproveStrength/Bakari 1=Demonstrate adherence to instructed precautions during ADL tasks. 2=Patient will verbalize/demonstrate understanding of assistive devices/modifications for ADL. 3=Patient will improve strength/tolerance for activity to enable patient to perform ADL's. OT Care Home Goals Alternative Energy Engineer Goals Time Frame: Nov 29, 2018 Eating (FIM): 6 Eating (QC): 6 Groomin Oral Hygiene (QC): 6 Bathing(FIM): 5 Shower/Bathe Self (QC): 5 Upper Body Dressing(FIM): 6 Upper Body Dressing (QC): 6 Lower Body Dressing(FIM): 6 Lower Body Dressing (QC): 6 On/Off Footwear (QC): 6 Toileting(FIM): 6 Toileting Hygiene (QC): 6 Toilet/Commode Transfer(FIM): 6 Toilet/Commode Transfer (QC): 6 Shower Transfer(FIM): 5 Additional Goals: 1-Demonstrate ADL Tasks, 2-Verbalize Understanding, 3- ImproveStrength/Bakari 1=Demonstrate adherence to instructed precautions during ADL tasks. 2=Patient will verbalize/demonstrate understanding of assistive devices/modifications for ADL. 3=Patient will improve strength/tolerance for activity to enable patient to perform ADL's. OT Education/Plan Problem List/Assessment Assessment: Decreased Activ Tolerance, Decreased Safety Aware, Dependent Transfers, Impaired Bed Mobility, Impaired Cognition, Impaired Coordination, Impaired Funct Balance, Impaired I ADL's, Impaired Self-Care Skills, Restricted Funct UE ROM Pt would benefit from skilled OT to increase her independence iin basic self car to allow her to return to her home safely after surgery and medical care. Discharge Recommendations Plan/Recommendations: Continue POC Treatment Plan/Plan of Care Patient would benefit from OT for education, treatment and training to promote independence in ADL's, mobility, safety and/or upper extremity function for ADL's. Plan of Care: ADL Retraining, Functional Mobility, Group Exercise/Act as Ind (education, exercise, funct activity, funct mobility, socialization, communication), UE Funct Exercise/Act, UE Neuromus Re-Ed/Coord, W/C Management Training Treatment Duration: Nov 29, 2018 Frequency: Modified Program (IRF) Estimated Hrs Per Day: 1.5 hours per day (1.25 to 1.5) Agreement: Yes Rehab Potential: Poor Time/GCodes Start Time: 14:30 Stop Time: 15:30 Total Time Billed (hr/min): 60 Billed Treatment Time 1 visit-ADL 4 (60 min) co-treat with PT entire session MARCY BOUDREAUX Nov 08, 2018 15:44
[2018-11-08 16:11] VITALS: BP 151/81
[2018-11-08] MEDS ORDERED: ACETAMINOPHEN 500 MG TAB (TYLENOL) PO PRN (16:15)
[2018-11-08] MEDS ORDERED: diphenhydrAMINE 25 MG TAB (BENADRYL) PO PRN (16:15)
[2018-11-08] MEDS ORDERED: ETODOLAC 200 MG (LODINE) CAP PO PRN (16:15)
[2018-11-08] MEDS ORDERED: MIRTAZAPINE 15 MG (REMERON) TAB PO PRN (16:15)
[2018-11-08] MEDS ORDERED: MELATONIN 3 MG TABLET PO PRN (16:15)
[2018-11-08] MEDS ORDERED: CALCIUM CARBONATE 500 MG (TUMS) TAB.CHEW PO PRN (16:15)
[2018-11-08] MEDS ORDERED: morphine INJ 4 MG/ML 1 ML (VIAL/SYRINGE) IVP PRN (16:15)
[2018-11-08] MEDS ORDERED: ONDANSETRON 4 MG/2 ML (SDV) Z0FRAN IVP PRN (16:15)
[2018-11-08] MEDS ORDERED: HALOPERIDOL 5 MG/ML (HALDOL) AMP IM PRN (16:15)
--- NOTE | 2018-11-08 16:36 | ST Cognitive Linguistic Eval ---
Speech Evaluation-General Medical Diagnosis sepsis Onset Date: Nov 03, 2018 Therapy Diagnosis Therapy Diagnosis: Cognitive-communication Precautions Precautions/Isolations: Contact Isolation Medical History Pertinent Medical History: HTN, Parkinson's, Renal Insufficiency Reviewed History: Yes Social History Current Living Status: Alone Speech PLF-Current Status Prior Level of Function The patient lived home alone and was independent for most of her daily needs. Subjective The patient was cooperative with the cognitive evaluation. Language Eval: Auditory Comprehends Simple Yes/No Ques: Functional Indent/Objects Multiple Fitzpatrick: Functional Ident/Pics in Multiple Fitzpatrick: Mild Follows 1-Step Commands: Functional Follows Complex Directions: Moderate Follows General Conversations: Functional Language Eval: Verbal Language Completes Spontaneous Greeting: Functional Produces Auto, Serial Info: Functional Imitates Simple Words/Phrases: Functional Word Finding: Mild Requests Basic Needs: Mild States Basic Personal Info: Mild Expresses Complex Ideas: Moderate Objective Cognitive Domain Attention: Mild Memory: Moderate Problem Solving: Moderate Executive Functions: Moderate Visuospatial Skills: Moderate Composite Severity Rating: Moderate Clock Drawing Severity Rating: Moderate Objective Formal/Standardized Tests [facility] Status ([facility]) Results The patient scored 10/30 which places her in the dementia range of function. Oral Motor/Speech Production Patient's speech is difficult to understand due to speaking very low and rapid. Impression The patient is a 62 year old female who was admitted to the ARU for skilled services s/p hospitalization for sepsis. The patient is very confused and requires frequent redirection. She currently has a CONVEYOR OPERATOR present for her own safety. The patient completed the SLUMS at bedside with a score of 10/30. She is very difficult to understand due to her low and rapid speech production. The patient will receive skilled cognitive therapy as well as speech therapy with focus on safety awareness and communication, Communication/Social Cognition Comprehension: 5 Expression: 4 Social Interaction: 4 Problem Solvin Memory: 3 Speech Patient Assess Expression of Ideas/Wants: Exhibits (3) Understanding Verbal Content: Sometimes Understands(2) Brief Interview-Mental Status: Yes Repetition of Three Words: Two (2) Temporal Orientation: Year: Correct (3) Temporal Orientation: Month: Accurate within 5 days(2) Temporal Orientation: Day: Correct (1) Recall : Wear to say "Sock": No, could not recall (0) Recall : Color: Yes, after cueing (1) Recall : Bed: No, could not recall (0) Memory/Recall Ability: Current season, That he or she is in a hsp/hsp unit Speech Short Term Goals Short Term Goals Short Term Goals 1) The patient will complete memory tasks with 80% or greater accuracy given verbal cues. 2) The patient will complete problem solving tasks with 80% or greater accuracy given verbal cues. 3) The patient will complete safety awareness tasks with 80% or greater accuracy given verbal cues. 4) The patient will complete speech production exercises with 80% or greater accuracy given verbal cues. Speech Senior Care Goals Trading Manager Goals The patient will improve her cognitive and speech abilities for increased level of function. Speech-Plan Patient/Family Goals Patient/Family Goals: The patient plans to return home post rehab. Treatment Plan Speech Therapy Treatment Plan: Continue Plan of Care The patient will receive skilled therapy. Treatment Duration: Nov 08, 2018 Frequency: 5 times per week Estimated Hrs Per Day: .5 hour per day Rehab Potential: Poor Barriers to Learning: The patient has significant cognitive deficits. Pt/Family Agrees to Plan: Yes Safety Risks/Education Teaching Recipient: Patient Teaching Methods: Discussion Response to Teaching: Verbalize Understanding Education Topics Provided: Safety within her room. Time Speech Therapy Time In: 16:15 Speech Therapy Time Out: 16:30 Total Billed Time: 15 Billed Treatment Time 1, SPSNDANDREW Rivero Nov 08, 2018 16:36
[2018-11-08 17:14] VITALS: BP 151/81
[2018-11-08] MEDS: LEVOFLOXACIN 500 MG TAB (LEVAQUIN) PO SCH (19:35)
[2018-11-08] MEDS: DOXYCYCLINE 100 MG (VIBRAMYCIN) TABLET PO SCH (19:35)
[2018-11-08] MEDS: SINEMET 25/100 (CARBIDOPA/LEVODOPA) TAB PO SCH (19:43)
--- OUTSIDE RECORDS SUMMARY | 2018-11-08 20:46 | XMS REPORT | Continuity of Care Document ---
Author Organization Unknown Address Unknown Allergies Active Description Code Type Severity Reaction Onset Reported/Identified Relationship to Patient Clinical Status Yes No known drug allergies [id number] ND N/A N/A Yes No known allergies [...] RUSSELL Final I10 Essential (primary) hypertension 10/10/2018 RBOIN RUSSELL Final L03.116 Cellulitis of left lower [...] penicillins 10/10/2018 ROBIN RUSSELL Final Z79.899 Other nursing home (current) drug therapy 10/13/2018 VALENTINE HOSKINS Final [...] encounter 10/23/2018 ROBIN RUSSELL Final Z79.899 Other nursing home (current) drug therapy 10/25/2018 Darwin uJstice Final 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 10/25/2018 Darwin Justice Reason For Visit T81.49XA Infection following a procedure, other surgical site, initial encounter 10/26/2018 Darwin Justice Final 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 10/26/2018 Darwin Justice Reason For Visit T81.49XA Infection following a procedure, other surgical site, initial encounter 10/28/2018 ROBIN RUSSELL Final B95.62 Methicillin resistant Staphylococcus aureus infection as the cause of diseases classified elsewhere 10/28/2018 ROBIN RUSSELL Final L03.116 Cellulitis of left lower limb 10/28/2018 ROBIN RUSSELL Reason For Visit T81.49XA Infection following a procedure, other surgical site, initial encounter Procedures Code [place] [address] X-RAY EXAM OF FOOT 03/26/2015 90770 ROUTINE VENIPUNCTURE 04/08/2015 09663 METABOLIC PANEL TOTAL CA 04/08/2015 68160 COMPLETE CBC W/AUTO DIFF WBC 04/08/2015 08615 ROUTINE VENIPUNCTURE 04/09/2015 75132 METABOLIC PANEL TOTAL CA 04/09/2015 07346 COMPLETE CBC W/AUTO DIFF WBC 04/09/2015 03483 ELECTROCARDIOGRAM, TRACING 04/09/2015 01199 THER/PROPH/DIAG INJ, IV PUSH 04/11/2015 83763 TX/PRO/DX INJ NEW DRUG ADDON 04/11/2015 89544 EMERGENCY DEPT VISIT 04/11/2015 J1885 TORADOL SYR 30MG/ML 04/11/2015 J3010 FENTANYL CITRATE INJECITON 04/11/2015 J3360 DIAZEPAM INJECTION 04/11/2015 46323 ROUTINE VENIPUNCTURE 05/05/2015 38292 ASSAY OF VANCOMYCIN 05/05/2015 J7040 NORMAL SALINE SOLUTION INFUS 05/05/2015 J7050 NORMAL SALINE SOLUTION INFUS 05/05/2015 35998 X-RAY EXAM OF KNEE 1 OR 2 PAULINA GRULLON MD 08/24/2015 77309 X-RAY EXAM OF KNEES PAULINA GRULLON MD R 08/24/2015 26185 ROUTINE VENIPUNCTURE 09/21/2015 85803 COMPREHEN METABOLIC PANEL 09/21/2015 49362 COMPLETE CBC W/AUTO DIFF WBC 09/21/2015 71688 BLOOD CULTURE FOR BACTERIA 09/21/2015 67642 EMERGENCY DEPT VISIT 09/21/2015 03812 EMERGENCY DEPT VISIT 09/21/2015 20107 PT RE-EVALUATION 09/21/2015 09995 THERAPEUTIC EXERCISES 09/21/2015 98973 THERAPEUTIC EXERCISES 09/29/2015 14397 COMPREHEN METABOLIC PANEL 10/26/2015 54771 ASSAY OF VITAMIN D 10/26/2015 63691 ASSAY OF PARATHORMONE 10/26/2015 37041 COMPLETE CBC W/AUTO DIFF WBC 10/26/2015 Results Test Result Range CRYSTAL EXAM - 10/22/14 00:00 CRYST CAPYRO CELL COUNT BDY FLD - 10/22/14 00:00 FLD WBC 611276 /cumm FLD RBC 287153 /cumm FLD MENG 97.0 % FLD LYM [...] % IMM GRANULOCYTE # 0.0 10^3u 0-5 [facility] - 09/21/15 00:00 ALB 3.0 G/DL 3.5-5 ALP 112 IU/L 25-72 ALT 32 IU/L AST 18 IU/L -42 BCR 21.7 10-20 BUN 15 MG/DL 7-18 CA 8.5 MG/DL 8.4-10.2 CL 102 MEQ/L 98-107 CO2 28.8 MEQ/L 22-28 CREA 0.69 MG/DL 0.6-1.0 EGFR 86 eGFR >=60 GLU 98 MG/DL 70-105 K 3.8 MEQ/L 3.5-5.1 NA 138 MEQ/L 134-145 OSMSC 276.5 MOSML 280-300 TBIL 0.8 MG/DL 0.1-1.0 TP 6.7 G/DL 6.0-8.3 Albumin/Globulin Ratio 0.8 0-8 Anion Gap 7.2 8-16 [facility] - 10/26/15 00:00 ALB 3.7 G/DL 3.5-5 ALP 116 IU/L 25-72 ALT 24 IU/L 65 AST 22 IU/L -42 BCR 21.2 10-20 BUN 17 MG/DL 7-18 [...] Status Pt. Type Provider Facility Loc./Unit Complaint [id number] 08/24/2015 14:34:00 08/24/2015 14:34:00 DIS Outpatient YADI GILMORE, PAULINA [facility] OTHER [id number] 11/22/2015 00:01:00 12/22/2015 23:59:00 DIS Outpatient PAULINA GRULLON [facility] PT [id number] 11/03/2015 10:54:00 11/21/2015 23:59:00 DIS Outpatient YADIPAULINA FULLER [facility] PT [id number] 10/22/2015 00:01:00 11/21/2015 23:59:00 DIS Outpatient YADIPAULINA FULLER [facility] PT [id number] 10/26/2015 16:25:00 10/26/2015 16:25:00 DIS Outpatient ROGER TAYLOR [facility] PANACE [id number] 09/22/2015 00:01:00 10/21/2015 23:59:00 DIS Outpatient PAULINA GRULLON [facility] PT [id number] 10/14/2015 12:48:00 10/14/2015 12:48:00 DIS Outpatient GAGANDEEP, TRA [facility] RAD [id number] 10/12/2015 12:54:00 10/12/2015 12:54:00 CAN Outpatient GAGANDEEP TRA [facility] RAD [id number] 09/21/2015 09:20:00 09/21/2015 23:59:00 DIS Outpatient PAULINA GRULLON [facility] PT [id number] 09/21/2015 21:14:00 09/21/2015 23:06:00 DIS Emergency DEMETRIA ROBERTS [facility] EMR [id number] 05/06/2015 12:35:00 05/06/2015 12:35:00 DIS Outpatient MATTHEW KRISHNAMURTHY [facility] RAD [id number] 05/06/2015 07:48:00 05/06/2015 07:48:00 DIS Outpatient GAGANDEEP, TRA [facility] RAD [id number] 04/23/2015 19:51:00 05/04/2015 20:30:00 DIS Outpatient ANKIT FLORENCE [facility] OBS [id number] 04/26/2015 11:19:00 04/26/2015 11:19:00 DIS Outpatient ANKIT FLORENCE [facility] LAB [id number] 04/11/2015 04:53:00 04/11/2015 10:20:00 DIS Emergency COLIN MART [facility] EMR [id number] 04/09/2015 09:23:00 04/09/2015 14:30:00 DIS Outpatient MATTHEW KRISHNAMURTHY [facility] OPS [id number] 03/25/2015 00:00:00 03/25/2015 00:00:00 DIS Outpatient MATTHEW KRISHNAMURTHY [facility] RAD [id number] 12/24/2014 10:53:00 12/24/2014 10:53:00 DIS Outpatient ANKIT FLORENCE [facility] RAD [id number] 10/23/2014 18:47:00 10/23/2014 20:10:00 DIS Emergency JOSE LUIS MIKAEL [facility] EMR [id number] 10/22/2014 14:14:00 10/22/2014 23:59:59 CLS Outpatient ANKIT FLORENCE [facility] ORTHO [id number] 03/22/2015 00:00:00 Document Registration [id number] 03/22/2015 00:00:00 Document Registration [id number] 03/22/2015 00:00:00 Document Registration [id number] 03/22/2014 00:00:00 Document Registration [id number] 03/22/2014 00:00:00 Document Registration [id number] 03/22/2014 00:00:00 Document Registration [id number] 10/13/2018 12:38:05 10/28/2018 16:11:00 DIS R ROBIN RUSSELL [facility] SARA INF Left foot post op infection; MRSA [id number] 10/26/2018 20:39:58 10/26/2018 23:59:59 DIS Outpatient Darwin Justice [facility] [id number] 10/25/2018 16:54:00 10/25/2018 18:36:00 DIS Emergency Vinh Darwin [facility] SARA ED ed visit [id number] 10/23/2018 13:08:04 10/23/2018 23:59:59 CLS Preadmit [facility] SARA PT D/C from Hospital [id number] 10/20/2018 09:16:21 10/23/2018 14:08:00 DIS Inpatient ROBIN RUSSELL [facility] SARA MS weakness, frequent falls, inability to do ADLs, cellulitis [id number] 10/13/2018 09:49:00 10/13/2018 12:20:00 DIS Emergency VALENTINE HOSKINS [facility] SARA ED ed visit [id number] 10/10/2018 11:06:01 10/12/2018 14:15:00 DIS Inpatient YVONNE ROBIN [facility] SARA MS (L) FOOT CELLULITIS, POST-OP INFECTION, ABCESS, NEW ONSET SEIZURE-LIKE ACTIVITY, WEAKNESS, AMS [id number] 10/09/2018 15:58:00 10/10/2018 10:28:00 DIS V YVONNE [facility] SARA MS new onset seizure activity [id number] 10/09/2018 05:57:18 10/09/2018 23:59:59 DIS Outpatient VALENTINE HOSKINS [facility] [id number] 09/25/2018 14:00:00 09/25/2018 23:59:59 DIS Outpatient Magaly Brady [facility] [id number] 09/24/2018 13:30:00 09/24/2018 23:59:59 CLS Outpatient Magaly Brady [facility] [id number] 09/17/2018 14:30:00 09/17/2018 23:59:59 CLS Outpatient Aminta Price [facility] [id number] 09/10/2018 14:57:19 09/10/2018 23:59:59 DIS Outpatient Aminta Price [facility] SARA RAD blue toe left foot 3rd toe [id number] 09/10/2018 14:19:50 09/10/2018 23:59:59 DIS Outpatient Aminta Price [facility] lab, xray [id number] 09/10/2018 13:46:08 09/10/2018 23:59:59 DIS Outpatient Aminta Price [facility] [id number] 04/10/2018 14:02:31 06/19/2018 16:25:00 DIS R Naomi Fernandez [facility] SARA PT Parkinsons [id number] 05/03/2018 13:45:00 05/03/2018 23:59:59 DIS Outpatient ROBIN RUSSELL [facility] [id number] 09/26/2017 11:22:17 09/26/2017 23:59:59 DIS Outpatient Magaly Brady [facility] lab [id number] 09/26/2017 10:45:00 09/26/2017 23:59:59 DIS Outpatient Magaly Brady [facility] [id number] 03/12/2017 14:33:02 03/12/2017 23:59:59 DIS Outpatient YVONNE ROBIN [facility] lab [id number] 03/12/2017 13:30:00 03/12/2017 23:59:59 DIS Outpatient YVONNE ROBIN [facility] [id number] 01/22/2017 13:30:00 01/22/2017 23:59:59 DIS Outpatient YVONNE ROBIN [facility] [id number] 01/22/2017 13:58:08 Document Registration [id number] 10/25/2018 20:05:56 ACT Unknown [id number] 04/05/2016 09:47:36 04/05/2016 23:59:59 CLS Outpatient Jarad Donaldson [id number] 11/04/2015 11:50:58 11/04/2015 23:59:59 CLS Outpatient Selam Yee
[2018-11-08 20:49] VITALS: BP 183/87
[2018-11-08] MEDS ORDERED: HALOPERIDOL 2 MG (HALDOL) TABLET PO SCH (21:00)
[2018-11-08] MEDS: SINEMET CR 50/200 (CARBIDOPA/LEVODOPA SA) TAB PO SCH (21:31)
[2018-11-08] MEDS: GABAPENTIN 100 MG (NEURONTIN) CAP PO SCH (21:31)
[2018-11-08] MEDS: HALOPERIDOL 0.5 MG (HALDOL) TAB PO SCH (21:31)
[2018-11-08] MEDS: SENNA W/DOCUSATE (SENOKOT S) TABLET PO SCH (21:31)
[2018-11-08] MEDS: QUEtiapine 25 MG (SEROquel) TAB IMMEDIATE RELEASE PO SCH (21:31)
[2018-11-08] MEDS: meTOprolol TARTRATE 25 MG (LOPRESSOR) TABLET PO SCH (21:31)
[2018-11-08] MEDS: LEVETIRACETAM 500 MG (KEPPRA) TAB PO SCH (21:31)
[2018-11-08 22:25] VITALS: BP 170/80
[2018-11-09 05:50] VITALS: BP 176/75
[2018-11-09] MEDS: DOXYCYCLINE 100 MG (VIBRAMYCIN) TABLET PO SCH ×2 (06:10→19:46)
[2018-11-09] MEDS: SINEMET 25/100 (CARBIDOPA/LEVODOPA) TAB PO SCH ×4 (06:10→19:47)
[2018-11-09 06:35] LABS: BASOPHILS % (AUTO) 0 % (0-10); EOSINOPHILS # (AUTO) 0.3 10^3/uL (0.0-0.3); EOSINOPHILS % (AUTO) 3 % (0-10); HEMATOCRIT 31 % (35-52); HEMOGLOBIN 9.5 G/DL (11.5-16.0); LYMPHOCYTES # (AUTO) 1.5 X 10^3 (1.0-4.0); LYMPHOCYTES % (AUTO) 16 % (12-44); MEAN CORPUSCULAR HEMOGLOBIN 27 PG (25-34); MEAN CORPUSCULAR HGB CONC 31 G/DL (32-36); MEAN CORPUSCULAR VOLUME 85 FL (80-99); MEAN PLATELET VOLUME 11.2 FL (7.4-10.4); MONOCYTES # (AUTO) 0.8 X 10^3 (0.0-1.0); MONOCYTES % (AUTO) 9 % (0-12); NEUTROPHILS # (AUTO) 6.5 X 10^3 (1.8-7.8); NEUTROPHILS % (AUTO) 72 % (42-75); PLATELET COUNT 386 10^3/uL (130-400); RED CELL DISTRIBUTION WIDTH 20.5 % (10.0-14.5)
[2018-11-09 06:57] LABS: ALANINE AMINOTRANSFERASE < 6 U/L (0-55); ALBUMIN 3.1 GM/DL (3.2-4.5); ALKALINE PHOSPHATASE 120 U/L (40-136); BILIRUBIN,TOTAL 0.3 MG/DL (0.1-1.0); BUN/CREATININE RATIO 25; CALCIUM 8.8 MG/DL (8.5-10.1); CARBON DIOXIDE 23 MMOL/L (21-32); CHLORIDE 109 MMOL/L (98-107); CREATININE SERUM 0.68 MG/DL (0.60-1.30); GFR ESTIMATED > 60; GLUCOSE 100 MG/DL (70-105); POTASSIUM 3.5 MMOL/L (3.6-5.0); SODIUM 142 MMOL/L (135-145); TOTAL PROTEIN 5.6 GM/DL (6.4-8.2)
[2018-11-09] MEDS: meTOprolol TARTRATE 25 MG (LOPRESSOR) TABLET PO SCH ×2 (08:08→21:16)
[2018-11-09] MEDS: LEVETIRACETAM 500 MG (KEPPRA) TAB PO SCH ×2 (08:08→21:16)
[2018-11-09] MEDS: ENOXAPARIN 40 MG/0.4 ML (LOVENOX) SYR SC SCH (08:08)
[2018-11-09] MEDS: lisINopril 10 MG (PRINIVIL) TABLET PO SCH (08:09)
[2018-11-09] MEDS: SENNA W/DOCUSATE (SENOKOT S) TABLET PO SCH ×2 (08:09→20:07)
[2018-11-09] MEDS: HALOPERIDOL 0.5 MG (HALDOL) TAB PO SCH (08:09)
[2018-11-09 09:45] VITALS: BP 145/85
[2018-11-09] MEDS: LEVOFLOXACIN 500 MG TAB (LEVAQUIN) PO SCH (11:15)
--- NOTE | 2018-11-09 12:49 | PM&R H&P / Post Admit Assess ---
History of Present Illness HPI/Chief Complaint CC: Encephalopathy with debility following critical illness HPI: This is a 62yoWF known to me for the past 7 days when she arrived from [facility] in private vehicle by son who was found to have severe sepsis on admit to IRF requiring transfer to ICU and has since stabilized and is now being admitted to IRF for intensive therapy in order to return to [facility] of independent ADL's and ambulation. Confusion and encephalopathy complicated by severe PD (sees Neurology at [facility] due to the severity of the disease and progression) has required the addition of Haldol for psychosis and delirium and seems to be improving on that regimen. Son from [place], [place] is here visiting today. Levaquin and Doxycycline were restarted as ID at [facility] recommended to decrease bacterial load of the left foot chronic ulcers before hardware can be removed in 6-12 months. Patient was on broad spectrum abx while in ICU. Foot is much improved since admit and she is stable today. BM today with fecal and urinary incontinence persists. Haldol will be decreased from 1mg PO TID to 0.5mg PO TID scheduled to help the psychosis which seems to be a bit improved every day but very slow progress. Family has decided they want her to go to the [facility] care home at [place] because they cannot take care of her needs since they all work collaborating supervising physician. CC/HPI from admit 11/03/18-11/09/18: Chief complaint: Severe sepsis requiring ICU transfer History of present illness: This is a 62-year-old white female patient of health care provider Ayde Hickman out of [place], [place] who originally was to be admitted in inpatient rehab today from [facility] for intensive rehab and recovery following encephalopathy and seizure-like activity with severe rigidity from Parkinson's disease following a very complex left foot surgery status post bunionectomy 1 month ago 10/02/18 in [facility]. Apparently she had problems and required a revision 1 week after the original surgery then it showed an abscess formation on 10/13/18 which required incision and drainage and placement of IV antibiotics of Vanc and Levaquin to cover MRSA and Pseudomonas in the infusion center at [place], [place]. She had presented to the ER there with confusion and visual hallucinations on 10/25/18 and her son reported that her Parkinson's medications have been "messed up" since before her surgery when she originally was told to stop taking her blood pressure medication of losartan and instead she stopped the amantadine that further complicated the situation. Patient was transferred to on 10/27/18 for higher level of care and to be treated by Dr Fernandez her Neurologist. She was placed on Keppra for the seizure- like activity and EEG showed slowed background and they suspected to not be an epileptic seizure but maintained on Keppra in the meantime. Orthopedics saw her found the patient not to be a surgical candidate at this time until the ulcers healed and hardware would be removed in 6-12 months from now. She remains not weightbearing on the left foot. Extensive records from reviewed and conferred with Dr. Choi construction materials tester since she presented to inpatient rehab with a blood pressure of 80/43 and that was rechecked and confirmed patient appeared to be lethargic so labs were obtained stat showing leukocytosis of 18,000 and elevated lactic acid 2.1 that was rechecked at 3.0 requiring aggressive IV fluids per severe sepsis protocol. I appreciate Dr. Choi's intervention and her plan is to check a C. difficile colitis sample because of diarrhea reports and placement back on antibiotic coverage recommended by infectious disease at . DC summary 11/08/18: Hospital course: Patient had an uneventful hospital course although she was originally admitted from to inpatient rehabilitation unit and within 2 hours was transferred to the ICU for hypotension and presumed sepsis. Workup ensued and no definitive source of infection confirmed but she was placed on broad- spectrum antibiotics of meropenem along with Levaquin that she had been on and remained on aggressive IV fluid resuscitation along with Dr. Choi construction materials tester consultation. Labs returned back to normal and stability. All home medications including Parkinson's specialty meds were restarted with psychosis and confusion from encephalopathy continued. She was felt to still have benefit from inpatient rehabilitation so she was transferred down and reverted back to Levaquin and doxycycline per infectious disease direction from med and will initiate Haldol oral on a scheduled basis and maintained on Seroquel at night. Prognosis guarded and may need skilled care at [place]. Source: patient Exam Limitations: no limitations Date Seen 11/09/18 Time Seen by a Provider: 12:00 Attending Physician Roxanne Lima DO PCP No,Local Physician Referring Physician Date of Admission Nov 08, 2018 at 13:20 Home Medications & Allergies Home Medications Reviewed patient Home Medication Reconciliation performed by pharmacy medication reconciliations radiation technician and/or nursing. Patients Allergies have been reviewed. 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[place]) Alcohol Use: Denies Use Recreational Drug Use: No Smoking Status: Never a Smoker Physical Abuse Screen: No Sexual Abuse: No Recent Foreign Travel: No Contact w/other who traveled: No Recent Hopitalizations: Yes Recent Infectious Disease Expo: No Immunizations Up To Date Pediatric: Yes Seasonal Allergies Seasonal Allergies: No Past Medical History Surgeries: Orthopedic Currently Using CPAP: No Currently Using BIPAP: No Cardiac: Hypertension Neurological: Parkinson's Disease Psychosocial: Anxiety History of Blood Disorders: No Adverse Reaction to Blood Degroot: No Family History Alcoholism 19 MOTHER Diabetes mellitus G8 BROTHER Parkinson's disease 19 FATHER Review of Systems Constitutional: see HPI, malaise, weakness EENTM: no symptoms reported Respiratory: no symptoms reported Cardiovascular: no symptoms reported Gastrointestinal: other (incontinence of bowel) Genitourinary: incontinence Musculoskeletal: joint pain Skin: see HPI Psychiatric/Neurological: Tremors, Weakness, Other (confusion) Physical Exam Exam Vital Signs Vital Signs Date Time Temp Pulse Resp B/P (MAP) Pulse Ox O2 Delivery O2 Flow Rate FiO2 11/09/18 05:50 98.8 70 18 176/75 (108) 97 Room Air Capillary Refill : General Appearance: No Apparent Distress, WD/WN, Chronically ill, Thin HEENT: PERRL/EOMI, Normal ENT Inspection, Pharynx Normal, Moist Mucous Membranes Neck: Full Range of Motion, Normal Inspection, Non Tender, Supple Respiratory: Chest Non Tender, Lungs Clear, Normal Breath Sounds, No Accessory Muscle Use, No Respiratory Distress Cardiovascular: Regular Rate, Rhythm, No Edema, No Gallop, No JVD, No Murmur Gastrointestinal: Normal Bowel Sounds, No Organomegaly, No Pulsatile Mass, Non Tender, Soft Back: Normal Inspection, No CVA Tenderness, No Vertebral Tenderness Extremity: Normal Capillary Refill, Normal Inspection, Normal Range of Motion (non-weight bearing left foot with dressing and ortho shoe intact), Non Tender, No Calf Tenderness, No Pedal Edema Neurologic/Psychiatric: Alert, No Motor/Sensory Deficits, Normal Mood/Affect, radial saw operator II-XII Norm as Tested, Disoriented Skin: Normal Color, Warm/Dry Lymphatic: No Adenopathy Results Results/Procedures Labs Laboratory Tests 11/09/18 06:00 Patient resulted labs reviewed. Assessment/Plan Assessment and Plan Assess & Plan/Chief Complaint Assessment: Debility with non-weight bearing left foot and severe PD precluding fast recovery s/p severe sepsis 11/03/18 s/p Hypotension s/p Leukocytosis s/p Dehydration Encephalopathy with confusion and psychosis and delirium requiring antip sychotics Poor reserve with severe debility Seizure-like activity requiring Keppra initiation EEG 10/10/18 mild background slowing 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 per [facility] s/p ARF Severe PD Left foot cellulitis and osteomyelitis placed on Levaquin and Doxycycline per ID at [facility] s/p two dorsal open foot ulcers with tendon visible previous bunion surgery 10/02/18 in [place], [place] with revision 1 week later s/p abscess drained now ortho allowing wounds to heal before hardware removed Anemia Fecal incontinence Urinary incontinence Plan: IRF protocols Decrease Haldol due to sedation PO abx detention per ID [facility] Monitor labs and BP Home meds NHP? Hx of Diagnosis: (1) Severe sepsis Status: Resolved (2) Sepsis Status: Resolved (3) Parkinson disease Status: Chronic (4) Cachexia Status: Acute (5) Dehydration Status: Acute (6) Anemia of chronic disease Status: Chronic (7) Confusion Status: Acute (8) Diarrhea Status: Acute (9) Renal failure, acute Status: Acute (10) Leukocytosis Status: Acute (11) Visual hallucinations Status: Acute (12) Debility Status: Acute (13) Hypotension Status: Acute (14) Thrombocytosis Status: Acute (15) Encephalopathy acute Status: Acute (16) Rigidity Status: Acute (17) Polymicrobial bacterial infection Status: Acute (18) Osteomyelitis of foot Status: Acute (19) Witnessed seizure-like activity Status: Acute (20) Wound of left foot Status: Acute (21) Incontinence of bowel Status: Acute (22) Incontinence of urine Status: Acute (23) Anemia Status: Chronic (1) Encephalopathy acute (2) Cachexia (3) Dehydration (4) Anemia of chronic disease (5) Confusion (6) Diarrhea (7) Renal failure, acute (8) Leukocytosis (9) Parkinson disease (10) Visual hallucinations (11) Debility (12) Hypotension (13) Thrombocytosis (14) Rigidity (15) Polymicrobial bacterial infection (16) Osteomyelitis of foot (17) Witnessed seizure-like activity (18) Wound of left foot (19) Incontinence of urine (20) Incontinence of bowel (21) Anemia (22) Sepsis Resolution Date/Time: 11/06/18 @ 21:05 (23) Severe sepsis Resolution Date/Time: 11/06/18 @ 21:05 Post Admission Physician Asses Date seen by provider: Nov 09, 2018 Time seen by provider: 12:00 Admisison Dx: (1) Encephalopathy acute Status: Acute The preadmission screen agrees with the post admission assessment that the patient is a good candidate for inpatient rehabilitation. The patient will have a comprehensive program of inpatient rehabilitation with a goal of maximizing level of functional independence prior to discharge home with family. The patient will have PT/OT ninety minutes per day, each discipline, five days a week for gait, strengthening, conditioning, balance, ADLs, any patient/family/caregiver training as necessary. Speech therapy to do cognitive assessment and treat as indicated. Rehabilitation nursing to assist with bowel, bladder, skin, wound care, medication administration, pain management. Export Freight Clerk to assist with discharge planning, community reentry. SCD's for DVT prophylaxis. She appears to be well motivated to participate in three hours of therapy a day. She should be able to tolerate three hours of therapy a day from a medical standpoint. She should benefit from the three hours of therapy a day. She has a reasonable discharge plan, reasonable discharge rehabilitation goals and a supportive family. She has various comorbidities that need to be closely monitored with medications and treatments adjusted on a daily basis as needed. These include: see list Barriers to discharge for this patient who had been independent prior to this are for her to be modified independent to supervision for ADLs and mobility sk ills prior to discharge home with family, so as to lessen the burden of the caregivers. Risks for this patient include: 1. Fall 2. Fracture 3. DVT 4. Pulmonary embolism 5. Wound infection 6. Skin breakdown 7. Contractures 8. Poorly controlled pain 9. Urinary retention 10. UTI 11. Respiratory infection 12. Aspiration Estimated Length of Stay: 7-14 days Prognosis: Rehab prognosis appears good for goal of discharge home with family modified independent to supervision for ADLs and mobility skills versus NHP. ROXANNE LIMA DO Nov 09, 2018 12:49
[2018-11-09] MEDS ORDERED: HALOPERIDOL 0.5 MG (HALDOL) TAB PO SCH (13:00)
--- NOTE | 2018-11-09 13:25 | Individualized Plan of Care ---
Individualized Plan of Care Rehab Nursing IPOC Order Admission Date Nov 08, 2018 at 13:20 Current Orders Orders Patient Visit (11/08/18 ) Pt Eval Moderate Complexity (11/08/18 ) Functional Activities, Ea 15 (11/08/18 ) Patient Visit (11/08/18 ) Functional Activities, Ea 15 (11/08/18 ) Exercise Therap, Ea 15 Min (11/08/18 ) Admission Order(Inpt,Obs,Sdc) (11/08/18 16:01) Vital Signs: Per Unit Policy ( 08,16,00 (11/08/18 16:01) Substance Abuse Clinician-Inpt Rehab Con (11/08/18 16:01) Rehab Nursing Orders-Ipoc (11/08/18 16:01) Physical Therapy Rehab Orders (11/08/18 16:01) Occupational Therapy Rehab Ord (11/08/18 16:01) Speech Therapy Rehab Orders (11/08/18 16:01) Precautions (Aru) (11/08/18 16:01) Weekly Weight (Lbs) WEEK (11/08/18 16:01) Rehab-Intensity Of Therapy (11/08/18 16:01) Initiate Admission Nursing Pro .admission (11/08/18 16:01) Code/Resuscitation (11/08/18 16:02) Advanced Wound Care Dressing O BID PRN (11/08/18 16:02) Encourage Po Fluids (11/08/18 16:02) Initiate Admission Nursing Pro .admission (11/08/18 16:02) Sequential Compression Device 08,20 (11/08/18 16:02) General/Regular (11/09/18 Breakfast) Acetaminophen Tablet (Tylenol Tablet) (11/08/18 16:15) Calcium Carbonate Chew Tablet (Antacid C (11/08/18 16:15) Carbidopa/Levodopa 25/100 (Sinemet 25/10 (11/08/18 19:00) Carbidopa/Levodopa Cr Tablet (Sinemet Cr (11/08/18 21:00) Etodolac Capsule/Tablet (Lodine Capsule/ (11/08/18 16:15) Gabapentin Capsule/Tablet (Neurontin Cap (11/08/18 21:00) Hydrocodone/Apap 5/325 Tablet (Lortab 5 (11/08/18 16:15) Haloperidol Injection (Haldol Injectio (11/08/18 16:15) Levetiracetam Tablet (Keppra Tablet) (11/08/18 21:00) Melatonin Tablet (Melatonin Tablet) (11/08/18 16:15) Mirtazapine Tablet (Remeron Tablet) (11/08/18 16:15) Ondansetron Injection (Zofran Injectio (11/08/18 16:15) Quetiapine Immediate Release (Seroquel I (11/08/18 21:00) Senna S Tablet (Senokot S Tablet) (11/08/18 21:00) Sodium Hypochlorite 0.125% Sharmaine (Dakin's (11/08/18 21:00) Diphenhydramine Tablet (Benadryl Tablet) (11/08/18 16:15) Lisinopril Tablet (Zestril Tablet) (11/09/18 09:00) Metoprolol Tartrate (Ir) Tab (Lopressor (11/08/18 21:00) Morphine Injection (Morphine Injection (11/08/18 16:15) Consult Pulmonology (11/08/18 16:02) Consult Wound Care Physician (11/08/18 16:02) Doxycycline Hyclate Tablet (Vibramycin T (11/08/18 17:00) Haloperidol Tablet (Haldol Tablet) (11/08/18 21:00) Enoxaparin Injection (Lovenox Injection) (11/09/18 08:00) Levofloxacin Tablet (Levaquin Tablet) (11/08/18 17:00) General/Regular (11/08/18 Dinner) Haloperidol Tablet (Haldol Tablet) (11/08/18 21:00) Patient Visit (11/08/18 ) Speech Sound Lang Comp (11/08/18 ) Cbc With Automated Diff (11/09/18 06:00) Comprehensive Metabolic Panel (11/09/18 06:00) Wheelchair Mgmt/Propulsn 15min (11/08/18 ) Haloperidol Tablet (Haldol Tablet) (11/09/18 13:00) Patient Visit (11/09/18 ) Functional Activities, Ea 15 (11/09/18 ) Exercise Therap, Ea 15 Min (11/09/18 ) Cbc With Automated Diff (11/10/18 06:00) Comprehensive Metabolic Panel (11/10/18 06:00) Rehab Nursing Orders: Ongoing Assess. of Cognitive Status, Ongoing Assess. of Function Status, Bladder Management, Bladder Training, Bowel Management, Bowel Training, Disease Management & Educaiton, DVT Prophylaxis, Fall Prevention, Fluid/Electrolyte/Nutrition Mgmt, Infection Prevention, Medication Management & Education, Management of Risks & Complications, Management of Skin Intergrity, Nutrition Management, Pain Management, Patient/Family Support, Safety Management Intensity of Therapy to be met Patient to be seen: Min.3h per day/5 of 7d PT IPOC Problem List: Activity Tolerance, Functional Strength, Safety, Balance, Gait, Transfer, Bed Mobility, ROM Treatment Plan: Continue Plan of Care Bed Mobility, Concurrent Therapy, Education, Functional Activity Bakari, Functional Strength, Group Therapy, Gait, Safety, Therapeutic Exercise, Transfers Treatment Duration: Nov 29, 2018 Frequency: At least 5 of 7 days/Wk (IRF) Estimated Hrs Per Day: 1.5 hours per day OT IPOC Problems: Decreased Activ Tolerance, Decreased Safety Aware, Dependent Transfers, Impaired Bed Mobility, Impaired Cognition, Impaired Coordination, Impaired Funct Balance, Impaired I ADL's, Impaired Self-Care Skills, Restricted Funct UE ROM OT Treatment, Training and Edu: Yes OT Problems Pt would benefit from skilled OT to increase her independence iin basic self car to allow her to return to her home safely after surgery and medical care. Plan of Care: ADL Retraining, Functional Mobility, Group Exercise/Act as Ind (education, exercise, funct activity, funct mobility, socialization, communication), UE Funct Exercise/Act, UE Neuromus Re-Ed/Coord, W/C Management Training Treatment Duration: Nov 29, 2018 Frequency: Modified Program (IRF) Estimated Hrs Per Day: 1.5 hours per day (1.25 to 1.5) ST IPOC Speech Therapy Treatment Plan: Continue Plan of Care Treatment Duration: Nov 08, 2018 Frequency: 5 times per week Estimated Hrs Per Day: .5 hour per day Substance Abuse Clinician/Case Mgmt Substance Abuse Clinician/Case Managemen: Discharge Planning Dietitian/Metal Worker Dietitian/Metal Worker to monitor nutritional status and make changes and/or recommendations as needed and work with speech pathology on dietary upgrades as the occur. Physician IPOC Medical Issues being managed closely and that require the 24 hour availability of a physician: Patient with severe encephalopathy requiring antipsychotics due to psychosis and delusions along with severe Parkinson's at high risk for falls and multiple organ system dysfunction. Medical Issues: Bowel/Bladder Function, DVT Prophylaxis, Falls Precautions, Fluid/Electrolyte/Nutrition Balance, Infection Protection, Pain Management, Wound Care Brief Synthesis of Preadmission Screen, Post-Admission Evaluation, and Therapy Evaluations: Physical therapy will work on nonweightbearing activity with ambulation with walker Occupational therapy will facilitate regaining of independent ADL activity Speech therapy will focus on cognition Medical Prognosis: Guarded to good Anticipated Length of Stay: 7 days SHANNON LIMA DO Nov 09, 2018 13:24
--- NOTE | 2018-11-09 13:37 | Physical Therapy Daily Note ---
PT Daily Note-Current Subjective Pt agreeable. Nurse present and assisting pt with dressing. Nurse and HAND ETCHER HELPER assist pt with completion of dressing and transfer, pt agreeable throughout. Pt wanting to go with family outdoors for fresh air in w/c. Mental Status Patient Orientation: Person, Place Transfers Therapy Code Descriptions/Definitions Functional Eunice Measure: 0=Not Assessed/NA 4=Minimal Assistance 1=Total Assistance 5=Supervision or Setup 2=Maximal Assistance 6=Modified Eunice 3=Moderate Assistance 7=Complete Eunice Therapy Quality Codes: 6 Independent with activity with or without an assistive device 5 Patient requires set up or clean up by helper. Patient completes activity by themselves 4 Supervision or touching assist (CGA). [place] provide cues , steadying assist 3 The helper provides less than half the effort to complete the activity 2 The helper provides more than half the effort to complete the activity 1 Dependent. The helper does all the effort to complete an activity 7 Patient refused to complete or attempt activity 9 The patient did not perform the activity before the current illness or injury 88 Not attempted due to Medical conditions or safety concerns Weight Bearing Left Lower Extremity: Left Non Weight Bearing Treatments Pt stood with max A of 2 for pulling up pants and SPT chair to w/c. Pt completed AAROM (B) UE and (B) LE all planes x 20 each. Assessment Current Status: Fair Progress Pt in chair and all needs met post therapy session. Pt in w/c and in care of family. No complaints voiced per pt. PT Short Term Goals Short Term Goals Time Frame: Nov 15, 2018 Transfers (B,C,W/C) (FIM): 2 Wheelchair (FIM): 1 Wheelchair Distance: 20' Wheelchair Level of Assist: 4 PT Fdc Goals Fdc Goals PT Contact Center Assistant Goals Time Frame: Nov 29, 2018 Transfers (B,C,W/C) (FIM): 3 Sit to Lying (QC): 2 Lying-Sitting on Side/Bed(QC): 2 Sit to Stand (QC): 2 Rollin Roll Left to Right (QC): 2 Chair/[id number] Xfer(QC): 2 Car Transfer (QC): 2 Wheelchair (FIM): 2 Distance: 50' Wheelchair Level of Assist: 4 Wheel 50 feet with 2 turns (QC: 3 PT Plan Treatment/Plan Treatment Plan: Continue Plan of Care Treatment Plan: Bed Mobility, Concurrent Therapy, Education, Functional Ac tivity Bakari, Functional Strength, Group Therapy, Gait, Safety, Therapeutic Exercise, Transfers Treatment Duration: Nov 29, 2018 Frequency: At least 5 of 7 days/Wk (IRF) Estimated Hrs Per Day: 1.5 hours per day Patient and/or Family Agrees t: Yes Time/GCodes Time In: 1130 Time Out: 1200 Total Billed Treatment Time: 30 Total Billed Treatment 1, Ex x 15', FA x 15' JEREMY GIRON CPTA Nov 09, 2018 13:37
--- NOTE | 2018-11-09 15:42 | NUR ---
Danielle is a 62 yo patient currently inpatient on ARU due to encephalopathy and MRSA infection present in bunionectomy incision sites. Dressing completed per orders and appears to be healing appropriately . Patient is currently on enhanced monitoring due to confusion. This shift patient has not demonstrated any impulsive behaviors but patient is still significantly confused, redirection has been difficulty d/t severity of patients confusion. Son states this is not patients baseline and she was completely independently prior to events. Currently patient is requiring 2:1 for transfers and many task. Family present most of morning, no issues were reported. This nurse spoke to Dr. Edwards and discussed patient being very lethargic post Haldol administration, dose was cut in half and patient seems to respond better. Patient also had elevated blood pressures this am which improved post am blood pressure medications. This nurse will continue to monitor patient throughout shift for any needs and changes. Addendum: 11/09/18 at 1849 by SHANE GALAN RN Patient is very sleepy this evening. Patient would not wake up enough to take 1700 ABT. Sternal rub preformed and patient responded instantly but still didn't wake up, after coaxing patient she yelled "leave me alone, leave me alone, leave me alone". Vitals WNL, with BP slightly elevated. Dr. Edwards notified and ordered to hold Haldol PO for now and she would evaluate in the morning. shift engineer RNAmira will try and administer PO ABT later this evening if patient wakes up more. No further issues noted.
[2018-11-09 17:55] VITALS: BP 167/88
[2018-11-09] MEDS: DAKIN'S 1/4 STRENGTH (0.125%) 473 ML BTL TOP SCH (21:00)
[2018-11-09] MEDS: GABAPENTIN 100 MG (NEURONTIN) CAP PO SCH (21:16)
[2018-11-09] MEDS: QUEtiapine 25 MG (SEROquel) TAB IMMEDIATE RELEASE PO SCH (21:16)
[2018-11-09] MEDS: SINEMET CR 50/200 (CARBIDOPA/LEVODOPA SA) TAB PO SCH (21:16)
[2018-11-10 05:03] VITALS: BP 166/85
--- NOTE | 2018-11-10 06:00 | NUR ---
pt rested most of noc with eyes closed resp reg , no c/o. pt assisted with repositioning in bed.pt awakens easily when repositioning . po fluids taken slowly.pt incont. of urine amairani care et linens chg.
[2018-11-10 06:01] LABS: BASOPHILS % (AUTO) 0 % (0-10); EOSINOPHILS # (AUTO) 0.2 10^3/uL (0.0-0.3); EOSINOPHILS % (AUTO) 2 % (0-10); HEMATOCRIT 31 % (35-52); HEMOGLOBIN 9.6 G/DL (11.5-16.0); LYMPHOCYTES # (AUTO) 1.4 X 10^3 (1.0-4.0); LYMPHOCYTES % (AUTO) 16 % (12-44); MEAN CORPUSCULAR HEMOGLOBIN 27 PG (25-34); MEAN CORPUSCULAR HGB CONC 31 G/DL (32-36); MEAN CORPUSCULAR VOLUME 86 FL (80-99); MEAN PLATELET VOLUME 10.6 FL (7.4-10.4); MONOCYTES # (AUTO) 0.7 X 10^3 (0.0-1.0); MONOCYTES % (AUTO) 8 % (0-12); NEUTROPHILS # (AUTO) 6.5 X 10^3 (1.8-7.8); NEUTROPHILS % (AUTO) 74 % (42-75); PLATELET COUNT 406 10^3/uL (130-400); RED CELL DISTRIBUTION WIDTH 20.3 % (10.0-14.5); WHITE BLOOD COUNT 8.8 10^3/uL (4.3-11.0)
[2018-11-10] MEDS: SINEMET 25/100 (CARBIDOPA/LEVODOPA) TAB PO SCH ×4 (06:01→18:20)
[2018-11-10] MEDS: DOXYCYCLINE 100 MG (VIBRAMYCIN) TABLET PO SCH ×2 (06:01→17:27)
[2018-11-10 06:15] LABS: ALANINE AMINOTRANSFERASE < 6 U/L (0-55); ALKALINE PHOSPHATASE 95 U/L (40-136); BILIRUBIN,TOTAL 0.4 MG/DL (0.1-1.0); BUN/CREATININE RATIO 21; CALCIUM 8.9 MG/DL (8.5-10.1); CARBON DIOXIDE 24 MMOL/L (21-32); CHLORIDE 107 MMOL/L (98-107); CREATININE SERUM 0.66 MG/DL (0.60-1.30); GFR ESTIMATED > 60; GLUCOSE 98 MG/DL (70-105); POTASSIUM 3.5 MMOL/L (3.6-5.0); SODIUM 141 MMOL/L (135-145); TOTAL PROTEIN 5.7 GM/DL (6.4-8.2)
[2018-11-10] MEDS: ENOXAPARIN 40 MG/0.4 ML (LOVENOX) SYR SC SCH (09:06)
[2018-11-10] MEDS: lisINopril 10 MG (PRINIVIL) TABLET PO SCH (09:07)
[2018-11-10] MEDS: meTOprolol TARTRATE 25 MG (LOPRESSOR) TABLET PO SCH ×2 (09:07→20:09)
[2018-11-10] MEDS: LEVETIRACETAM 500 MG (KEPPRA) TAB PO SCH ×2 (09:07→20:08)
[2018-11-10] MEDS: SENNA W/DOCUSATE (SENOKOT S) TABLET PO SCH ×2 (09:16→20:09)
--- NOTE | 2018-11-10 10:00 | NUR ---
FAMILY HERE AND HAVING A BIRTHDAY CELEBRATION FOR PATIENT. SON STATES WOULD LIKE TO TAKE HER TO [facility] TOMORROW, BUT STATES SHE HAS TO BE MENTALLY CLEAR ENOUGH NOT TO NEED A SITTER. PATIENT DID ASK X 2 FOR ASST. UP TO BATHROOM
[2018-11-10] MEDS: LEVOFLOXACIN 500 MG TAB (LEVAQUIN) PO SCH (11:09)
[2018-11-10] MEDS: DAKIN'S 1/4 STRENGTH (0.125%) 473 ML BTL TOP SCH ×5 (11:09→20:11)
--- NOTE | 2018-11-10 12:37 | PM&R Progress Note ---
Subjective HPI/CC On Admission Date Seen by Provider: Nov 10, 2018 Time Seen by Provider: 12:15 CC: Encephalopathy with debility following critical illness HPI: This is a 62yoWF known to me for the past 7 days when she arrived from [facility] in private vehicle by son who was found to have severe sepsis on admit to IRF requiring transfer to ICU and has since stabilized and is now being admitted to IRF for intensive therapy in order to return to [facility] of independent ADL's and ambulation. Confusion and encephalopathy complicated by severe PD (sees Neurology at [facility] due to the severity of the disease and progression) has required the addition of Haldol for psychosis and delirium and seems to be improving on that regimen. Son from [place], [place] is here visiting today. Levaquin and Doxycycline were restarted as ID at [facility] recommended to decrease bacterial load of the left foot chronic ulcers before hardware can be removed in 6-12 months. Patient was on broad spectrum abx while in ICU. Foot is much improved since admit and she is stable today. BM today with fecal and urinary incontinence persists. Haldol will be decreased from 1mg PO TID to 0.5mg PO TID scheduled to help the psychosis which seems to be a bit improved every day but very slow progress. Family has decided they want her to go [place] [facility] [place] because they cannot take care of her needs since they all work hem marker. CC/HPI from admit 11/03/18-11/09/18: Chief complaint: Severe sepsis requiring ICU transfer History of present illness: This is a 62-year-old white female patient of health care provider Ayde Hickman out of [place], [place] who originally was to be admitted in inpatient rehab today from [facility] for intensive rehab and recovery following encephalopathy and seizure-like activity with severe rigidity from Parkinson's disease following a very complex left foot surgery status post bunionectomy 1 month ago 10/02/18 in [facility]. Apparently she had problems and required a revision 1 week after the original surgery then it showed an abscess formation on 10/13/18 which required incision and drainage and placement of IV antibiotics of Vanc and Levaquin to cover MRSA and Pseudomonas in the infusion center at [place], [place]. She had presented to the ER there with confusion and visual hallucinations on 10/25/18 and her son reported that her Parkinson's medications have been "messed up" since before her surgery when she originally was told to stop taking her blood pressure medication of losartan and instead she stopped the amantadine that further complicated the situation. Patient was transferred to on 10/27/18 for higher level of care and to be treated by Dr Fernandez her Neurologist. She was placed on Keppra for the seizure- like activity and EEG showed slowed background and they suspected to not be an e pileptic seizure but maintained on Keppra in the meantime. Orthopedics saw her found the patient not to be a surgical candidate at this time until the ulcers healed and hardware would be removed in 6-12 months from now. She remains not weightbearing on the left foot. Extensive records from reviewed and conferred with Dr. Choi nutritionists since she presented to inpatient rehab with a blood pressure of 80/43 and that was rechecked and confirmed patient appeared to be lethargic so labs were obtained stat showing leukocytosis of 18,000 and elevated lactic acid 2.1 that was rechecked at 3.0 requiring aggressive IV fluids per severe sepsis protocol. I appreciate Dr. Choi's intervention and her plan is to check a C. difficile colitis sample because of diarrhea reports and placement back on antibiotic coverage recommended by infectious disease at . DC summary 11/08/18: Hospital course: Patient had an uneventful hospital course although she was originally admitted from to inpatient rehabilitation unit and within 2 hours was transferred to the ICU for hypotension and presumed sepsis. Workup ensued and no definitive source of infection confirmed but she was placed on broad- spectrum antibiotics of meropenem along with Levaquin that she had been on and remained on aggressive IV fluid resuscitation along with Dr. Choi nutritionists consultation. Labs returned back to normal and stability. All home medications including Parkinson's specialty meds were restarted with psychosis and confusion from encephalopathy continued. She was felt to still have benefit from inpatient rehabilitation so she was transferred down and reverted back to Levaquin and doxycycline per infectious disease direction from med and will initiate Haldol oral on a scheduled basis and maintained on Seroquel at night. Prognosis guarded and may need skilled care at [place]. Subjective/Events-last exam Patient's birthday is today Both of her sons and the family are here visiting Held Santosh I was giving her 1 mg p.o. 3 times daily after second dose yesterday due to significant oversedation she seems much improved today so I did decrease Haldol to 0.25 mg p.o. twice daily because it appears that the hallucinations and delusions are much improved now Family [place] and [facility] Labs remained stable but potassium was 3.5 so I will start on potassium supplement of 10 mEq daily Foot is much improved Check meds and labs Conferred with RN Reviewed therapy notes Review of Systems General: Fatigue Musculoskeletal: foot pain Neurological: Confusion Objective Exam Vital Signs Vital Signs Date Time Temp Pulse Resp B/P (MAP) Pulse Ox O2 Delivery O2 Flow Rate FiO2 11/10/18 09:00 Room Air 11/10/18 05:03 98.8 85 20 166/85 (112) 97 Capillary Refill : General Appearance: No Apparent Distress, WD/WN, Chronically ill, Thin HEENT: PERRL/EOMI, Normal ENT Inspection, Pharynx Normal, Moist Mucous Membranes Neck: Full Range of Motion, Normal Inspection, Non Tender, Supple Respiratory: Chest Non Tender, Lungs Clear, Normal Breath Sounds, No Accessory Muscle Use, No Respiratory Distress Cardiovascular: Regular Rate, Rhythm, No Edema, No Gallop, No JVD, No Murmur Gastrointestinal: Normal Bowel Sounds, No Organomegaly, No Pulsatile Mass, Non Tender, Soft Back: Normal Inspection, No CVA Tenderness, No Vertebral Tenderness Extremity: Normal Capillary Refill, Normal Inspection, Normal Range of Motion (non-weight bearing left foot with dressing and ortho shoe intact), Non Tender, No Calf Tenderness, No Pedal Edema Neurologic/Psychiatric: Alert, No Motor/Sensory Deficits, Normal Mood/Affect, medical and health services manager II-XII Norm as Tested, Disoriented Skin: Normal Color, Warm/Dry Lymphatic: No Adenopathy Results/Procedures Lab Laboratory Tests 11/10/18 05:30 11/10/18 05:50 Patient resulted labs reviewed. FIM Transfers Therapy Code Descriptions/Definitions Functional Hodgeman Measure: 0=Not Assessed/NA 4=Minimal Assistance 1=Total Assistance 5=Supervision or Setup 2=Maximal Assistance 6=Modified Hodgeman 3=Moderate Assistance 7=Complete Hodgeman Therapy Quality Codes: 6 Independent with activity with or without an assistive device 5 Patient requires set up or clean up by helper. Patient completes activity by themselves 4 Supervision or touching assist (CGA). Kerrick provide cues , steadying assist 3 The helper provides less than half the effort to complete the activity 2 The helper provides more than half the effort to complete the activity 1 Dependent. The helper does all the effort to complete an activity 7 Patient refused to complete or attempt activity 9 The patient did not perform the activity before the current illness or injury 88 Not attempted due to Medical conditions or safety concerns Transfers (B, C, W/C) (FIM): 1 (Assist x2) Scootin Rollin Roll Left to Right (QC): 2 Supine to/from Sit: 1 Sit to/from Stand: 1 Sit to Lying (QC): 2 Sit to Stand (QC): 1 Chair/Tau-qq-Jvhas Xfer(QC): 1 Bed to/from Chair: 1 Car Transfer (QC): 1 Gait Training Does the Patient Walk?: No and Walking Goal NOT indicated Wheelchair Training Does the Pt Use a Wheelchair?: Yes Wheelchair (FIM): 1 Distance: 20' Wheelchair Level of Assist: 1 Wheel 50 ft with 2 turns (QC): 1 Wheel 150 ft (QC): 1 Type of Wheelchair: Manual Mental Status/Objective Comprehension: 5 Expression: 4 Social Interaction: 4 Problem Solvin Memory: 3 ADL-Treatment Feedin (Pt has universal cuff to assist grasping in eating. Pt requires physical cues to spear food and bring to mouth a few times before ability to complete. ) Eating (QC): 2 Groomin (Assist to set up, built up handle for utensils and assist to coordinate movement for combing hair or brushing teeth.) Oral Hygiene (QC): 2 Bathin (Assist x2 to stand and cleanse buttocks and amairani area. Sitting EOB pt attempts to cleanse self though unable to hold onto clothes. Assist to complete all bath.) Shower/Bathe Self (QC): 1 Upper Extremity Dressin (Pt attempts to assist though with decreased pantry steward/stewardess, unable to pantry steward/stewardess material and pull. Assist needed.) Upper Body Dressing (QC): 2 Lower Extremity Dressin (Assist x2 to complete hiking pants over hips. Assist to don/doff clothing over feet.) Lower Body Dressing (QC): 1 On/Off Footwear (QC): 2 Toiletin (Assist x2 to complete hygiene and clothing manipulation.) Toileting Hygiene (QC): 1 Toilet/Commode Transfer: 1 (Assist x2 for transfer.) Toilet Transfer (QC): 1 Assessment/Plan Assessment and Plan Assess & Plan/Chief Complaint Assessment: Debility with non-weight bearing left foot and severe PD precluding fast recovery s/p severe sepsis 11/03/18 s/p Hypotension s/p Leukocytosis s/p Dehydration Encephalopathy with confusion and psychosis and delirium requiring antipsychotics Poor reserve with severe debility Seizure-like activity requiring Keppra initiation EEG 10/10/18 mild background slowing 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 per [facility] s/p ARF Severe PD Left foot cellulitis and osteomyelitis placed on Levaquin and Doxycycline per ID at [facility] s/p two dorsal open foot ulcers with tendon visible previous bunion surgery 10/02/18 in [place], [place] with revision 1 week later s/p abscess drained now ortho allowing wounds to heal before hardware removed Anemia Fecal incontinence Urinary incontinence Plan: IRF protocols Decrease Haldol due to oversedation to 0.25mg PO BID since it appears to be really helping with the psychosis PO abx shelter per ID [facility] Monitor labs and BP Home meds NHP? Hx of Diagnosis: (1) Severe sepsis Status: Resolved (2) Sepsis Status: Resolved (3) Parkinson disease Status: Chronic (4) Cachexia Status: Acute (5) Dehydration Status: Acute (6) Anemia of chronic disease Status: Chronic (7) Confusion Status: Acute (8) Diarrhea Status: Acute (9) Renal failure, acute Status: Acute (10) Leukocytosis Status: Acute (11) Visual hallucinations Status: Acute (12) Debility Status: Acute (13) Hypotension Status: Acute (14) Thrombocytosis Status: Acute (15) Encephalopathy acute Status: Acute (16) Rigidity Status: Acute (17) Polymicrobial bacterial infection Status: Acute (18) Osteomyelitis of foot Status: Acute (19) Witnessed seizure-like activity Status: Acute (20) Wound of left foot Status: Acute (21) Incontinence of bowel Status: Acute (22) Incontinence of urine Status: Acute (23) Anemia Status: Chronic (1) Encephalopathy acute (2) Cachexia (3) Dehydration (4) Anemia (5) Anemia of chronic disease (6) Confusion (7) Diarrhea (8) Renal failure, acute (9) Leukocytosis (10) Parkinson disease (11) Incontinence of urine (12) Visual hallucinations (13) Sepsis Resolution Date/Time: 11/06/18 @ 21:05 (14) Debility (15) Hypotension (16) Thrombocytosis (17) Incontinence of bowel (18) Rigidity (19) Polymicrobial bacterial infection (20) Severe sepsis Resolution Date/Time: 11/06/18 @ 21:05 (21) Osteomyelitis of foot (22) Witnessed seizure-like activity (23) Wound of left foot SHANNON LIMA DO Nov 10, 2018 12:37
[2018-11-10] MEDS: KCL 10 MEQ TAB (MICRO K) PO SCH (12:46)
[2018-11-10] MEDS: HYDROcodone/APAP 5 MG/325 MG (LORTAB) TAB PO PRN (15:09)
[2018-11-10 17:46] VITALS: BP 134/75
--- NOTE | 2018-11-10 19:00 | NUR ---
INCONTINENT FIRST THING THIS AM, BUT HAS ASKED TO GET UP TO TOILET THE REST OF THE DAY. TALKING COHERENTLY. HAD GOOD RELIEF WITH [facility] THIS AFTERNOON FOR GENERALIZED PAIN. SITTER REMAINS AT BEDSIDE.
[2018-11-10] MEDS: GABAPENTIN 100 MG (NEURONTIN) CAP PO SCH (20:08)
[2018-11-10] MEDS: HALOPERIDOL 0.5 MG (HALDOL) TAB PO SCH (20:08)
[2018-11-10] MEDS: QUEtiapine 25 MG (SEROquel) TAB IMMEDIATE RELEASE PO SCH (20:09)
[2018-11-10] MEDS: SINEMET CR 50/200 (CARBIDOPA/LEVODOPA SA) TAB PO SCH (20:10)
[2018-11-11] MEDS: HYDROcodone/APAP 5 MG/325 MG (LORTAB) TAB PO PRN ×4 (01:49→21:28)
[2018-11-11 05:42] VITALS: BP 159/86
[2018-11-11] MEDS: SINEMET 25/100 (CARBIDOPA/LEVODOPA) TAB PO SCH ×4 (06:03→18:40)
[2018-11-11] MEDS: DOXYCYCLINE 100 MG (VIBRAMYCIN) TABLET PO SCH ×2 (06:03→16:29)
[2018-11-11] MEDS: KCL 10 MEQ TAB (MICRO K) PO SCH (06:04)
--- NOTE | 2018-11-11 08:00 | NUR ---
UP IN CHAIR. APPEARS TO BE USING ARMS MORE THIS MORNING, BUT CANNOT GRASP WITH HANDS. NO URINARY INCONTINENCY X 24 HOURS.
[2018-11-11] MEDS: LEVETIRACETAM 500 MG (KEPPRA) TAB PO SCH ×2 (08:16→20:33)
[2018-11-11] MEDS: HALOPERIDOL 0.5 MG (HALDOL) TAB PO SCH ×2 (08:17→20:33)
[2018-11-11] MEDS: meTOprolol TARTRATE 25 MG (LOPRESSOR) TABLET PO SCH ×2 (08:17→20:33)
[2018-11-11] MEDS: lisINopril 10 MG (PRINIVIL) TABLET PO SCH (08:18)
[2018-11-11] MEDS: SENNA W/DOCUSATE (SENOKOT S) TABLET PO SCH ×2 (08:21→20:29)
[2018-11-11] MEDS: ENOXAPARIN 40 MG/0.4 ML (LOVENOX) SYR SC SCH (08:21)
--- NOTE | 2018-11-11 08:30 | NUR ---
MEDICATED WITH [facility] FOR GENERALIZED PAIN. MORE ORIENTED TODAY AND NOT TRYING TO GET OUT OF BED. BED/CHAIR EXIT ALARMS BEING USED.
--- NOTE | 2018-11-11 08:36 | NUR ---
REVIEWED MED REC IT WAS REPORTED UPON ADMISSION TO ICU. NO CHANGES WERE MADE WHEN THE PATIENT DISCHARGED TO REHAB.
[2018-11-11] MEDS ORDERED: ACHD5005 PO (09:00)
[2018-11-11] MEDS ORDERED: LISI10TA2 PO (09:00)
[2018-11-11] MEDS ORDERED: LEVO500T80 PO (09:00)
[2018-11-11] MEDS ORDERED: METO-333 PO (09:00)
[2018-11-11] MEDS ORDERED: DOXY100T2 PO (09:00)
[2018-11-11] MEDS ORDERED: LEVE500T6 PO (09:00)
[2018-11-11] MEDS ORDERED: ENOX40DI8 SC (09:00)
[2018-11-11] MEDS ORDERED: HALO0.5T PO (09:00)
[2018-11-11] MEDS ORDERED: CARB1TAB19 PO (09:01)
[2018-11-11] MEDS ORDERED: CARB1TAB41 PO (09:01)
[2018-11-11] MEDS ORDERED: SODI473S7 TOP (09:01)
--- NOTE | 2018-11-11 09:02 | Discharge Inst-Skilled Nursing ---
Discharge Inst-Skilled NF Patient Instructions Patient Problems: Left foot wound Severe PD Hallucinations Goal: Return to independent living Consult/Follow Up/Orders Follow Up Appt.: PCP in 1 week Skilled NF Admit to: [facility] Certification (SNF) I certify that SNF services are required to be given on an inpatient basis because of the above named patient's need for snf care on a continuing basis for the conditions(s) for which he/she was receiving inpatient hospital services prior to his/her transfer to the SNF. Fpc Facility Order: Nursing Services, Rn Chemical Dependency-Evaluate & Treat, Physical Therapy-Evaluate & Treat, Speech Language-Evaluate & Treat, Wound Care-Eval/Treat Oxygen Delivery Method: Room Air Daily Activity as Tolerated: Yes New & Resume Previous Orders Roxanne Edwards Nov 11, 2018 09:01 ROXANNE EDWARDS DO Nov 11, 2018 09:02
--- NOTE | 2018-11-11 09:04 | Discharge Summary ---
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 per [facility] s/p ARF Severe PD Left foot cellulitis and osteomyelitis placed on Levaquin and Doxycycline per ID at [facility] s/p two dorsal open foot ulcers with tendon visible previous bunion surgery 10/02/18 in [place], [place] with revision 1 week later s/p abscess drained no w ortho allowing wounds to heal before hardware removed Anemia Fecal incontinence Urinary incontinence Plan: IRF protocols Decrease Haldol due to oversedation to 0.25mg PO BID since it appears to be really helping with the psychosis PO abx sql server consultant per ID [facility] Monitor labs and BP Home meds NHP? Hx of Diagnosis: (1) Severe sepsis Status: Resolved (2) Sepsis Status: Resolved (3) Parkinson disease Status: Chronic (4) Cachexia Status: Acute (5) Dehydration Status: Acute (6) Anemia of chronic disease Status: Chronic (7) Confusion Status: Acute (8) Diarrhea Status: Acute (9) Renal failure, acute Status: Acute (10) Leukocytosis Status: Acute (11) Visual hallucinations Status: Acute (12) Debility Status: Acute (13) Hypotension Status: Acute (14) Thrombocytosis Status: Acute (15) Encephalopathy acute Status: Acute (16) Rigidity Status: Acute (17) Polymicrobial bacterial infection Status: Acute (18) Osteomyelitis of foot Status: Acute (19) Witnessed seizure-like activity Status: Acute (20) Wound of left foot Status: Acute (21) Incontinence of bowel Status: Acute (22) Incontinence of urine Status: Acute (23) Anemia Status: Chronic Discharge Summary Discharge Physical Examination Allergies: Coded Allergies: No Known Drug Allergies (Unverified , 11/03/18) Vitals & I&Os Vital Signs Date Time Temp Pulse Resp B/P (MAP) Pulse Ox O2 Delivery O2 Flow Rate FiO2 11/12/18 15:38 96.3 90 16 124/75 (91) 99 Room Air General Appearance: Alert, Cooperative, Other (confused but improved O x 2 poor recall) Respiratory: Clear to Auscultation, Normal Air Movement Cardiovascular: Regular Rate Abdominal: Normal Bowel Sounds Hospital Course Was the Problem List Reviewed?: Yes Hospital course: Pt had and uneventful brief hospital course in inpatient rehab after she was admitted initially for two hours and resulted in transfer up to th e ICU due to severe sepsis with hypotension and she ultimately returned back to inpatient rehab and was doing well but required a tele-sitter and one on one due to significant psychosis and delirium. It is difficult to say whether the delirium will ever completely clear considering the severity of her Parkinson's but family wanted her close to them at a [facility], her left foot has improved immensely under the wound care and antibiotics to decrease the bacterial load because once that is healed enough the hardware will be removed by [facility] orthopedic surgeons and ultimately work to recover the Pt enough to go home and live independently but unsure if that will occur. She had no significant lab abnormalities during the hospital course and she was deemed stable for discharge under skilled care and prognosis remains guarded considering the severe encephalopathy and severe Parkinson's disease. Pt had a delay in DC by one day due to awaiting placement at the intermediate but she had no ill effects during the additional stay and was remaining stable. The pt continues to remain a fall risk and will be monitored closely and will be admitted to skilled care for hopefully complete clearance of encephalopathy and return back to independent living. She will be maintained on Levaquin and Doxycycline sql server consultant to decrease the bacteria load in order to aid healing of the wounds so that the hardware can be removed from the bunionectomy surgery. Labs (last 24 hrs) Laboratory Tests 11/09/18 06:00: White Blood Count 9.0, Red Blood Count 3.58L, Hemoglobin 9.5L, Hematocrit 31L, Mean Corpuscular Volume 85, Mean Corpuscular Hemoglobin 27, Mean Corpuscular Hemoglobin Concent 31L, Red Cell Distribution Width 20.5H, Platelet Count 386, Mean Platelet Volume 11.2H, Neutrophils (%) (Auto) 72, Lymphocytes (%) (Auto) 16, Monocytes (%) (Auto) 9, Eosinophils (%) (Auto) 3, Basophils (%) (Auto) 0, Neutrophils # (Auto) 6.5, Lymphocytes # (Auto) 1.5, Monocytes # (Auto) 0.8, Eosinophils # (Auto) 0.3, Basophils # (Auto) 0.0, Sodium Level 142, Potassium Level 3.5L, Chloride Level 109H, Carbon Dioxide Level 23, Anion Gap 10, Blood Urea Nitrogen 17, Creatinine 0.68, Estimat Glomerular Filtration Rate > 60, BUN/Creatinine Ratio 25, Glucose Level 100, Calcium Level 8.8, Corrected Calcium 9.5, Total Bilirubin 0.3, Aspartate Amino Transf (AST/SGOT) 15, Alanine Aminotransferase (ALT/SGPT) < 6, Alkaline Phosphatase 120, Total Protein 5.6L, Albumin 3.1L 11/10/18 05:30: White Blood Count 8.8, Red Blood Count 3.61L, Hemoglobin 9.6L, Hematocrit 31L, Mean Corpuscular Volume 86, Mean Corpuscular Hemoglobin 27, Mean Corpuscular Hemoglobin Concent 31L, Red Cell Distribution Width 20.3H, Platelet Count 406H, Mean Platelet Volume 10.6H, Neutrophils (%) (Auto) 74, Lymphocytes (%) (Auto) 16, Monocytes (%) (Auto) 8, Eosinophils (%) (Auto) 2, Basophils (%) (Auto) 0, Neutrophils # (Auto) 6.5, Lymphocytes # (Auto) 1.4, Monocytes # (Auto) 0.7, Eosinophils # (Auto) 0.2, Basophils # (Auto) 0.0 11/10/18 05:50: Sodium Level 141, Potassium Level 3.5L, Chloride Level 107, Carbon Dioxide Level 24, Anion Gap 10, Blood Urea Nitrogen 14, Creatinine 0.66, Estimat Glomerular Filtration Rate > 60, BUN/Creatinine Ratio 21, Glucose Level 98, Calcium Level 8.9, Corrected Calcium 9.7, Total Bilirubin 0.4, Aspartate Amino Transf (AST/SGOT) 13, Alanine Aminotransferase (ALT/SGPT) < 6, Alkaline Phosphatase 95, Total Protein 5.7L, Albumin 3.0L Pending Labs Laboratory Tests 11/09/18 06:00: White Blood Count 9.0, Red Blood Count 3.58, Hemoglobin 9.5, Hematocrit 31, Mean Corpuscular Volume 85, Mean Corpuscular Hemoglobin 27, Mean Corpuscular Hemoglobin Concent 31, Red Cell Distribution Width 20.5, Platelet Count 386, Mean Platelet Volume 11.2, Neutrophils (%) (Auto) 72, Lymphocytes (%) (Auto) 16, Monocytes (%) (Auto) 9, Eosinophils (%) (Auto) 3, Basophils (%) (Auto) 0, Neutrophils # (Auto) 6.5, Lymphocytes # (Auto) 1.5, Monocytes # (Auto) 0.8, Eosinophils # (Auto) 0.3, Basophils # (Auto) 0.0, Sodium Level 142, Potassium Level 3.5, Chloride Level 109, Carbon Dioxide Level 23, Anion Gap 10, Blood Urea Nitrogen 17, Creatinine 0.68, Estimat Glomerular Filtration Rate > 60, BUN/Creatinine Ratio 25, Glucose Level 100, Calcium Level 8.8, Corrected Calcium 9.5, Total Bilirubin 0.3, Aspartate Amino Transf (AST/SGOT) 15, Alanine Aminotransferase (ALT/SGPT) < 6, Alkaline Phosphatase 120, Total Protein 5.6, Albumin 3.1 11/10/18 05:30: White Blood Count 8.8, Red Blood Count 3.61, Hemoglobin 9.6, Hematocrit 31, Mean Corpuscular Volume 86, Mean Corpuscular Hemoglobin 27, Mean Corpuscular He moglobin Concent 31, Red Cell Distribution Width 20.3, Platelet Count 406, Mean Platelet Volume 10.6, Neutrophils (%) (Auto) 74, Lymphocytes (%) (Auto) 16, Monocytes (%) (Auto) 8, Eosinophils (%) (Auto) 2, Basophils (%) (Auto) 0, Neutrophils # (Auto) 6.5, Lymphocytes # (Auto) 1.4, Monocytes # (Auto) 0.7, Eosinophils # (Auto) 0.2, Basophils # (Auto) 0.0 11/10/18 05:50: Sodium Level 141, Potassium Level 3.5, Chloride Level 107, Carbon Dioxide Level 24, Anion Gap 10, Blood Urea Nitrogen 14, Creatinine 0.66, Estimat Glomerular Filtration Rate > 60, BUN/Creatinine Ratio 21, Glucose Level 98, Calcium Level 8.9, Corrected Calcium 9.7, Total Bilirubin 0.4, Aspartate Amino Transf (AST/SGOT) 13, Alanine Aminotransferase (ALT/SGPT) < 6, Alkaline Phosphatase 95, Total Protein 5.7, Albumin 3.0 Discharge Home Medications: Active Scripts Active Levofloxacin 500 Mg Tablet 750 Mg PO DAILY@11 90 Days Dakin's (Sodium Hypochlorite) 473 Ml Solution 0 Ml TOP BID 30 Days Carbidopa-Levodopa 25-100 Tab (Carbidopa/Levodopa) 1 Each Tablet 1.5 Ea PO 0700,1100,1500,1900 30 Days Carbidopa-Levo ER 50-200 Tab (Carbidopa/Levodopa) 1 Each Tablet.er 1 Tab PO HS 30 Days Haloperidol 0.5 Mg Tablet 0.25 Mg PO BID 30 Days Levetiracetam 500 Mg Tablet 500 Mg PO BID 30 Days Hydrocodone/Acetaminophen 5/325mg Tablet (Acetaminophen/Hydrocodone Bitart) 1 Tab Tab 1 Tab PO Q4H PRN Lisinopril 10 Mg Tablet 10 Mg PO DAILY 30 Days Metoprolol Tartrate 25 Mg Tablet 12.5 Mg PO BID 30 Days Enoxaparin Sodium 40 Mg/0.4 Ml Syringe 40 Mg SC Q24H 30 Days Doxycycline Hyclate 100 Mg Tablet 100 Mg PO BID@07,17 90 Days Reported Mirtazapine 30 Mg Tablet 15 Mg PO HS PRN TAKES 1/2 (30MG) TABLET Gabapentin 100 Mg Capsule 100 Mg PO HS Diclofenac Sodium 50 Mg Tablet.dr 50 Mg PO BID PRN Instructions to patient/family Please see electronic discharge instructions given to patient. Diagnosis/Problems Diagnosis/Problems (1) Encephalopathy acute Status: Acute (2) Cachexia Status: Acute (3) Dehydration Status: Acute (4) Anemia Status: Chronic (5) Anemia of chronic disease Status: Chronic (6) Confusion Status: Acute (7) Diarrhea Status: Acute (8) Renal failure, acute Status: Acute (9) Leukocytosis Status: Acute (10) Parkinson disease Status: Chronic (11) Incontinence of urine Status: Acute (12) Visual hallucinations Status: Acute (13) Sepsis Status: Resolved Resolution Date/Time: 11/06/18 @ 21:05 (14) Debility Status: Acute (15) Hypotension Status: Acute (16) Thrombocytosis Status: Acute (17) Incontinence of bowel Status: Acute (18) Rigidity Status: Acute (19) Polymicrobial bacterial infection Status: Acute (20) Severe sepsis Status: Resolved Resolution Date/Time: 11/06/18 @ 21:05 (21) Osteomyelitis of foot Status: Acute (22) Witnessed seizure-like activity Status: Acute (23) Wound of left foot Status: Acute Clinical Quality Measures DVT/VTE Risk/Contraindication: Risk Factor Score Per Nursin RFS Level Per Nursing on Admit: 4+=Very High SHANNON LIMA DO Nov 11, 2018 09:04
--- NOTE | 2018-11-11 09:33 | Speech Therapy Daily Note ---
Speech Daily Progress Note Subjective Date Seen by Provider: Nov 11, 2018 Time Seen by Provider: 00:30 The patient was sitting in her recliner resting when I entered. She appears to be more alert. Objective Patient completed memory tasks at 75% with min to mod verbal cues. Assessment Assessment Current Status: Good Progress Treatment Plan Discontinue ST The patient is discharging to another facility closer to her home, Communication Comprehension: 6 Expression: 6 Social Cognition Social Interaction: 6 Problem Solvin Memory: 6 Speech Short Term Goals Short Term Goals Short Term Goals 1) The patient will complete memory tasks with 80% or greater accuracy given verbal cues. 2) The patient will complete problem solving tasks with 80% or greater accuracy given verbal cues. 3) The patient will complete safety awareness tasks with 80% or greater accuracy given verbal cues. 4) The patient will complete speech production exercises with 80% or greater accuracy given verbal cues. Speech Intelligence Support Officer Goals Intelligence Support Officer Goals The patient will improve her cognitive and speech abilities for increased level of function. Speech-Plan Patient/Family Goals Patient/Family Goals: The patient will be discharging to another facility closer to her home. Treatment Plan Speech Therapy Treatment Plan: Discontinue ST The patient has progressed well over the weekend. Treatment Duration: Nov 11, 2018 Frequency: 5 times per week Estimated Hrs Per Day: .5 hour per day Rehab Potential: Poor Barriers to Learning: Complex medical status Pt/Family Agrees to Plan: Yes Safety Risks/Education Teaching Recipient: Patient Teaching Methods: Discussion Response to Teaching: Verbalize Understanding Education Topics Provided: Safety within her room. Time Speech Therapy Time In: 08:30 Speech Therapy Time Out: 09:00 Total Billed Time: 30 Billed Treatment Time AURELIO Cortez [facility] Nov 11, 2018 09:33
--- NOTE | 2018-11-11 10:05 | Physical Therapy Daily Note ---
PT Daily Note-Current Subjective Pt. up in recliner this date and seems more coherent , speaks in low voice and difficult to hear. Agrees to co Rx OT PT session Pain Location: No Pain Reported Appearance tone noted all mm, unable to funeral car chauffeur or grasp, very red amairani area, nursing called to observe, ointment applied by nursing after shower Mental Status Patient Orientation: Person Transfers Therapy Code Descriptions/Definitions Functional [place] Measure: 0=Not Assessed/NA 4=Minimal Assistance 1=Total Assistance 5=Supervision or Setup 2=Maximal Assistance 6=Modified [place] 3=Moderate Assistance 7=Complete [place] Therapy Quality Codes: 6 Independent with activity with or without an assistive device 5 Patient requires set up or clean up by helper. Patient completes activity by themselves 4 Supervision or touching assist (CGA). [place] provide cues , steadying assist 3 The helper provides less than half the effort to complete the activity 2 The helper provides more than half the effort to complete the activity 1 Dependent. The helper does all the effort to complete an activity 7 Patient refused to complete or attempt activity 9 The patient did not perform the activity before the current illness or injury 88 Not attempted due to Medical conditions or safety concerns Transfers (B, C, W/C) (FIM): 1 Scootin Rollin Roll Left to Right (QC): 1 Supine to/from Sit: 1 Sit to/from Stand: 1 Sit to Lying (QC): 1 Sit to Stand (QC): 1 Chair/[id number]-Ehuzr Xfer(QC): 1 Bed to/from Chair: 1 Car Transfer (QC): 88 pt. dependent with assist of 2 for all TRFs Weight Bearing Left Lower Extremity: Left Non Weight Bearing Gait Training Gait (FIM): 88 Wheelchair Training Wheelchair (FIM): 88 Stair Training Stairs (FIM): 88 Exercises Seated Therapy Exercises: Ankle pumps, Sit to stand, Long arc quads, Hip flexion Seated Reps: 10 (passive) Treatments co Rx for TRFs sit to stand attempting use of FWW with platf as well as offering pt. opportunity to pull on rails but pt. unable to funeral car chauffeur or grasp, 2 man max assist required for sit to stand and SPT Assessment Current Status: Poor Progress dependent for all mobility PT Short Term Goals Short Term Goals Time Frame: Nov 15, 2018 Transfers (B,C,W/C) (FIM): 2 Wheelchair (FIM): 1 Wheelchair Distance: 20' Wheelchair Level of Assist: 4 PT Leg Breaker Goals Leg Breaker Goals PT Alf Goals Time Frame: Nov 29, 2018 Transfers (B,C,W/C) (FIM): 3 Sit to Lying (QC): 2 Lying-Sitting on Side/Bed(QC): 2 Sit to Stand (QC): 2 Rollin Roll Left to Right (QC): 2 Chair/[id number]-Vvzqy Xfer(QC): 2 Car Transfer (QC): 2 Wheelchair (FIM): 2 Distance: 50' Wheelchair Level of Assist: 4 Wheel 50 feet with 2 turns (QC: 3 PT Plan Treatment/Plan Treatment Plan: Continue Plan of Care Treatment Plan: Bed Mobility, Concurrent Therapy, Education, Functional Activity Bakari, Functional Strength, Group Therapy, Gait, Safety, Therapeutic Exercise, Transfers Treatment Duration: Nov 29, 2018 Frequency: At least 5 of 7 days/Wk (IRF) Estimated Hrs Per Day: 1.5 hours per day Patient and/or Family Agrees t: Yes Safety Risks/Education Patient Education: Transfer Techniques, Correct Positioning, Disease Process, Safety Issues Teaching Recipient: Patient Teaching Methods: Demonstration, Discussion Response to Teaching: Unable to Return Demonstration, Unable to Comprehend (partial), Reinforcement Needed Time/GCodes Time In: 900 Time Out: 1000 Total Billed Treatment Time: 60 Total Billed Treatment 1,Ex10m, FA50m G Codes Necessary: ADIN Goodrich LIBRARY AIDE Nov 11, 2018 10:05
[2018-11-11] MEDS: DAKIN'S 1/4 STRENGTH (0.125%) 473 ML BTL TOP SCH ×2 (10:28→20:33)
--- NOTE | 2018-11-11 10:41 | Occupational Ther Daily Note ---
OT Current Status-Daily Note Subjective Pt alert, sitting in recliner. Pt agrees to therapy. Pt appears less confused today, continues to have some hallucinations and realizes it. No c/o pain. Mental Status/Objective Patient Orientation: Person, Place, Time, Situation Therapy Code Descriptions/Definitions Functional [place] Measure: 0=Not Assessed/NA 4=Minimal Assistance 1=Total Assistance 5=Supervision or Setup 2=Maximal Assistance 6=Modified [place] 3=Moderate Assistance 7=Complete [place] ADL-Treatment OT/PT co-treat, skills of 2 clinicians are required for body and UE/LE p ositioning for transfers and mobility, monitoring spontaneous rigidity during sitting and standing for safety, increase core stability and functional ADLs. PT working on transfers, standing and mobility. OT working on functional transfers and ADLs. Pt attempts to assist with bathing and dressing though due to fluctuating rigidity and decrease grasp unable to complete, dependent. Assist x2 for lower body dressing, toileting and transfers. Uses universal cuff when eating or grooming, set up and physical assistance needed to stabilize UE during task. After therapy, pt sitting in recliner with call light/phone in reach. All needs met in room. Nrsg in room. Therapy Code Descriptions/Definitions Functional [place] Measure: 0=Not Assessed/NA 4=Minimal Assistance 1=Total Assistance 5=Supervision or Setup 2=Maximal Assistance 6=Modified [place] 3=Moderate Assistance 7=Complete [place] Therapy Quality Codes: 6 Independent with activity with or without an assistive device 5 Patient requires set up or clean up by helper. Patient completes activity by themselves 4 Supervision or touching assist (CGA). [place] provide cues , steadying assist 3 The helper provides less than half the effort to complete the activity 2 The helper provides more than half the effort to complete the activity 1 Dependent. The helper does all the effort to complete an activity 7 Patient refused to complete or attempt activity 9 The patient did not perform the activity before the current illness or injury 88 Not attempted due to Medical conditions or safety concerns Eating (FIM): 2 Eating (QC): 2 Grooming (FIM): 2 Oral Hygiene (QC): 2 Bathing (FIM): 1 Shower/Bathe Self (QC): 1 Upper Body (FIM): 2 Upper Body Dressing (QC): 2 Lower Body Dressing (FIM): 1 Lower Body Dressing (QC): 1 On/Off Footwear (QC): 2 Toileting (FIM): 1 Toileting Hygiene (QC): 1 Transfers (B, C, W/C) (FIM): 1 Toilet/Commode Transfer (FIM): 1 Toilet Transfer (QC): 1 Shower Transfer(FIM): 1 (Rolling shower chair used.) OT Short Term Goals Short Term Goals Time Frame: Nov 15, 2018 Eating(FIM): 5 Upper Body Dressing(FIM): 4 Toileting(FIM): 3 Transfers (B,C,W/C) (FIM): 2 Toilet/Commode Transfer(FIM): 3 Additional Short Term Goals: 1-Demonstrate ADL Tasks, 2-Verbalize Understanding, 3-ImproveStrength/Bakari 1=Demonstrate adherence to instructed precautions during ADL tasks. 2=Patient will verbalize/demonstrate understanding of assistive devices/modifications for ADL. 3=Patient will improve strength/tolerance for activity to enable patient to perform ADL's. OT Sales Development Associate Goals Sales Development Associate Goals Time Frame: Nov 29, 2018 Eating (FIM): 6 (not met) Eating (QC): 6 (not met) Groomin (not met) Oral Hygiene (QC): 6 (not met) Bathing(FIM): 5 (not met) Shower/Bathe Self (QC): 5 (not met) Upper Body Dressing(FIM): 6 (not met) Upper Body Dressing (QC): 6 (not met) Lower Body Dressing(FIM): 6 (not met) Lower Body Dressing (QC): 6 (not met) On/Off Footwear (QC): 6 (not met) Toileting(FIM): 6 (not met) Toileting Hygiene (QC): 6 (not met) Toilet/Commode Transfer(FIM): 6 (not met) Toilet/Commode Transfer (QC): 6 (not met) Shower Transfer(FIM): 5 (not met) Additional Goals: 1-Demonstrate ADL Tasks, 2-Verbalize Understanding, 3-ImproveStrength/Bakari 1=Demonstrate adherence to instructed precautions during ADL tasks. 2=Patient will verbalize/demonstrate understanding of assistive devices/modifications for ADL. 3=Patient will improve strength/tolerance for activity to enable patient to perform ADL's. OT Education/Plan Problem List/Assessment Assessment: Decreased Activ Tolerance, Decreased Safety Aware, Decreased UE Strength, Dependent Transfers, Impaired Bed Mobility, Impaired Cognition, Impaired Coordination, Impaired Funct Balance, Impaired I ADL's, Impaired Self- Care Skills, Restricted Funct UE ROM Pt would benefit from skilled OT to increase her independence iin basic self car to allow her to return to her home safely after surgery and medical care. Discharge Recommendations Plan/Recommendations: Continue POC Therapy D/C Recommendations: [facility] (TCU/[facility]) Treatment Plan/Plan of Care Patient would benefit from OT for education, treatment and training to promote independence in ADL's, mobility, safety and/or upper extremity function for ADL's. Plan of Care: ADL Retraining, Functional Mobility, Group Exercise/Act as Ind (education, exercise, funct activity, funct mobility, socialization, communication), UE Funct Exercise/Act, UE Neuromus Re-Ed/Coord, W/C Management Training Treatment Duration: Nov 29, 2018 Frequency: Modified Program (IRF) Estimated Hrs Per Day: 1.5 hours per day (1.25 to 1.5) Agreement: Yes Rehab Potential: Poor Time/GCodes Start Time: 09:00 Stop Time: 10:30 Total Time Billed (hr/min): 90 Billed Treatment Time 1 visit-ADL 6 (90 min) co-treat for 60 min ([id number]) individual 30 min ([id number]) MARCY BOUDREAUX Nov 11, 2018 10:41
[2018-11-11] MEDS: LEVOFLOXACIN 500 MG TAB (LEVAQUIN) PO SCH (11:20)
--- NOTE | 2018-11-11 12:51 | NUR ---
DNA SEQUENCING ASSOCIATE faxed clinical updates to [facility] in [place]. Patient no longer requires a sitter and cognition has improved; however, per nursing report, family was still insistent that she be transferred to SNF. DNA SEQUENCING ASSOCIATE contacted facility following the fax to inquire about status of acceptance. Facility states they are waiting to hear from patient's son, as patient will be responsible for a co-pay after 20 days. Patient currently continues to require max A x2 and would likely need longer than 20 days. Addendum: 11/11/18 at 1607 by MAGED GARCIA SS As patient's cognition has improved, DNA SEQUENCING ASSOCIATE met with patient to inquire about her thoughts on SNF placement. She too, requests placement at [facility] to be closer to home. She is aware that her current frustrations are due to not being around friends and family and believes she needs that constant support to be successful in her therapy progress. Patient requests DNA SEQUENCING ASSOCIATE to contact son, Isidro to inquire about the status of arrangements with [facility]. Isidro expresses concerns regarding the unknown after day 20 at the SNF and the cost. Following discussion between patient and son, they are willing to take the risk of placement with hopes of significant improvement within that 20 days. DNA SEQUENCING ASSOCIATE did mention the possibility of ARU re-evaluation at day 20, if appropriate; however, admission would be based on insurance discretion. Isidro intends to inform Marco, the server systems administrator of [facility] of their desire to proceed with placement. Isidro states he can provide transport, as he did from . DNA SEQUENCING ASSOCIATE completed [place] Care Assessment with patient, she completed this with no errors. DNA SEQUENCING ASSOCIATE will await final confirmation from [facility] before proceeding with discharge arrangements.
--- NOTE | 2018-11-11 14:51 | Therapy Group Daily Note ---
Therapy Daily Group Note Patient Education Topic Incontinence (and dehydration) Exercises Other (kegel exercises) Session Ratio (pt:therapist): 4:1 Goal of Session: Education on ARU Expectations, Other (list) (understanding incontinence and dehydration) Goal Met for this Session: Yes Pt Benefit of Group: Recognition of Peers, Socialization Other/Notes Pt., participated in group PT OT session this date. Pt. was transported by w/c . Pt. contributed to discussion minimally but did introduce herself and share. Pts. were educated regarding dehydration, symptoms, signs, and how to hydrate at home and hospital. Pts. were also educated regarding incontinence and that some folks avoid hydration as a way to manage urinary incont etc. Pts. were shown incont briefs and other ideas for management of incont. Pt. to room after rx with max assist to recliner. Call morgan at hand Start Time: 13:00 Stop Time: 14:00 Total Billed Treatment Time: 60 Total Billed Treatment 1,GRP ADIN NICHOLAS UNIT LEADER Nov 11, 2018 14:51
[2018-11-11 17:04] VITALS: BP 146/81
--- NOTE | 2018-11-11 17:35 | PM&R Progress Note ---
Subjective HPI/CC On Admission Date Seen by Provider: Nov 11, 2018 Time Seen by Provider: 09:15 CC: Encephalopathy with debility following critical illness HPI: This is a 62yoWF known to me for the past 7 days when she arrived from [facility] in private vehicle by son who was found to have severe sepsis on admit to IRF requiring transfer to ICU and has since stabilized and is now being admitted to IRF for intensive therapy in order to return to [facility] of independent ADL's and ambulation. Confusion and encephalopathy complicated by severe PD (sees Neurology at [facility] due to the severity of the disease and progression) has required the addition of Haldol for psychosis and delirium and seems to be improving on that regimen. Son from [place], [place] is here visiting today. Levaquin and Doxycycline were restarted as ID at [facility] recommended to decrease bacterial load of the left foot chronic ulcers before hardware can be removed in 6-12 months. Patient was on broad spectrum abx while in ICU. Foot is much improved since admit and she is stable today. BM today with fecal and urinary in continence persists. Haldol will be decreased from 1mg PO TID to 0.5mg PO TID scheduled to help the psychosis which seems to be a bit improved every day but very slow progress. Family has decided they want her to go to the [facility] at ID because they cannot take care of her needs since they all work battery starter. CC/HPI from admit 11/03/18-11/09/18: Chief complaint: Severe sepsis requiring ICU transfer History of present illness: This is a 62-year-old white female patient of health care provider Ayde Hickman out of [place], [place] who originally was to be admitted in inpatient rehab today from [facility] for intensive rehab and recovery following encephalopathy and seizure-like activity with severe rigidity from Parkinson's disease following a very complex left foot surgery status post bunionectomy 1 month ago 10/02/18 in [facility]. Apparently she had problems and required a revision 1 week after the original surgery then it showed an abscess formation on 10/13/18 which required incision and drainage and placement of IV antibiotics of Vanc and Levaquin to cover MRSA and Pseudomonas in the infusion center at [place], [place]. She had presented to the ER there with confusion and visual hallucinations on 10/25/18 and her son reported that her Par sammy's medications have been "messed up" since before her surgery when she originally was told to stop taking her blood pressure medication of losartan and instead she stopped the amantadine that further complicated the situation. Patient was transferred to on 10/27/18 for higher level of care and to be treated by Dr Fernandez her Neurologist. She was placed on Keppra for the seizure- like activity and EEG showed slowed background and they suspected to not be an epileptic seizure but maintained on Keppra in the meantime. Orthopedics saw her found the patient not to be a surgical candidate at this time until the ulcers healed and hardware would be removed in 6-12 months from now. She remains not weightbearing on the left foot. Extensive records from reviewed and conferred with Dr. Choi bowling ball engraver since she presented to inpatient rehab with a blood pressure of 80/43 and that was rechecked and confirmed patient appeared to be lethargic so labs were obtained stat showing leukocytosis of 18,000 and elevated lactic acid 2.1 that was rechecked at 3.0 requiring aggressive IV fluids per severe sepsis protocol. I appreciate Dr. Choi's intervention and her plan is to check a C. difficile colitis sample because of diarrhea reports and placement back on antibiotic coverage recommended by infectious disease at . DC summary 11/08/18: Hospital course: Patient had an uneventful hospital course although she was originally admitted from to inpatient rehabilitation unit and within 2 hours was transferred to the ICU for hypotension and presumed sepsis. Workup ensued and no definitive source of infection confirmed but she was placed on broad- spectrum antibiotics of meropenem along with Levaquin that she had been on and remained on aggressive IV fluid resuscitation along with Dr. Choi bowling ball engraver consultation. Labs returned back to normal and stability. All home medications including Parkinson's specialty meds were restarted with psychosis and confusion from encephalopathy continued. She was felt to still have benefit from inpatient rehabilitation so she was transferred down and reverted back to Levaquin and doxycycline per infectious disease direction from med and will initiate Haldol oral on a scheduled basis and maintained on Seroquel at night. Prognosis guarded and may need skilled care at ID. Subjective/Events-last exam Patient's birthday was yesterday and she enjoyed seeing her family Haldol to be maintained at 0.25 mg p.o. twice daily because it appears that the hallucinations and delusions are much improved now Family wants her to go to the [facility] so [facility] was notified of this intent and will try our best to transfer her there at the family's request Labs remained stable Foot is much improved Check meds and labs Conferred with RN Reviewed therapy notes Review of Systems Musculoskeletal: foot pain Neurological: Confusion Objective Exam Vital Signs Vital Signs Date Time Temp Pulse Resp B/P (MAP) Pulse Ox O2 Delivery O2 Flow Rate FiO2 11/11/18 17:04 99.8 95 20 146/81 (102) 98 Room Air Capillary Refill : General Appearance: No Apparent Distress, WD/WN, Chronically ill, Thin HEENT: PERRL/EOMI, Normal ENT Inspection, Pharynx Normal, Moist Mucous Membranes Neck: Full Range of Motion, Normal Inspection, Non Tender, Supple Respiratory: Chest Non Tender, Lungs Clear, Normal Breath Sounds, No Accessory Muscle Use, No Respiratory Distress Cardiovascular: Regular Rate, Rhythm, No Edema, No Gallop, No JVD, No Murmur Gastrointestinal: Normal Bowel Sounds, No Organomegaly, No Pulsatile Mass, Non Tender, Soft Back: Normal Inspection, No CVA Tenderness, No Vertebral Tenderness Extremity: Normal Capillary Refill, Normal Inspection, Normal Range of Motion (non-weight bearing left foot with dressing and ortho shoe intact), Non Tender, No Calf Tenderness, No Pedal Edema Neurologic/Psychiatric: Alert, No Motor/Sensory Deficits, Normal Mood/Affect, oven tender II-XII Norm as Tested, Disoriented Skin: Normal Color, Warm/Dry Lymphatic: No Adenopathy Results/Procedures Lab Patient resulted labs reviewed. FIM Transfers Therapy Code Descriptions/Definitions Functional Denali Measure: 0=Not Assessed/NA 4=Minimal Assistance 1=Total Assistance 5=Supervision or Setup 2=Maximal Assistance 6=Modified Denali 3=Moderate Assistance 7=Complete Denali Therapy Quality Codes: 6 Independent with activity with or without an assistive device 5 Patient requires set up or clean up by helper. Patient completes activity by themselves 4 Supervision or touching assist (CGA). [place] provide cues , steadying assist 3 The helper provides less than half the effort to complete the activity 2 The helper provides more than half the effort to complete the activity 1 Dependent. The helper does all the effort to complete an activity 7 Patient refused to complete or attempt activity 9 The patient did not perform the activity before the current illness or injury 88 Not attempted due to Medical conditions or safety concerns Transfers (B, C, W/C) (FIM): 1 Scootin Rollin Roll Left to Right (QC): 1 Supine to/from Sit: 1 Sit to/from Stand: 1 Sit to Lying (QC): 1 Sit to Stand (QC): 1 Chair/[id number]-[id number] Xfer(QC): 1 Bed to/from Chair: 1 Car Transfer (QC): 88 Gait Training Does the Patient Walk?: No and Walking Goal NOT indicated Gait (FIM): 88 Wheelchair Training Does the Pt Use a Wheelchair?: Yes Wheelchair (FIM): 88 Distance: 20' Wheelchair Level of Assist: 1 Wheel 50 ft with 2 turns (QC): 1 Wheel 150 ft (QC): 1 Type of Wheelchair: Manual Stair Training Stairs (FIM): 88 Mental Status/Objective Comprehension: 6 Expression: 6 Social Interaction: 6 Problem Solvin Memory: 6 ADL-Treatment Feedin Eating (QC): 2 Groomin Oral Hygiene (QC): 2 Bathin Shower/Bathe Self (QC): 1 Upper Extremity Dressin Upper Body Dressing (QC): 2 Lower Extremity Dressin Lower Body Dressing (QC): 1 On/Off Footwear (QC): 2 Toiletin Toileting Hygiene (QC): 1 Toilet/Commode Transfer: 1 Toilet Transfer (QC): 1 Shower: 1 (Rolling shower chair used.) Assessment/Plan Assessment and Plan Assess & Plan/Chief Complaint Assessment: Debility with non-weight bearing left foot and severe PD precluding fast recovery s/p severe sepsis 11/03/18 s/p Hypotension s/p Leukocytosis s/p Dehydration Encephalopathy with confusion and psychosis and delirium requiring antipsychotics Poor reserve with severe debility Seizure-like activity requiring Keppra initiation EEG 10/10/18 mild background slowing 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 per [facility] s/p ARF Severe PD Left foot cellulitis and osteomyelitis placed on Levaquin and Doxycycline per ID at [facility] s/p two dorsal open foot ulcers with tendon visible previous bunion surgery 10/02/18 in [place], [place] with revision 1 week later s/p abscess drained now ortho allowing wounds to heal before hardware removed Anemia Fecal incontinence Urinary incontinence Plan: IRF protocols Decrease Haldol due to oversedation to 0.25mg PO BID since it appears to be really helping with the psychosis PO abx senior living per ID [facility] Monitor labs and BP Home meds [facility] [place] soon Hx of Diagnosis: (1) Severe sepsis Status: Resolved (2) Sepsis Status: Resolved (3) Parkinson disease Status: Chronic (4) Cachexia Status: Acute (5) Dehydration Status: Acute (6) Anemia of chronic disease Status: Chronic (7) Confusion Status: Acute (8) Diarrhea Status: Acute (9) Renal failure, acute Status: Acute (10) Leukocytosis Status: Acute (11) Visual hallucinations Status: Acute (12) Debility Status: Acute (13) Hypotension Status: Acute (14) Thrombocytosis Status: Acute (15) Encephalopathy acute Status: Acute (16) Rigidity Status: Acute (17) Polymicrobial bacterial infection Status: Acute (18) Osteomyelitis of foot Status: Acute (19) Witnessed seizure-like activity Status: Acute (20) Wound of left foot Status: Acute (21) Incontinence of bowel Status: Acute (22) Incontinence of urine Status: Acute (23) Anemia Status: Chronic (1) Encephalopathy acute (2) Cachexia (3) Dehydration (4) Anemia (5) Anemia of chronic disease (6) Confusion (7) Diarrhea (8) Renal failure, acute (9) Leukocytosis (10) Parkinson disease (11) Incontinence of urine (12) Visual hallucinations (13) Sepsis Resolution Date/Time: 11/06/18 @ 21:05 (14) Debility (15) Hypotension (16) Thrombocytosis (17) Incontinence of bowel (18) Rigidity (19) Polymicrobial bacterial infection (20) Severe sepsis Resolution Date/Time: 11/06/18 @ 21:05 (21) Osteomyelitis of foot (22) Witnessed seizure-like activity (23) Wound of left foot SHANNON LIMA DO Nov 11, 2018 17:35
--- NOTE | 2018-11-11 17:45 | NUR ---
INSTRUMENT TESTER spoke with scheduling administrator, Marco at [facility] regarding status of discharge plans. Marco needs to speak with his boss to receive final input on acceptance, as they are unsure if patient will be appropriate to discharge home after 20 days. INSTRUMENT TESTER re-iterated that SNF placement is the patient's choice, at this time, and if unable to return home at that time, further discharge planning would need to be arranged by SNF home health care social worker. Marco states he will reach out to Isidro and his boss and contact INSTRUMENT TESTER in the morning to provide determination.
--- NOTE | 2018-11-11 18:00 | NUR ---
REMAINS ORIENTED AND COOPERATIVE. HAS NOT TRIED TO GET UP WITHOUT ASSISTANCE.
[2018-11-11] MEDS: GABAPENTIN 100 MG (NEURONTIN) CAP PO SCH (20:33)
[2018-11-11] MEDS: QUEtiapine 25 MG (SEROquel) TAB IMMEDIATE RELEASE PO SCH (20:33)
[2018-11-11] MEDS: SINEMET CR 50/200 (CARBIDOPA/LEVODOPA SA) TAB PO SCH (20:33)
[2018-11-12] MEDS: HYDROcodone/APAP 5 MG/325 MG (LORTAB) TAB PO PRN ×2 (01:29→09:23)
[2018-11-12] MEDS: SINEMET 25/100 (CARBIDOPA/LEVODOPA) TAB PO SCH ×3 (05:51→15:28)
[2018-11-12] MEDS: DOXYCYCLINE 100 MG (VIBRAMYCIN) TABLET PO SCH ×2 (05:51→17:17)
[2018-11-12] MEDS: KCL 10 MEQ TAB (MICRO K) PO SCH (05:51)
[2018-11-12 06:08] VITALS: BP 168/83
[2018-11-12] MEDS: LEVETIRACETAM 500 MG (KEPPRA) TAB PO SCH (09:22)
--- NOTE | 2018-11-12 09:22 | Discharge Summary ---
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 per [facility] s/p ARF Severe PD Left foot cellulitis and osteomyelitis placed on Levaquin and Doxycycline per ID at [facility] s/p two dorsal open foot ulcers with tendon visible previous bunion surgery 10/02/18 in [place], [place] with revision 1 week later s/p abscess drained no w ortho allowing wounds to heal before hardware removed Anemia Fecal incontinence Urinary incontinence Plan: IRF protocols Decrease Haldol due to oversedation to 0.25mg PO BID since it appears to be really helping with the psychosis 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 Hx of Diagnosis: (1) Severe sepsis Status: Resolved (2) Sepsis Status: Resolved (3) Parkinson disease Status: Chronic (4) Cachexia Status: Acute (5) Dehydration Status: Acute (6) Anemia of chronic disease Status: Chronic (7) Confusion Status: Acute (8) Diarrhea Status: Acute (9) Renal failure, acute Status: Acute (10) Leukocytosis Status: Acute (11) Visual hallucinations Status: Acute (12) Debility Status: Acute (13) Hypotension Status: Acute (14) Thrombocytosis Status: Acute (15) Encephalopathy acute Status: Acute (16) Rigidity Status: Acute (17) Polymicrobial bacterial infection Status: Acute (18) Osteomyelitis of foot Status: Acute (19) Witnessed seizure-like activity Status: Acute (20) Wound of left foot Status: Acute (21) Incontinence of bowel Status: Acute (22) Incontinence of urine Status: Acute (23) Anemia Status: Chronic Discharge Summary Discharge Physical Examination Allergies: Coded Allergies: No Known Drug Allergies (Unverified , 11/03/18) Vitals & I&Os Vital Signs Date Time Temp Pulse Resp B/P (MAP) Pulse Ox O2 Delivery O2 Flow Rate FiO2 11/12/18 20:04 90 16 124/75 99 Room Air 7/23/19 15:38 96.3 General Appearance: Alert, Cooperative, No Acute Distress Respiratory: Clear to Auscultation Cardiovascular: Regular Rate Neuro: Strength at 5/5 X4 Ext Psych/Mental Status: Mood NL Hospital Course Was the Problem List Reviewed?: Yes Hospital course: Pt had and uneventful brief hospital course in inpatient rehab after she was admitted initially for two hours and resulted in transfer up to the ICU due to severe sepsis with hypotension and she ultimately returned back to inpatient rehab and was doing well but required a tele-sitter and one on one due to significant psychosis and delirium. It is difficult to say whether the delirium will ever completely clear considering the severity of her Parkinson's but family wanted her close to them at a [facility], her left foot has improved immensely under the wound care and antibiotics to decrease the bacterial load because once that is healed enough the hardware will be removed by orthopedic surgeons and ultimately work to recover the Pt enough to go home and live independently but unsure if that will occur. She had no significant lab abnormalities during the hospital course and she was deemed stable for discharge under skilled care and prognosis remains guarded considering the severe encephalopathy and severe Parkinson's disease. Pt had a delay in DC by one day due to awaiting placement at the half-way but she had no ill effects during the additional stay and was remaining stable. The pt continues to remain a fall risk and will be monitored closely and will be admitted to skilled care for hopefully complete clearance of encephalopathy and return back to independent living. She will be maintained on Levaquin and Doxycycline penitentiary to decrease the bacteria load in order to aid healing of the wounds so that the hardware can be removed from the bunionectomy surgery. Labs (last 24 hrs) Laboratory Tests 11/09/18 06:00: White Blood Count 9.0, Red Blood Count 3.58L, Hemoglobin 9.5L, Hematocrit 31L, Mean Corpuscular Volume 85, Mean Corpuscular Hemoglobin 27, Mean Corpuscular Hemoglobin Concent 31L, Red Cell Distribution Width 20.5H, Platelet Count 386, Mean Platelet Volume 11.2H, Neutrophils (%) (Auto) 72, Lymphocytes (%) (Auto) 16, Monocytes (%) (Auto) 9, Eosinophils (%) (Auto) 3, Basophils (%) (Auto) 0, Neutrophils # (Auto) 6.5, Lymphocytes # (Auto) 1.5, Monocytes # (Auto) 0.8, Eosinophils # (Auto) 0.3, Basophils # (Auto) 0.0, Sodium Level 142, Potassium Level 3.5L, Chloride Level 109H, Carbon Dioxide Level 23, Anion Gap 10, Blood Urea Nitrogen 17, Creatinine 0.68, Estimat Glomerular Filtration Rate > 60, BUN/Creatinine Ratio 25, Glucose Level 100, Calcium Level 8.8, Corrected Calcium 9.5, Total Bilirubin 0.3, Aspartate Amino Transf (AST/SGOT) 15, Alanine Aminotransferase (ALT/SGPT) < 6, Alkaline Phosphatase 120, Total Protein 5.6L, Albumin 3.1L 11/10/18 05:30: White Blood Count 8.8, Red Blood Count 3.61L, Hemoglobin 9.6L, Hematocrit 31L, Mean Corpuscular Volume 86, Mean Corpuscular Hemoglobin 27, Mean Corpuscular Hemoglobin Concent 31L, Red Cell Distribution Width 20.3H, Platelet Count 406H, Mean Platelet Volume 10.6H, Neutrophils (%) (Auto) 74, Lymphocytes (%) (Auto) 16, Monocytes (%) (Auto) 8, Eosinophils (%) (Auto) 2, Basophils (%) (Auto) 0, Neutrophils # (Auto) 6.5, Lymphocytes # (Auto) 1.4, Monocytes # (Auto) 0.7, Eosinophils # (Auto) 0.2, Basophils # (Auto) 0.0 11/10/18 05:50: Sodium Level 141, Potassium Level 3.5L, Chloride Level 107, Carbon Dioxide Level 24, Anion Gap 10, Blood Urea Nitrogen 14, Creatinine 0.66, Estimat Glomerular Filtration Rate > 60, BUN/Creatinine Ratio 21, Glucose Level 98, Calcium Level 8.9, Corrected Calcium 9.7, Total Bilirubin 0.4, Aspartate Amino Transf (AST/SGOT) 13, Alanine Aminotransferase (ALT/SGPT) < 6, Alkaline Phosphatase 95, Total Protein 5.7L, Albumin 3.0L Pending Labs Laboratory Tests 11/09/18 06:00: White Blood Count 9.0, Red Blood Count 3.58, Hemoglobin 9.5, Hematocrit 31, Mean Corpuscular Volume 85, Mean Corpuscular Hemoglobin 27, Mean Corpuscular Hemoglobin Concent 31, Red Cell Distribution Width 20.5, Platelet Count 386, Mean Platelet Volume 11.2, Neutrophils (%) (Auto) 72, Lymphocytes (%) (Auto) 16, Monocytes (%) (Auto) 9, Eosinophils (%) (Auto) 3, Basophils (%) (Auto) 0, Neutrophils # (Auto) 6.5, Lymphocytes # (Auto) 1.5, Monocytes # (Auto) 0.8, Eosinophils # (Auto) 0.3, Basophils # (Auto) 0.0, Sodium Level 142, Potassium Level 3.5, Chloride Level 109, Carbon Dioxide Level 23, Anion Gap 10, Blood Urea Nitrogen 17, Creatinine 0.68, Estimat Glomerular Filtration Rate > 60, BUN/Creatinine Ratio 25, Glucose Level 100, Calcium Level 8.8, Corrected Calcium 9.5, Total Bilirubin 0.3, Aspartate Amino Transf (AST/SGOT) 15, Alanine Aminotra nsferase (ALT/SGPT) < 6, Alkaline Phosphatase 120, Total Protein 5.6, Albumin 3.1 11/10/18 05:30: White Blood Count 8.8, Red Blood Count 3.61, Hemoglobin 9.6, Hematocrit 31, Mean Corpuscular Volume 86, Mean Corpuscular Hemoglobin 27, Mean Corpuscular Hemoglobin Concent 31, Red Cell Distribution Width 20.3, Platelet Count 406, Mean Platelet Volume 10.6, Neutrophils (%) (Auto) 74, Lymphocytes (%) (Auto) 16, Monocytes (%) (Auto) 8, Eosinophils (%) (Auto) 2, Basophils (%) (Auto) 0, Neutrophils # (Auto) 6.5, Lymphocytes # (Auto) 1.4, Monocytes # (Auto) 0.7, Eosinophils # (Auto) 0.2, Basophils # (Auto) 0.0 11/10/18 05:50: Sodium Level 141, Potassium Level 3.5, Chloride Level 107, Carbon Dioxide Level 24, Anion Gap 10, Blood Urea Nitrogen 14, Creatinine 0.66, Estimat Glomerular Filtration Rate > 60, BUN/Creatinine Ratio 21, Glucose Level 98, Calcium Level 8.9, Corrected Calcium 9.7, Total Bilirubin 0.4, Aspartate Amino Transf (AST/SGOT) 13, Alanine Aminotransferase (ALT/SGPT) < 6, Alkaline Phosphatase 95, Total Protein 5.7, Albumin 3.0 Discharge Home Medications: Active Scripts Active Levofloxacin 500 Mg Tablet 750 Mg PO DAILY@11 90 Days Dakin's (Sodium Hypochlorite) 473 Ml Solution 0 Ml TOP BID 30 Days Carbidopa-Levodopa 25-100 Tab (Carbidopa/Levodopa) 1 Each Tablet 1.5 Ea PO 0700,1100,1500,1900 30 Days Carbidopa-Levo ER 50-200 Tab (Carbidopa/Levodopa) 1 Each Tablet.er 1 Tab PO HS 30 Days Haloperidol 0.5 Mg Tablet 0.25 Mg PO BID 30 Days Levetiracetam 500 Mg Tablet 500 Mg PO BID 30 Days Hydrocodone/Acetaminophen 5/325mg Tablet (Acetaminophen/Hydrocodone Bitart) 1 Tab Tab 1 Tab PO Q4H PRN Lisinopril 10 Mg Tablet 10 Mg PO DAILY 30 Days Metoprolol Tartrate 25 Mg Tablet 12.5 Mg PO BID 30 Days Enoxaparin Sodium 40 Mg/0.4 Ml Syringe 40 Mg SC Q24H 30 Days Doxycycline Hyclate 100 Mg Tablet 100 Mg PO BID@07,17 90 Days Reported Mirtazapine 30 Mg Tablet 15 Mg PO HS PRN TAKES 1/2 (30MG) TABLET Gabapentin 100 Mg Capsule 100 Mg PO HS Diclofenac Sodium 50 Mg Tablet.dr 50 Mg PO BID PRN Instructions to patient/family Please see electronic discharge instructions given to patient. Diagnosis/Problems Diagnosis/Problems (1) Encephalopathy acute Status: Acute (2) Cachexia Status: Acute (3) Dehydration Status: Acute (4) Anemia Status: Chronic (5) Anemia of chronic disease Status: Chronic (6) Confusion Status: Acute (7) Diarrhea Status: Acute (8) Renal failure, acute Status: Acute (9) Leukocytosis Status: Acute (10) Parkinson disease Status: Chronic (11) Incontinence of urine Status: Acute (12) Visual hallucinations Status: Acute (13) Sepsis Status: Resolved Resolution Date/Time: 11/06/18 @ 21:05 (14) Debility Status: Acute (15) Hypotension Status: Acute (16) Thrombocytosis Status: Acute (17) Incontinence of bowel Status: Acute (18) Rigidity Status: Acute (19) Polymicrobial bacterial infection Status: Acute (20) Severe sepsis Status: Resolved Resolution Date/Time: 11/06/18 @ 21:05 (21) Osteomyelitis of foot Status: Acute (22) Witnessed seizure-like activity Status: Acute (23) Wound of left foot Status: Acute Clinical Quality Measures DVT/VTE Risk/Contraindication: Risk Factor Score Per Nursin RFS Level Per Nursing on Admit: 4+=Very High SHANNON LIMA DO Nov 12, 2018 09:21
[2018-11-12] MEDS: lisINopril 10 MG (PRINIVIL) TABLET PO SCH (09:23)
[2018-11-12] MEDS: meTOprolol TARTRATE 25 MG (LOPRESSOR) TABLET PO SCH (09:23)
[2018-11-12] MEDS: HALOPERIDOL 0.5 MG (HALDOL) TAB PO SCH (09:23)
[2018-11-12] MEDS: DAKIN'S 1/4 STRENGTH (0.125%) 473 ML BTL TOP SCH (09:26)
[2018-11-12] MEDS: SENNA W/DOCUSATE (SENOKOT S) TABLET PO SCH (09:26)
[2018-11-12] MEDS: ENOXAPARIN 40 MG/0.4 ML (LOVENOX) SYR SC SCH (09:27)
--- NOTE | 2018-11-12 10:56 | Speech Therapy Daily Note ---
Speech Daily Progress Note Subjective Date Seen by Provider: Nov 12, 2018 Time Seen by Provider: 00:30 The patient was up in her chair resting when I entered the room. Objective The patient completed general information questions with 85% accuracy given minimal cues. Assessment Assessment Current Status: Good Progress, Fair Progress Treatment Plan Discontinue ST Communication Comprehension: 6 Expression: 6 Social Cognition Social Interaction: 6 Problem Solvin Memory: 6 Speech Short Term Goals Short Term Goals Short Term Goals 1) The patient will complete memory tasks with 80% or greater accuracy given verbal cues. 2) The patient will complete problem solving tasks with 80% or greater accuracy given verbal cues. 3) The patient will complete safety awareness tasks with 80% or greater accuracy given verbal cues. 4) The patient will complete speech production exercises with 80% or greater accuracy given verbal cues. Speech Medical Technician Assistant Goals Medical Technician Assistant Goals The patient will improve her cognitive and speech abilities for increased level of function. Speech-Plan Patient/Family Goals Patient/Family Goals: The patient is being discharged today to a facility closer to her home and family. Treatment Plan Speech Therapy Treatment Plan: Discontinue ST The patient is excited to be discharged today, Treatment Duration: Nov 11, 2018 Frequency: 5 times per week Estimated Hrs Per Day: .5 hour per day Rehab Potential: Poor Barriers to Learning: Patient has cognitive deficits. Pt/Family Agrees to Plan: Yes Safety Risks/Education Teaching Recipient: Patient Teaching Methods: Discussion Response to Teaching: Verbalize Understanding Education Topics Provided: Continued safety after discharge. Time Speech Therapy Time In: 08:30 Speech Therapy Time Out: 09:00 Total Billed Time: 30 Billed Treatment Time 1, ANDREW Perales Nov 12, 2018 10:56
[2018-11-12] MEDS: LEVOFLOXACIN 500 MG TAB (LEVAQUIN) PO SCH (11:34)
--- NOTE | 2018-11-12 11:49 | Occupational Ther Daily Note ---
OT Current Status-Daily Note Subjective Pt alert, sitting in recliner. Pt agrees to therapy. No c/o pain at this time. Pt continues to have hallucinations though realizes it is happening. Pt has a mix of rigidity and athetoid movements throughout session. Mental Status/Objective Patient Orientation: Person, Place, Time, Situation Therapy Code Descriptions/Definitions Functional [place] Measure: 0=Not Assessed/NA 4=Minimal Assistance 1=Total Assistance 5=Supervision or Setup 2=Maximal Assistance 6=Modified [place] 3=Moderate Assistance 7=Complete [place] ADL-Treatment OT/PT co-treat, skills of 2 clinicians are required for body and UE/LE positioning for transfers and mobility, monitoring spontaneous rigidity during sitting and standing for safety, increase core stability and functional ADLs. PT working on transfers, standing, mobility and LE exercises. OT working on functional transfers, BUE exercises and ADLs. Pt attempts to assist with bathing and dressing though due to fluctuating rigidity and decrease grasp unable to complete, dependent. Assist x2 for lower body dressing, toileting and transfers. Uses universal cuff when eating or grooming, set up and physical assistance needed to stabilize UE during task. After therapy, pt sitting in recliner with call light/phone in reach. All needs met in room. Nrsg in room. Therapy Code Descriptions/Definitions Functional [place] Measure: 0=Not Assessed/NA 4=Minimal Assistance 1=Total Assistance 5=Supervision or Setup 2=Maximal Assistance 6=Modified [place] 3=Moderate Assistance 7=Complete [place] Therapy Quality Codes: 6 Independent with activity with or without an assistive device 5 Patient requires set up or clean up by helper. Patient completes activity by themselves 4 Supervision or touching assist (CGA). [place] provide cues , steadying assist 3 The helper provides less than half the effort to complete the activity 2 The helper provides more than half the effort to complete the activity 1 Dependent. The helper does all the effort to complete an activity 7 Patient refused to complete or attempt activity 9 The patient did not perform the activity before the current illness or injury 88 Not attempted due to Medical conditions or safety concerns Eating (FIM): 2 ([place] cuff though with athetoid movements pt requires assi st to eat and set up.) Eating (QC): 2 Grooming (FIM): 2 Oral Hygiene (QC): 2 Bathing (FIM): 1 Shower/Bathe Self (QC): 1 Upper Body (FIM): 2 Upper Body Dressing (QC): 2 Lower Body Dressing (FIM): 1 Lower Body Dressing (QC): 1 On/Off Footwear (QC): 2 Toileting (FIM): 1 Toileting Hygiene (QC): 1 Transfers (B, C, W/C) (FIM): 1 Toilet/Commode Transfer (FIM): 1 Toilet Transfer (QC): 1 Shower Transfer(FIM): 1 Other Treatment BUE exercises to increase strength and coordination for daily functional tasks. After therapy, pt sitting in recliner with call light/phone in reach. All needs met in room. OT Short Term Goals Short Term Goals Time Frame: Nov 15, 2018 Eating(FIM): 5 Upper Body Dressing(FIM): 4 Toileting(FIM): 3 Transfers (B,C,W/C) (FIM): 2 Toilet/Commode Transfer(FIM): 3 Additional Short Term Goals: 1-Demonstrate ADL Tasks, 2-Verbalize [place] ding, 3-ImproveStrength/Bakari 1=Demonstrate adherence to instructed precautions during ADL tasks. 2=Patient will verbalize/demonstrate understanding of assistive devices/modifications for ADL. 3=Patient will improve strength/tolerance for activity to enable patient to perform ADL's. OT [facility] Goals Pl Sql Developer Goals Time Frame: Nov 29, 2018 Eating (FIM): 6 (not met) Eating (QC): 6 (not met) Groomin (not met) Oral Hygiene (QC): 6 (not met) Bathing(FIM): 5 (not met) Shower/Bathe Self (QC): 5 (not met) Upper Body Dressing(FIM): 6 (not met) Upper Body Dressing (QC): 6 (not met) Lower Body Dressing(FIM): 6 (not met) Lower Body Dressing (QC): 6 (not met) On/Off Footwear (QC): 6 (not met) Toileting(FIM): 6 (not met) Toileting Hygiene (QC): 6 (not met) Toilet/Commode Transfer(FIM): 6 (not met) Toilet/Commode Transfer (QC): 6 (not met) Shower Transfer(FIM): 5 (not met) Additional Goals: 1-Demonstrate ADL Tasks, 2-Verbalize Understanding, 3- ImproveStrength/Bakari 1=Demonstrate adherence to instructed precautions during ADL tasks. 2=Patient will verbalize/demonstrate understanding of assistive devices/modif ications for ADL. 3=Patient will improve strength/tolerance for activity to enable patient to perform ADL's. OT Education/Plan Problem List/Assessment Assessment: Decreased Activ Tolerance, Decreased Safety Aware, Decreased UE Strength, Dependent Transfers, Impaired Bed Mobility, Impaired Cognition, Impaired Coordination, Impaired Funct Balance, Impaired I ADL's, Impaired Self- Care Skills, Restricted Funct UE ROM Pt would benefit from skilled OT to increase her independence iin basic self car to allow her to return to her home safely after surgery and medical care. Discharge Recommendations Plan/Recommendations: Continue POC Treatment Plan/Plan of Care Patient would benefit from OT for education, treatment and training to promote independence in ADL's, mobility, safety and/or upper extremity function for ADL's. Plan of Care: ADL Retraining, Functional Mobility, Group Exercise/Act as Ind (education, exercise, funct activity, funct mobility, socialization, communication), UE Funct Exercise/Act, UE Neuromus Re-Ed/Coord, W/C Management Training Treatment Duration: Nov 29, 2018 Frequency: Modified Program (IRF) Estimated Hrs Per Day: 1.5 hours per day (1.25 to 1.5) Agreement: Yes Rehab Potential: Poor Time/GCodes Start Time: 10:00 Stop Time: 11:30 Total Time Billed (hr/min): 90 Billed Treatment Time 1 visit-ADL 4 (60 min) EX 2 (30 min) MARCY BOUDREAUX Nov 12, 2018 11:49
--- NOTE | 2018-11-12 12:07 | Physical Therapy Daily Note ---
PT Daily Note-Current Subjective Pt alert, sitting in recliner upon arrival. Pt agrees to therapy, co-treat of PT & OT. No c/o pain at this time. Pt continues to have hallucinations though realizes it is happening. Pt has a mix of rigidity and athetoid movements throughout session. Mental Status Patient Orientation: Person, Confused, Place, Mumbles Transfers Therapy Code Descriptions/Definitions Functional [place] Measure: 0=Not Assessed/NA 4=Minimal Assistance 1=Total Assistance 5=Supervision or Setup 2=Maximal Assistance 6=Modified [place] 3=Moderate Assistance 7=Complete [place] Therapy Quality Codes: 6 Independent with activity with or without an assistive device 5 Patient requires set up or clean up by helper. Patient completes activity by themselves 4 Supervision or touching assist (CGA). [place] provide cues , steadying assist 3 The helper provides less than half the effort to complete the activity 2 The helper provides more than half the effort to complete the activity 1 Dependent. The helper does all the effort to complete an activity 7 Patient refused to complete or attempt activity 9 The patient did not perform the activity before the current illness or injury 88 Not attempted due to Medical conditions or safety concerns Scootin Sit to/from Stand: 1 Sit to Stand (QC): 1 Weight Bearing Left Lower Extremity: Left Non Weight Bearing Wheelchair Training Does the Pt Use a Wheelchair?: Yes Wheelchair Distance: 3=150 ft Distance: 150' Wheelchair Level of Assist: 1 Wheel 50 ft with 2 turns (QC): 1 Wheel 150 ft (QC): 1 Type of Wheelchair: Manual Exercises Seated Therapy Exercises: Long arc quads, Hip flexion, Kicking activity Seated Reps: 20 Treatments OT/PT co-treat, skills of 2 clinicians are required for body and UE/LE positioning for transfers and mobility, monitoring spontaneous rigidity during sitting and standing for safety, increase core stability and functional ADLs. PT working on transfers, standing, mobility and LE exercises. OT working on functional transfers, BUE exercises and ADLs. Pt attempts to assist with bathing and dressing though due to fluctuating rigidity and decrease grasp unable to complete, dependent. Assist x2 for lower body dressing, toileting and transfers. Pt completes Seated EX, both UE & LE, in W/C. Uses universal cuff when eating or grooming, set up and physical assistance needed to stabilize UE during task. After therapy, pt sitting in recliner with call light/phone in reach. All needs met in room. Nrsg in room. Assessment Current Status: Fair Progress Pt gets excited at times when speaking and begins to mumble. Pt fluctuant between rigid & athetoid movements especially when transferring. PT Short Term Goals Short Term Goals Time Frame: Nov 15, 2018 Transfers (B,C,W/C) (FIM): 2 Wheelchair (FIM): 1 Wheelchair Distance: 20' Wheelchair Level of Assist: 4 PT [facility] Goals Bait Painter Goals PT [facility] Goals Time Frame: Nov 29, 2018 Transfers (B,C,W/C) (FIM): 3 Sit to Lying (QC): 2 Lying-Sitting on Side/Bed(QC): 2 Sit to Stand (QC): 2 Rollin Roll Left to Right (QC): 2 Chair/Dwp-tj-Cvnam Xfer(QC): 2 Car Transfer (QC): 2 Wheelchair (FIM): 2 Distance: 50' Wheelchair Level of Assist: 4 Wheel 50 feet with 2 turns (QC: 3 PT Plan Problem List Problem List: Activity Tolerance, Functional Strength, Safety, Balance, Gait, Transfer, ROM Treatment/Plan Treatment Plan: Continue Plan of Care Treatment Plan: Bed Mobility, Concurrent Therapy, Education, Functional Activity Bakari, Functional Strength, Group Therapy, Gait, Safety, Therapeutic Exercise, Transfers Treatment Duration: Nov 29, 2018 Frequency: At least 5 of 7 days/Wk (IRF) Estimated Hrs Per Day: 1.5 hours per day Patient and/or Family Agrees t: Yes Safety Risks/Education Patient Education: Transfer Techniques, Correct Positioning, Safety Issues Teaching Recipient: Patient Teaching Methods: Discussion Response to Teaching: Verbalize Understanding, Reinforcement Needed Time/GCodes Time In: 1000 Time Out: 1100 Total Billed Treatment Time: 60 Total Billed Treatment 1, EX (15m) & FA x3 (45m) Co-treat (60m) G Codes Necessary: MARTHA Mejia BARREL TESTER Nov 12, 2018 12:07
[2018-11-12] MEDS ORDERED: LEVO500T80 PO ×2 (15:14→15:17)
[2018-11-12 15:38] VITALS: BP 124/75
--- NOTE | 2018-11-12 16:17 | NUR ---
Following several phone calls between RETAIL FIELD SUPERVISOR, SNF site administrator and patient's son, patient is officially accepted for skilled placement at [facility]. Patient received an onsite evaluation by the site administrator and other than expressed concerns of discharge plans post 20 days, he feels they can meet her current needs. Patient's son will provide transport this evening around 530p. RETAIL FIELD SUPERVISOR has faxed all discharge orders and [place] [facility] to SNF. RETAIL FIELD SUPERVISOR also faxed [place] [facility] to [facility]. After several discussion with both Marco, the SNF site administrator and patient's sonIsidro regarding their question of patient returning to rehab post 20 days of SNF, RETAIL FIELD SUPERVISOR re-iterated that IF patient is able to tolerate the three hours of therapy and would benefit significantly from the program, the referral would be reviewed and insured would be pursued for authorization, but that re-admission is not guaranteed. Both verbalized understanding. Please see discharge summary for further information.
[2018-11-12 20:04] VITALS: BP 124/75
--- NOTE | 2018-11-13 09:52 | Therapy Team Discharge Summary ---
Therapy Discharge Summary Discharge Recommendations Date of Discharge Nov 12, 2018 at 18:00 Therapy D/C Recommendations: Assisted (TCU/NH) Physical Therapy This patient was admitted to ARU post acute stay due to sepsis; pt also has a dx of Parkinson's disease. 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 Upon admission, pt was confuses and had difficulty problem solving and following cues and this remained throughout the course of her stay. She was dep with transfers, unable to walk or effectively propel a wc at a dmission and this remained unchanged. No goals met. Treatment did consist of functional mobility training and strengthening activities; but with limited functional progress. However, it is felt that as her medical status improves, her mobiltiy may as well. Pt to discharge to SNF near her home and recommend continued skilled therapy services to promote return of indep mobility. DC PT on ARU Occupational Therapy Decreased Activ Tolerance, Decreased Safety Aware, Decreased UE Strength, Dependent Transfers, Impaired Bed Mobility, Impaired Cognition, Impaired Coordination, Impaired Funct Balance, Impaired I ADL's, Impaired Self-Care Skills, Restricted Funct UE ROM PT Administration Internship Goals Administration Internship Goals PT Administration Internship Goals Time Frame: Nov 29, 2018 Transfers (B,C,W/C) (FIM): 3 Roll Left to Right (QC): 2 Sit to Lying (QC): 2 Lying-Sitting on Side/Bed(QC): 2 Sit to Stand (QC): 2 Chair/Kfc-uh-Ceqzi Xfer(QC): 2 Car Transfer (QC): 2 Wheelchair (FIM): 2 Distance: 50' Wheelchair Level of Assist: 4 Wheel 50 feet with 2 turns (QC: 3 goals remain unmet; pt transferred to SNF OT Halfway Goals Administration Internship Goals Time Frame: Nov 29, 2018 Eating (FIM): 6 (not met) Eating (QC): 6 (not met) Oral Hygiene (QC): 6 (not met) Grooming(FIM): 6 (not met) Bathing(FIM): 5 (not met) Shower/Bathe Self (QC): 5 (not met) Upper Body Dressing(FIM): 6 (not met) Upper Body Dressing (QC): 6 (not met) Lower Body Dressing(FIM): 6 (not met) Lower Body Dressing (QC): 6 (not met) On/Off Footwear (QC): 6 (not met) Toileting(FIM): 6 (not met) Toileting Hygiene (QC): 6 (not met) Toilet/Commode Transfer(FIM): 6 (not met) Toilet/Commode Transfer (QC): 6 (not met) Shower Transfer(FIM): 5 (not met) Additional Goals: 1-Demonstrate ADL Tasks, 2-Verbalize Understanding, 3- ImproveStrength/Bakari 1=Demonstrate adherence to instructed precautions during ADL tasks. 2=Patient will verbalize/demonstrate understanding of assistive devices/modifications for ADL. 3=Patient will improve strength/tolerance for activity to enable patient to perform ADL's. Speech Administration Internship Goals Administration Internship Goals The patient will improve her cognitive and speech abilities for increased level of function. MARCY RO PT Nov 13, 2018 09:52
--- NOTE | 2018-11-13 15:50 | Therapy Team Discharge Summary ---
Therapy Discharge Summary Discharge Recommendations Date of Discharge Nov 12, 2018 at 18:00 Therapy D/C Recommendations: [facility] (TCU/NH) Occupational Therapy Pt admitted to ARU following acute hospitalization for sepsis. On admission pt required max assist for eating, grooming and UE dressing and total assist for other ADLs and transfers. Skilled OT intervention focused on ADL training, transfers, and strengthening. Pt's progress was limited by confusion. Pt demonstrated limited functional improvement and not goals were met. Pt discharge d to SNF for continued care. D/c ARU OT. Decreased Activ Tolerance, Decreased Safety Aware, Decreased UE Strength, Dependent Transfers, Impaired Bed Mobility, Impaired Cognition, Impaired Coordination, Impaired Funct Balance, Impaired I ADL's, Impaired Self-Care Skills, Restricted Funct UE ROM PT Assisted Goals Wrong Address Clerk Goals PT Assisted Goals Time Frame: Nov 29, 2018 Transfers (B,C,W/C) (FIM): 3 Roll Left to Right (QC): 2 Sit to Lying (QC): 2 Lying-Sitting on Side/Bed(QC): 2 Sit to Stand (QC): 2 Chair/Jbe-hc-Gwdal Xfer(QC): 2 Car Transfer (QC): 2 Wheelchair (FIM): 2 Distance: 50' Wheelchair Level of Assist: 4 Wheel 50 feet with 2 turns (QC: 3 OT Wrong Address Clerk Goals Wrong Address Clerk Goals Time Frame: Nov 29, 2018 Eating (FIM): 6 (not met) Eating (QC): 6 (not met) Oral Hygiene (QC): 6 (not met) Grooming(FIM): 6 (not met) Bathing(FIM): 5 (not met) Shower/Bathe Self (QC): 5 (not met) Upper Body Dressing(FIM): 6 (not met) Upper Body Dressing (QC): 6 (not met) Lower Body Dressing(FIM): 6 (not met) Lower Body Dressing (QC): 6 (not met) On/Off Footwear (QC): 6 (not met) Toileting(FIM): 6 (not met) Toileting Hygiene (QC): 6 (not met) Toilet/Commode Transfer(FIM): 6 (not met) Toilet/Commode Transfer (QC): 6 (not met) Shower Transfer(FIM): 5 (not met) Additional Goals: 1-Demonstrate ADL Tasks, 2-Verbalize Understanding, 3-ImproveStrength/Bakari 1=Demonstrate adherence to instructed precautions during ADL tasks. 2=Patient will verbalize/demonstrate understanding of assistive devices/modifications for ADL. 3=Patient will improve strength/tolerance for activity to enable patient to perform ADL's. Speech Assisted Goals Assisted Goals The patient will improve her cognitive and speech abilities for increased level of function. LEAH MAST OT Nov 13, 2018 15:50
--- NOTE | 2018-11-13 16:13 | Therapy Team Discharge Summary ---
Therapy Discharge Summary Discharge Recommendations Date of Discharge Nov 12, 2018 at 18:00 Therapy D/C Recommendations: [facility] (TCU/NH) Occupational Therapy Decreased Activ Tolerance, Decreased Safety Aware, Decreased UE Strength, Dependent Transfers, Impaired Bed Mobility, Impaired Cognition, Impaired Coordination, Impaired Funct Balance, Impaired I ADL's, Impaired Self-Care Skills, Restricted Funct UE ROM Speech-Language Pathology The patient was admitted to the ARU for strengthening. The patient was evaluated for cognitive status which she scored in the moderate level of function. The patient received skilled ST services. She was discharge to SNF on 11/12/2018 and was discharged from skilled ST at that time as well. PT Long-Term Goals Long-Term Goals PT Long-Term Goals Time Frame: Nov 29, 2018 Transfers (B,C,W/C) (FIM): 3 Roll Left to Right (QC): 2 Sit to Lying (QC): 2 Lying-Sitting on Side/Bed(QC): 2 Sit to Stand (QC): 2 Chair/Lsl-ss-Lcgeg Xfer(QC): 2 Car Transfer (QC): 2 Wheelchair (FIM): 2 Distance: 50' Wheelchair Level of Assist: 4 Wheel 50 feet with 2 turns (QC: 3 OT Long-Term Goals Roll Edge Stitcher Hand Goals Time Frame: Nov 29, 2018 Eating (FIM): 6 (not met) Eating (QC): 6 (not met) Oral Hygiene (QC): 6 (not met) Grooming(FIM): 6 (not met) Bathing(FIM): 5 (not met) Shower/Bathe Self (QC): 5 (not met) Upper Body Dressing(FIM): 6 (not met) Upper Body Dressing (QC): 6 (not met) Lower Body Dressing(FIM): 6 (not met) Lower Body Dressing (QC): 6 (not met) On/Off Footwear (QC): 6 (not met) Toileting(FIM): 6 (not met) Toileting Hygiene (QC): 6 (not met) Toilet/Commode Transfer(FIM): 6 (not met) Toilet/Commode Transfer (QC): 6 (not met) Shower Transfer(FIM): 5 (not met) Additional Goals: 1-Demonstrate ADL Tasks, 2-Verbalize Understanding, 3- ImproveStrength/Bakari 1=Demonstrate adherence to instructed precautions during ADL tasks. 2=Patient will verbalize/demonstrate understanding of assistive devices/modifications for ADL. 3=Patient will improve strength/tolerance for activity to enable patient to perform ADL's. Speech Long-Term Goals Long-Term Goals The patient will improve her cognitive and speech abilities for increased level of function. Met at 75% ANDREW ROMAN Nov 13, 2018 16:13
== END 2018-11-12 18:00 | DRG 71 ==
PROVIDERS: ADMIT Internal Medicine; ATTEND Internal Medicine
DX: G93.40 Encephalopathy, unspecified (principal); G31.83 Neurocognitive disorder with Lewy bodies; F02.80 Dementia in other diseases classified elsewhere, unspecified severity, without behavioral disturbance, psychotic disturbance, mood disturbance, and anxiety; M86.9 Osteomyelitis, unspecified; L03.116 Cellulitis of left lower limb; L97.529 Non-pressure chronic ulcer of other part of left foot with unspecified severity; F41.9 Anxiety disorder, unspecified; R32 Unspecified urinary incontinence; R15.9 Full incontinence of feces; R56.9 Unspecified convulsions; I10 Essential (primary) hypertension; D64.9 Anemia, unspecified
CPT/HCPCS: 36415; 80053; 85025

== ENCOUNTER 2018-12-06 10:30 | Inpatient (IN) | payer BC, MEDICARE ==
[~2018-12-06] VITALS: Ht 170.2 cm; Wt 62.1 kg
[~2018-12-06 10:30] MED LIST changes: +ACHD5005 PO; +DOXY100T2 PO; +ENOX40DI8 SC; +HALO0.5T PO; +LEVE500T6 PO; +LISI10TA2 PO; +METO-333 PO; +SODI473S7 TOP
--- NOTE | 2018-12-06 10:30 | NUR ---
Pt admitted to room 232-1, with an admitting diagnosis of Parkinson's, S/P Lt foot bunionectomy, debility on 12/06/18 from [facility] via w/c, accompanied by son. MUKUL GARCIA introduced to surroundings, call light, bed controls, phone, TV, temperature control, lights, meal times, smoking policy, visitor policy, side rail policy, bathrooms and showers. Patient Rights given to patient in the handbook. MUKUL GARCIA acknowledges understanding that [facility] is not responsible for the loss or damage to any personal effects or valuables that are kept in the patients posession during their hospitalization. The following Patient Care Plans were discussed with the pt: Discharge Planning, Impaired Mobility, Alteration in skin integrity, Fall precaution. MUKUL GARCIA verbalizes understanding of Interdisciplinary Patient Education. Patient and/or family were informed about the Rapid Response Team and its purpose. Patient received Patient Rights Booklet, which includes Privacy Act Statement and Data Collection Information Summary. Son brought pt per personal car.
--- NOTE | 2018-12-06 11:35 | History & Physical ---
[facility] 12/06/18 1135: History of Present Illness History of Present Illness Reason for visit/HPI CC: Weakness Ms Aguilar is 63yoWF well know to the service with a PMH of Parkinson's and sepsis presents with weakness 2/2 to sepsis from prior admission. Recent scans of her brains and her septic joint reveal no further infection. Hardware is no longer planned on being removed. She states she is no longer having hallucinations or psychotic episodes and hasn't had a hallucination in a couple of weeks. She does, however endorse a change in mood over the past couple weeks where she is "in the dumps". She endorses a lack of energy, lack of interest in prior interests, and see's little hope for the future. She endorses passive thoughts of suicide without plan all 2/2 to her change in living activity level. ROS is largely negative. Global motor slowing 2/2 Parkinson's Continent of urine w/o frequency/urgency/burning Bowel sound +x4, last BM 10 minutes after arrival, and is regular Patient was tearful in expectation setting. Short term goal is to regain some level of independence, including the use of assistive devices Patient understands the time frame of Weeks/Months of therapy vs hours/days Will be compliant with therapy 3 hrs daily CC/Previous HPI from prior visit, D/C 11/12/2108 HPI: This is a 62yoWF known to me for the past 7 days when she arrived from [facility] in private vehicle by son who was found to have severe sepsis on admit to IRF requiring transfer to ICU and has since stabilized and is now being admitted to IRF for intensive therapy in order to return to OF of independent ADL's and ambulation. Confusion and encephalopathy complicated by severe PD (sees Neurology at [facility] due to the severity of the disease and progression) has required the addition of Haldol for psychosis and delirium and seems to be improving on that regimen. Son from [place], [place] is here visiting today. Levaquin and Doxycycline were restarted as ID at [facility] recommended to decrease bacterial load of the left foot chronic ulcers before hardware can be removed in 6-12 months. Patient was on broad spectrum abx while in ICU. Foot is much improved since admit and she is stable today. BM today with fecal and urinary incontinence persists. Haldol will be decreased from 1mg PO TID to 0.5mg PO TID scheduled to help the psychosis which seems to be a bit improved every day but very slow progress. 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 CC/HPI from admit 11/03/18-11/09/18: Chief complaint: Severe sepsis requiring ICU transfer History of present illness: This is a 62-year-old white female patient of health care provider Ayde Hickman out of [place], [place] who originally was to be admitted in inpatient rehab today from [facility] for intensive rehab and recovery following encephalopathy and seizure-like activity with severe rigidity from Parkinson's disease following a very complex left foot surgery status post bunionectomy 1 month ago 10/02/[address] [facility]. Apparently she had problems and required a revision 1 week after the original surgery then it showed an abscess formation on 10/13/18 which required incision and drainage and placement of IV antibiotics of Vanc and Levaquin to cover MRSA and Pseudomonas in the infusion center at [place], [place]. She had presented to the ER there with confusion and visual hallucinations on 10/25/18 and her son reported that her P alfkinson's medications have been "messed up" since before her surgery when she originally was told to stop taking her blood pressure medication of losartan and instead she stopped the amantadine that further complicated the situation. Patient was transferred to on 10/27/18 for higher level of care and to be treated by Dr Fernandez her Neurologist. She was placed on Keppra for the seizure- like activity and EEG showed slowed background and they suspected to not be an epileptic seizure but maintained on Keppra in the meantime. Orthopedics saw her found the patient not to be a surgical candidate at this time until the ulcers healed and hardware would be removed in 6-12 months from now. She remains not weightbearing on the left foot. Extensive records from reviewed and conferred with Dr. Choi ornamenter hand since she presented to inpatient rehab with a blood pressure of 80/43 and that was rechecked and confirmed patient appeared to be lethargic so labs were obtained stat showing leukocytosis of 18,000 and elevated lactic acid 2.1 that was rechecked at 3.0 requiring aggressive IV fluids per severe sepsis protocol. I appreciate Dr. Choi's intervention and her plan is to check a C. difficile colitis sample because of diarrhea reports and placement back on antibiotic coverage recommended by infectious disease at . DC summary 11/08/18: Hospital course: Patient had an uneventful hospital course although she was originally admitted from to inpatient rehabilitation unit and within 2 hours was transferred to the ICU for hypotension and presumed sepsis. Workup ensued and no definitive source of infection confirmed but she was placed on broad- spectrum antibiotics of meropenem along with Levaquin that she had been on and remained on aggressive IV fluid resuscitation along with Dr. Choi ornamenter hand consultation. Labs returned back to normal and stability. All home medications including Parkinson's specialty meds were restarted with psychosis and confusion from encephalopathy continued. She was felt to still have benefit from inpatient rehabilitation so she was transferred down and reverted back to Levaquin and doxycycline per infectious disease direction from [facility] and will initiate Haldol oral on a scheduled basis and maintained on Seroquel at night. P rognosis guarded and may need skilled care at [place]. Date of Admission 12/06/2018 I consulted on this patient on 12/06/18 11:35 Attending Physician Roxanne Lima DO Admitting Physician No,Local Physician Consult Allergies and Home Medications Allergies Coded Allergies: No Known Drug Allergies (Unverified , 11/03/18) Home Medications Carbidopa/Levodopa 1 Each Tablet.er, 1 TAB PO HS, (Reported) Carbidopa/Levodopa 1 Each Tablet, 2.5 TAB PO 0700,1100,1500,1900, (Reported) Diclofenac Sodium 50 Mg Tablet.dr, 50 MG PO BID PRN for ARTHRITIS PAIN, (Reported) Enoxaparin Sodium 40 Mg/0.4 Ml Syringe, 40 MG SQ DAILY, (Reported) Gabapentin 100 Mg Capsule, 100 MG PO HS, (Reported) Hydrocodone/Acetaminophen 1 Each Tablet, 1 TAB PO Q4H PRN for PAIN-MODERATE, (Reported) L. Acidophilus/Bulgaricus 1 Each Tablet, 1 TAB PO BID, (Reported) Levetiracetam 250 Mg Tablet, 250 MG PO BID, (Reported) Lisinopril 10 Mg Tablet, 10 MG PO DAILY, (Reported) Metoprolol Tartrate 25 Mg Tablet, 12.5 MG PO BID, (Reported) TAKES 1/2 (25MG) TABLET Mirtazapine 15 Mg Tablet, 15 MG PO HS, (Reported) Past Rrgxgih-Ryiase-Fuygtd Hx Patient Social History Recent Hopitalizations: Yes Immunizations Up To Date Pediatric: Yes Seasonal Allergies Seasonal Allergies: No Surgeries Yes Orthopedic Respiratory No Currently Using CPAP: No Currently Using BIPAP: No Cardiovascular Yes Hypertension Neurological Yes Parkinson's Disease Genitourinary No Gastrointestinal No Musculoskeletal Yes (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 6.4oz. 56.035692po; 20.4 BMI Method: ROXANNE LIMA DO 12/07/18 1539: History of Present Illness History of Present Illness Reason for visit/HPI Verification and Attestation of Medical Student E/M Service A medical student performed and documented this service in my presence. I reviewed and verified all information documented by the medical student and made modifications to such information, when appropriate. I personally performed the physical exam and medical decision making. Roxanne Lima, Dec 07, 2018,15:38 Date of Admission 12/06/18 Time Seen by a Provider: 00:00 Allergies and Home Medications Allergies Coded Allergies: No Known Drug Allergies (Unverified , 11/03/18) Home Medications Carbidopa/Levodopa 1 Each Tablet.er, 1 TAB PO HS, (Reported) Carbidopa/Levodopa 1 Each Tablet, 2.5 TAB PO 0700,1100,1500,1900, (Reported) Diclofenac Sodium 50 Mg Tablet.dr, 50 MG PO BID PRN for ARTHRITIS PAIN, (Reported) Enoxaparin Sodium 40 Mg/0.4 Ml Syringe, 40 MG SQ DAILY, (Reported) Gabapentin 100 Mg Capsule, 100 MG PO HS, (Reported) Hydrocodone/Acetaminophen 1 Each Tablet, 1 TAB PO Q4H PRN for PAIN-MODERATE, (Reported) L. Acidophilus/Bulgaricus 1 Each Tablet, 1 TAB PO BID, (Reported) Levetiracetam 250 Mg Tablet, 250 MG PO BID, (Reported) Lisinopril 10 Mg Tablet, 10 MG PO DAILY, (Reported) Metoprolol Tartrate 25 Mg Tablet, 12.5 MG PO BID, (Reported) TAKES 1/2 (25MG) TABLET Mirtazapine 15 Mg Tablet, 15 MG PO HS, (Reported) Patient Home Medication List Home Medication List Reviewed: Yes Past Tzdlucl-Qaxehw-Shpenh Hx Patient Social History Marrital Status: single Employed/Student: employed Smoking Status: Never a Smoker Family Medical History Family Hx: Alcoholism 19 MOTHER Diabetes mellitus G8 BROTHER Parkinson's disease 19 FATHER Review of Systems Constitutional: see HPI Physical Exam General Appearance: No Apparent Distress, WD/WN, Thin Respiratory: Chest Non Tender, Lungs Clear, Normal Breath Sounds, No Accessory Muscle Use, No Respiratory Distress Assessment/Plan Assessment and Plan Problems: (1) Other encephalopathy Admission Diagnosis Admission Status: Inpatient Order (span 2 midnights) Reason for Inpatient Admission: IRF Supervisory-Addendum Brief Verification & Attestation Participated in pt care: history, MDM, physical Personally performed: exam, history, MDM, supervision of care Care discussed with: Medical Student Procedures: n/a Results interpretation: Verified all documentation Verification and Attestation of Medical Student E/M Service A medical student performed and documented this service in my presence. I reviewed and verified all information documented by the medical student and made modifications to such information, when appropriate. I personally performed the physical exam and medical decision making. Roxanne Lima Dec 07, 2018,15:39 [facility] Dec 06, 2018 11:35 ROXANNE LIMA DO Dec 07, 2018 15:39
[2018-12-06 12:00] VITALS: BP 115/66
--- NOTE | 2018-12-06 12:00 | Physical Therapy Evaluation ---
PT Evaluation-General Medical Diagnosis Admission Date Dec 06, 2018 at 10:30 Medical Diagnosis: debility Onset Date: Dec 06, 2018 Therapy Diagnosis Therapy Diagnosis: abnormal gait Height/Weight Height (Feet): 5 Height (Inches): 7.00 Weight (Pounds): 125 Weight (Ounces): 6.4 Precautions Precautions/Isolations: Standard Precautions Weight Bear Status Right Lower Extremity: Right Full Weight Bearing Left Lower Extremity: Left Full Weight Bearing Referral Physician: Jerry Reason for Referral: Evaluation/Treatment Medical History Pertinent Medical History: HTN, Parkinson's, Renal Insufficiency Additional Medical History anemia, confusion with hallucinations, polymicrobial bacterial infection, osteomyelitis left foot, encephalopathy Current History This is a 62-year-old white female patient of health care provider Ayde Hickman out of [place], [place] who originally was to be admitted in inpatient rehab today from [facility] for intensive rehab and recovery following encephalopathy and seizure-like activity with severe rigidity from Parkinson's disease following a very complex left foot surgery status post bunionectomy 10/02/18 in [facility]. Apparently she had problems and required a revision 1 week after the original surgery then it showed an abscess formation on 10/13/18 which required incision and drainage and placement of IV antibiotics of Vanc and Levaquin to cover MRSA and Pseudomonas in the infusion center at [place], [place]. She had presented to the ER there with confusion and visual hallucinations on 10/25/18 and her son reported that her Parkinson's medications have been "messed up" since before her surgery when she originally was told to stop taking her blood pressure medication of losartan and instead she stopped the amantadine that further complicated the situation. Pt was on this unit until mid - late October for skilled intervention. Pt was transferred to [facility] in [place] and has now returned for aggressive therapy services [facility] hope that patient can discharge home. Reviewed History: Yes Social History Home: Single Level Current Living Status: Alone Entry Into Home: Stairs With Railing Prior/Core FIM Prior Level of Function Therapy Code Descriptions/Definitions Functional Floyd Measure: 0=Not Assessed/NA 4=Minimal Assistance 1=Total Assistance 5=Supervision or Setup 2=Maximal Assistance 6=Modified Floyd 3=Moderate Assistance 7=Complete Floyd Therapy Quality Codes: 6 Independent with activity with or without an assistive device 5 Patient requires set up or clean up by helper. Patient completes activity by themselves 4 Supervision or touching assist (CGA). [place] provide cues , steadying assist 3 The helper provides less than half the effort to complete the activity 2 The helper provides more than half the effort to complete the activity 1 Dependent. The helper does all the effort to complete an activity 7 Patient refused to complete or attempt activity 9 The patient did not perform the activity before the current illness or injury 88 Not attempted due to Medical conditions or safety concerns Functional Abilities and Goals: Independent: Patient completed the activities by him/herself, with or without an assistive device, with no assistance from a helper. Needed Some Help: Patient needed partial assistance from another person to complete activities. Dependent: A helper completed the activities for the patient. Unknown: Not Applicable: Bed Mobility: 7 Transfers (B,C,W/C) (FIM): 7 Gait: 7 Stairs: 7 Indoor Mobility (Ambulation): Independent Stairs: Independent Prior to September 2018, pt was indep and driving. 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 PT Evaluation-Current Subjective Pt is agreeable to PT. "I want to get better, walk and go home." Objective Patient Orientation: Person, Confused (decreased problem solving at times.), Place, Time, Situation Problem Solving: Poor ROM/Strength ROM Lower Extremities AAROM is WFL Strenght Lower Extremities B LE strength is grossly 3/5 except DF B is 2/5 Integumentary/Posture Integumentary Refer to nursing notes for full assessment; no noted issues with common viewed skin Posture rounded shoulders with forward head; slight thoracic kyphosis; tends to sit with hands in a supinated position and her feet tend to PF and invert in sitting . Neuromuscular (Tone, Coordination, Reflexes) Tone is normal Coordination is impaired B LE with decreased awareness of position in space as well as diminished sensation to light touch. Kinesthetic awareness impaired. Movements of her LE are not coordinated or controlled. Reflexes, unable to elicit, but could be due to patient guarding. Sensory Vision: Functional Hearing: Functional Hand Dominance: Right Sensation Right Lower Extremit: Impaired Sensation Left Lower Extremity: Impaired Transfers Therapy Code Descriptions/Definitions Functional Floyd Measure: 0=Not Assessed/NA 4=Minimal Assistance 1=Total Assistance 5=Supervision or Setup 2=Maximal Assistance 6=Modified Floyd 3=Moderate Assistance 7=Complete Floyd Therapy Quality Codes: 6 Independent with activity with or without an assistive device 5 Patient requires set up or clean up by helper. Patient completes activity by themselves 4 Supervision or touching assist (CGA). [place] provide cues , steadying assist 3 The helper provides less than half the effort to complete the activity 2 The helper provides more than half the effort to complete the activity 1 Dependent. The helper does all the effort to complete an activity 7 Patient refused to complete or attempt activity 9 The patient did not perform the activity before the current illness or injury 88 Not attempted due to Medical conditions or safety concerns Transfers (B, C, W/C) (FIM): 1 Scootin (assist of 2 to scoot in bed) Rollin Roll Left to Right (QC): 3 Supine to/from Sit: 1 (Requires assist with trunk and legs to get into bed; pt able to transisition sup to sit with mod assist. ) Sit to/from Stand: 1 (Total assist to come to astand; requires cues and assist for foot placement as well as use of UE) bed t/f WC(FIM only if WC use): 1 (Dependent and pt even lifts both feet at times off the floor. ) Sit to Lying (QC): 1 Lying to Sitting/Side of Bed(Q: 3 Sit to Stand (QC): 1 Chair/Mlm-ue-Bzukh Xfer(QC): 1 Car Transfer (QC): 1 Pt requires total assist with all functional tranfers and requires heavy cues for sequencing as well as task completion. Pt does follow cues and attempts to participate; at times, she does lift both feet off the floor during a transfer. She is unable to take steps to SPT. Gait Does the Patient Walk?: No and Walking Goal IS indicated Mode of Locomotion: Both Anticipated Mode of Locomotion: Both Gait (FIM): 0 (pt unable to take steps to walk; ) Distance (FIM): 0=does not occure Walk 10 feet (QC): 88 Walk 50 ft with 2 Turns(QC): 88 Walk 150 ft (QC): 88 Walking 10ft/uneven surface-QC: 88 Comments/Gait Description Pt unable to take steps to attempt walking this visit Wheelchair Training Does the Pt Use a Wheelchair?: Yes Wheelchair (FIM): 1 Wheelchair Distance (FIM): 3=150 ft Distance: 150 ft Wheelchair Level of Assist: 1 (dependent) Wheel 50 ft with 2 turns (QC): 1 Wheel 150 ft (QC): 1 Type of Wheelchair: Manual Pt is dependent for wc mobiltiy Stairs Stairs (FIM): 0 (pt unable to walk) 1 Step (curb) (QC): 88 4 Steps (QC): 88 12 Steps (QC): 88 If not tested on admit;explain pt unable to walk Balance Sitting Static: Fair Sitting Dynamic: Fair Standing Static: Poor Standing Dynamic: Poor Picking up an Object (QC): 88 Treatment Functional transfer training and bed mobility training to encourage sequencing and task segmentation. Pt requires 100% cues for all bed mobility and transfers. Worked on rolling and scooting in bed as well as sit to stand transfers. Spent part of treatment in Co Treat with OT due to the complexity of this patient's needs; she requires constant (100%) cues to complete tasks and to stay on task. Pt completed a sponge bath with OT to assist with ADL as PT addressed seated dynamic balance, sit to stand transfers for cleaning periarea and dressing as well as facilitating functional transfer on/off the commode x 2 as OT addressed pt participation with clothing. Pt is dependent for toilet transfer but attempts to participate and follow cues. Applied wc leg rests and adjusted to appropriate level. Assessment/Needs Pt has a lengthy history and complicated medical course and hospital stay. She presents with a severe decline in functional mobility and strength with balance, proprioceptive and task completion deficits. She is dependent for all mobilty and requires full care for mobility. She requires skilled cues 100% of the time. She will benefit from skilled aggressive intervention to progress transfers, gait , wc molbiltiy and balance to allow her to return home as before. Rehab Potential: Guarded PT Short Term Goals Short Term Goals Time Frame: Dec 20, 2018 Transfers (B,C,W/C) (FIM): 4 Gait (FIM): 2 Distance (FIM): 6=918-03 ft Gait Assistive Device: FWW Wheelchair (FIM): 4 Wheelchair distance (FIM): 3=150 ft PT Fitting Room Inspector Goals Fitting Room Inspector Goals PT Fitting Room Inspector Goals Time Frame: Jan 03, 2019 Transfers (B,C,W/C) (FIM): 6 Sit to Lying (QC): 6 Lying-Sitting on Side/Bed(QC): 6 Sit to Stand (QC): 6 Roll Left to Right (QC): 6 Chair/Onw-km-Medvw Xfer(QC): 6 Car Transfer (QC): 5 Does the Patient Walk: No and Walking Goal IS indicated Gait (FIM): 6 Gait distance (FIM): 3=150 ft Walk 10 feet (QC): 6 Walk 10ft-Uneven Surface(QC): 6 Walk 50ft with 2 Turns (QC): 6 Walk 150 ft (QC): 6 Gait Assistive Device: FWW Does the Pt use WC or Scooter?: Yes Wheelchair (FIM): 6 Wheelchair distance (FIM): 3=150 ft Wheel 50 feet with 2 turns (QC: 6 Stairs (FIM): 5 # of Steps: 4 1 Step (curb) (QC): 6 4 Steps (QC): 6 12 Steps (QC): 88 Picking up an Object (QC): 5 PT Plan Problem List Problem List: Activity Tolerance, Functional Strength, Safety, Balance, Gait, Transfer, Bed Mobility Treatment/Plan Treatment Plan: Continue Plan of Care Treatment Plan: Bed Mobility, Education, Functional Activity Bakari, Functional Strength, Group Therapy, Gait, Safety, Therapeutic Exercise, Transfers Treatment Duration: Jan 03, 2019 Frequency: At least 5 of 7 days/Wk (IRF) Estimated Hrs Per Day: 1.5 hours per day Patient and/or Family Agrees t: Yes Safety Risks/Education Patient Education: Transfer Techniques, Safety Issues Teaching Recipient: Patient Teaching Methods: Demonstration, Discussion Response to Teaching: Reinforcement Needed Time/GCodes Time In: 1035 Time Out: 1145 (OT eval [id number]) Total Billed Treatment Time: 60 Total Billed Treatment visit EV 15 FA 45 Co treat with OT 35 min MARCY RO PT Dec 06, 2018 12:00
[2018-12-06] MEDS ORDERED: LEVE250T5 PO (12:43)
[2018-12-06] MEDS ORDERED: CARB1TAB41 PO (12:43)
[2018-12-06] MEDS ORDERED: ENOX40DI13 SQ (12:43)
[2018-12-06] MEDS ORDERED: MIRT15TA6 PO (12:43)
[2018-12-06] MEDS ORDERED: CARB1TAB19 PO (12:43)
[2018-12-06] MEDS ORDERED: METO-333 PO (12:43)
[2018-12-06] MEDS ORDERED: ACID1TAB PO (12:43)
[2018-12-06] MEDS ORDERED: LISI10TA2 PO (12:43)
[2018-12-06] MEDS ORDERED: HYDR-3812 PO (12:43)
[2018-12-06 12:54] VITALS: BP 115/66
--- NOTE | 2018-12-06 12:56 | Occupational Therapy Eval ---
OT Evaluation-General/PLF Medical Diagnosis Admission Date Dec 06, 2018 at 10:30 Medical Diagnosis: debility Onset Date: Dec 06, 2018 Therapy Diagnosis Therapy Diagnosis: impaired ADLs and mobility Height/Weight Height (Feet): 5 Height (Inches): 7.00 Weight (Pounds): 134 Weight (Ounces): 6.0 Precautions Precautions/Isolations: Fall Prevention, Standard Precautions Weight Bear Status Weight Bearing Restriction: Weight Bearing/Tolerated Referral Physician: Jerry Referral Reason: Activity Tolerance, Self Care, Evaluation/Treatment, Strengthening/ROM Medical History Pertinent Medical History: HTN, Parkinson's, Renal Insufficiency Current History "This is a 62-year-old white female patient of health care provider Ayde Hickman out of [place], [place] who originally was to be admitted in inpatient rehab today from [facility] for intensive rehab and recovery following e ncephalopathy and seizure-like activity with severe rigidity from Parkinson's disease following a very complex left foot surgery status post bunionectomy 10/02/18 in [facility]. Apparently she had problems and required a revision 1 week after the original surgery then it showed an abscess formation on 10/13/18 which required incision and drainage and placement of IV antibiotics of Vanc and Levaquin to cover MRSA and Pseudomonas in the infusion center at [place], [place]. She had presented to the ER there with confusion and visual hallucinations on 10/25/18 and her son reported that her Parkinson's medications have been "messed up" since before her surgery when she originally was told to stop taking her blood pressure medication of losartan and instead she stopped the amantadine that further complicated the situation. Pt was on this unit until mid - late October for skilled intervention. Pt was transferred to [facility] in [place] and has now returned for aggressive therapy services with hope that patient can discharge home." Reviewed History: Yes Social History Home: Single Level Current Living Status: Alone Entry Into Home: Stairs With Railing ADL-Prior Level of Function Therapy Code Descriptions/Definitions Functional [place] Measure: 0=Not Assessed/NA 4=Minimal Assistance 1=Total Assistance 5=Supervision or Setup 2=Maximal Assistance 6=Modified [place] 3=Moderate Assistance 7=Complete [place] Therapy Quality Codes: 6 Independent with activity with or without an assistive device 5 Patient requires set up or clean up by helper. Patient completes activity by themselves 4 Supervision or touching assist (CGA). [place] provide cues , steadying assist 3 The helper provides less than half the effort to complete the activity 2 The helper provides more than half the effort to complete the activity 1 Dependent. The helper does all the effort to complete an activity 7 Patient refused to complete or attempt activity 9 The patient did not perform the activity before the current illness or inj ury 88 Not attempted due to Medical conditions or safety concerns Functional Abilities and Goals: Independent: Patient completed the activities by him/herself, with or without an assistive device, with no assistance from a helper. Needed Some Help: Patient needed partial assistance from another person to complete activities. Dependent: A helper completed the activities for the patient. 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 pt reports no pain. Mental Status/Objective Patient Orientation: Person, Confused, Place, Time, Eyes Open, Situation Current Glasses/Contacts: Yes Hearing Aids: No Dentures/Partials: No Hand Dominance: Right Upper Extremity ROM required increase timing secondary to coordination. WNL Upper Extremity Coordination decrease opposition decrease finger to nose noted decreased proprioception Upper Extremity Sensation decrease light touch Upper Extremity Strength 3/5 MMT ADL-Treatment Eating (FIM): 1 (pt education on build up handle, plate gaurd, and universal cuff. pt demo decrease coordination requiring assist. ) Eating (QC): 1 Grooming (FIM): 1 (brush teeth, wash face, comb hair, wash hands. required hand over hand assist secodanry to decrease coordination ) Oral Hygiene (QC): 1 Bathing (FIM): 2 (decrease GMC/ FMC. freq. drop wash cloth ) Bathing Location: Chest, Abdomen Shower/Bathe Self (QC): 1 Upper Body Dressing (FIM): 1 (mandrel puller shirt. decrease GMC/ FMC of Alexander UE ) Upper Body Dressing (QC): 1 Lower Body Dressing (FIM): 1 (underpants, pants, alexander socksX 2 person assist to stand to pull up pants ) Lower Body Dressing (QC): 1 On/Off Footwear (QC): 1 Toileting (FIM): 1 (required assist to perform all tasks. X2 person assist ) Toileting Hygiene (QC): 1 Transfers (B, C, W/C) (FIM): 1 (X2 person assist ) Toilet/Commode Transfer (FIM): 1 (X2 person assist ) Toilet Transfer (QC): 1 Shower Transfer (FIM): 0 (unsafe at this time. ) co-treatment completed with PT secondary to complexity of pt deficits requiring skills from both disciplines that a nuclear plant instrument technician could not complete secondary to skill level required. OT focus on ADL tasks, UE positioning and sequencing through tasks, while PT focus on sitting/ standing balance, gross movement,s LE positioning. noted pt has rounded shoulders with kyphosis. while is sitting she sit with hands in a supinated position. post OT session pt requested to sit in dinning area in front of NSG station. all needs met. NSG aware. Education OT Patient Education: Modified ADL techniques, Progress toward Goal/Update tx plan, Purpose of tx/functional activities, Reviewed precautions, Rehab process, Safety issues, Transfer techniques, Use of adapted equipment OT Short Term Goals Short Term Goals Time Frame: Dec 20, 2018 Eating(FIM): 3 Grooming(FIM): 3 Bathing(FIM): 3 Upper Body Dressing(FIM): 3 Lower Body Dressing(FIM): 2 Toileting(FIM): 2 Transfers (B,C,W/C) (FIM): 3 (3) Toilet/Commode Transfer(FIM): 3 Shower Transfer(FIM): 3 1=Demonstrate adherence to instructed precautions during ADL tasks. 2=Patient will verbalize/demonstrate understanding of assistive devices/modifications for ADL. 3=Patient will improve strength/tolerance for activity to enable patient to perform ADL's. OT Alf Goals Grounds And Nursery Specialist Goals Time Frame: Jan 03, 2019 Eating (FIM): 5 Eating (QC): 5 Groomin Oral Hygiene (QC): 4 Bathing(FIM): 5 Bathing Location: L Arm, R Arm, L Upper Leg, R Upper Leg, L Lower Leg (including foot), R Lower Leg (including foot), Chest, Abdomen, Buttocks, Perineal Area Shower/Bathe Self (QC): 4 Upper Body Dressing(FIM): 5 Upper Body Dressing (QC): 4 Lower Body Dressing(FIM): 5 Lower Body Dressing (QC): 4 On/Off Footwear (QC): 4 Toileting(FIM): 5 Toileting Hygiene (QC): 4 Transfers (B,C,W/C) (FIM): 5 Toilet/Commode Transfer(FIM): 5 Toilet/Commode Transfer (QC): 4 Shower Transfer(FIM): 4 Additional Goals: 1-Demonstrate ADL Tasks, 2-Verbalize Understanding, 3- ImproveStrength/Bakari 1=Demonstrate adherence to instructed precautions during ADL tasks. 2=Patient will verbalize/demonstrate understanding of assistive devices/modifications for ADL. 3=Patient will improve strength/tolerance for activity to enable patient to perform ADL's. OT Education/Plan Problem List/Assessment Assessment: Decreased Activ Tolerance, Decreased Safety Aware, Decreased UE Strength, Dependent Transfers, Edema, Impaired Bed Mobility, Impaired Cognition, Impaired Coordination, Impaired Funct Balance, Impaired I ADL's, Impaired Self- Care Skills pt presents with functional limitations affecting areas of ADLS and functional transfers with deficits in the above mention including decrease proprioception, decrease light touch, and decrease overall safety with functional tasks. pt is motivated to participate in therapy. pt would benefit from skilled OT services to increase independence with ADLS and functional transfers. Discharge Recommendations Plan/Recommendations: Continue POC Treatment Plan/Plan of Care Treatment,Training & Education: Yes Patient would benefit from OT for education, treatment and training to promote independence in ADL's, mobility, safety and/or upper extremity function for ADL's. Plan of Care: ADL Retraining, Caregiver Training, Cognitive Retraining, Functional Mobility, Group Exercise/Act as Ind, UE Funct Exercise/Act, UE Neuromus Re-Ed/Coord, W/C Management Training Treatment Duration: Jan 03, 2019 Frequency: At least 5 of 7 days/Wk (IRF) Estimated Hrs Per Day: 1 hour per day (60-90 minutes per day ) Agreement: Yes Rehab Potential: Guarded Time/GCodes Start Time: 11:00 Stop Time: 12:00 Billed Treatment Time EVH 10 minutes co-treatment with PT (7430- 1145) ADL 2 units individual OT times (1145-12), 1 unit ADL ROSENDO BARROSO OT Dec 06, 2018 12:56
--- NOTE | 2018-12-06 13:16 | PM&R H&P / Post Admit Assess ---
History of Present Illness HPI/Chief Complaint Chief complaint: Debility History of present illness: This is a 63-year-old white female known to me from a severe sepsis episode when she had arrived to go to inpatient rehab when she was transferred from last month after severe encephalopathy and parkinsonism rigidity with left foot wound status post bunionectomy with severe complications so she eventually stabilized went to inpatient rehab after insurance approval and spent 2 weeks there but continued to have difficulty with the pace of therapy so she was moved to the usp closer to home in [place] but she is returned in need of full therapy services since she is not on weight restricted on the left foot now and she can weight-bear as tolerated and currently is much improved. Son is at the bedside and told me that she needs intensive therapy since she fully intends to return to work and then return to independent living along with family monitoring. Source: patient Exam Limitations: no limitations Date Seen 12/06/18 Time Seen by a Provider: 11:00 Attending Physician Roxanne Edwards DO PCP No,Local Physician Referring Physician Date of Admission Dec 06, 2018 at 10:30 Home Medications & Allergies Home Medications Reviewed patient Home Medication Reconciliation performed by pharmacy medication reconciliations certified histologic technician and/or nursing. Patients Allergies have been reviewed. Allergies Allergies Coded Allergies No Known Drug Allergies (Unverified11/03/18) Past Qjofbkp-[id number]-Fhmnvj Hx Past Med/Social Hx: Reviewed Nursing Past Med/Soc Hx, Reviewed and Corrections made Patient Social History Marrital Status: single Employed/Student: employed Smoking Status: Never a Smoker Recent Foreign Travel: No Contact w/other who traveled: No Recent Hopitalizations: Yes Recent Infectious Disease Expo: No Immunizations Up To Date Pediatric: Yes Seasonal Allergies Seasonal Allergies: No Past Medical History Surgeries: Orthopedic Currently Using CPAP: No Currently Using BIPAP: No Cardiac: Hypertension Neurological: Parkinson's Disease Psychosocial: Anxiety History of Blood Disorders: No Adverse Reaction to Blood Degroot: No Family History Alcoholism 19 MOTHER Diabetes mellitus G8 BROTHER Parkinson's disease 19 FATHER Review of Systems Constitutional: see HPI, weakness EENTM: no symptoms reported Respiratory: no symptoms reported Cardiovascular: no symptoms reported Gastrointestinal: no symptoms reported Genitourinary: no symptoms reported Musculoskeletal: joint pain Skin: no symptoms reported Psychiatric/Neurological: Anxiety, Depressed, Emotional Problems All Other Systems Reviewed Negative Unless Noted: Yes Physical Exam Exam Vital Signs Vital Signs Date Time Temp Pulse Resp B/P (MAP) Pulse Ox O2 Delivery O2 Flow Rate FiO2 12/06/18 17:05 99.4 105 16 131/86 95 Room Air Capillary Refill : General Appearance: No Apparent Distress, WD/WN, Chronically ill, Thin HEENT: PERRL/EOMI, Normal ENT Inspection, Pharynx Normal, Moist Mucous Membranes Neck: Full Range of Motion, Normal Inspection, Non Tender, Supple Respiratory: Chest Non Tender, Lungs Clear, Normal Breath Sounds, No Accessory Muscle Use, No Respiratory Distress Cardiovascular: Regular Rate, Rhythm, No Edema, No Gallop, No JVD, No Murmur Gastrointestinal: Normal Bowel Sounds, No Organomegaly, No Pulsatile Mass, Non Tender, Soft Back: Normal Inspection, No CVA Tenderness, No Vertebral Tenderness Extremity: Normal Capillary Refill, Normal Inspection, Normal Range of Motion, Non Tender, No Calf Tenderness, No Pedal Edema Neurologic/Psychiatric: Alert, Oriented x3, No Motor/Sensory Deficits, Normal Mood/Affect, force variation equipment tender II-XII Norm as Tested, Disoriented (subtle) Skin: Normal Color, Warm/Dry Lymphatic: No Adenopathy Results Results/Procedures Labs Patient resulted labs reviewed. Assessment/Plan Assessment and Plan Assess & Plan/Chief Complaint Assessment: Debility s/p encephalopathy much improved Cachexia Anemia Left foot wound Plan: IRF protocol Pain control Home meds (1) Debility Status: Acute (2) Anemia Status: Chronic (3) Cachexia Status: Acute (4) Anemia of chronic disease Status: Chronic (5) Confusion Status: Acute (6) Parkinson disease Status: Chronic (7) Incontinence of urine Status: Acute (8) Visual hallucinations Status: Acute (9) Thrombocytosis Status: Acute (10) Incontinence of bowel Status: Acute (11) Rigidity Status: Acute (12) Other encephalopathy (13) Polymicrobial bacterial infection Status: Acute (14) Osteomyelitis of foot Status: Acute (15) Witnessed seizure-like activity Status: Acute (16) Wound of left foot Status: Acute Post Admission Physician Asses Date seen by provider: Dec 06, 2018 Time seen by provider: 11:00 Admisison Dx: (1) Debility Status: Acute (2) Parkinson disease Status: Chronic (3) Other encephalopathy (4) Wound of left foot Status: Acute (5) Witnessed seizure-like activity Status: Acute (6) Osteomyelitis of foot Status: Acute (7) Polymicrobial bacterial infection Status: Acute (8) Rigidity Status: Acute (9) Incontinence of bowel Status: Acute (10) Thrombocytosis Status: Acute (11) Visual hallucinations Status: Acute (12) Incontinence of urine Status: Acute (13) Confusion Status: Acute (14) Anemia of chronic disease Status: Chronic (15) Cachexia Status: Acute The preadmission screen agrees with the post admission assessment that the patient is a good candidate for inpatient rehabilitation. The patient will have a comprehensive program of inpatient rehabilitation with a goal of maximizing level of functional independence prior to discharge home with family. The patient will have PT/OT ninety minutes per day, each discipline, five days a week for gait, strengthening, conditioning, balance, ADLs, any patient/family/caregiver training as necessary. Speech therapy to do cognitive assessment and treat as indicated. Rehabilitation nursing to assist with bowel, bladder, skin, wound care, medication administration, pain management. Couples Therapist to assist with discharge planning, community reentry. SCD's for DVT prophylaxis. She appears to be well motivated to participate in three hours of therapy a day. She should be able to tolerate three hours of therapy a day from a medical standpoint. She should benefit from the three hours of therapy a day. She has a reasonable discharge plan, reasonable discharge rehabilitation goals and a supportive family. She has various comorbidities that need to be closely monitored with medications and treatments adjusted on a daily basis as needed. These include: see list Barriers to discharge for this patient who had been independent prior to this are for her to be modified independent to supervision for ADLs and mobility skills prior to discharge home with family, so as to lessen the burden of the caregivers. Risks for this patient include: 1. Fall 2. Fracture 3. DVT 4. Pulmonary embolism 5. Wound infection 6. Skin breakdown 7. Contractures 8. Poorly controlled pain 9. Urinary retention 10. UTI 11. Respiratory infection 12. Aspiration Estimated Length of Stay: 14 days Prognosis: Rehab prognosis appears good for goal of discharge home with family modified independent to supervision for ADLs and mobility skills. ROXANNE EDWARDS DO Dec 06, 2018 13:16
--- NOTE | 2018-12-06 14:05 | NUR ---
UPDATED MED REC WITH THE MAR FROM [facility] IN [facility]
[2018-12-06] MEDS ORDERED: MIRTAZAPINE 15 MG (REMERON) TAB PO SCH (14:45)
--- NOTE | 2018-12-06 14:57 | Therapy Group Daily Note ---
Therapy Daily Group Note Patient Education Topic Other List Below (pain, ARU description) Exercises Stretching Session Ratio (pt:therapist): 4:1 Goal of Session: Education on ARU Expectations, Other (list) (pain management) Goal Met for this Session: Yes Pt Benefit of Group: Contributions to Others, F/U Use of Strategies @Home, Improved Cognition, Recognition of Peers, Socialization Other/Notes Pt was transported via w/c to [facility] for OT/PT group. Group consisted introductions (name, place living, attributes of self), socialization, UE/LE seated stretching, ARU description and education on pain management. Pt introduced self appropriately and actively listened to peers. Pt contributed to conversations throughout group when asked. Pt was able to complete UE stretching though required assist at times due to diagnosis. Pt acknowledged understanding by gestures and verbally. After therapy, pt lying in bed with call light/phone in reach. All needs met in room. Start Time: 13:00 Stop Time: 14:20 Total Billed Treatment Time: 80 Total Billed Treatment 1-[facility] MARCY BOUDREAUX Dec 06, 2018 14:57
[2018-12-06] MEDS: SINEMET 25/100 (CARBIDOPA/LEVODOPA) TAB PO SCH ×2 (15:39→19:48)
[2018-12-06] MEDS: LACTOBACILLUS ACIDOPHILUS (PROBIOTIC) CAPSULE PO SCH (15:40)
--- NOTE | 2018-12-06 16:05 | ST Cognitive Linguistic Eval ---
Speech Evaluation-General Medical Diagnosis debility Onset Date: Dec 06, 2018 Therapy Diagnosis Therapy Diagnosis: Cognitive-communication Precautions Precautions: Fall Precautions/Isolations: Fall Prevention, Standard Precautions Referral Referring Physician: Dr. Edwards Reason for Referral: Evaluation/Treatment Medical History Pertinent Medical History: HTN, Parkinson's, Renal Insufficiency HTN, Parkinson's, Renal Insufficiency Current History Debility Reviewed History: Yes Social History Home: [facility] Current Living Status: Alone Speech PLF-Current Status Prior Level of Function The patient was transferred here from a long-term for further rehabilitation. Subjective The patient was pleasant and cooperative with the cognitive evaluation. Language Eval: Auditory Comprehends Simple Yes/No Ques: Functional Indent/Objects Multiple Fitzpatrick: Functional Ident/Pics in Multiple Fitzpatrick: Functional Follows 1-Step Commands: Functional Follows Complex Directions: Mild Follows General Conversations: Mild Language Eval: Verbal Language Completes Spontaneous Greeting: Functional Produces Auto, Serial Info: Functional Imitates Simple Words/Phrases: Functional Word Finding: Mild Requests Basic Needs: Functional States Basic Personal Info: Functional Expresses Complex Ideas: Moderate Cognitive Patient Orientation Patient is oriented to self Objective Cognitive Domain Attention: Mild Memory: Moderate Problem Solving: Moderate Executive Functions: Moderate Visuospatial Skills: WNL Composite Severity Rating: Moderate Clock Drawing Severity Rating: Moderate Score: 23/30 Range: Mild Neurocognitive Disorder Objective Formal/Standardized Tests [facility] Mental Status ([facility]) Results Patient scored 23/30 which places her in the MNCD range of function Oral Motor/Speech Production Within Functional Limits Impression The patient is a 63 year old female who was admitted to the ARU due to debility. The patient was previously at the ARU and transferred to a SNF closer to family. The family decided to bring the patient back to the ARU for further, more intense therapy for her debility. The patient was seen in her room with the UMS completed. The patient scored a 23/30 which is in the MNCD range of function. The patient will receive skilled cognitive function therapy with focus on improving her safety awareness as well as her independence. Communication/Social Cognition Comprehension: 5 Expression: 5 Social Interaction: 6 Problem Solvin Memory: 4 Speech Patient Assess Expression of Ideas/Wants: Exhibits (3) Understanding Verbal Content: Sometimes Understands(2) Brief Interview-Mental Status: Yes Repetition of Three Words: Three (3) Temporal Orientation: Year: Correct (3) Temporal Orientation: Month: Missed by 6 days-1 month (1) Temporal Orientation: Day: Correct (1) Recall : Wear to say "Sock": No, could not recall (0) Recall : Color: Yes, after cueing (1) Recall : Bed: No, could not recall (0) Add-Enter 99 if pt cannot comp: 99 Memory/Recall Ability: None of the above were recalled Speech Short Term Goals Short Term Goals Short Term Goals 1) The patient will complete memory tasks related to his daily needs at 90% or greater with minimal cues. 2) The patient will complete problem solving tasks related to his daily needs at 90% or greater with minimal cues. 3) The patient will complete safety awareness tasks related to his daily needs at 90% or greater with minimal cues. Speech Feed Mill Manager Goals Intermediate Goals The patient will improve her cognitive functional level for safety and independence. Speech-Plan Patient/Family Goals Patient/Family Goals: The patient will return home with family if she is able post rehab. Treatment Plan Speech Therapy Treatment Plan: Continue Plan of Care The patient will receive skilled ST for cognitive function with focus on safety awareness and independence. Treatment Duration: Dec 13, 2018 Frequency: 5 times per week Estimated Hrs Per Day: .5 hour per day Rehab Potential: Guarded Barriers to Learning: Patient has cognitive deficits. Pt/Family Agrees to Plan: Yes Safety Risks/Education Teaching Recipient: Patient Teaching Methods: Discussion Response to Teaching: Verbalize Understanding Education Topics Provided: Safety within her room and utilization of the call light as needed. Time Speech Therapy Time In: 15:30 Speech Therapy Time Out: 15:45 Total Billed Time: 15 Billed Treatment Time 1, SPSNDCOMP ANDREW Charles Dec 06, 2018 16:05
[2018-12-06 16:07] VITALS: BP 131/86
[2018-12-06] MEDS: ETODOLAC 200 MG (LODINE) CAP PO SCH (16:09)
[2018-12-06 17:05] VITALS: BP 131/86
--- NOTE | 2018-12-06 19:05 | NUR ---
During nsg report from Becky from [facility], she stated that pt had seen her park naturalist who performed the bunionectomy, yesterday, had scans done, pt is WBAT. Pt's park naturalist is Dr. Kashmir Roberson , .
[2018-12-06] MEDS: MIRTAZAPINE 15 MG (REMERON) TAB PO SCH (21:01)
[2018-12-06] MEDS: meTOprolol TARTRATE 25 MG (LOPRESSOR) TABLET PO SCH (21:01)
[2018-12-06] MEDS: SINEMET CR 50/200 (CARBIDOPA/LEVODOPA SA) TAB PO SCH (21:02)
[2018-12-06] MEDS: LEVETIRACETAM 500 MG (KEPPRA) TAB PO SCH (21:02)
[2018-12-06] MEDS: GABAPENTIN 100 MG (NEURONTIN) CAP PO SCH (21:02)
[2018-12-07 05:55] VITALS: BP 137/67
[2018-12-07] MEDS: LACTOBACILLUS ACIDOPHILUS (PROBIOTIC) CAPSULE PO SCH ×2 (07:22→16:41)
[2018-12-07] MEDS: ETODOLAC 200 MG (LODINE) CAP PO SCH ×2 (07:22→16:41)
[2018-12-07] MEDS: SINEMET 25/100 (CARBIDOPA/LEVODOPA) TAB PO SCH ×4 (07:22→19:05)
[2018-12-07] MEDS: LEVETIRACETAM 500 MG (KEPPRA) TAB PO SCH ×2 (09:26→20:26)
[2018-12-07] MEDS: ENOXAPARIN 40 MG/0.4 ML (LOVENOX) SYR SC SCH (09:27)
[2018-12-07] MEDS: lisINopril 10 MG (PRINIVIL) TABLET PO SCH (09:27)
[2018-12-07] MEDS: meTOprolol TARTRATE 25 MG (LOPRESSOR) TABLET PO SCH ×2 (09:27→20:26)
[2018-12-07 11:11] LABS: BASOPHILS % (AUTO) 0 % (0-10); EOSINOPHILS # (AUTO) 0.2 10^3/uL (0.0-0.3); EOSINOPHILS % (AUTO) 2 % (0-10); HEMATOCRIT 35 % (35-52); HEMOGLOBIN 11.1 G/DL (11.5-16.0); LYMPHOCYTES # (AUTO) 1.9 X 10^3 (1.0-4.0); LYMPHOCYTES % (AUTO) 16 % (12-44); MEAN CORPUSCULAR HEMOGLOBIN 28 PG (25-34); MEAN CORPUSCULAR HGB CONC 32 G/DL (32-36); MEAN CORPUSCULAR VOLUME 88 FL (80-99); MEAN PLATELET VOLUME 10.5 FL (7.4-10.4); MONOCYTES # (AUTO) 0.7 X 10^3 (0.0-1.0); MONOCYTES % (AUTO) 6 % (0-12); NEUTROPHILS % (AUTO) 77 % (42-75); PLATELET COUNT 368 10^3/uL (130-400); RED CELL DISTRIBUTION WIDTH 18.7 % (10.0-14.5); WHITE BLOOD COUNT 11.8 10^3/uL (4.3-11.0)
[2018-12-07 11:30] LABS: ALANINE AMINOTRANSFERASE 9 U/L (0-55); ALBUMIN 3.5 GM/DL (3.2-4.5); ALKALINE PHOSPHATASE 137 U/L (40-136); BILIRUBIN,TOTAL 0.3 MG/DL (0.1-1.0); BUN/CREATININE RATIO 31; CALCIUM 9.6 MG/DL (8.5-10.1); CARBON DIOXIDE 21 MMOL/L (21-32); CHLORIDE 109 MMOL/L (98-107); CREATININE SERUM 0.72 MG/DL (0.60-1.30); GFR ESTIMATED > 60; GLUCOSE 85 MG/DL (70-105); POTASSIUM 4.5 MMOL/L (3.6-5.0); SODIUM 141 MMOL/L (135-145); TOTAL PROTEIN 6.6 GM/DL (6.4-8.2)
--- NOTE | 2018-12-07 11:50 | Individualized Plan of Care ---
Individualized Plan of Care Rehab Nursing IPOC Order Admission Date Dec 06, 2018 at 10:30 Current Orders Orders Admission Arrival Bed Request (12/06/18 10:30) Admission Order(Inpt,Obs,Sdc) (12/06/18 10:30) General/Regular (12/06/18 Lunch) Pt Evaluate/Treat Request (12/06/18 10:30) Request Ot Evaluate & Treat (12/06/18 10:30) Request For Cognitive Services (12/06/18 10:30) Weight Bearing Status (12/06/18 12:50) Patient Visit (12/06/18 ) Pt Eval High Complexity (12/06/18 ) Functional Activities, Ea 15 (12/06/18 ) Carbidopa/Levodopa Cr Tablet (Sinemet Cr (12/06/18 21:00) Gabapentin Capsule/Tablet (Neurontin Cap (12/06/18 21:00) Lisinopril Tablet (Zestril Tablet) (12/07/18 09:00) Metoprolol Tartrate (Ir) Tab (Lopressor (12/06/18 21:00) Carbidopa/Levodopa 25/100 (Sinemet 25/10 (12/06/18 15:00) Etodolac Capsule/Tablet (Lodine Capsule/ (12/06/18 17:00) Enoxaparin Injection (Lovenox Injection) (12/07/18 09:00) Hydrocodone/Apap 5/325 Tablet (Lortab 5 (12/06/18 15:00) Lactobacillus Acidophilus Cap (Acidophil (12/06/18 17:00) Levetiracetam Tablet (Keppra Tablet) (12/06/18 21:00) Mirtazapine Tablet (Remeron Tablet) (12/06/18 14:45) Cbc With Automated Diff (12/09/18 06:00) Comprehensive Metabolic Panel (12/09/18 06:00) Erythrocyte Sedimentation Rate (12/09/18 06:00) Nursing Communication (Order) (12/06/18 14:33) Patient Visit (12/06/18 ) Mirtazapine Tablet (Remeron Tablet) (12/06/18 21:00) Patient Visit (12/06/18 ) Speech Sound Lang Comp (12/06/18 ) Ambulate 08,12,20 (12/06/18 17:13) Sequential Compression Device , (12/06/18 17:13) Dvt/Vte Risk - Notifiy Physici .ONCE (12/06/18 17:13) Cbc With Automated Diff (12/07/18 10:44) Comprehensive Metabolic Panel (12/07/18 10:44) Patient Visit (12/07/18 ) Exercise Therap, Ea 15 Min (12/07/18 ) Functional Activities, Ea 15 (12/07/18 ) Rehab Nursing Orders: Ongoing Assess. of Cognitive Status, Ongoing Assess. of Function Status, Bladder Management, Bladder Scan, Bladder Training, Bowel Management, Bowel Training, Disease Management & Educaiton, DVT Prophylaxis, Fall Prevention, Fluid/Electrolyte/Nutrition Mgmt, Infection Prevention, Medication Management & Education, Management of Risks & Complications, Management of Skin Intergrity, Nutrition Management, Pain Management, Patie nt/Family Support, Safety Management, Swallow Precautions, Wound Management Intensity of Therapy to be met Patient to be seen: Min.3h per day/5 of 7d PT IPOC Problem List: Activity Tolerance, Functional Strength, Safety, Balance, Gait, Transfer, Bed Mobility Treatment Plan: Continue Plan of Care Bed Mobility, Education, Functional Activity Bakari, Functional Strength, Group Therapy, Gait, Safety, Therapeutic Exercise, Transfers Treatment Duration: Jan 03, 2019 Frequency: At least 5 of 7 days/Wk (IRF) Estimated Hrs Per Day: 1.5 hours per day OT IPOC Problems: Decreased Activ Tolerance, Decreased Safety Aware, Decreased UE Strength, Dependent Transfers, Edema, Impaired Bed Mobility, Impaired Cognition, Impaired Coordination, Impaired Funct Balance, Impaired I ADL's, Impaired Self- Care Skills OT Treatment, Training and Edu: Yes OT Problems pt presents with functional limitations affecting areas of ADLS and functional transfers with deficits in the above mention including decrease proprioception, decrease light touch, and decrease overall safety with functional tasks. pt is motivated to participate in therapy. pt would benefit from skilled OT services to increase independence with ADLS and functional transfers. Plan of Care: ADL Retraining, Caregiver Training, Cognitive Retraining, Functional Mobility, Group Exercise/Act as Ind, UE Funct Exercise/Act, UE Neuromus Re-Ed/Coord, W/C Management Training Treatment Duration: Jan 03, 2019 Frequency: At least 5 of 7 days/Wk (IRF) Estimated Hrs Per Day: 1 hour per day (60-90 minutes per day ) ST IPOC Speech Therapy Treatment Plan: Continue Plan of Care Treatment Duration: Dec 13, 2018 Frequency: 5 times per week Estimated Hrs Per Day: .5 hour per day Dietitian/Lump Receiver Dietitian/Lump Receiver to monitor nutritional status and make changes and/or recommendations as needed and work with speech pathology on dietary upgrades as the occur. Physician IPOC Medical Issues being managed closely and that require the 24 hour availability of a physician: Severe encephalopathy recently will need close monitoring for recurrence and fall risk increased with PD severe type Brief Synthesis of Preadmission Screen, Post-Admission Evaluation, and Therapy Evaluations: PT will increase strength since now WBAT and was non-weight bearing OT will increase independent ADL's Medical Prognosis: Good Anticipated Length of Stay: 14 days SHANNON LIMA DO Dec 07, 2018 11:50
--- NOTE | 2018-12-07 11:50 | PM&R Progress Note ---
Subjective HPI/CC On Admission Date Seen by Provider: Dec 07, 2018 Time Seen by Provider: 11:00 Chief complaint: Debility History of present illness: This is a 63-year-old white female known to me from a severe sepsis episode when she had arrived to go to inpatient rehab when she was transferred from last month after severe encephalopathy and parkinsonism rigidity with left foot wound status post bunionectomy with severe complications so she eventually stabilized went to inpatient rehab after insurance approval and spent 2 weeks there but continued to have difficulty with the pace of therapy so she was moved to the [facility] closer to home in [place] but she is returned in need of full therapy services since she is not on weight restricted on the left foot now and she can weight-bear as tolerated and currently is much improved. Son is at the bedside and told me that she needs intensive therapy since she fully intends to return to work and then return to independent living along with family monitoring. Subjective/Events-last exam Patient doing very well Family visiting today Is interested in anti-depressant so will await till Sunday to start that when she is settling in since any meds could cause issues with her PD BM+ Very weak since she is now WBAT and was non-weight bearing No major issues noted Reviewed labs. Conferred with RN Reviewed therapy notes Review of Systems Neurological: Weakness, Incoordination Objective Exam Vital Signs Vital Signs Date Time Temp Pulse Resp B/P (MAP) Pulse Ox O2 Delivery O2 Flow Rate FiO2 12/07/18 05:55 99.4 87 18 137/67 (90) 96 Room Air Capillary Refill : Less Than 3 Seconds General Appearance: No Apparent Distress, WD/WN, Chronically ill, Thin HEENT: PERRL/EOMI, Normal ENT Inspection, Pharynx Normal, Moist Mucous Membranes Neck: Full Range of Motion, Normal Inspection, Non Tender, Supple Respiratory: Chest Non Tender, Lungs Clear, Normal Breath Sounds, No Accessory Muscle Use, No Respiratory Distress Cardiovascular: Regular Rate, Rhythm, No Edema, No Gallop, No JVD, No Murmur Gastrointestinal: Normal Bowel Sounds, No Organomegaly, No Pulsatile Mass, Non Tender, Soft Back: Normal Inspection, No CVA Tenderness, No Vertebral Tenderness Extremity: Normal Capillary Refill, Normal Inspection, Normal Range of Motion, Non Tender, No Calf Tenderness, No Pedal Edema Neurologic/Psychiatric: Alert, Oriented x3, No Motor/Sensory Deficits, Normal Mood/Affect, tray setter II-XII Norm as Tested, Disoriented (subtle) Skin: Normal Color, Warm/Dry Lymphatic: No Adenopathy Results/Procedures Lab Laboratory Tests 12/07/18 11:04 Patient resulted labs reviewed. FIM Transfers Therapy Code Descriptions/Definitions Functional [place] Measure: 0=Not Assessed/NA 4=Minimal Assistance 1=Total Assistance 5=Supervision or Setup 2=Maximal Assistance 6=Modified [place] 3=Moderate Assistance 7=Complete [place] Therapy Quality Codes: 6 Independent with activity with or without an assistive device 5 Patient requires set up or clean up by helper. Patient completes activity by themselves 4 Supervision or touching assist (CGA). [place] provide cues , steadying assist 3 The helper provides less than half the effort to complete the activity 2 The helper provides more than half the effort to complete the activity 1 Dependent. The helper does all the effort to complete an activity 7 Patient refused to complete or attempt activity 9 The patient did not perform the activity before the current illness or injury 88 Not attempted due to Medical conditions or safety concerns Transfers (B, C, W/C) (FIM): 1 Scootin (assist of 2 to scoot in bed) Rollin Roll Left to Right (QC): 3 Supine to/from Sit: 1 (Requires assist with trunk and legs to get into bed; pt able to transisition sup to sit with mod assist. ) Sit to/from Stand: 1 (Total assist to come to astand; requires cues and assist for foot placement as well as use of UE) Sit to Lying (QC): 1 Sit to Stand (QC): 1 Chair/Ply-hh-Uzbyl Xfer(QC): 1 Bed to/from Chair: 1 (Dependent and pt even lifts both feet at times off the floor. ) Car Transfer (QC): 1 Gait Training Does the Patient Walk?: No and Walking Goal IS indicated Gait (FIM): 0 (pt unable to take steps to walk; ) Distance (FIM): 0=does not occure Walk 10 feet (QC): 88 Walk 50 ft with 2 Turns(QC): 88 Walk 150 ft (QC): 88 Walking 10ft/uneven surface-QC: 88 Wheelchair Training Does the Pt Use a Wheelchair?: Yes Wheelchair (FIM): 1 Wheelchair Distance: 3=150 ft Distance: 150 ft Wheelchair Level of Assist: 1 (dependent) Wheel 50 ft with 2 turns (QC): 1 Wheel 150 ft (QC): 1 Type of Wheelchair: Manual Stair Training Stairs (FIM): 0 (pt unable to walk) 1 Step (curb) (QC): 88 4 Steps (QC): 88 12 Steps (QC): 88 Balance Picking up an Object (QC): 88 Mental Status/Objective Comprehension: 3 Expression: 3 Social Interaction: 3 Problem Solvin Memory: 3 ADL-Treatment Feedin Eating (QC): 1 Groomin (brush teeth, wash face, comb hair, wash hands. required hand over hand assist secodanry to decrease coordination ) Oral Hygiene (QC): 1 Bathin (decrease GMC/ FMC. freq. drop wash cloth ) Bathing Location: Chest, Abdomen Shower/Bathe Self (QC): 1 Upper Extremity Dressin (pot puller shirt. decrease GMC/ FMC of Frank UE ) Upper Body Dressing (QC): 1 Lower Extremity Dressin (underpants, pants, frank socksX 2 person assist to stand to pull up pants ) Lower Body Dressing (QC): 1 On/Off Footwear (QC): 1 Toiletin Toileting Hygiene (QC): 1 Toilet/Commode Transfer: 1 Toilet Transfer (QC): 1 Shower: 0 (unsafe at this time. ) Assessment/Plan Assessment and Plan Assess & Plan/Chief Complaint Assessment: Debility s/p encephalopathy much improved Cachexia Anemia Left foot wound Plan: IRF protocol Pain control Home meds (1) Debility Status: Acute (2) Parkinson disease Status: Chronic (3) Other encephalopathy (4) Wound of left foot Status: Acute (5) Witnessed seizure-like activity Status: Acute (6) Osteomyelitis of foot Status: Acute (7) Polymicrobial bacterial infection Status: Acute (8) Rigidity Status: Acute (9) Incontinence of bowel Status: Acute (10) Thrombocytosis Status: Acute (11) Visual hallucinations Status: Acute (12) Incontinence of urine Status: Acute (13) Confusion Status: Acute (14) Anemia of chronic disease Status: Chronic (15) Cachexia Status: Acute SHANNON LIMA DO Dec 07, 2018 11:50
--- NOTE | 2018-12-07 13:19 | Physical Therapy Daily Note ---
PT Daily Note-Current Subjective Pt agreeable to PT session. States she would like ex's that she can be doing on her own and hopes that she will be able to use her hands again and walk again Pain Numeric Pain Scale: 0-No Pain Appearance Pt sitting up in chair upon arrival, just finished eating breakfast. At end of session, pt sitting up in chair, call light, phone and bedside table within reach Mental Status Patient Orientation: Person, Place, Time, Eyes Open, Situation increased time required to answer A&O question Transfers Therapy Code Descriptions/Definitions Functional [place] Measure: 0=Not Assessed/NA 4=Minimal Assistance 1=Total Assistance 5=Supervision or Setup 2=Maximal Assistance 6=Modified [place] 3=Moderate Assistance 7=Complete [place] Therapy Quality Codes: 6 Independent with activity with or without an assistive device 5 Patient requires set up or clean up by helper. Patient completes activity by themselves 4 Supervision or touching assist (CGA). [place] provide cues , steadying assist 3 The helper provides less than half the effort to complete the activity 2 The helper provides more than half the effort to complete the activity 1 Dependent. The helper does all the effort to complete an activity 7 Patient refused to complete or attempt activity 9 The patient did not perform the activity before the current illness or injury 88 Not attempted due to Medical conditions or safety concerns Transfers (B, C, W/C) (FIM): 2 Sit to/from Stand: 2 (2-person A to stand pt up to walker but then pt unable to maintain grasp on walker. 1-person A sit to stand from chair face to face and with gait belt, blocking feet and knees) Weight Bearing Right Lower Extremity: Right Weight Bearing/Tolerated Left Lower Extremity: Left Weight Bearing/Tolerated Exercises Seated Therapy Exercises: Ankle pumps, Sit to stand, Shoulder Flex, Long arc quads, Chair press-ups, Hip flexion, Kicking activity, Hamstring Curls, Reaching activity, Hip abd/add Seated Reps: 20 Standing: Sit to Stand (x2: 7 min each stand), Weight shifts (x20, working on erect posture, knee ext, head up, hips forward) Treatments transfers, safety, posture, strength, balance, functional mobility, activity tolerance Assessment Current Status: Good Progress PT Short Term Goals Short Term Goals Time Frame: Dec 20, 2018 Transfers (B,C,W/C) (FIM): 3 (3) Gait (FIM): 2 Distance (FIM): 4=608-93 ft Gait Assistive Device: FWW Wheelchair (FIM): 4 Wheelchair distance (FIM): 3=150 ft Wheelchair Distance: 150 ft PT Race Starter Goals Skilled Nursing Goals PT Race Starter Goals Time Frame: Jan 03, 2019 Transfers (B,C,W/C) (FIM): 6 Sit to Lying (QC): 6 Lying-Sitting on Side/Bed(QC): 6 Sit to Stand (QC): 6 Rollin Roll Left to Right (QC): 6 Chair/Nye-tv-Gcefh Xfer(QC): 6 Car Transfer (QC): 5 Does the Patient Walk: No and Walking Goal IS indicated Gait (FIM): 6 Gait distance (FIM): 3=150 ft Walk 10 feet (QC): 6 Walk 10ft-Uneven Surface(QC): 6 Walk 50ft with 2 Turns (QC): 6 Walk 150 ft (QC): 6 Gait Assistive Device: FWW Does the Pt use WC or Scooter?: Yes Wheelchair (FIM): 6 Wheelchair distance (FIM): 3=150 ft Wheel 50 feet with 2 turns (QC: 6 Stairs (FIM): 5 # of Steps: 4 1 Step (curb) (QC): 6 4 Steps (QC): 6 12 Steps (QC): 88 Picking up an Object (QC): 5 PT Plan Treatment/Plan Treatment Plan: Continue Plan of Care Treatment Plan: Bed Mobility, Education, Functional Activity Bak[place], Functional Strength, Group Therapy, Gait, Safety, Therapeutic Exercise, Transfers Treatment Duration: Jan 03, 2019 Frequency: At least 5 of 7 days/Wk (IRF) Estimated Hrs Per Day: 1.5 hours per day Patient and/or Family Agrees t: Yes Safety Risks/Education Patient Education: Transfer Techniques, Issued Written HEP, Safety Issues Teaching Recipient: Patient Teaching Methods: Demonstration, Discussion Response to Teaching: Verbalize Understanding, Return Demonstration, Reinforcement Needed Time/GCodes Time In: 940 Time Out: 1004 Total Billed Treatment Time: 24 Total Billed Treatment 1 visit, FA x1 unit, EX x1 unit YENREED SPINNERET CLEANER Dec 07, 2018 13:19
--- NOTE | 2018-12-07 13:59 | NUR ---
Danielle is a 63 yo female currently inpatient on ARU d/t severe debility relating to her Parkinson's diagnosis. Her Sinemet times are 0700, 1100, 1500, 1900. Patient is aware of these times and the importance of taking this medication on time. Danielle is A&O X4 and denies pain. She is currently requiring X2 for assist. Labs drawn today showed a slightly elevated WBC 11.8 but other than that were unremarkable. Danielle spoke to Dr. Edwards today about a possible antidepressant, but at this time it was decided to hold off. Patient and Dr. Edwards will re-evaluate Sunday if continue need. No further issues noted with Danielle, she is progressing well and has feed herself X2 with meals today with adaptive equipment set up. This nurse will continue to monitor patient and needs throughout shift.
[2018-12-07 18:00] VITALS: BP 137/67
[2018-12-07] MEDS: SINEMET CR 50/200 (CARBIDOPA/LEVODOPA SA) TAB PO SCH (20:25)
[2018-12-07] MEDS: GABAPENTIN 100 MG (NEURONTIN) CAP PO SCH (20:25)
[2018-12-07] MEDS: MIRTAZAPINE 15 MG (REMERON) TAB PO SCH (20:25)
[2018-12-07] MEDS: HYDROcodone/APAP 5 MG/325 MG (LORTAB) TAB PO PRN (21:59)
[2018-12-08 05:44] VITALS: BP 126/72
[2018-12-08] MEDS: SINEMET 25/100 (CARBIDOPA/LEVODOPA) TAB PO SCH ×4 (06:13→18:37)
[2018-12-08] MEDS: ETODOLAC 200 MG (LODINE) CAP PO SCH ×2 (06:13→16:43)
[2018-12-08] MEDS: LACTOBACILLUS ACIDOPHILUS (PROBIOTIC) CAPSULE PO SCH ×2 (06:13→16:43)
[2018-12-08] MEDS: meTOprolol TARTRATE 25 MG (LOPRESSOR) TABLET PO SCH ×2 (08:03→20:43)
[2018-12-08] MEDS: LEVETIRACETAM 500 MG (KEPPRA) TAB PO SCH ×2 (08:03→20:43)
[2018-12-08] MEDS: lisINopril 10 MG (PRINIVIL) TABLET PO SCH (08:03)
[2018-12-08] MEDS: ENOXAPARIN 40 MG/0.4 ML (LOVENOX) SYR SC SCH (08:04)
--- NOTE | 2018-12-08 11:04 | PM&R Progress Note ---
Subjective HPI/CC On Admission Date Seen by Provider: Dec 08, 2018 Time Seen by Provider: 10:45 Chief complaint: Debility History of present illness: This is a 63-year-old white female known to me from a severe sepsis episode when she had arrived to go to inpatient rehab when she was transferred from last month after severe encephalopathy and parkinsonism rigidity with left foot wound status post bunionectomy with severe complications so she eventually stabilized went to inpatient rehab after insurance approval and spent 2 weeks there but continued to have difficulty with the pace of therapy so [place] [facility] [place] in [place] but she is returned in need of full therapy services since she is not on weight restricted on the left foot now and she can weight-bear as tolerated and currently is much improved. Son is at the bedside and told me that she needs intensive therapy since she fully intends to return to work and then return to independent living along with family monitoring. Subjective/Events-last exam Patient doing very well and improving every day Is interested in anti-depressant so will await till Sunday to start that when she is settling in since any meds could cause issues with her PD BM+ Very weak since she is now WBAT and was non-weight bearing, very dependent Motivated to get better BP OK No major issues noted Reviewed labs. Conferred with RN Reviewed therapy notes Review of Systems General: Fatigue Neurological: Weakness, Incoordination Objective Exam Vital Signs Vital Signs Date Time Temp Pulse Resp B/P (MAP) Pulse Ox O2 Delivery O2 Flow Rate FiO2 12/08/18 15:53 98.2 81 16 117/61 (79) 99 Room Air Capillary Refill : Less Than 3 Seconds General Appearance: No Apparent Distress, WD/WN, Chronically ill, Thin HEENT: PERRL/EOMI, Normal ENT Inspection, Pharynx Normal, Moist Mucous Membranes Neck: Full Range of Motion, Normal Inspection, Non Tender, Supple Respiratory: Chest Non Tender, Lungs Clear, Normal Breath Sounds, No Accessory Muscle Use, No Respiratory Distress Cardiovascular: Regular Rate, Rhythm, No Edema, No Gallop, No JVD, No Murmur Gastrointestinal: Normal Bowel Sounds, No Organomegaly, No Pulsatile Mass, Non Tender, Soft Back: Normal Inspection, No CVA Tenderness, No Vertebral Tenderness Extremity: Normal Capillary Refill, Normal Inspection, Normal Range of Motion, Non Tender, No Calf Tenderness, No Pedal Edema Neurologic/Psychiatric: Alert, Oriented x3, No Motor/Sensory Deficits, Normal Mood/Affect, systems navigator II-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 FIM Transfers Therapy Code Descriptions/Definitions Functional [place] Measure: 0=Not Assessed/NA 4=Minimal Assistance 1=Total Assistance 5=Supervision or Setup 2=Maximal Assistance 6=Modified [place] 3=Moderate Assistance 7=Complete [place] Therapy Quality Codes: 6 Independent with activity with or without an assistive device 5 Patient requires set up or clean up by helper. Patient completes activity by themselves 4 Supervision or touching assist (CGA). [place] provide cues , steadying assist 3 The helper provides less than half the effort to complete the activity 2 The helper provides more than half the effort to complete the activity 1 Dependent. The helper does all the effort to complete an activity 7 Patient refused to complete or attempt activity 9 The patient did not perform the activity before the current illness or injury 88 Not attempted due to Medical conditions or safety concerns Transfers (B, C, W/C) (FIM): 1 Scootin (assist of 2 to scoot in bed) Rollin Roll Left to Right (QC): 3 Supine to/from Sit: 1 Sit to/from Stand: 1 Sit to Lying (QC): 1 Sit to Stand (QC): 1 Chair/Cdc-sk-Jykum Xfer(QC): 1 Bed to/from Chair: 1 Car Transfer (QC): 1 Gait Training Does the Patient Walk?: No and Walking Goal IS indicated Gait (FIM): 0 (pt unable to take steps to walk; ) Distance (FIM): 0=does not occure Walk 10 feet (QC): 88 Walk 50 ft with 2 Turns(QC): 88 Walk 150 ft (QC): 88 Walking 10ft/uneven surface-QC: 88 Wheelchair Training Does the Pt Use a Wheelchair?: Yes Wheelchair (FIM): 1 Wheelchair Distance: 3=150 ft Distance: 150 ft Wheelchair Level of Assist: 1 (dependent) Wheel 50 ft with 2 turns (QC): 1 Wheel 150 ft (QC): 1 Type of Wheelchair: Manual Stair Training Stairs (FIM): 0 (pt unable to walk) 1 Step (curb) (QC): 88 4 Steps (QC): 88 12 Steps (QC): 88 Balance Picking up an Object (QC): 88 Mental Status/Objective Comprehension: 3 Expression: 3 Social Interaction: 3 Problem Solvin Memory: 3 ADL-Treatment Feedin Eating (QC): 1 Groomin Oral Hygiene (QC): 1 Bathin Bathing Location: Chest, Abdomen Shower/Bathe Self (QC): 1 Upper Extremity Dressin Upper Body Dressing (QC): 1 Lower Extremity Dressin Lower Body Dressing (QC): 1 On/Off Footwear (QC): 1 Toiletin Toileting Hygiene (QC): 1 Toilet/Commode Transfer: 1 Toilet Transfer (QC): 1 Shower: 0 (unsafe at this time. ) Assessment/Plan Assessment and Plan Assess & Plan/Chief Complaint Assessment: Debility s/p encephalopathy much improved Cachexia Anemia Left foot wound Plan: IRF protocol Pain control Home meds Check labs in am per [facility] (1) Other encephalopathy (2) Leukocytosis Status: Acute (3) Cachexia Status: Acute (4) Anemia of chronic disease Status: Chronic (5) Confusion Status: Acute (6) Parkinson disease Status: Chronic (7) Incontinence of urine Status: Acute (8) Visual hallucinations Status: Acute (9) Debility Status: Acute (10) Thrombocytosis Status: Acute (11) Incontinence of bowel Status: Acute (12) Rigidity Status: Acute (13) Polymicrobial bacterial infection Status: Acute (14) Osteomyelitis of foot Status: Acute (15) Witnessed seizure-like activity Status: Acute (16) Wound of left foot Status: Acute (17) Anemia Status: Chronic SHANNON LIMA DO Dec 08, 2018 11:04
[2018-12-08 15:53] VITALS: BP 117/61
[2018-12-08] MEDS: SINEMET CR 50/200 (CARBIDOPA/LEVODOPA SA) TAB PO SCH (20:43)
[2018-12-08] MEDS: GABAPENTIN 100 MG (NEURONTIN) CAP PO SCH (20:43)
[2018-12-08] MEDS: MIRTAZAPINE 15 MG (REMERON) TAB PO SCH (20:43)
[2018-12-08] MEDS: HYDROcodone/APAP 5 MG/325 MG (LORTAB) TAB PO PRN (21:27)
[2018-12-09 05:09] VITALS: BP 116/65
[2018-12-09 05:32] LABS: BASOPHILS % (AUTO) 0 % (0-10); EOSINOPHILS # (AUTO) 0.3 10^3/uL (0.0-0.3); EOSINOPHILS % (AUTO) 5 % (0-10); HEMATOCRIT 31 % (35-52); HEMOGLOBIN 9.5 G/DL (11.5-16.0); LYMPHOCYTES # (AUTO) 1.7 X 10^3 (1.0-4.0); LYMPHOCYTES % (AUTO) 23 % (12-44); MEAN CORPUSCULAR HEMOGLOBIN 27 PG (25-34); MEAN CORPUSCULAR HGB CONC 31 G/DL (32-36); MEAN CORPUSCULAR VOLUME 89 FL (80-99); MEAN PLATELET VOLUME 10.1 FL (7.4-10.4); MONOCYTES # (AUTO) 0.5 X 10^3 (0.0-1.0); MONOCYTES % (AUTO) 8 % (0-12); NEUTROPHILS # (AUTO) 4.6 X 10^3 (1.8-7.8); NEUTROPHILS % (AUTO) 64 % (42-75); PLATELET COUNT 327 10^3/uL (130-400); RED CELL DISTRIBUTION WIDTH 18.4 % (10.0-14.5); WHITE BLOOD COUNT 7.2 10^3/uL (4.3-11.0)
[2018-12-09 05:53] LABS: ALANINE AMINOTRANSFERASE < 6 U/L (0-55); ALBUMIN 2.9 GM/DL (3.2-4.5); ALKALINE PHOSPHATASE 118 U/L (40-136); BILIRUBIN,TOTAL 0.2 MG/DL (0.1-1.0); BUN/CREATININE RATIO 37; CALCIUM 8.7 MG/DL (8.5-10.1); CARBON DIOXIDE 22 MMOL/L (21-32); CHLORIDE 110 MMOL/L (98-107); CREATININE SERUM 0.63 MG/DL (0.60-1.30); GFR ESTIMATED > 60; GLUCOSE 90 MG/DL (70-105); POTASSIUM 4.3 MMOL/L (3.6-5.0); SODIUM 141 MMOL/L (135-145); TOTAL PROTEIN 5.6 GM/DL (6.4-8.2)
[2018-12-09] MEDS: SINEMET 25/100 (CARBIDOPA/LEVODOPA) TAB PO SCH ×4 (06:10→18:28)
[2018-12-09] MEDS: ETODOLAC 200 MG (LODINE) CAP PO SCH ×2 (06:10→18:28)
[2018-12-09] MEDS: LACTOBACILLUS ACIDOPHILUS (PROBIOTIC) CAPSULE PO SCH ×2 (06:10→18:27)
[2018-12-09 06:12] LABS: ERYTHROCYTE SEDIMENTATION RATE 39 MM/HR (0-30)
[2018-12-09] MEDS: LEVETIRACETAM 500 MG (KEPPRA) TAB PO SCH ×2 (08:48→20:10)
[2018-12-09] MEDS: meTOprolol TARTRATE 25 MG (LOPRESSOR) TABLET PO SCH ×2 (08:48→20:09)
[2018-12-09] MEDS: lisINopril 10 MG (PRINIVIL) TABLET PO SCH (08:49)
[2018-12-09] MEDS: ENOXAPARIN 40 MG/0.4 ML (LOVENOX) SYR SC SCH (08:49)
--- NOTE | 2018-12-09 08:52 | PM&R Progress Note ---
Subjective HPI/CC On Admission Date Seen by Provider: Dec 09, 2018 Time Seen by Provider: 08:45 Chief complaint: Debility History of present illness: This is a 63-year-old white female known to me from a severe sepsis episode when she had arrived to go to inpatient rehab when she was transferred from last month after severe encephalopathy and parkinsonism rigidity with left foot wound status post bunionectomy with severe complications so she eventually stabilized went to inpatient rehab after insurance approval and spent 2 weeks there but continued to have difficulty with the pace of therapy so she was moved to the retirement closer to home in [place] but she is returned in need of full therapy services since she is not on weight restricted on the left foot now and she can weight-bear as tolerated and currently is much improved. Son is at the bedside and told me that she needs intensive therapy since she fully intends to return to work and then return to independent living along with family monitoring. Subjective/Events-last exam She wants her meds on schedule Wonders if her hands that are drawing up is from the Sinemet and she agrees that we should not change the dosing on that Walked a few steps today with a lot of help from PT but she really feels good about that Participating in all therapy and improving quite a bit Bowels are moving well Remains dependent but has potential to return back to independent living Celexa started for her mood No major issues noted Reviewed labs. Conferred with RN Reviewed therapy notes Review of Systems General: Fatigue Neurological: Weakness, Numbness, Incoordination Objective Exam Vital Signs Vital Signs Date Time Temp Pulse Resp B/P (MAP) Pulse Ox O2 Delivery O2 Flow Rate FiO2 12/09/18 18:15 99.2 81 16 96/57 (70) 97 Room Air Capillary Refill : Less Than 3 Seconds General Appearance: No Apparent Distress, WD/WN, Chronically ill, Thin HEENT: PERRL/EOMI, Normal ENT Inspection, Pharynx Normal, Moist Mucous Membranes Neck: Full Range of Motion, Normal Inspection, Non Tender, Supple Respiratory: Chest Non Tender, Lungs Clear, Normal Breath Sounds, No Accessory Muscle Use, No Respiratory Distress Cardiovascular: Regular Rate, Rhythm, No Edema, No Gallop, No JVD, No Murmur Gastrointestinal: Normal Bowel Sounds, No Organomegaly, No Pulsatile Mass, Non Tender, Soft Back: Normal Inspection, No CVA Tenderness, No Vertebral Tenderness Extremity: Normal Capillary Refill, Normal Inspection, Normal Range of Motion, Non Tender, No Calf Tenderness, No Pedal Edema Neurologic/Psychiatric: Alert, Oriented x3, No Motor/Sensory Deficits, Normal Mood/Affect, undercollar maker II-XII Norm as Tested, Disoriented (subtle) Skin: Normal Color, Warm/Dry Lymphatic: No Adenopathy Results/Procedures Lab Laboratory Tests 12/09/18 05:11 Patient resulted labs reviewed. FIM Transfers Therapy Code Descriptions/Definitions Functional [place] Measure: 0=Not Assessed/NA 4=Minimal Assistance 1=Total Assistance 5=Supervision or Setup 2=Maximal Assistance 6=Modified [place] 3=Moderate Assistance 7=Complete [place] Therapy Quality Codes: 6 Independent with activity with or without an assistive device 5 Patient requires set up or clean up by helper. Patient completes activity by themselves 4 Supervision or touching assist (CGA). [place] provide cues , steadying assist 3 The helper provides less than half the effort to complete the activity 2 The helper provides more than half the effort to complete the activity 1 Dependent. The helper does all the effort to complete an activity 7 Patient refused to complete or attempt activity 9 The patient did not perform the activity before the current illness or injury 88 Not attempted due to Medical conditions or safety concerns Transfers (B, C, W/C) (FIM): 1 Scootin (assist of 2 to scoot in bed) Rollin Roll Left to Right (QC): 3 Supine to/from Sit: 1 Sit to/from Stand: 1 Sit to Lying (QC): 1 Sit to Stand (QC): 1 Chair/Ulv-og-Ckwzh Xfer(QC): 1 Bed to/from Chair: 1 Car Transfer (QC): 1 Gait Training Does the Patient Walk?: No and Walking Goal IS indicated Gait (FIM): 0 (pt unable to take steps to walk; ) Distance (FIM): 0=does not occure Walk 10 feet (QC): 88 Walk 50 ft with 2 Turns(QC): 88 Walk 150 ft (QC): 88 Walking 10ft/uneven surface-QC: 88 Wheelchair Training Does the Pt Use a Wheelchair?: Yes Wheelchair (FIM): 1 Wheelchair Distance: 3=150 ft Distance: 150 ft Wheelchair Level of Assist: 1 (dependent) Wheel 50 ft with 2 turns (QC): 1 Wheel 150 ft (QC): 1 Type of Wheelchair: Manual Stair Training Stairs (FIM): 0 (pt unable to walk) 1 Step (curb) (QC): 88 4 Steps (QC): 88 12 Steps (QC): 88 Balance Picking up an Object (QC): 88 Mental Status/Objective Comprehension: 3 Expression: 3 Social Interaction: 3 Problem Solvin Memory: 3 ADL-Treatment Feedin Eating (QC): 1 Groomin Oral Hygiene (QC): 1 Bathin Bathing Location: Chest, Abdomen Shower/Bathe Self (QC): 1 Upper Extremity Dressin Upper Body Dressing (QC): 1 Lower Extremity Dressin Lower Body Dressing (QC): 1 On/Off Footwear (QC): 1 Toiletin Toileting Hygiene (QC): 1 Toilet/Commode Transfer: 1 Toilet Transfer (QC): 1 Shower: 0 (unsafe at this time. ) Assessment/Plan Assessment and Plan Assess & Plan/Chief Complaint Assessment: Debility s/p encephalopathy much improved Cachexia Anemia Left foot wound Plan: IRF protocol Pain control Home meds Check labs in am per [facility] (1) Other encephalopathy (2) Leukocytosis Status: Acute (3) Cachexia Status: Acute (4) Anemia of chronic disease Status: Chronic (5) Confusion Status: Acute (6) Parkinson disease Status: Chronic (7) Incontinence of urine Status: Acute (8) Visual hallucinations Status: Acute (9) Debility Status: Acute (10) Thrombocytosis Status: Acute (11) Incontinence of bowel Status: Acute (12) Rigidity Status: Acute (13) Polymicrobial bacterial infection Status: Acute (14) Osteomyelitis of foot Status: Acute (15) Witnessed seizure-like activity Status: Acute (16) Wound of left foot Status: Acute (17) Anemia Status: Chronic SHANNON LIMA DO Dec 09, 2018 08:52
--- NOTE | 2018-12-09 08:58 | Physical Therapy Daily Note ---
PT Daily Note-Current Subjective Patient in therapy gym pre tx, agrees to PT, has no complaints of pain at rest, will be co-treating with OT due to poor patient mobility, strength, endurance, balance, the need to coordinate UE and LE positioning during activity. Appearance Patient in wheelchair in common area post tx per patient request. Mental Status Patient Orientation: Person, Place, Situation Transfers Therapy Code Descriptions/Definitions Functional [place] Measure: 0=Not Assessed/NA 4=Minimal Assistance 1=Total Assistance 5=Supervision or Setup 2=Maximal Assistance 6=Modified [place] 3=Moderate Assistance 7=Complete [place] Therapy Quality Codes: 6 Independent with activity with or without an assistive device 5 Patient requires set up or clean up by helper. Patient completes activity by themselves 4 Supervision or touching assist (CGA). [place] provide cues , steadying assist 3 The helper provides less than half the effort to complete the activity 2 The helper provides more than half the effort to complete the activity 1 Dependent. The helper does all the effort to complete an activity 7 Patient refused to complete or attempt activity 9 The patient did not perform the activity before the current illness or injury 88 Not attempted due to Medical conditions or safety concerns Transfers (B, C, W/C) (FIM): 2 Sit to/from Stand: 2 Bed to/from Chair: 2 Patient stood in the parallel bars twice for about 3 min each time, needs cues for trunk positioning, blocked knees, is somewhat retropulsive. OT assists with UE positioning. Weight Bearing Right Lower Extremity: Right Weight Bearing/Tolerated Left Lower Extremity: Left Weight Bearing/Tolerated Wheelchair Training Does the Pt Use a Wheelchair?: Yes Wheelchair (FIM): 1 Distance: 50' Wheelchair Level of Assist: 2 Type of Wheelchair: Manual Exercises NuStep Minutes: 15 NuStep Workload: 4 (No UE, used leg guides on both sides.) Treatments WC mobility, transfers, LE exercise Assessment Current Status: Poor Progress legs buckle when sitting PT Short Term Goals Short Term Goals Time Frame: Dec 20, 2018 Transfers (B,C,W/C) (FIM): 3 (3) Gait (FIM): 2 Distance (FIM): 5=014-13 ft Gait Assistive Device: FWW Wheelchair (FIM): 4 Wheelchair distance (FIM): 3=150 ft Wheelchair Distance: 150 ft PT Mcfp Goals Mcfp Goals PT Mcfp Goals Time Frame: Jan 03, 2019 Transfers (B,C,W/C) (FIM): 6 Sit to Lying (QC): 6 Lying-Sitting on Side/Bed(QC): 6 Sit to Stand (QC): 6 Rollin Roll Left to Right (QC): 6 Chair/Xxp-ff-Lpfki Xfer(QC): 6 Car Transfer (QC): 5 Does the Patient Walk: No and Walking Goal IS indicated Gait (FIM): 6 Gait distance (FIM): 3=150 ft Walk 10 feet (QC): 6 Walk 10ft-Uneven Surface(QC): 6 Walk 50ft with 2 Turns (QC): 6 Walk 150 ft (QC): 6 Gait Assistive Device: FWW Does the Pt use WC or Scooter?: Yes Wheelchair (FIM): 6 Wheelchair distance (FIM): 3=150 ft Wheel 50 feet with 2 turns (QC: 6 Stairs (FIM): 5 # of Steps: 4 1 Step (curb) (QC): 6 4 Steps (QC): 6 12 Steps (QC): 88 Picking up an Object (QC): 5 PT Plan Problem List Problem List: Activity Tolerance, Functional Strength, Safety, Balance, Gait, Transfer, Bed Mobility, ROM Treatment/Plan Treatment Plan: Continue Plan of Care Treatment Plan: Bed Mobility, Education, Functional Activity Bakari, Functional Strength, Group Therapy, Gait, Safety, Therapeutic Exercise, Transfers Treatment Duration: Jan 03, 2019 Frequency: At least 5 of 7 days/Wk (IRF) Estimated Hrs Per Day: 1.5 hours per day Patient and/or Family Agrees t: Yes Safety Risks/Education Patient Education: Transfer Techniques, Correct Positioning, Safety Issues Teaching Recipient: Patient Teaching Methods: Demonstration, Discussion Response to Teaching: Reinforcement Needed Time/GCodes Time In: 0845 Time Out: 0900 Total Billed Treatment Time: 45 Total Billed Treatment 1 visit EX 15' WCH 15' FA 15' co-treated with OT for 15 min TIGIST PAIGE PT Dec 09, 2018 08:58
--- NOTE | 2018-12-09 09:43 | Occupational Ther Daily Note ---
OT Current Status-Daily Note Subjective Pt alert, lying in bed. Pt agrees to therapy. No c/o pain. Pt does wonder where nrsg is with her medications, checked with nrsg and nrsg had given 1/2 hour earlier. Mental Status/Objective Patient Orientation: Person, Place, Time, Situation Therapy Code Descriptions/Definitions Functional [place] Measure: 0=Not Assessed/NA 4=Minimal Assistance 1=Total Assistance 5=Supervision or Setup 2=Maximal Assistance 6=Modified [place] 3=Moderate Assistance 7=Complete [place] ADL-Treatment Mod A for supine to sitting EOB. Max A for sit to stand and pivot transfer. Verbal cues required to have pt lean forward and bear wt on LE's then to keep feet on the ground and bear wt during SPT. Pt transferred [facility] with max A. Assist x2 for toileting, assist to stand and assist to cleanse and manipulate clothing. Max A x2 to don/doff lower body clothing, assist to stand and assist to hike pants over hips. Pt requires modifications to all equipment and objects used for hands due to decreased B nutrition associate. Pt is able to control UE's to get items to designated areas after modifications though unable to sustain UE position. Pt able to complete oral care and wash face after set up and modifications to utensils. Pt was able to feed self with supervision after set up, assist needed to maneuver containers. Therapy Code Descriptions/Definitions Functional [place] Measure: 0=Not Assessed/NA 4=Minimal Assistance 1=Total Assistance 5=Supervision or Setup 2=Maximal Assistance 6=Modified [place] 3=Moderate Assistance 7=Complete [place] Therapy Quality Codes: 6 Independent with activity with or without an assistive device 5 Patient requires set up or clean up by helper. Patient completes activity by themselves 4 Supervision or touching assist (CGA). [place] provide cues , steadying assist 3 The helper provides less than half the effort to complete the activity 2 The helper provides more than half the effort to complete the activity 1 Dependent. The helper does all the effort to complete an activity 7 Patient refused to complete or attempt activity 9 The patient did not perform the activity before the current illness or injury 88 Not attempted due to Medical conditions or safety concerns Other Treatment PT/OT co-treat, skills of 2 clinicians required for standing, positioning UE/LE's during standing. PT working on standing and LE strengthening. OT working on UE placement during standing, UE wt bearing. During individual therapy, pt completed arm pulleys for B UE AROM and working on sustaining gross grasp during dynamic activity. Working on holding ball through full active ROM in all ranges. After therapy, pt left in care of PT at [facility] therapy gym. All needs met. OT Short Term Goals Short Term Goals Time Frame: Dec 20, 2018 Eating(FIM): 3 Grooming(FIM): 3 Bathing(FIM): 3 Upper Body Dressing(FIM): 3 Lower Body Dressing(FIM): 2 Toileting(FIM): 2 Transfers (B,C,W/C) (FIM): 3 (3) Toilet/Commode Transfer(FIM): 3 Shower Transfer(FIM): 3 1=Demonstrate adherence to instructed precautions during ADL tasks. 2=Patient will verbalize/demonstrate understanding of assistive devices/modifications for ADL. 3=Patient will improve strength/tolerance for activity to enable patient to perform ADL's. OT Fdc Goals Concrete Curer Goals Time Frame: Jan 03, 2019 Eating (FIM): 5 Eating (QC): 5 Groomin Oral Hygiene (QC): 4 Bathing(FIM): 5 Bathing Location: L Arm, R Arm, L Upper Leg, R Upper Leg, L Lower Leg (including foot), R Lower Leg (including foot), Chest, Abdomen, Buttocks, Perineal Area Shower/Bathe Self (QC): 4 Upper Body Dressing(FIM): 5 Upper Body Dressing (QC): 4 Lower Body Dressing(FIM): 5 Lower Body Dressing (QC): 4 On/Off Footwear (QC): 4 Toileting(FIM): 5 Toileting Hygiene (QC): 4 Transfers (B,C,W/C) (FIM): 5 Toilet/Commode Transfer(FIM): 5 Toilet/Commode Transfer (QC): 4 Shower Transfer(FIM): 4 Additional Goals: 1-Demonstrate ADL Tasks, 2-Verbalize Understanding, 3- ImproveStrength/Bakari 1=Demonstrate adherence to instructed precautions during ADL tasks. 2=Patient will verbalize/demonstrate understanding of assistive devices/modifications for ADL. 3=Patient will improve strength/tolerance for activity to enable patient to perform ADL's. OT Education/Plan Problem List/Assessment Assessment: Decreased Activ Tolerance, Decreased Safety Aware, Decreased UE Strength, Dependent Transfers, Impaired Bed Mobility, Impaired Cognition, Impaired Coordination, Impaired Funct Balance, Impaired I ADL's, Impaired Self- Care Skills, Restricted Funct UE ROM pt presents with functional limitations affecting areas of ADLS and functional transfers with deficits in the above mention including decrease proprioception, decrease light touch, and decrease overall safety with functional tasks. pt is motivated to participate in therapy. pt would benefit from skilled OT services to increase independence with ADLS and functional transfers. Discharge Recommendations Plan/Recommendations: Continue POC Treatment Plan/Plan of Care Patient would benefit from OT for education, treatment and training to promote independence in ADL's, mobility, safety and/or upper extremity function for ADL's. Plan of Care: ADL Retraining, Caregiver Training, Cognitive Retraining, Functional Mobility, Group Exercise/Act as Ind, UE Funct Exercise/Act, UE Neuromus Re-Ed/Coord, W/C Management Training Treatment Duration: Jan 03, 2019 Frequency: At least 5 of 7 days/Wk (IRF) Estimated Hrs Per Day: 1 hour per day (60-90 minutes per day ) Agreement: Yes Rehab Potential: Guarded Time/GCodes Start Time: 07:00 Stop Time: 08:30 Total Time Billed (hr/min): 90 Billed Treatment Time 1 visit-ADL 4 (60 min) NM 2 (30 min) co-treat with PT 15 min of session ([id number]) MARCY BOUDREAUX Dec 09, 2018 09:43
--- NOTE | 2018-12-09 10:15 | NUR ---
Pastoral care visit.
--- NOTE | 2018-12-09 11:17 | Progress Note - Hospitalist ---
[facility] 12/09/18 1117: Progress Note Ms. Aguilar has been progressing with therapy - her hand usage has already improved and she was able to walk with max A This has helped with her symptoms of low mood Also, begin Celexa and consult with for ongoing therapy She has having some hand cramping 2/2 Sinemet vs hand therapy ROXANNE EDWARDS DO 12/09/182055: Supervisory-Addendum Brief Verification & Attestation Participated in pt care: history, MDM, physical Personally performed: exam, history, MDM, supervision of care Care discussed with: Medical Student Procedures: n/a Results interpretation: Verified all documentation Verification and Attestation of Medical Student E/M Service A medical student performed and documented this service in my presence. I reviewed and verified all information documented by the medical student and made modifications to such information, when appropriate. I personally performed the physical exam and medical decision making. Roxanne Edwards Dec 09, 2018,20:56 [facility] Dec 09, 2018 11:17 ROXANNE EDWARDS DO Dec 09, 2018 20:56
--- NOTE | 2018-12-09 11:50 | Physical Therapy Daily Note ---
PT Daily Note-Current Subjective Patient in recliner pre tx, agrees to PT, has no complaints of pain. Appearance Patient in recliner post tx with nurse call, phone, tray, all needs met. Mental Status Patient Orientation: Person, Place, Situation Transfers Therapy Code Descriptions/Definitions Functional [place] Measure: 0=Not Assessed/NA 4=Minimal Assistance 1=Total Assistance 5=Supervision or Setup 2=Maximal Assistance 6=Modified [place] 3=Moderate Assistance 7=Complete [place] Therapy Quality Codes: 6 Independent with activity with or without an assistive device 5 Patient requires set up or clean up by helper. Patient completes activity by themselves 4 Supervision or touching assist (CGA). [place] provide cues , steadying assist 3 The helper provides less than half the effort to complete the activity 2 The helper provides more than half the effort to complete the activity 1 Dependent. The helper does all the effort to complete an activity 7 Patient refused to complete or attempt activity 9 The patient did not perform the activity before the current illness or injury 88 Not attempted due to Medical conditions or safety concerns Transfers (B, C, W/C) (FIM): 2 Bed to/from Chair: 2 Weight Bearing Right Lower Extremity: Right Weight Bearing/Tolerated Left Lower Extremity: Left Weight Bearing/Tolerated Wheelchair Training Does the Pt Use a Wheelchair?: Yes Wheelchair (FIM): 2 Distance: 50' Wheelchair Level of Assist: 2 Type of Wheelchair: Manual Patient has much difficulty coordinating feet to pull WC forward Exercises Supine Ex: Ankle pumps, Quad Set, Glut sets, Heel Slides, Straight leg raise, Hip abd/add Supine Reps: 20 LAQ alternating for 5 min Treatments LE exercise, WC mobility, transfers Assessment Current Status: Poor Progress no change in mobility PT Short Term Goals Short Term Goals Time Frame: Dec 20, 2018 Transfers (B,C,W/C) (FIM): 3 (3) Gait (FIM): 2 Distance (FIM): 3=578-07 ft Gait Assistive Device: FWW Wheelchair (FIM): 4 Wheelchair distance (FIM): 3=150 ft Wheelchair Distance: 50' PT Air Tester Goals Longterm Goals PT Air Tester Goals Time Frame: Jan 03, 2019 Transfers (B,C,W/C) (FIM): 6 Sit to Lying (QC): 6 Lying-Sitting on Side/Bed(QC): 6 Sit to Stand (QC): 6 Rollin Roll Left to Right (QC): 6 Chair/Euk-db-Nzpdb Xfer(QC): 6 Car Transfer (QC): 5 Does the Patient Walk: No and Walking Goal IS indicated Gait (FIM): 6 Gait distance (FIM): 3=150 ft Walk 10 feet (QC): 6 Walk 10ft-Uneven Surface(QC): 6 Walk 50ft with 2 Turns (QC): 6 Walk 150 ft (QC): 6 Gait Assistive Device: FWW Does the Pt use WC or Scooter?: Yes Wheelchair (FIM): 6 Wheelchair distance (FIM): 3=150 ft Wheel 50 feet with 2 turns (QC: 6 Stairs (FIM): 5 # of Steps: 4 1 Step (curb) (QC): 6 4 Steps (QC): 6 12 Steps (QC): 88 Picking up an Object (QC): 5 PT Plan Problem List Problem List: Activity Tolerance, Functional Strength, Safety, Balance, Gait, Transfer, Bed Mobility, ROM Treatment/Plan Treatment Plan: Continue Plan of Care Treatment Plan: Bed Mobility, Education, Functional Activity Bakari, Functional Strength, Group Therapy, Gait, Safety, Therapeutic Exercise, Transfers Treatment Duration: Jan 03, 2019 Frequency: At least 5 of 7 days/Wk (IRF) Estimated Hrs Per Day: 1.5 hours per day Patient and/or Family Agrees t: Yes Safety Risks/Education Patient Education: Transfer Techniques, Correct Positioning, W/C Management, Safety Issues Teaching Recipient: Patient Teaching Methods: Demonstration, Discussion Response to Teaching: Reinforcement Needed Time/GCodes Time In: 1120 Time Out: 1150 Total Billed Treatment Time: 30 Total Billed Treatment 1 visit [facility] 10' EX 20' TIGIST PAIGE PT Dec 09, 2018 11:50
--- NOTE | 2018-12-09 12:36 | NUR ---
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 At that time, patient completed a very short stay on ARU, as patient and family requested that she be placed in a SNF closer to home. Patient then discharged to [facility] in [place]. Patient had only 20 full covered SNF days and completed those 20 days at the facility. Patient was then referred back to ARU for aggressive therapies. 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 Patient now is requiring Max A with all activity. Patient currently has active BCBS through her employer with required updates due on 12/13. Patient also has MCR A only as a secondary coverage. Primary contact identified as son, still at [phone] and secondary contact listed as patients mother, and [phone]. Due to previous admission, patient is aware of a RU typical length of stay and weekly team conferences. AUTOMATIC BEAM WARPER TENDER will continue to follow for additional needs.
--- NOTE | 2018-12-09 14:41 | Speech Therapy Daily Note ---
Speech Daily Progress Note Subjective Date Seen by Provider: Dec 09, 2018 Time Seen by Provider: 00:15 The patient was sitting up in her chair eating a chocolate chip cookie and watching television. Objective The patient completed problem solving tasks given pictured scenarios with 85% accuracy given minimal verbal cues. Assessment Assessment Current Status: Good Progress Treatment Plan Continue Plan of Care Communication Comprehension: 3 Expression: 3 Social Cognition Social Interaction: 3 Problem Solvin Memory: 3 Speech Short Term Goals Short Term Goals Short Term Goals 1) The patient will complete memory tasks related to his daily needs at 90% or greater with minimal cues. 2) The patient will complete problem solving tasks related to his daily needs at 90% or greater with minimal cues. 3) The patient will complete safety awareness tasks related to his daily needs at 90% or greater with minimal cues. Speech Agricultural Plow Operator Goals Long-Term Goals The patient will improve her cognitive functional level for safety and independence. Speech-Plan Patient/Family Goals Patient/Family Goals: The patient plans on returning home when she gets able to. Treatment Plan Speech Therapy Treatment Plan: Continue Plan of Care The patient's speech is rapid and low pitch which requires verbal cues to slow down and speak louder. Treatment Duration: Dec 13, 2018 Frequency: 5 times per week Estimated Hrs Per Day: .5 hour per day Rehab Potential: Guarded Barriers to Learning: Patient has decreased cognitive function. Pt/Family Agrees to Plan: Yes Safety Risks/Education Teaching Recipient: Patient Teaching Methods: Demonstration, Discussion Response to Teaching: Verbalize Understanding, Return Demonstration Education Topics Provided: Safety in her room Time Speech Therapy Time In: 14:15 Speech Therapy Time Out: 14:30 Total Billed Time: 15 Billed Treatment Time 1AURELIO [address] ST Dec 09, 2018 14:41
[2018-12-09 18:15] VITALS: BP 96/57
[2018-12-09] MEDS: SINEMET CR 50/200 (CARBIDOPA/LEVODOPA SA) TAB PO SCH (20:09)
[2018-12-09] MEDS: MIRTAZAPINE 15 MG (REMERON) TAB PO SCH (20:09)
[2018-12-09] MEDS: GABAPENTIN 100 MG (NEURONTIN) CAP PO SCH (20:09)
[2018-12-09] MEDS: HYDROcodone/APAP 5 MG/325 MG (LORTAB) TAB PO PRN (20:10)
[2018-12-10 05:43] VITALS: BP 159/83
[2018-12-10] MEDS: ETODOLAC 200 MG (LODINE) CAP PO SCH ×2 (06:03→17:04)
[2018-12-10] MEDS: LACTOBACILLUS ACIDOPHILUS (PROBIOTIC) CAPSULE PO SCH ×2 (06:03→17:04)
[2018-12-10] MEDS: SINEMET 25/100 (CARBIDOPA/LEVODOPA) TAB PO SCH ×4 (06:03→18:54)
--- NOTE | 2018-12-10 09:10 | PM&R Progress Note ---
Subjective HPI/CC On Admission Date Seen by Provider: Dec 10, 2018 Time Seen by Provider: 09:00 Chief complaint: Debility History of present illness: This is a 63-year-old white female known to me from a severe sepsis episode when she had arrived to go to inpatient rehab when she was transferred from last month after severe encephalopathy and parkinsonism rigidity with left foot wound status post bunionectomy with severe complications so she eventually stabilized went to inpatient rehab after insurance approval and spent 2 weeks there but continued to have difficulty with the pace of therapy so she was moved to the usp closer to home in [place] but she is returned in need of full therapy services since she is not on weight restricted on the left foot now and she can weight-bear as tolerated and currently is much improved. Son is at the bedside and told me that she needs intensive therapy since she fully intends to return to work and then return to independent living along with family monitoring. Subjective/Events-last exam Pt feels really good. Hgb 9.5. Had a BM yesterday. Overall feels like she is really benefitting from rehab and participating in everything she needs to be participating in. Checked meds and labs. 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 Doing very well. Celexa started for her mood No major issues noted Reviewed labs. Conferred with RN Reviewed therapy notes Review of Systems Neurological: Weakness, Numbness, Incoordination Objective Exam Vital Signs Vital Signs Date Time Temp Pulse Resp B/P (MAP) Pulse Ox O2 Delivery O2 Flow Rate FiO2 12/10/18 20:52 Room Air 12/10/18 17:53 99.3 12/10/18 17:20 100 20 124/70 (88) 97 Capillary Refill : Less Than 3 Seconds General Appearance: No Apparent Distress, WD/WN, Chronically ill, Thin HEENT: PERRL/EOMI, Normal ENT Inspection, Pharynx Normal, Moist Mucous Membranes Neck: Full Range of Motion, Normal Inspection, Non Tender, Supple Respiratory: Chest Non Tender, Lungs Clear, Normal Breath Sounds, No Accessory Muscle Use, No Respiratory Distress Cardiovascular: Regular Rate, Rhythm, No Edema, No Gallop, No JVD, No Murmur Gastrointestinal: Normal Bowel Sounds, No Organomegaly, No Pulsatile Mass, Non Tender, Soft Back: Normal Inspection, No CVA Tenderness, No Vertebral Tenderness Extremity: Normal Capillary Refill, Normal Inspection, Normal Range of Motion, Non Tender, No Calf Tenderness, No Pedal Edema Neurologic/Psychiatric: Alert, Oriented x3, No Motor/Sensory Deficits, Normal Mood/Affect, gaming dealer II-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 FIM Transfers Therapy Code Descriptions/Definitions Functional [place] Measure: 0=Not Assessed/NA 4=Minimal Assistance 1=Total Assistance 5=Supervision or Setup 2=Maximal Assistance 6=Modified [place] 3=Moderate Assistance 7=Complete [place] Therapy Quality Codes: 6 Independent with activity with or without an assistive device 5 Patient requires set up or clean up by helper. Patient completes activity by themselves 4 Supervision or touching assist (CGA). [place] provide cues , steadying assist 3 The helper provides less than half the effort to complete the activity 2 The helper provides more than half the effort to complete the activity 1 Dependent. The helper does all the effort to complete an activity 7 Patient refused to complete or attempt activity 9 The patient did not perform the activity before the current illness or injury 88 Not attempted due to Medical conditions or safety concerns Transfers (B, C, W/C) (FIM): 1 Scootin (assist of 2 to scoot in bed) Rollin Roll Left to Right (QC): 3 Supine to/from Sit: 1 Sit to/from Stand: 2 Sit to Lying (QC): 1 Sit to Stand (QC): 1 Chair/Uox-zi-Cnlwz Xfer(QC): 1 Bed to/from Chair: 2 Car Transfer (QC): 1 Gait Training Does the Patient Walk?: No and Walking Goal IS indicated Gait (FIM): 0 (pt unable to take steps to walk; ) Distance (FIM): 0=does not occure Walk 10 feet (QC): 88 Walk 50 ft with 2 Turns(QC): 88 Walk 150 ft (QC): 88 Walking 10ft/uneven surface-QC: 88 Wheelchair Training Does the Pt Use a Wheelchair?: Yes Wheelchair (FIM): 2 Wheelchair Distance: 3=150 ft Distance: 50' Wheelchair Level of Assist: 2 Wheel 50 ft with 2 turns (QC): 1 Wheel 150 ft (QC): 1 Type of Wheelchair: Manual Stair Training Stairs (FIM): 0 (pt unable to walk) 1 Step (curb) (QC): 88 4 Steps (QC): 88 12 Steps (QC): 88 Balance Picking up an Object (QC): 88 Mental Status/Objective Comprehension: 4 Expression: 4 Social Interaction: 4 Problem Solvin Memory: 3 ADL-Treatment Feedin Eating (QC): 1 Groomin Oral Hygiene (QC): 1 Bathin Bathing Location: Chest, Abdomen Shower/Bathe Self (QC): 1 Upper Extremity Dressin Upper Body Dressing (QC): 1 Lower Extremity Dressin Lower Body Dressing (QC): 1 On/Off Footwear (QC): 1 Toiletin Toileting Hygiene (QC): 1 Toilet/Commode Transfer: 1 Toilet Transfer (QC): 1 Shower: 0 (unsafe at this time. ) Assessment/Plan Assessment and Plan Assess & Plan/Chief Complaint Assessment: Debility s/p encephalopathy much improved Cachexia Anemia Left foot wound Plan: IRF protocol Pain control Home meds Check labs prn (1) Other encephalopathy (2) Leukocytosis Status: Acute (3) Cachexia Status: Acute (4) Anemia of chronic disease Status: Chronic (5) Confusion Status: Acute (6) Parkinson disease Status: Chronic (7) Incontinence of urine Status: Acute (8) Visual hallucinations Status: Acute (9) Debility Status: Acute (10) Thrombocytosis Status: Acute (11) Incontinence of bowel Status: Acute (12) Rigidity Status: Acute (13) Polymicrobial bacterial infection Status: Acute (14) Osteomyelitis of foot Status: Acute (15) Witnessed seizure-like activity Status: Acute (16) Wound of left foot Status: Acute (17) Anemia Status: Chronic SHANNON LIMA DO Dec 10, 2018 09:09
--- NOTE | 2018-12-10 09:35 | Physical Therapy Daily Note ---
PT Daily Note-Current Subjective Patient in bed pre tx, agrees to PT, has no complaints of pain at rest. Will be co-treating with OT due to poor patient mobility, strength, endurance, balance, the need to coordinate UE and LE during activity. Appearance Patient with OT to continue tx for a bit post PT treatment. Mental Status Patient Orientation: Person, Place, Situation Transfers Therapy Code Descriptions/Definitions Functional [place] Measure: 0=Not Assessed/NA 4=Minimal Assistance 1=Total Assistance 5=Supervision or Setup 2=Maximal Assistance 6=Modified [place] 3=Moderate Assistance 7=Complete [place] Therapy Quality Codes: 6 Independent with activity with or without an assistive device 5 Patient requires set up or clean up by helper. Patient completes activity by themselves 4 Supervision or touching assist (CGA). [place] provide cues , steadying assist 3 The helper provides less than half the effort to complete the activity 2 The helper provides more than half the effort to complete the activity 1 Dependent. The helper does all the effort to complete an activity 7 Patient refused to complete or attempt activity 9 The patient did not perform the activity before the current illness or injury 88 Not attempted due to Medical conditions or safety concerns Transfers (B, C, W/C) (FIM): 2 Scootin Rollin Supine to/from Sit: 4 Sit to/from Stand: 2 Bed to/from Chair: 2 Bed to chair max assist, transferred to wheelchair and then to shower room. Patient's knees will buckle during sitting due to patient LE poor coordination, she cannot sit back into a chair but goes forward and down. It would be easy for somebody not familiar with her to drop her because of this because they would not be prepared. Weight Bearing Right Lower Extremity: Right Weight Bearing/Tolerated Left Lower Extremity: Left Weight Bearing/Tolerated Gait Training Gait (FIM): 1 Attempted ambulation in the parallel bars and she did so for a few feet but another therapist was needed to keep her feet from scissoring, her coordination was so poor that this was abandoned. Treatments bed mobility, transfers, standing in parallel bars x3 with very short mini squats 3 sets of 10, showered in shower room, patient had to stand many times for dressing and undressing and cleaning. PT worked on ambulation, bed mobility and transfers, standing, OT worked on shower, cleaning, UE positioning during activity. Assessment Current Status: Poor Progress buckling knees, high fall risk PT Short Term Goals Short Term Goals Time Frame: Dec 20, 2018 Transfers (B,C,W/C) (FIM): 3 (3) Gait (FIM): 2 Distance (FIM): 4=867-28 ft Gait Assistive Device: FWW Wheelchair (FIM): 4 Wheelchair distance (FIM): 3=150 ft Wheelchair Distance: 50' PT Snf Goals Acrobatic Dancer Goals PT Acrobatic Dancer Goals Time Frame: Jan 03, 2019 Transfers (B,C,W/C) (FIM): 6 Sit to Lying (QC): 6 Lying-Sitting on Side/Bed(QC): 6 Sit to Stand (QC): 6 Rollin Roll Left to Right (QC): 6 Chair/Kpe-zv-Wiani Xfer(QC): 6 Car Transfer (QC): 5 Does the Patient Walk: No and Walking Goal IS indicated Gait (FIM): 6 Gait distance (FIM): 3=150 ft Walk 10 feet (QC): 6 Walk 10ft-Uneven Surface(QC): 6 Walk 50ft with 2 Turns (QC): 6 Walk 150 ft (QC): 6 Gait Assistive Device: FWW Does the Pt use WC or Scooter?: Yes Wheelchair (FIM): 6 Wheelchair distance (FIM): 3=150 ft Wheel 50 feet with 2 turns (QC: 6 Stairs (FIM): 5 # of Steps: 4 1 Step (curb) (QC): 6 4 Steps (QC): 6 12 Steps (QC): 88 Picking up an Object (QC): 5 PT Plan Problem List Problem List: Activity Tolerance, Functional Strength, Safety, Balance, Gait, Transfer, Bed Mobility, ROM Treatment/Plan Treatment Plan: Continue Plan of Care Treatment Plan: Bed Mobility, Education, Functional Activity Bakari, Functional Strength, Group Therapy, Gait, Safety, Therapeutic Exercise, Transfers Treatment Duration: Jan 03, 2019 Frequency: At least 5 of 7 days/Wk (IRF) Estimated Hrs Per Day: 1.5 hours per day Patient and/or Family Agrees t: Yes Safety Risks/Education Patient Education: Gait Training, Transfer Techniques, Correct Positioning, Safety Issues Teaching Recipient: Patient Teaching Methods: Demonstration, Discussion Response to Teaching: Reinforcement Needed Time/GCodes Time In: 0800 Time Out: 0900 Total Billed Treatment Time: 60 Total Billed Treatment 1 visit FA 60' co-treated for 45 min from [id number] TIGIST PAIGE PT Dec 10, 2018 09:35
[2018-12-10] MEDS: LEVETIRACETAM 500 MG (KEPPRA) TAB PO SCH ×2 (09:38→20:23)
[2018-12-10] MEDS: ENOXAPARIN 40 MG/0.4 ML (LOVENOX) SYR SC SCH (09:38)
[2018-12-10] MEDS: meTOprolol TARTRATE 25 MG (LOPRESSOR) TABLET PO SCH ×2 (09:41→19:43)
[2018-12-10] MEDS: lisINopril 10 MG (PRINIVIL) TABLET PO SCH (09:41)
[2018-12-10 09:46] VITALS: BP 101/64
--- NOTE | 2018-12-10 09:48 | NUR ---
BP 101/64, P 83. Dr. Edwards notified with orders to hold Lopressor and Lisinopril for SBP less than 130.
--- NOTE | 2018-12-10 10:27 | Progress Note - Hospitalist ---
[facility] 12/10/18 1027: Progress Note No acute events overninght Had some borderline hypotensive readings last night and today - hold antihypertensives for systolic <130 Continue to monitor mood 2/2 starting Celexa and PD ROXANNE EDWARDS DO 12/10/182124: Supervisory-Addendum Brief Verification & Attestation Participated in pt care: history, MDM, physical Personally performed: exam, history, MDM, supervision of care Care discussed with: Medical Student Procedures: n/a Results interpretation: Verified all documentation Verification and Attestation of Medical Student E/M Service A medical student performed and documented this service in my presence. I reviewed and verified all information documented by the medical student and made modifications to such information, when appropriate. I personally performed the physical exam and medical decision making. Roxanne Edwards, Dec 10, 2018,21:25 [facility] Dec 10, 2018 10:27 ROXANNE EDWARDS DO Dec 10, 2018 21:25
--- NOTE | 2018-12-10 13:17 | Occupational Ther Daily Note ---
OT Current Status-Daily Note Subjective Pt alert, sitting in w/c. Pt agrees to therapy. No c/o pain. Mental Status/Objective Patient Orientation: Person, Place, Time, Situation Therapy Code Descriptions/Definitions Functional [place] Measure: 0=Not Assessed/NA 4=Minimal Assistance 1=Total Assistance 5=Supervision or Setup 2=Maximal Assistance 6=Modified [place] 3=Moderate Assistance 7=Complete [place] ADL-Treatment PT/OT co-treat, skills of 2 clinicians are required for skilled instruction and care, decreased mobility and coordination during functional tasks and ambulation. PT working on standing during bathing/dressing/toileting, LE and core stabilization/strength/coordination. OT working on ADLs, functional transfers, UE placement during standing and clothing manipulation during standing. Pt has decreased fine motor skills and grasps so requires modifications for utensils or max A with dressing and bathing. Pt is able to use built-up handles with universal cuff for eating, grooming utensils. Pt unable to hold onto wash clothes, towels and clothing to manipulate during each task. Max A for bathing and assist x2 to stand and cleanse buttocks and manipulate lower body clothing. Pt requires assist in standing to position UE's to grasp onto parallel bars and move feet when attempting to step. Working on sit to stand and pushing buttocks out before sitting. Pt was wheeled back to room. Pt left in chair with all needs met, call light and phone in reach. Therapy Code Descriptions/Definitions Functional [place] Measure: 0=Not Assessed/NA 4=Minimal Assistance 1=Total Assistance 5=Supervision or Setup 2=Maximal Assistance 6=Modified [place] 3=Moderate Assistance 7=Complete [place] Therapy Quality Codes: 6 Independent with activity with or without an assistive device 5 Patient requires set up or clean up by helper. Patient completes activity by themselves 4 Supervision or touching assist (CGA). [place] provide cues , steadying assist 3 The helper provides less than half the effort to complete the activity 2 The helper provides more than half the effort to complete the activity 1 Dependent. The helper does all the effort to complete an activity 7 Patient refused to complete or attempt activity 9 The patient did not perform the activity before the current illness or injury 88 Not attempted due to Medical conditions or safety concerns Eating (FIM): 5 Eating (QC): 4 Grooming (FIM): 5 Oral Hygiene (QC): 4 Upper Body (FIM): 2 Upper Body Dressing (QC): 2 Lower Body Dressing (FIM): 1 Lower Body Dressing (QC): 1 On/Off Footwear (QC): 2 Toileting (FIM): 1 Toileting Hygiene (QC): 1 Transfers (B, C, W/C) (FIM): 2 Toilet/Commode Transfer (FIM): 2 Toilet Transfer (QC): 2 OT Short Term Goals Short Term Goals Time Frame: Dec 20, 2018 Eating(FIM): 3 Grooming(FIM): 3 Bathing(FIM): 3 Upper Body Dressing(FIM): 3 Lower Body Dressing(FIM): 2 Toileting(FIM): 2 Transfers (B,C,W/C) (FIM): 3 (3) Toilet/Commode Transfer(FIM): 3 Shower Transfer(FIM): 3 1=Demonstrate adherence to instructed precautions during ADL tasks. 2=Patient will verbalize/demonstrate understanding of assistive devices/modifications for ADL. 3=Patient will improve strength/tolerance for activity to enable patient to perform ADL's. OT Vacuum Cleaner Repair Person Goals Vacuum Cleaner Repair Person Goals Time Frame: Jan 03, 2019 Eating (FIM): 5 Eating (QC): 5 Groomin Oral Hygiene (QC): 4 Bathing(FIM): 5 Bathing Location: L Arm, R Arm, L Upper Leg, R Upper Leg, L Lower Leg (including foot), R Lower Leg (including foot), Chest, Abdomen, Buttocks, Perineal Area Shower/Bathe Self (QC): 4 Upper Body Dressing(FIM): 5 Upper Body Dressing (QC): 4 Lower Body Dressing(FIM): 5 Lower Body Dressing (QC): 4 On/Off Footwear (QC): 4 Toileting(FIM): 5 Toileting Hygiene (QC): 4 Transfers (B,C,W/C) (FIM): 5 Toilet/Commode Transfer(FIM): 5 Toilet/Commode Transfer (QC): 4 Shower Transfer(FIM): 4 Additional Goals: 1-Demonstrate ADL Tasks, 2-Verbalize Understanding, 3- ImproveStrength/Bakari 1=Demonstrate adherence to instructed precautions during ADL tasks. 2=Patient will verbalize/demonstrate understanding of assistive devices/modifications for ADL. 3=Patient will improve strength/tolerance for activity to enable patient to perform ADL's. OT Education/Plan Problem List/Assessment Assessment: Decreased Activ Tolerance, Decreased UE Strength, Impaired Bed Mobility, Impaired Coordination, Impaired Funct Balance, Impaired Self-Care Skills, Restricted Funct UE ROM pt presents with functional limitations affecting areas of ADLS and functional transfers with deficits in the above mention including decrease proprioception, decrease light touch, and decrease overall safety with functional tasks. pt is motivated to participate in therapy. pt would benefit from skilled OT services to increase independence with ADLS and functional transfers. Discharge Recommendations Plan/Recommendations: Continue POC Treatment Plan/Plan of Care Patient would benefit from OT for education, treatment and training to promote independence in ADL's, mobility, safety and/or upper extremity function for ADL's. Plan of Care: ADL Retraining, Caregiver Training, Cognitive Retraining, Functional Mobility, Group Exercise/Act as Ind, UE Funct Exercise/Act, UE Neuromus Re-Ed/Coord, W/C Management Training Treatment Duration: Jan 03, 2019 Frequency: At least 5 of 7 days/Wk (IRF) Estimated Hrs Per Day: 1 hour per day (60-90 minutes per day ) Agreement: Yes Rehab Potential: Guarded Time/GCodes Start Time: 08:15 Stop Time: 09:30 Total Time Billed (hr/min): 75 Billed Treatment Time 1 visit-ADL 3 (45 min) NM 2 (30 min) co-treat with PT for 45 min individual for 30 min MARCY BOUDREAUX Dec 10, 2018 13:17
--- NOTE | 2018-12-10 14:42 | Physical Therapy Daily Note ---
PT Daily Note-Current Subjective Patient in recliner pre tx, agrees to PT, no complaints of pain. Appearance Patient in recliner post tx with nurse call, phone, tray, all needs met, legs elevated and on pillow. Mental Status Patient Orientation: Person, Place, Situation Transfers Therapy Code Descriptions/Definitions Functional [place] Measure: 0=Not Assessed/NA 4=Minimal Assistance 1=Total Assistance 5=Supervision or Setup 2=Maximal Assistance 6=Modified [place] 3=Moderate Assistance 7=Complete [place] Therapy Quality Codes: 6 Independent with activity with or without an assistive device 5 Patient requires set up or clean up by helper. Patient completes activity by themselves 4 Supervision or touching assist (CGA). [place] provide cues , steadying assist 3 The helper provides less than half the effort to complete the activity 2 The helper provides more than half the effort to complete the activity 1 Dependent. The helper does all the effort to complete an activity 7 Patient refused to complete or attempt activity 9 The patient did not perform the activity before the current illness or injury 88 Not attempted due to Medical conditions or safety concerns Weight Bearing Right Lower Extremity: Right Weight Bearing/Tolerated Left Lower Extremity: Left Weight Bearing/Tolerated Exercises Supine Ex: Ankle pumps, Quad Set, Glut sets Supine Reps: 20 (Not supine but in recliner with legs elevated.) Seated Therapy Exercises: Ankle pumps, Long arc quads, Hip flexion Seated Reps: 20 Treatments LE exercise Assessment Current Status: Poor Progress poor coordination in LE's PT Short Term Goals Short Term Goals Time Frame: Dec 20, 2018 Transfers (B,C,W/C) (FIM): 3 (3) Gait (FIM): 2 Distance (FIM): 9=550-11 ft Gait Assistive Device: FWW Wheelchair (FIM): 4 Wheelchair distance (FIM): 3=150 ft Wheelchair Distance: 50' PT Senior Living Goals Senior Living Goals PT Senior Living Goals Time Frame: Jan 03, 2019 Transfers (B,C,W/C) (FIM): 6 Sit to Lying (QC): 6 Lying-Sitting on Side/Bed(QC): 6 Sit to Stand (QC): 6 Rollin Roll Left to Right (QC): 6 Chair/Kut-oq-Uiodl Xfer(QC): 6 Car Transfer (QC): 5 Does the Patient Walk: No and Walking Goal IS indicated Gait (FIM): 6 Gait distance (FIM): 3=150 ft Walk 10 feet (QC): 6 Walk 10ft-Uneven Surface(QC): 6 Walk 50ft with 2 Turns (QC): 6 Walk 150 ft (QC): 6 Gait Assistive Device: FWW Does the Pt use WC or Scooter?: Yes Wheelchair (FIM): 6 Wheelchair distance (FIM): 3=150 ft Wheel 50 feet with 2 turns (QC: 6 Stairs (FIM): 5 # of Steps: 4 1 Step (curb) (QC): 6 4 Steps (QC): 6 12 Steps (QC): 88 Picking up an Object (QC): 5 PT Plan Problem List Problem List: Activity Tolerance, Functional Strength, Safety, Balance, Gait, Transfer, Bed Mobility, ROM Treatment/Plan Treatment Plan: Continue Plan of Care Treatment Plan: Bed Mobility, Education, Functional Activity Bakari, Functional Strength, Group Therapy, Gait, Safety, Therapeutic Exercise, Transfers Treatment Duration: Jan 03, 2019 Frequency: At least 5 of 7 days/Wk (IRF) Estimated Hrs Per Day: 1.5 hours per day Patient and/or Family Agrees t: Yes Safety Risks/Education Patient Education: Correct Positioning, Safety Issues Teaching Recipient: Patient Teaching Methods: Demonstration, Discussion Response to Teaching: Reinforcement Needed Time/GCodes Time In: 1430 Time Out: 1445 Total Billed Treatment Time: 15 Total Billed Treatment 1 visit EX TIGIST PEÑA PT Dec 10, 2018 14:42
--- NOTE | 2018-12-10 14:47 | Speech Therapy Daily Note ---
Speech Daily Progress Note Subjective Date Seen by Provider: Dec 10, 2018 Time Seen by Provider: 00:30 The patient was resting in her room watching television when I entered her room. Objective Patient demo ability to communicate her wants/needs without cues at 90%. Assessment Assessment Current Status: Good Progress Treatment Plan Continue Plan of Care Communication Comprehension: 4 Expression: 4 Social Cognition Social Interaction: 4 Problem Solvin Memory: 3 Speech Short Term Goals Short Term Goals Short Term Goals 1) The patient will complete memory tasks related to his daily needs at 90% or greater with minimal cues. 2) The patient will complete problem solving tasks related to his daily needs at 90% or greater with minimal cues. 3) The patient will complete safety awareness tasks related to his daily needs a t 90% or greater with minimal cues. Speech Alf Goals Computer Operator Goals The patient will improve her cognitive functional level for safety and independence. Speech-Plan Patient/Family Goals Patient/Family Goals: The patient plans on returning home with family support post rehab if she is able. Treatment Plan Speech Therapy Treatment Plan: Continue Plan of Care The patient's cognitive status has significantly improved since her previous admit to ARU. Treatment Duration: Dec 13, 2018 Frequency: 5 times per week Estimated Hrs Per Day: .5 hour per day Rehab Potential: Guarded Barriers to Learning: Patient has mild cognitive deficits. Pt/Family Agrees to Plan: Yes Safety Risks/Education Teaching Recipient: Patient Teaching Methods: Demonstration, Discussion Response to Teaching: Verbalize Understanding, Return Demonstration Education Topics Provided: Continued safety within her room. Time Speech Therapy Time In: 14:00 Speech Therapy Time Out: 14:30 Total Billed Time: 30 Billed Treatment Time AURELIO Cortez [facility] Dec 10, 2018 14:47
[2018-12-10 17:20] VITALS: BP 124/70
[2018-12-10] MEDS: SINEMET CR 50/200 (CARBIDOPA/LEVODOPA SA) TAB PO SCH (20:23)
[2018-12-10] MEDS: GABAPENTIN 100 MG (NEURONTIN) CAP PO SCH (20:23)
[2018-12-10] MEDS: MIRTAZAPINE 15 MG (REMERON) TAB PO SCH (20:23)
[2018-12-10] MEDS: HYDROcodone/APAP 5 MG/325 MG (LORTAB) TAB PO PRN (21:39)
[2018-12-11 05:21] VITALS: BP 146/65
[2018-12-11] MEDS: ETODOLAC 200 MG (LODINE) CAP PO SCH ×2 (06:07→16:51)
[2018-12-11] MEDS: LACTOBACILLUS ACIDOPHILUS (PROBIOTIC) CAPSULE PO SCH ×2 (06:07→16:51)
[2018-12-11] MEDS: SINEMET 25/100 (CARBIDOPA/LEVODOPA) TAB PO SCH ×4 (06:08→18:07)
--- NOTE | 2018-12-11 08:58 | Occupational Ther Daily Note ---
OT Current Status-Daily Note Subjective Pt sleeping in bed, woke to name though took awhile to fully awake. Pt very stiff this morning. Pt agrees to therapy. No c/o pain. Mental Status/Objective Patient Orientation: Person, Place, Time, Situation Therapy Code Descriptions/Definitions Functional [place] Measure: 0=Not Assessed/NA 4=Minimal Assistance 1=Total Assistance 5=Supervision or Setup 2=Maximal Assistance 6=Modified [place] 3=Moderate Assistance 7=Complete [place] ADL-Treatment Max A for upper body dressing and assist x2 for lower body dressing. Pt is demonstrating increased gross petroleum geologist strength and able to sustain petroleum geologist for 8 seconds. Assist x2 for toileting and max A for toilet transfer. Set up for grooming and eating then supervision. Pt requires built up handles with universal cuff for utensils. After therapy, pt sitting in w/c with call light/phone in reach. All need met in room. Therapy Code Descriptions/Definitions Functional [place] Measure: 0=Not Assessed/NA 4=Minimal Assistance 1=Total Assistance 5=Supervision or Setup 2=Maximal Assistance 6=Modified [place] 3=Moderate Assistance 7=Complete [place] Therapy Quality Codes: 6 Independent with activity with or without an assistive device 5 Patient requires set up or clean up by helper. Patient completes activity by themselves 4 Supervision or touching assist (CGA). [place] provide cues , steadying assist 3 The helper provides less than half the effort to complete the activity 2 The helper provides more than half the effort to complete the activity 1 Dependent. The helper does all the effort to complete an activity 7 Patient refused to complete or attempt activity 9 The patient did not perform the activity before the current illness or injury 88 Not attempted due to Medical conditions or safety concerns Eating (FIM): 5 Eating (QC): 4 Grooming (FIM): 5 Oral Hygiene (QC): 4 Upper Body (FIM): 2 Upper Body Dressing (QC): 2 Lower Body Dressing (FIM): 1 Lower Body Dressing (QC): 1 On/Off Footwear (QC): 2 Toileting (FIM): 1 Toileting Hygiene (QC): 1 Transfers (B, C, W/C) (FIM): 2 Toilet/Commode Transfer (FIM): 2 Toilet Transfer (QC): 2 Other Treatment Transported pt to therapy gym via w/c. Working on pt's sit to stand. Max A for sit <-> stand requires physical and verbal cues to position upper/lower body. Pt is able to sustain petroleum geologist and pull up with bar. OT Short Term Goals Short Term Goals Time Frame: Dec 20, 2018 Eating(FIM): 3 Grooming(FIM): 3 Bathing(FIM): 3 Upper Body Dressing(FIM): 3 Lower Body Dressing(FIM): 2 Toileting(FIM): 2 Transfers (B,C,W/C) (FIM): 3 (3) Toilet/Commode Transfer(FIM): 3 Shower Transfer(FIM): 3 1=Demonstrate adherence to instructed precautions during ADL tasks. 2=Patient will verbalize/demonstrate understanding of assistive devices/modifications for ADL. 3=Patient will improve strength/tolerance for activity to enable patient to perform ADL's. OT Musician Instrumental Goals Mcc Goals Time Frame: Jan 03, 2019 Eating (FIM): 5 Eating (QC): 5 Groomin Oral Hygiene (QC): 4 Bathing(FIM): 5 Bathing Location: L Arm, R Arm, L Upper Leg, R Upper Leg, L Lower Leg (including foot), R Lower Leg (including foot), Chest, Abdomen, Buttocks, Perineal Area Shower/Bathe Self (QC): 4 Upper Body Dressing(FIM): 5 Upper Body Dressing (QC): 4 Lower Body Dressing(FIM): 5 Lower Body Dressing (QC): 4 On/Off Footwear (QC): 4 Toileting(FIM): 5 Toileting Hygiene (QC): 4 Transfers (B,C,W/C) (FIM): 5 Toilet/Commode Transfer(FIM): 5 Toilet/Commode Transfer (QC): 4 Shower Transfer(FIM): 4 Additional Goals: 1-Demonstrate ADL Tasks, 2-Verbalize Understanding, 3- ImproveStrength/Bakari 1=Demonstrate adherence to instructed precautions during ADL tasks. 2=Patient will verbalize/demonstrate understanding of assistive de vices/modifications for ADL. 3=Patient will improve strength/tolerance for activity to enable patient to perform ADL's. OT Education/Plan Problem List/Assessment Assessment: Decreased Safety Aware, Decreased UE Strength, Impaired Cognition, Impaired Coordination, Impaired Funct Balance, Impaired Self-Care Skills, Restricted Funct UE ROM pt presents with functional limitations affecting areas of ADLS and functional transfers with deficits in the above mention including decrease proprioception, decrease light touch, and decrease overall safety with functional tasks. pt is motivated to participate in therapy. pt would benefit from skilled OT services to increase independence with ADLS and functional transfers. Discharge Recommendations Plan/Recommendations: Continue POC Treatment Plan/Plan of Care Patient would benefit from OT for education, treatment and training to promote independence in ADL's, mobility, safety and/or upper extremity function for ADL's. Plan of Care: ADL Retraining, Caregiver Training, Cognitive Retraining, Functional Mobility, Group Exercise/Act as Ind, UE Funct Exercise/Act, UE Neuromus Re-Ed/Coord, W/C Management Training Treatment Duration: Jan 03, 2019 Frequency: At least 5 of 7 days/Wk (IRF) Estimated Hrs Per Day: 1 hour per day (60-90 minutes per day ) Agreement: Yes Rehab Potential: Guarded Time/GCodes Start Time: 08:00 Stop Time: 09:00 Total Time Billed (hr/min): 60 Billed Treatment Time 1 visit-ADL 3 (45 min) NM 1 (15 min) MARCY BOUDREAUX Dec 11, 2018 08:58
[2018-12-11 09:04] VITALS: BP 130/71
[2018-12-11] MEDS: LEVETIRACETAM 500 MG (KEPPRA) TAB PO SCH ×2 (09:06→20:58)
[2018-12-11] MEDS: meTOprolol TARTRATE 25 MG (LOPRESSOR) TABLET PO SCH ×2 (09:06→20:59)
[2018-12-11] MEDS: lisINopril 10 MG (PRINIVIL) TABLET PO SCH (09:07)
[2018-12-11] MEDS: ENOXAPARIN 40 MG/0.4 ML (LOVENOX) SYR SC SCH (09:12)
--- NOTE | 2018-12-11 10:39 | Progress Note - Hospitalist ---
[facility] 12/11/18 1039: Progress Note Danielle is feeling a little better Continue to monitor for physical symptoms with onset of Celexa and PD Her hands have shown improvement with extension, R>L B/L LE have lack of coordination and weakness Continue aggressive therapy No other concerns today ROXANNE EDWARDS DO 12/11/182028: Supervisory-Addendum Brief Verification & Attestation Participated in pt care: history, MDM, physical Personally performed: exam, history, MDM, supervision of care Care discussed with: Medical Student Procedures: n/a Results interpretation: Verified all documentation Verification and Attestation of Medical Student E/M Service A medical student performed and documented this service in my presence. I reviewed and verified all information documented by the medical student and made modifications to such information, when appropriate. I personally performed the physical exam and medical decision making. Roxanne Edwards, Dec 11, 2018,20:29 [facility] Dec 11, 2018 10:39 ROXANNE EDWARDS DO Dec 11, 2018 20:29
--- NOTE | 2018-12-11 10:41 | Physical Therapy Daily Note ---
PT Daily Note-Current Subjective Agrees to Rx but would rather eat her brownie and drink juice. Pt. states she doesnt have infection any more in her foot Pain Location: No Pain Reported Appearance brownie on pts clothing and all over floor and table Mental Status Patient Orientation: Confused Transfers Therapy Code Descriptions/Definitions Functional [place] Measure: 0=Not Assessed/NA 4=Minimal Assistance 1=Total Assistance 5=Supervision or Setup 2=Maximal Assistance 6=Modified [place] 3=Moderate Assistance 7=Complete [place] Therapy Quality Codes: 6 Independent with activity with or without an assistive device 5 Patient requires set up or clean up by helper. Patient completes activity by themselves 4 Supervision or touching assist (CGA). [place] provide cues , steadying assist 3 The helper provides less than half the effort to complete the activity 2 The helper provides more than half the effort to complete the activity 1 Dependent. The helper does all the effort to complete an activity 7 Patient refused to complete or attempt activity 9 The patient did not perform the activity before the current illness or injury 88 Not attempted due to Medical conditions or safety concerns Transfers (B, C, W/C) (FIM): 2 Scootin Rollin Sit to/from Stand: 2 Bed to/from Chair: 2 Weight Bearing Right Lower Extremity: Right Weight Bearing/Tolerated Left Lower Extremity: Left Weight Bearing/Tolerated Gait Training Does the Patient Walk?: Yes Gait (FIM): 1 Distance (FIM): 1=up to 49 ft (4fx2) Gait Level of Assist: 2 Gait Persons Needed: 2 Gait Assistive Device: Parallel Bars pt. attempts to take steps , requires assist to place feet and keep from tripping over feet and knees and hips give way requiring max assist support Wheelchair Training Does the Pt Use a Wheelchair?: Yes Wheelchair (FIM): 2 Wheelchair Distance: 1=up to 49 ft (12ftx3) Wheelchair Level of Assist: 2 Type of Wheelchair: Manual pt cant lock w/c secondary to bilat hand wrist arthritis, does not coordinate movement for w/c foot hand movement, cannot move feet and legs in coordinated manner to propel w/c, requiring max assist, pt. actually goes backwards moving feet in foot splashing type movement Exercises Seated Therapy Exercises: Ankle pumps, Sit to stand, Long arc quads, Hip abd/add Seated Reps: 12 assisted Treatments cushions added to w/c seat to assist with sit to stand Assessment Current Status: Poor Progress functionally dependent, all TRFs max, gait not functional, needs assist for all PT Short Term Goals Short Term Goals Time Frame: Dec 20, 2018 Transfers (B,C,W/C) (FIM): 3 (3) Gait (FIM): 2 Distance (FIM): 1=734-35 ft Gait Assistive Device: FWW Wheelchair (FIM): 4 Wheelchair distance (FIM): 3=150 ft Wheelchair Distance: 50' PT Fdc Goals Fdc Goals PT Fdc Goals Time Frame: Jan 03, 2019 Transfers (B,C,W/C) (FIM): 6 Sit to Lying (QC): 6 Lying-Sitting on Side/Bed(QC): 6 Sit to Stand (QC): 6 Rollin Roll Left to Right (QC): 6 Chair/Zvc-xy-Cnhlj Xfer(QC): 6 Car Transfer (QC): 5 Does the Patient Walk: No and Walking Goal IS indicated Gait (FIM): 6 Gait distance (FIM): 3=150 ft Walk 10 feet (QC): 6 Walk 10ft-Uneven Surface(QC): 6 Walk 50ft with 2 Turns (QC): 6 Walk 150 ft (QC): 6 Gait Assistive Device: FWW Does the Pt use WC or Scooter?: Yes Wheelchair (FIM): 6 Wheelchair distance (FIM): 3=150 ft Wheel 50 feet with 2 turns (QC: 6 Stairs (FIM): 5 # of Steps: 4 1 Step (curb) (QC): 6 4 Steps (QC): 6 12 Steps (QC): 88 Picking up an Object (QC): 5 PT Plan Treatment/Plan Treatment Plan: Continue Plan of Care Treatment Plan: Bed Mobility, Education, Functional Activity Bak[place], Functional Strength, Group Therapy, Gait, Safety, Therapeutic Exercise, Transfers Treatment Duration: Jan 03, 2019 Frequency: At least 5 of 7 days/Wk (IRF) Estimated Hrs Per Day: 1.5 hours per day Patient and/or Family Agrees t: Yes Safety Risks/Education Patient Education: Transfer Techniques, Correct Positioning, W/C Management, Disease Process, Safety Issues Teaching Recipient: Patient Teaching Methods: Discussion Response to Teaching: Unable to Return Demonstration, Unable to Comprehend, Reinforcement Needed Time/GCodes Time In: 1000 Time Out: 1030 Total Billed Treatment Time: 30 Total Billed Treatment 1.wch15m,FA15m ADIN NICHOLAS CASTING COORDINATOR Dec 11, 2018 10:41
--- NOTE | 2018-12-11 11:45 | Speech Therapy Daily Note ---
Speech Daily Progress Note Subjective Date Seen by Provider: Dec 11, 2018 Time Seen by Provider: 00:30 The patient was resting in her chair watching television when I entered her room. Objective The patient completed a series of problem solving scenarios with pictures "what's wrong with this picture?" at 85% with min to mod verbal cues. Communication Comprehension: 4 Expression: 4 Social Cognition Social Interaction: 4 Problem Solvin Memory: 3 Speech Short Term Goals Short Term Goals Short Term Goals 1) The patient will complete memory tasks related to his daily needs at 90% or greater with minimal cues. 2) The patient will complete problem solving tasks related to his daily needs at 90% or greater with minimal cues. 3) The patient will complete safety awareness tasks related to his daily needs at 90% or greater with minimal cues. Speech Fishery Biologist Goals Correction Goals The patient will improve her cognitive functional level for safety and independence. Speech-Plan Patient/Family Goals Patient/Family Goals: The patient plans on returning home or SNF upon discharge from rehab. Treatment Plan Speech Therapy Treatment Plan: Continue Plan of Care The patient has progressed well with cognitive function. Treatment Duration: Dec 20, 2018 Frequency: 5 times per week Estimated Hrs Per Day: .5 hour per day Rehab Potential: Guarded Barriers to Learning: The patient has cognitive deficits Pt/Family Agrees to Plan: Yes Safety Risks/Education Teaching Recipient: Patient Teaching Methods: Demonstration, Discussion Response to Teaching: Verbalize Understanding, Return Demonstration Education Topics Provided: Continued communication of her wants/needs Time Speech Therapy Time In: 10:30 Speech Therapy Time Out: 11:00 Total Billed Time: 30 Billed Treatment Time 1AURELIO [address]ETHAN[address] ST Dec 11, 2018 11:45
[2018-12-11] MEDS: HYDROcodone/APAP 5 MG/325 MG (LORTAB) TAB PO PRN ×2 (12:58→21:00)
--- NOTE | 2018-12-11 14:51 | Therapy Group Daily Note ---
Therapy Daily Group Note Patient Education Topic Other List Below (environmental safety education) Exercises LE Seated Exercise, UE Exercise Session Ratio (pt:therapist): 4:1 Goal of Session: Education on ARU Expectations, UE/LE Strengthing Goal Met for this Session: Yes Pt Benefit of Group: Contributions to Others, F/U Use of Strategies @Home, Increased Functional Safety, Increased Functional Strength, Improved Cognition, Recognition of Peers, Socialization Other/Notes Pt transported via w/c to [facility] for OT/PT group. Group consisted of introductions (name, place living, personal pet peeve), socialization, environmental sign Bingo, ARU expectations and UE/LE seated exercises. Pt introduced self appropriately and actively listened to peers. Pt acknowledged understanding of educational topics by giving personal story and own strategies. Pt was able to follow directions and complete UE/LE seated exercises without difficulty. After therapy, pt lying in bed with call light/phone in reach. All needs met in room. Start Time: 13:00 Stop Time: 14:00 Total Billed Treatment Time: 60 Total Billed Treatment 1-GRP MARCY BOUDREAUX Dec 11, 2018 14:51
[2018-12-11 17:37] VITALS: BP 101/62
--- NOTE | 2018-12-11 20:30 | PM&R Progress Note ---
Subjective HPI/CC On Admission Date Seen by Provider: Dec 11, 2018 Time Seen by Provider: 08:30 Chief complaint: Debility History of present illness: This is a 63-year-old white female known to me from a severe sepsis episode when she had arrived to go to inpatient rehab when she was transferred from last month after severe encephalopathy and parkinsonism rigidity with left foot wound status post bunionectomy with severe complications so she eventually stabilized went to inpatient rehab after insurance approval and spent 2 weeks there but continued to have difficulty with the pace of therapy so she was moved to the long-term closer to home in [place] but she is returned in need of full therapy services since she is not on weight restricted on the left foot now and she can weight-bear as tolerated and currently is much improved. Son is at the bedside and told me that she needs intensive therapy since she fully intends to return to work and then return to independent living along with family monitoring. Subjective/Events-last exam Remains continent Bowel movement yesterday Took a Lortab at night and that helps the pain Had a low grade temp 24hrs ago but none since Feeding herself with assistive devices Discuss on Sunday considering her encephalopathy is cleared but her physical deficits are profound, remains dependent and full care and very well may need halfway long-term. placement. Celexa started for her mood No major issues noted Reviewed labs. Conferred with RN Reviewed therapy notes Review of Systems General: Fatigue Neurological: Weakness, Numbness, Incoordination Objective Exam Vital Signs Vital Signs Date Time Temp Pulse Resp B/P (MAP) Pulse Ox O2 Delivery O2 Flow Rate FiO2 12/11/18 17:37 99.2 89 18 101/62 (75) 100 Room Air Capillary Refill : Less Than 3 Seconds General Appearance: No Apparent Distress, WD/WN, Chronically ill, Thin HEENT: PERRL/EOMI, Normal ENT Inspection, Pharynx Normal, Moist Mucous Membranes Neck: Full Range of Motion, Normal Inspection, Non Tender, Supple Respiratory: Chest Non Tender, Lungs Clear, Normal Breath Sounds, No Accessory Muscle Use, No Respiratory Distress Cardiovascular: Regular Rate, Rhythm, No Edema, No Gallop, No JVD, No Murmur Gastrointestinal: Normal Bowel Sounds, No Organomegaly, No Pulsatile Mass, Non Tender, Soft Back: Normal Inspection, No CVA Tenderness, No Vertebral Tenderness Extremity: Normal Capillary Refill, Normal Inspection, Normal Range of Motion, Non Tender, No Calf Tenderness, No Pedal Edema Neurologic/Psychiatric: Alert, Oriented x3, No Motor/Sensory Deficits, Normal Mood/Affect, title examiner II-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 FIM Transfers Therapy Code Descriptions/Definitions Functional [place] Measure: 0=Not Assessed/NA 4=Minimal Assistance 1=Total Assistance 5=Supervision or Setup 2=Maximal Assistance 6=Modified [place] 3=Moderate Assistance 7=Complete [place] Therapy Quality Codes: 6 Independent with activity with or without an assistive device 5 Patient requires set up or clean up by helper. Patient completes activity by themselves 4 Supervision or touching assist (CGA). [place] provide cues , steadying assist 3 The helper provides less than half the effort to complete the activity 2 The helper provides more than half the effort to complete the activity 1 Dependent. The helper does all the effort to complete an activity 7 Patient refused to complete or attempt activity 9 The patient did not perform the activity before the current illness or injury 88 Not attempted due to Medical conditions or safety concerns Transfers (B, C, W/C) (FIM): 1 Scootin Rollin Roll Left to Right (QC): 3 Supine to/from Sit: 1 Sit to/from Stand: 2 Sit to Lying (QC): 1 Sit to Stand (QC): 1 Chair/Wdn-uh-Bnjnv Xfer(QC): 1 Bed to/from Chair: 1 Car Transfer (QC): 1 Gait Training Does the Patient Walk?: Yes Gait (FIM): 1 Distance (FIM): 1=up to 49 ft (4fx2) Walk 10 feet (QC): 88 Walk 50 ft with 2 Turns(QC): 88 Walk 150 ft (QC): 88 Walking 10ft/uneven surface-QC: 88 Gait Level of Assist: 2 Gait Persons Needed: 2 Gait Assistive Device: Parallel Bars Wheelchair Training Does the Pt Use a Wheelchair?: Yes Wheelchair (FIM): 2 Wheelchair Distance: 1=up to 49 ft (12ftx3) Distance: 50' Wheelchair Level of Assist: 2 Wheel 50 ft with 2 turns (QC): 1 Wheel 150 ft (QC): 1 Type of Wheelchair: Manual Stair Training Stairs (FIM): 0 (pt unable to walk) 1 Step (curb) (QC): 88 4 Steps (QC): 88 12 Steps (QC): 88 Balance Picking up an Object (QC): 88 Mental Status/Objective Comprehension: 4 Expression: 3 Social Interaction: 4 Problem Solvin Memory: 3 ADL-Treatment Feedin Eating (QC): 4 Groomin Oral Hygiene (QC): 4 Bathin Bathing Location: Chest, Abdomen Shower/Bathe Self (QC): 1 Upper Extremity Dressin Upper Body Dressing (QC): 2 Lower Extremity Dressin Lower Body Dressing (QC): 1 On/Off Footwear (QC): 2 Toiletin Toileting Hygiene (QC): 1 Toilet/Commode Transfer: 1 Toilet Transfer (QC): 2 Shower: 0 (unsafe at this time. ) Assessment/Plan Assessment and Plan Assess & Plan/Chief Complaint Assessment: Debility s/p encephalopathy much improved Cachexia Anemia Left foot wound Plan: IRF protocol Pain control Home meds Check labs prn Dispo if she remains completely dependent? (1) Other encephalopathy (2) Leukocytosis Status: Acute (3) Cachexia Status: Acute (4) Anemia of chronic disease Status: Chronic (5) Confusion Status: Acute (6) Parkinson disease Status: Chronic (7) Incontinence of urine Status: Acute (8) Visual hallucinations Status: Acute (9) Debility Status: Acute (10) Thrombocytosis Status: Acute (11) Incontinence of bowel Status: Acute (12) Rigidity Status: Acute (13) Polymicrobial bacterial infection Status: Acute (14) Osteomyelitis of foot Status: Acute (15) Witnessed seizure-like activity Status: Acute (16) Wound of left foot Status: Acute (17) Anemia Status: Chronic SHANNON LIMA DO Dec 11, 2018 20:30
[2018-12-11] MEDS: GABAPENTIN 100 MG (NEURONTIN) CAP PO SCH (20:59)
[2018-12-11] MEDS: MIRTAZAPINE 15 MG (REMERON) TAB PO SCH (20:59)
[2018-12-11] MEDS: SINEMET CR 50/200 (CARBIDOPA/LEVODOPA SA) TAB PO SCH (20:59)
[2018-12-12 05:21] VITALS: BP 145/93
[2018-12-12] MEDS: LACTOBACILLUS ACIDOPHILUS (PROBIOTIC) CAPSULE PO SCH ×2 (06:53→17:12)
[2018-12-12] MEDS: ETODOLAC 200 MG (LODINE) CAP PO SCH ×2 (06:53→17:12)
[2018-12-12] MEDS: SINEMET 25/100 (CARBIDOPA/LEVODOPA) TAB PO SCH ×4 (06:53→20:07)
--- NOTE | 2018-12-12 08:54 | Progress Note - Hospitalist ---
[facility] 12/12/18 0854: Progress Note Ms. Aguilar had no acute concerns overnight Significant barriers to overcome in light of patients desired plan of independent living Continue therapy to establish realistic long-term prognosis and begin discussions with the patient Continue to monitor long-term PD with new SSRI ROXANNE EDWARDS DO 12/12/185: Supervisory-Addendum Brief Verification & Attestation Participated in pt care: history, MDM, physical Personally performed: exam, history, MDM, supervision of care Care discussed with: Medical Student Procedures: n/a Results interpretation: Verified all documentation Verification and Attestation of Medical Student E/M Service A medical student performed and documented this service in my presence. I reviewed and verified all information documented by the medical student and made modifications to such information, when appropriate. I personally performed the physical exam and medical decision making. Roxanne Edwards, Dec 12, 2018,20:45 [facility] Dec 12, 2018 08:54 ROXANNE EDWARDS DO Dec 12, 2018 20:45
--- NOTE | 2018-12-12 08:59 | Physical Therapy Daily Note ---
PT Daily Note-Current Subjective Patient in recliner pre tx, agrees to PT, has no complaints of pain. Will be co-treating with OT this morning due to poor patient mobility, strength, endurance, balance, impaired coordination, the need to coordinate UE and LE during activity. Patient will be getting a shower this morning. Appearance Patient in wheelchair in therapy gym post tx, OT still has her for a few minutes. Mental Status Patient Orientation: Person, Place, Situation Transfers Therapy Code Descriptions/Definitions Functional [place] Measure: 0=Not Assessed/NA 4=Minimal Assistance 1=Total Assistance 5=Supervision or Setup 2=Maximal Assistance 6=Modified [place] 3=Moderate Assistance 7=Complete [place] Therapy Quality Codes: 6 Independent with activity with or without an assistive device 5 Patient requires set up or clean up by helper. Patient completes activity by themselves 4 Supervision or touching assist (CGA). [place] provide cues , steadying assist 3 The helper provides less than half the effort to complete the activity 2 The helper provides more than half the effort to complete the activity 1 Dependent. The helper does all the effort to complete an activity 7 Patient refused to complete or attempt activity 9 The patient did not perform the activity before the current illness or injury 88 Not attempted due to Medical conditions or safety concerns Transfers (B, C, W/C) (FIM): 2 Sit to/from Stand: 2 Bed to/from Chair: 2 Weight Bearing Right Lower Extremity: Right Weight Bearing/Tolerated Left Lower Extremity: Left Weight Bearing/Tolerated Gait Training Gait (FIM): 1 Distance: 8'x3 Gait Level of Assist: 2 Gait Persons Needed: 2 Gait Assistive Device: Parallel Bars One therapist supports patient from the front and the other has to help patient with her steps because they are so uncoordinated and she scissors. Exercises standing in parallel bars and performing an OT activity each side with UE Treatments bathing, transfers, ambulation, standing, dressing Assessment Current Status: Poor Progress no change in mobility PT Short Term Goals Short Term Goals Time Frame: Dec 20, 2018 Transfers (B,C,W/C) (FIM): 3 (3) Gait (FIM): 2 Distance (FIM): 8=072-38 ft Gait Assistive Device: FWW Wheelchair (FIM): 4 Wheelchair distance (FIM): 3=150 ft Wheelchair Distance: 50' PT Snf Goals Snf Goals PT Snf Goals Time Frame: Jan 03, 2019 Transfers (B,C,W/C) (FIM): 6 Sit to Lying (QC): 6 Lying-Sitting on Side/Bed(QC): 6 Sit to Stand (QC): 6 Rollin Roll Left to Right (QC): 6 Chair/Axr-cd-Qnxhh Xfer(QC): 6 Car Transfer (QC): 5 Does the Patient Walk: No and Walking Goal IS indicated Gait (FIM): 6 Gait distance (FIM): 3=150 ft Walk 10 feet (QC): 6 Walk 10ft-Uneven Surface(QC): 6 Walk 50ft with 2 Turns (QC): 6 Walk 150 ft (QC): 6 Gait Assistive Device: FWW Does the Pt use WC or Scooter?: Yes Wheelchair (FIM): 6 Wheelchair distance (FIM): 3=150 ft Wheel 50 feet with 2 turns (QC: 6 Stairs (FIM): 5 # of Steps: 4 1 Step (curb) (QC): 6 4 Steps (QC): 6 12 Steps (QC): 88 Picking up an Object (QC): 5 PT Plan Problem List Problem List: Activity Tolerance, Functional Strength, Safety, Balance, Gait, Transfer, Bed Mobility, ROM Treatment/Plan Treatment Plan: Continue Plan of Care Treatment Plan: Bed Mobility, Education, Functional Activity Bakari, Functional Strength, Group Therapy, Gait, Safety, Therapeutic Exercise, Transfers Treatment Duration: Jan 03, 2019 Frequency: At least 5 of 7 days/Wk (IRF) Estimated Hrs Per Day: 1.5 hours per day Patient and/or Family Agrees t: Yes Safety Risks/Education Patient Education: Gait Training, Transfer Techniques, Correct Positioning, Safety Issues Teaching Recipient: Patient Teaching Methods: Demonstration, Discussion Response to Teaching: Reinforcement Needed Time/GCodes Time In: 0800 Time Out: 0900 Total Billed Treatment Time: 60 Total Billed Treatment 1 visit FA 60' Co-treated with OT for 60 min. PT worked on transfers, standing, standing to dress and during shower, ambulation. OT worked on bathing, dressing, UE activity. TIGIST PAIGE PT Dec 12, 2018 08:59
--- NOTE | 2018-12-12 09:14 | Occupational Ther Daily Note ---
OT Current Status-Daily Note Subjective Pt alert, sitting in w/c. Pt agrees to therapy. No c/o pain. Mental Status/Objective Patient Orientation: Person, Place, Time, Situation Therapy Code Descriptions/Definitions Functional [place] Measure: 0=Not Assessed/NA 4=Minimal Assistance 1=Total Assistance 5=Supervision or Setup 2=Maximal Assistance 6=Modified [place] 3=Moderate Assistance 7=Complete [place] ADL-Treatment Co-treat with PT for part of session. Skills of 2 clinicians required for skilled instructions and care to complete coordinated total body movements during ambulating, bathing/dressing, standing and functional tasks. PT working on transfers, ambulation, coordination and standing during bathing/dressing. OT working on ADLs, UE coordination, functional transfers and positioning UE's during ambulation and standing. Pt attempts to assist during bathing and dressing though is inefficient due to uncoordinated movements, decreased fine motor skills and decreased grasp. Pt is max A for upper body bathing/dressing. Dependent for lower body bathing/dressing. OT working on completing UE gross motor movements and grasping during standing activities. Pt completed arm bike to increase bilateral UE movements and sustained grasp. One hand was wrapped to maintain post manager on arm bike handle so pt was concentrating on grasp and affiliate marketing coordinator rdinated movement with other hand, each hand completed 7 1/2 minutes with light resistance. Pt requires set up for eating and modified utensils. Discussed with nrsg concerns on pt's wt gain since admission. After therapy, pt sitting in recliner with call light/phone in reach. All needs met in room. Therapy Code Descriptions/Definitions Functional [place] Measure: 0=Not Assessed/NA 4=Minimal Assistance 1=Total Assistance 5=Supervision or Setup 2=Maximal Assistance 6=Modified [place] 3=Moderate Assistance 7=Complete [place] Therapy Quality Codes: 6 Independent with activity with or without an assistive device 5 Patient requires set up or clean up by helper. Patient completes activity by themselves 4 Supervision or touching assist (CGA). [place] provide cues , steadying assist 3 The helper provides less than half the effort to complete the activity 2 The helper provides more than half the effort to complete the activity 1 Dependent. The helper does all the effort to complete an activity 7 Patient refused to complete or attempt activity 9 The patient did not perform the activity before the current illness or injury 88 Not attempted due to Medical conditions or safety concerns Eating (FIM): 5 Eating (QC): 4 Grooming (FIM): 4 Oral Hygiene (QC): 4 Bathing (FIM): 1 Shower/Bathe Self (QC): 1 Upper Body (FIM): 2 Upper Body Dressing (QC): 2 Lower Body Dressing (FIM): 1 Lower Body Dressing (QC): 1 On/Off Footwear (QC): 2 Toileting (FIM): 1 Toileting Hygiene (QC): 1 Transfers (B, C, W/C) (FIM): 2 Toilet/Commode Transfer (FIM): 2 Toilet Transfer (QC): 2 Shower Transfer(FIM): 2 OT Short Term Goals Short Term Goals Time Frame: Dec 20, 2018 Eating(FIM): 3 Grooming(FIM): 3 Bathing(FIM): 3 Upper Body Dressing(FIM): 3 Lower Body Dressing(FIM): 2 Toileting(FIM): 2 Transfers (B,C,W/C) (FIM): 3 (3) Toilet/Commode Transfer(FIM): 3 Shower Transfer(FIM): 3 1=Demonstrate adherence to instructed precautions during ADL tasks. 2=Patient will verbalize/demonstrate understanding of assistive devices/modifications for ADL. 3=Patient will improve strength/tolerance for activity to enable patient to perform ADL's. OT Child Care Associate Teacher Goals Correction Goals Time Frame: Jan 03, 2019 Eating (FIM): 5 Eating (QC): 5 Groomin Oral Hygiene (QC): 4 Bathing(FIM): 5 Bathing Location: L Arm, R Arm, L Upper Leg, R Upper Leg, L Lower Leg (including foot), R Lower Leg (including foot), Chest, Abdomen, Buttocks, Perineal Area Shower/Bathe Self (QC): 4 Upper Body Dressing(FIM): 5 Upper Body Dressing (QC): 4 Lower Body Dressing(FIM): 5 Lower Body Dressing (QC): 4 On/Off Footwear (QC): 4 Toileting(FIM): 5 Toileting Hygiene (QC): 4 Transfers (B,C,W/C) (FIM): 5 Toilet/Commode Transfer(FIM): 5 Toilet/Commode Transfer (QC): 4 Shower Transfer(FIM): 4 Additional Goals: 1-Demonstrate ADL Tasks, 2-Verbalize Understanding, 3- ImproveStrength/Bakari 1=Demonstrate adherence to instructed precautions during ADL tasks. 2=Patient will verbalize/demonstrate understanding of assistive devices/ modifications for ADL. 3=Patient will improve strength/tolerance for activity to enable patient to perform ADL's. OT Education/Plan Problem List/Assessment Assessment: Decreased Activ Tolerance, Decreased Safety Aware, Decreased UE Strength, Impaired Bed Mobility, Impaired Cognition, Impaired Coordination, Impaired Funct Balance, Impaired Self-Care Skills, Restricted Funct UE ROM pt presents with functional limitations affecting areas of ADLS and functional transfers with deficits in the above mention including decrease proprioception, decrease light touch, and decrease overall safety with functional tasks. pt is motivated to participate in therapy. pt would benefit from skilled OT services to increase independence with ADLS and functional transfers. Discharge Recommendations Plan/Recommendations: Continue POC Treatment Plan/Plan of Care Patient would benefit from OT for education, treatment and training to promote independence in ADL's, mobility, safety and/or upper extremity function for ADL's. Plan of Care: ADL Retraining, Caregiver Training, Cognitive Retraining, Functional Mobility, Group Exercise/Act as Ind, UE Funct Exercise/Act, UE Neuromus Re-Ed/Coord, W/C Management Training Treatment Duration: Jan 03, 2019 Frequency: At least 5 of 7 days/Wk (IRF) Estimated Hrs Per Day: 1 hour per day (60-90 minutes per day ) Agreement: Yes Rehab Potential: Guarded Time/GCodes Start Time: 08:15 Stop Time: 09:30 Total Time Billed (hr/min): 75 Billed Treatment Time 1 visit-ADL 3 (45 min) NM 2 (30 min) individual therapy time (9751-2226) co- treat time (3415-5111) MARCY BOUDREAUX Dec 12, 2018 09:14
[2018-12-12] MEDS: LEVETIRACETAM 500 MG (KEPPRA) TAB PO SCH ×2 (09:19→21:29)
[2018-12-12] MEDS: HYDROcodone/APAP 5 MG/325 MG (LORTAB) TAB PO PRN ×2 (09:19→19:18)
[2018-12-12] MEDS: lisINopril 10 MG (PRINIVIL) TABLET PO SCH (09:19)
[2018-12-12] MEDS: meTOprolol TARTRATE 25 MG (LOPRESSOR) TABLET PO SCH ×2 (09:19→21:30)
[2018-12-12] MEDS: ENOXAPARIN 40 MG/0.4 ML (LOVENOX) SYR SC SCH (09:21)
--- NOTE | 2018-12-12 09:23 | PM&R Progress Note ---
Subjective HPI/CC On Admission Date Seen by Provider: Dec 12, 2018 Time Seen by Provider: 09:15 Chief complaint: Debility History of present illness: This is a 63-year-old white female known to me from a severe sepsis episode when she had arrived to go to inpatient rehab when she was transferred from last month after severe encephalopathy and parkinsonism rigidity with left foot wound status post bunionectomy with severe complications so she eventually stabilized went to inpatient rehab after insurance approval and spent 2 weeks there but continued to have difficulty with the pace of therapy so she was moved to the fdc closer to home in [place] but she is returned in need of full therapy services since she is not on weight restricted on the left foot now and she can weight-bear as tolerated and currently is much improved. Son is at the bedside and told me that she needs intensive therapy since she fully intends to return to work and then return to independent living along with family monitoring. Subjective/Events-last exam Pt about the same but appears to be more clear cognition. Afebrile. Incontinent of urine this morning. Is a daily weight. Total transfer so she eats all the time so will minimize by checking weight every day because she could become hard to maneuver since she is a total dependent transfer. Appears to be optimistic. Reviewed labs. Conferred with RN Reviewed therapy notes Review of Systems Neurological: Weakness, Numbness, Incoordination Objective Exam Vital Signs Vital Signs Date Time Temp Pulse Resp B/P (MAP) Pulse Ox O2 Delivery O2 Flow Rate FiO2 12/12/18 08:39 Room Air 12/12/18 05:21 98.8 83 18 145/93 (110) 95 Capillary Refill : Less Than 3 Seconds General Appearance: No Apparent Distress, WD/WN, Chronically ill, Thin HEENT: PERRL/EOMI, Normal ENT Inspection, Pharynx Normal, Moist Mucous Membranes Neck: Full Range of Motion, Normal Inspection, Non Tender, Supple Respiratory: Chest Non Tender, Lungs Clear, Normal Breath Sounds, No Accessory Muscle Use, No Respiratory Distress Cardiovascular: Regular Rate, Rhythm, No Edema, No Gallop, No JVD, No Murmur Gastrointestinal: Normal Bowel Sounds, No Organomegaly, No Pulsatile Mass, Non Tender, Soft Back: Normal Inspection, No CVA Tenderness, No Vertebral Tenderness Extremity: Normal Capillary Refill, Normal Inspection, Normal Range of Motion, Non Tender, No Calf Tenderness, No Pedal Edema Neurologic/Psychiatric: Alert, Oriented x3, No Motor/Sensory Deficits, Normal Mood/Affect, manager nursing home II-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 FIM Transfers Therapy Code Descriptions/Definitions Functional [place] Measure: 0=Not Assessed/NA 4=Minimal Assistance 1=Total Assistance 5=Supervision or Setup 2=Maximal Assistance 6=Modified [place] 3=Moderate Assistance 7=Complete [place] Therapy Quality Codes: 6 Independent with activity with or without an assistive device 5 Patient requires set up or clean up by helper. Patient completes activity by themselves 4 Supervision or touching assist (CGA). [place] provide cues , steadying assist 3 The helper provides less than half the effort to complete the activity 2 The helper provides more than half the effort to complete the activity 1 Dependent. The helper does all the effort to complete an activity 7 Patient refused to complete or attempt activity 9 The patient did not perform the activity before the current illness or injury 88 Not attempted due to Medical conditions or safety concerns Transfers (B, C, W/C) (FIM): 2 Scootin Rollin Roll Left to Right (QC): 3 Supine to/from Sit: 1 Sit to/from Stand: 2 Sit to Lying (QC): 1 Sit to Stand (QC): 1 Chair/Gln-ld-Pgghr Xfer(QC): 1 Bed to/from Chair: 2 Car Transfer (QC): 1 Gait Training Does the Patient Walk?: Yes Gait (FIM): 1 Distance (FIM): 1=up to 49 ft (4fx2) Distance: 8'x3 Walk 10 feet (QC): 88 Walk 50 ft with 2 Turns(QC): 88 Walk 150 ft (QC): 88 Walking 10ft/uneven surface-QC: 88 Gait Level of Assist: 2 Gait Persons Needed: 2 Gait Assistive Device: Parallel Bars Wheelchair Training Does the Pt Use a Wheelchair?: Yes Wheelchair (FIM): 2 Wheelchair Distance: 1=up to 49 ft (12ftx3) Distance: 50' Wheelchair Level of Assist: 2 Wheel 50 ft with 2 turns (QC): 1 Wheel 150 ft (QC): 1 Type of Wheelchair: Manual Stair Training Stairs (FIM): 0 (pt unable to walk) 1 Step (curb) (QC): 88 4 Steps (QC): 88 12 Steps (QC): 88 Balance Picking up an Object (QC): 88 Mental Status/Objective Comprehension: 4 Expression: 3 Social Interaction: 4 Problem Solvin Memory: 3 ADL-Treatment Feedin Eating (QC): 4 Groomin Oral Hygiene (QC): 4 Bathin Bathing Location: Chest, Abdomen Shower/Bathe Self (QC): 1 Upper Extremity Dressin Upper Body Dressing (QC): 2 Lower Extremity Dressin Lower Body Dressing (QC): 1 On/Off Footwear (QC): 2 Toiletin Toileting Hygiene (QC): 1 Toilet/Commode Transfer: 1 Toilet Transfer (QC): 2 Shower: 0 (unsafe at this time. ) Assessment/Plan Assessment and Plan Assess & Plan/Chief Complaint Assessment: Debility s/p encephalopathy much improved Cachexia Anemia Left foot wound Plan: IRF protocol Pain control Home meds Check labs prn Dispo if she remains completely dependent? (1) Other encephalopathy (2) Leukocytosis Status: Acute (3) Cachexia Status: Acute (4) Anemia of chronic disease Status: Chronic (5) Confusion Status: Acute (6) Parkinson disease Status: Chronic (7) Incontinence of urine Status: Acute (8) Visual hallucinations Status: Acute (9) Debility Status: Acute (10) Thrombocytosis Status: Acute (11) Incontinence of bowel Status: Acute (12) Rigidity Status: Acute (13) Polymicrobial bacterial infection Status: Acute (14) Osteomyelitis of foot Status: Acute (15) Witnessed seizure-like activity Status: Acute (16) Wound of left foot Status: Acute (17) Anemia Status: Chronic SHANNON LIMA DO Dec 12, 2018 09:23
--- NOTE | 2018-12-12 11:10 | Speech Therapy Daily Note ---
Speech Daily Progress Note Subjective Date Seen by Provider: Dec 12, 2018 Time Seen by Provider: 00:30 The patient was eating a late breakfast with assisted equipment when I entered the room. Objective The patient completed a series of safety awareness scenarios with pictures at 90% with min verbal cues. Assessment Assessment Current Status: Good Progress Treatment Plan Continue Plan of Care Communication Comprehension: 4 Expression: 3 Social Cognition Social Interaction: 4 Problem Solvin Memory: 3 Speech Short Term Goals Short Term Goals Short Term Goals 1) The patient will complete memory tasks related to his daily needs at 90% or greater with minimal cues. 2) The patient will complete problem solving tasks related to his daily needs at 90% or greater with minimal cues. 3) The patient will complete safety awareness tasks related to his daily needs at 90% or greater with minimal cues. Speech Body Art Technician Goals Body Art Technician Goals The patient will improve her cognitive functional level for safety and independence. Speech-Plan Patient/Family Goals Patient/Family Goals: The patient would like to go home, however this option is not likely due to her advanced Parkinson's. Treatment Plan Speech Therapy Treatment Plan: Continue Plan of Care The patient is making good progress with cognitive level of function. Treatment Duration: Dec 20, 2018 Frequency: 5 times per week Estimated Hrs Per Day: .5 hour per day Rehab Potential: Guarded Barriers to Learning: Patient has mild cognitive deficits. Pt/Family Agrees to Plan: Yes Safety Risks/Education Teaching Recipient: Patient Teaching Methods: Demonstration, Discussion Response to Teaching: Verbalize Understanding, Return Demonstration Education Topics Provided: Continued communication of her wants/needs. Time Speech Therapy Time In: 10:30 Speech Therapy Time Out: 11:00 Total Billed Time: 30 Billed Treatment Time 1AURE[address]IO [address] Dec 12, 2018 11:10
--- NOTE | 2018-12-12 14:33 | Physical Therapy Daily Note ---
PT Daily Note-Current Subjective Pt agreeable to PT. Pt has visitors from out of town. Transfers Therapy Code Descriptions/Definitions Functional [place] Measure: 0=Not Assessed/NA 4=Minimal Assistance 1=Total Assistance 5=Supervision or Setup 2=Maximal Assistance 6=Modified [place] 3=Moderate Assistance 7=Complete [place] Therapy Quality Codes: 6 Independent with activity with or without an assistive device 5 Patient requires set up or clean up by helper. Patient completes activity by themselves 4 Supervision or touching assist (CGA). [place] provide cues , steadying assist 3 The helper provides less than half the effort to complete the activity 2 The helper provides more than half the effort to complete the activity 1 Dependent. The helper does all the effort to complete an activity 7 Patient refused to complete or attempt activity 9 The patient did not perform the activity before the current illness or injury 88 Not attempted due to Medical conditions or safety concerns Weight Bearing Right Lower Extremity: Right Weight Bearing/Tolerated Left Lower Extremity: Left Weight Bearing/Tolerated Treatments SPT recliner to wc x 2 with dependent assist. Pt able to come to a full stand but unable to take steps to transfers. Worked on wc mobility for primary part of session with pt working on using her feet to propel the chair with 100% cues to dig her heel in and pull to advance the wc forward. Pt was dependent for wc mobiltiy, she tries to use her feet but is ineffective. She slaps her foot on the floor and is unable to pull her chair forward. Her LE movement is uncoordinated and she has difficutly advancing both feet left more difficult than right and tends to scissor, catching her feet on her own leg and cannot advance. Assessment Limited functional progress noted. Pt is pleasant and compliant but her progress is limited. PT Short Term Goals Short Term Goals Time Frame: Dec 20, 2018 Transfers (B,C,W/C) (FIM): 3 (3) Gait (FIM): 2 Distance (FIM): 0=679-43 ft Gait Assistive Device: FWW Wheelchair (FIM): 4 Wheelchair distance (FIM): 3=150 ft Wheelchair Distance: 50' PT Long-Term Goals Metal Stamper Goals PT Long-Term Goals Time Frame: Jan 03, 2019 Transfers (B,C,W/C) (FIM): 6 Sit to Lying (QC): 6 Lying-Sitting on Side/Bed(QC): 6 Sit to Stand (QC): 6 Rollin Roll Left to Right (QC): 6 Chair/Glw-vf-Qhkes Xfer(QC): 6 Car Transfer (QC): 5 Does the Patient Walk: No and Walking Goal IS indicated Gait (FIM): 6 Gait distance (FIM): 3=150 ft Walk 10 feet (QC): 6 Walk 10ft-Uneven Surface(QC): 6 Walk 50ft with 2 Turns (QC): 6 Walk 150 ft (QC): 6 Gait Assistive Device: FWW Does the Pt use WC or Scooter?: Yes Wheelchair (FIM): 6 Wheelchair distance (FIM): 3=150 ft Wheel 50 feet with 2 turns (QC: 6 Stairs (FIM): 5 # of Steps: 4 1 Step (curb) (QC): 6 4 Steps (QC): 6 12 Steps (QC): 88 Picking up an Object (QC): 5 PT Plan Problem List Problem List: Activity Tolerance, Functional Strength, Safety, Balance, Gait, Transfer, Bed Mobility Treatment/Plan Treatment Plan: Continue Plan of Care Treatment Plan: Bed Mobility, Education, Functional Activity Bakari, Functional Strength, Group Therapy, Gait, Safety, Therapeutic Exercise, Transfers Treatment Duration: Jan 03, 2019 Frequency: At least 5 of 7 days/Wk (IRF) Estimated Hrs Per Day: 1.5 hours per day Patient and/or Family Agrees t: Yes Safety Risks/Education Patient Education: W/C Management Teaching Recipient: Patient Teaching Methods: Demonstration, Discussion Response to Teaching: Reinforcement Needed Time/GCodes Time In: 1345 Time Out: 1400 Total Billed Treatment Time: 15 Total Billed Treatment visit MADELINE 15 MARCY RO PT Dec 12, 2018 14:33
--- NOTE | 2018-12-12 15:53 | NUR ---
PATTERN ATTENDANT met with patient to review team conference summary. Per report in team conference, patient has made very little gains thus far in her rehabilitation stay. However, if insurance will nidia additional time in rehabilitation, patient may make some progress, although it may be slow. PATTERN ATTENDANT did speak with patient and regarding future discharge plans, if insurance were to deny additional days. Patient agrees that returning home at this time would be unsafe area patient reports a Medicaid application was started at [facility], with intentions of long-term placement if needed. However, application was not submitted as patient was hopeful that [facility] would provide the necessary therapy needed in order for patient to return home. Patient is agreeable to returning to jail if required, but is hopeful that insurance will approve additional days as she is motivated to progress. PATTERN ATTENDANT contacted patient's son, Isidro to review team conference summary and discussion of tentative discharge plans, if insurance denies additional days. A similar conversation was had, Isidro provided approval for PATTERN ATTENDANT to reach out to [facility] to obtain Medicaid application for submission. PATTERN ATTENDANT will send insurance updates in tomorrow requesting additional days.
[2018-12-12 16:00] VITALS: BP 106/66
[2018-12-12] MEDS: SINEMET CR 50/200 (CARBIDOPA/LEVODOPA SA) TAB PO SCH (21:29)
[2018-12-12] MEDS: GABAPENTIN 100 MG (NEURONTIN) CAP PO SCH (21:29)
[2018-12-12] MEDS: MIRTAZAPINE 15 MG (REMERON) TAB PO SCH (21:29)
[2018-12-13 05:14] VITALS: BP 148/71
[2018-12-13] MEDS: ETODOLAC 200 MG (LODINE) CAP PO SCH ×2 (06:08→16:39)
[2018-12-13] MEDS: LACTOBACILLUS ACIDOPHILUS (PROBIOTIC) CAPSULE PO SCH ×2 (06:08→16:38)
[2018-12-13] MEDS: SINEMET 25/100 (CARBIDOPA/LEVODOPA) TAB PO SCH ×4 (06:08→19:39)
--- NOTE | 2018-12-13 08:55 | Progress Note - Hospitalist ---
[facility] 12/13/18 0855: Progress Note Danielle had no acute events overnight She continues to work with therapy w/ little improvement ACCOUNTING OFFICER meet with pt and family regarding [facility] prognosis Pt is agreeable to return to [facility] if needed ROXANNE EDWARDS DO 12/13/18 2142: Supervisory-Addendum Brief Verification & Attestation Participated in pt care: history, MDM, physical Personally performed: exam, history, MDM, supervision of care Care discussed with: Medical Student Procedures: n/a Results interpretation: Verified all documentation Verification and Attestation of Medical Student E/M Service A medical student performed and documented this service in my presence. I rev iewed and verified all information documented by the medical student and made modifications to such information, when appropriate. I personally performed the physical exam and medical decision making. Roxanne Edwards, Dec 13, 2018,21:42 [facility] Dec 13, 2018 08:55 ROXANNE EDWARDS DO Dec 13, 2018 21:42
--- NOTE | 2018-12-13 09:01 | Physical Therapy Daily Note ---
PT Daily Note-Current Subjective Patient in recliner pre tx, agrees to PT, has no complaints of pain. Will be co-treating with OT due to poor patient mobility, strength, endurance, balance, coordination, the need to coordinate UE and LE during activity. Appearance Patient in recliner post tx with nurse call, phone, tray, all needs met. Mental Status Patient Orientation: Person, Place, Situation Transfers Therapy Code Descriptions/Definitions Functional [place] Measure: 0=Not Assessed/NA 4=Minimal Assistance 1=Total Assistance 5=Supervision or Setup 2=Maximal Assistance 6=Modified [place] 3=Moderate Assistance 7=Complete [place] Therapy Quality Codes: 6 Independent with activity with or without an assistive device 5 Patient requires set up or clean up by helper. Patient completes activity by themselves 4 Supervision or touching assist (CGA). [place] provide cues , steadying assist 3 The helper provides less than half the effort to complete the activity 2 The helper provides more than half the effort to complete the activity 1 Dependent. The helper does all the effort to complete an activity 7 Patient refused to complete or attempt activity 9 The patient did not perform the activity before the current illness or injury 88 Not attempted due to Medical conditions or safety concerns Transfers (B, C, W/C) (FIM): 2 Sit to/from Stand: 2 Bed to/from Chair: 2 often needs assist with UE positioning during transfers Weight Bearing Right Lower Extremity: Right Weight Bearing/Tolerated Left Lower Extremity: Left Weight Bearing/Tolerated Gait Training Gait (FIM): 1 Distance: 20'x3 Gait Level of Assist: 2 Gait Persons Needed: 2 Patient ambulated with a bilateral platform walker with theraband attached to each leg to keep them abducted (she tends to scissor) and still allow step advancement. Patient tends to keep most of weight on her arms and not on her legs. We may try the LiteGait on Sunday. Exercises seated trunk extension and flexion exercises to work on core strength and balance, cone reaching exercises Treatments ambulation, transfers, trunk exercises Assessment Current Status: Poor Progress no change in mobility PT Short Term Goals Short Term Goals Time Frame: Dec 20, 2018 Transfers (B,C,W/C) (FIM): 3 (3) Gait (FIM): 2 Distance (FIM): 2=228-88 ft Gait Assistive Device: FWW Wheelchair (FIM): 4 Wheelchair distance (FIM): 3=150 ft Wheelchair Distance: 50' PT Nursing Home Goals Nursing Home Goals PT Nursing Home Goals Time Frame: Jan 03, 2019 Transfers (B,C,W/C) (FIM): 6 Sit to Lying (QC): 6 Lying-Sitting on Side/Bed(QC): 6 Sit to Stand (QC): 6 Rollin Roll Left to Right (QC): 6 Chair/Xaz-me-Cdlez Xfer(QC): 6 Car Transfer (QC): 5 Does the Patient Walk: No and Walking Goal IS indicated Gait (FIM): 6 Gait distance (FIM): 3=150 ft Walk 10 feet (QC): 6 Walk 10ft-Uneven Surface(QC): 6 Walk 50ft with 2 Turns (QC): 6 Walk 150 ft (QC): 6 Gait Assistive Device: FWW Does the Pt use WC or Scooter?: Yes Wheelchair (FIM): 6 Wheelchair distance (FIM): 3=150 ft Wheel 50 feet with 2 turns (QC: 6 Stairs (FIM): 5 # of Steps: 4 1 Step (curb) (QC): 6 4 Steps (QC): 6 12 Steps (QC): 88 Picking up an Object (QC): 5 PT Plan Problem List Problem List: Activity Tolerance, Functional Strength, Safety, Balance, Gait, Transfer, Bed Mobility, ROM Treatment/Plan Treatment Plan: Continue Plan of Care Treatment Plan: Bed Mobility, Education, Functional Activity Bakari, Functional Strength, Group Therapy, Gait, Safety, Therapeutic Exercise, Transfers Treatment Duration: Jan 03, 2019 Frequency: At least 5 of 7 days/Wk (IRF) Estimated Hrs Per Day: 1.5 hours per day Patient and/or Family Agrees t: Yes Safety Risks/Education Patient Education: Gait Training, Transfer Techniques, Correct Positioning, Safety Issues Teaching Recipient: Patient Teaching Methods: Demonstration, Discussion Response to Teaching: Reinforcement Needed Time/GCodes Time In: 0800 Time Out: 0900 Total Billed Treatment Time: 60 Total Billed Treatment 1 visit GT 30' EX 30' Co-treated with OT for 60 min, PT performed transfers, ambulation, assist with balance during seated and reaching activities, OT worked on seated and reaching activities, assist with ambulation and UE positioning TIGIST PAIGE PT Dec 13, 2018 09:00
[2018-12-13] MEDS: ENOXAPARIN 40 MG/0.4 ML (LOVENOX) SYR SC SCH (09:56)
[2018-12-13] MEDS: LEVETIRACETAM 500 MG (KEPPRA) TAB PO SCH ×2 (09:56→21:24)
[2018-12-13] MEDS: lisINopril 10 MG (PRINIVIL) TABLET PO SCH (09:56)
[2018-12-13] MEDS: meTOprolol TARTRATE 25 MG (LOPRESSOR) TABLET PO SCH ×2 (09:56→21:24)
--- NOTE | 2018-12-13 10:06 | Occupational Ther Daily Note ---
OT Current Status-Daily Note Subjective Pt sitting in recliner, alert. Stated that she slept all night. Agrees to therapy. No c/o pain. Mental Status/Objective Patient Orientation: Person, Place, Time, Situation Therapy Code Descriptions/Definitions Functional [place] Measure: 0=Not Assessed/NA 4=Minimal Assistance 1=Total Assistance 5=Supervision or Setup 2=Maximal Assistance 6=Modified [place] 3=Moderate Assistance 7=Complete [place] ADL-Treatment Co-treat with PT entire session. Skills of 2 clinicians required for skilled instructions and care to complete coordinated total body movements during ambulating, dressing, standing and functional tasks. PT working on transfers, ambulation, coordination, dynamic sitting balance and standing during dressing. OT working on dressing, UE coordination, functional transfers, dynamic sitting balance and positioning UE's during ambulation and standing. Max A for upper body dressing, pt attempts to assist though decreased grasp increased difficulty with holding onto materials. Pt used B UE to hold onto ball and large cones to place in designated areas. Therapy Code Descriptions/Definitions Functional [place] Measure: 0=Not Assessed/NA 4=Minimal Assistance 1=Total Assistance 5=Supervision or Setup 2=Maximal Assistance 6=Modified [place] 3=Moderate Assistance 7=Complete [place] Therapy Quality Codes: 6 Independent with activity with or without an assistive device 5 Patient requires set up or clean up by helper. Patient completes activity by themselves 4 Supervision or touching assist (CGA). [place] provide cues , steadying assist 3 The helper provides less than half the effort to complete the activity 2 The helper provides more than half the effort to complete the activity 1 Dependent. The helper does all the effort to complete an activity 7 Patient refused to complete or attempt activity 9 The patient did not perform the activity before the current illness or injury 88 Not attempted due to Medical conditions or safety concerns Upper Body (FIM): 2 Upper Body Dressing (QC): 2 On/Off Footwear (QC): 2 Other Treatment See PT notes on ambulation with platform FWW. OT assist with UE placement. After therapy, pt sitting in recliner with call light/phone in reach. All needs met in room. OT Short Term Goals Short Term Goals Time Frame: Dec 20, 2018 Eating(FIM): 3 Grooming(FIM): 3 Bathing(FIM): 3 Upper Body Dressing(FIM): 3 Lower Body Dressing(FIM): 2 Toileting(FIM): 2 Transfers (B,C,W/C) (FIM): 3 (3) Toilet/Commode Transfer(FIM): 3 Shower Transfer(FIM): 3 1=Demonstrate adherence to instructed precautions during ADL tasks. 2=Patient will verbalize/demonstrate understanding of assistive devices/modifications for ADL. 3=Patient will improve strength/tolerance for activity to enable patient to perform ADL's. OT Chcf Goals Chcf Goals Time Frame: Jan 03, 2019 Eating (FIM): 5 Eating (QC): 5 Groomin Oral Hygiene (QC): 4 Bathing(FIM): 5 Bathing Location: L Arm, R Arm, L Upper Leg, R Upper Leg, L Lower Leg (including foot), R Lower Leg (including foot), Chest, Abdomen, Buttocks, Perineal Area Shower/Bathe Self (QC): 4 Upper Body Dressing(FIM): 5 Upper Body Dressing (QC): 4 Lower Body Dressing(FIM): 5 Lower Body Dressing (QC): 4 On/Off Footwear (QC): 4 Toileting(FIM): 5 Toileting Hygiene (QC): 4 Transfers (B,C,W/C) (FIM): 5 Toilet/Commode Transfer(FIM): 5 Toilet/Commode Transfer (QC): 4 Shower Transfer(FIM): 4 Additional Goals: 1-Demonstrate ADL Tasks, 2-Verbalize Understanding, 3- ImproveStrength/Bakari 1=Demonstrate adherence to instructed precautions during ADL tasks. 2=Patient will verbalize/demonstrate understanding of assistive devices/modifications for ADL. 3=Patient will improve strength/tolerance for activity to enable patient to perform ADL's. OT Education/Plan Problem List/Assessment Assessment: Decreased Safety Aware, Decreased UE Strength, Impaired Cognition, Impaired Coordination, Impaired Funct Balance, Impaired Self-Care Skills, Restricted Funct UE ROM pt presents with functional limitations affecting areas of ADLS and functional transfers with deficits in the above mention including decrease proprioception, decrease light touch, and decrease overall safety with functional tasks. pt is motivated to participate in therapy. pt would benefit from skilled OT services to increase independence with ADLS and functional transfers. Discharge Recommendations Plan/Recommendations: Continue POC Treatment Plan/Plan of Care Patient would benefit from OT for education, treatment and training to promote independence in ADL's, mobility, safety and/or upper extremity function for ADL's. Plan of Care: ADL Retraining, Caregiver Training, Cognitive Retraining, Functional Mobility, Group Exercise/Act as Ind, UE Funct Exercise/Act, UE Neuromus Re-Ed/Coord, W/C Management Training Treatment Duration: Jan 03, 2019 Frequency: At least 5 of 7 days/Wk (IRF) Estimated Hrs Per Day: 1 hour per day (60-90 minutes per day ) Agreement: Yes Rehab Potential: Guarded Time/GCodes Start Time: 08:00 Stop Time: 09:00 Total Time Billed (hr/min): 60 Billed Treatment Time 1 visit-ADL 1 (15 min) FA 3 (45 min) MARCY BOUDREAUX Dec 13, 2018 10:06
--- NOTE | 2018-12-13 10:10 | PM&R Progress Note ---
Subjective HPI/CC On Admission Date Seen by Provider: Dec 13, 2018 Time Seen by Provider: 09:45 Chief complaint: Debility History of present illness: This is a 63-year-old white female known to me from a severe sepsis episode when she had arrived to go to inpatient rehab when she was transferred from last month after severe encephalopathy and parkinsonism rigidity with left foot wound status post bunionectomy with severe complications so she eventually stabilized went to inpatient rehab after insurance approval and spent 2 weeks there but continued to have difficulty with the pace of therapy so she was moved to the snf closer to home in [place] but she is returned in need of full therapy services since she is not on weight restricted on the left foot now and she can weight-bear as tolerated and currently is much improved. Son is at the bedside and told me that she needs intensive therapy since she fully intends to return to work and then return to independent living along with family monitoring. Subjective/Events-last exam Social work and nursing met with son It appears that she is not making any progress as far as dependency for ambulation and ADLs Severe Parkinson's places her at risk for complete decompensation after a very severe and long-standing acute issue that has occurred starting with the bunion surgery Long-term care will need to be set up Medicaid application in process Fairly sleepy today No bowel incontinence Urinary incontinence at times Check meds and labs Conferred with RN Reviewed therapy notes Review of Systems General: Fatigue Neurological: Weakness, Numbness, Incoordination Objective Exam Vital Signs Vital Signs Date Time Temp Pulse Resp B/P (MAP) Pulse Ox O2 Delivery O2 Flow Rate FiO2 12/13/18 21:31 82 144/76 (98) 12/13/18 16:00 98.8 18 94 Room Air Capillary Refill : Less Than 3 Seconds General Appearance: No Apparent Distress, WD/WN, Chronically ill, Thin HEENT: PERRL/EOMI, Normal ENT Inspection, Pharynx Normal, Moist Mucous Membranes Neck: Full Range of Motion, Normal Inspection, Non Tender, Supple Respiratory: Chest Non Tender, Lungs Clear, Normal Breath Sounds, No Accessory Muscle Use, No Respiratory Distress Cardiovascular: Regular Rate, Rhythm, No Edema, No Gallop, No JVD, No Murmur Gastrointestinal: Normal Bowel Sounds, No Organomegaly, No Pulsatile Mass, Non Tender, Soft Back: Normal Inspection, No CVA Tenderness, No Vertebral Tenderness Extremity: Normal Capillary Refill, Normal Inspection, Normal Range of Motion, Non Tender, No Calf Tenderness, No Pedal Edema Neurologic/Psychiatric: Alert, Oriented x3, No Motor/Sensory Deficits, Normal Mood/Affect, member of the [employer] [place] II-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 FIM Transfers Therapy Code Descriptions/Definitions Functional [place] Measure: 0=Not Assessed/NA 4=Minimal Assistance 1=Total Assistance 5=Supervision or Setup 2=Maximal Assistance 6=Modified [place] 3=Moderate Assistance 7=Complete [place] Therapy Quality Codes: 6 Independent with activity with or without an assistive device 5 Patient requires set up or clean up by helper. Patient completes activity by themselves 4 Supervision or touching assist (CGA). [place] provide cues , steadying assist 3 The helper provides less than half the effort to complete the activity 2 The helper provides more than half the effort to complete the activity 1 Dependent. The helper does all the effort to complete an activity 7 Patient refused to complete or attempt activity 9 The patient did not perform the activity before the current illness or injury 88 Not attempted due to Medical conditions or safety concerns Transfers (B, C, W/C) (FIM): 2 Scootin Rollin Roll Left to Right (QC): 3 Supine to/from Sit: 1 Sit to/from Stand: 2 Sit to Lying (QC): 1 Sit to Stand (QC): 1 Chair/Tdb-ef-Jthvq Xfer(QC): 1 Bed to/from Chair: 2 Car Transfer (QC): 1 Gait Training Does the Patient Walk?: Yes Gait (FIM): 1 Distance (FIM): 1=up to 49 ft (4fx2) Distance: 20'x3 Walk 10 feet (QC): 88 Walk 50 ft with 2 Turns(QC): 88 Walk 150 ft (QC): 88 Walking 10ft/uneven surface-QC: 88 Gait Level of Assist: 2 Gait Persons Needed: 2 Gait Assistive Device: Parallel Bars Wheelchair Training Does the Pt Use a Wheelchair?: Yes Wheelchair (FIM): 2 Wheelchair Distance: 1=up to 49 ft (12ftx3) Distance: 50' Wheelchair Level of Assist: 2 Wheel 50 ft with 2 turns (QC): 1 Wheel 150 ft (QC): 1 Type of Wheelchair: Manual Stair Training Stairs (FIM): 0 (pt unable to walk) 1 Step (curb) (QC): 88 4 Steps (QC): 88 12 Steps (QC): 88 Balance Picking up an Object (QC): 88 Mental Status/Objective Comprehension: 4 Expression: 3 Social Interaction: 4 Problem Solvin Memory: 3 ADL-Treatment Feedin Eating (QC): 4 Groomin Oral Hygiene (QC): 4 Bathin Bathing Location: Chest, Abdomen Shower/Bathe Self (QC): 1 Upper Extremity Dressin Upper Body Dressing (QC): 2 Lower Extremity Dressin Lower Body Dressing (QC): 1 On/Off Footwear (QC): 2 Toiletin Toileting Hygiene (QC): 1 Toilet/Commode Transfer: 1 Toilet Transfer (QC): 2 Shower: 2 Assessment/Plan Assessment and Plan Assess & Plan/Chief Complaint Assessment: Debility s/p encephalopathy much improved Cachexia Anemia Left foot wound Plan: IRF protocol Pain control Home meds Check labs prn NHP permanent (1) Other encephalopathy (2) Leukocytosis Status: Acute (3) Cachexia Status: Acute (4) Anemia of chronic disease Status: Chronic (5) Confusion Status: Acute (6) Parkinson disease Status: Chronic (7) Incontinence of urine Status: Acute (8) Visual hallucinations Status: Acute (9) Debility Status: Acute (10) Thrombocytosis Status: Acute (11) Incontinence of bowel Status: Acute (12) Rigidity Status: Acute (13) Polymicrobial bacterial infection Status: Acute (14) Osteomyelitis of foot Status: Acute (15) Witnessed seizure-like activity Status: Acute (16) Wound of left foot Status: Acute (17) Anemia Status: Chronic SHANNON LIMA DO Dec 13, 2018 10:10
--- NOTE | 2018-12-13 11:14 | Speech Therapy Daily Note ---
Speech Daily Progress Note Subjective Date Seen by Provider: Dec 13, 2018 Time Seen by Provider: 00:30 The patient was resting in her chair watching television when I entered her room. Objective The patient completed problem solving tasks with missing information in safety scenarios she may encounter upon discharge with 90% accuracy given minimal cues. Assessment Assessment Current Status: Good Progress Treatment Plan Continue Plan of Care Communication Comprehension: 4 Expression: 3 Social Cognition Social Interaction: 4 Problem Solvin Memory: 3 Speech Short Term Goals Short Term Goals Short Term Goals 1) The patient will complete memory tasks related to his daily needs at 90% or greater with minimal cues. 2) The patient will complete problem solving tasks related to his daily needs at 90% or greater with minimal cues. 3) The patient will complete safety awareness tasks related to his daily needs at 90% or greater with minimal cues. Speech Usp Goals Packing Machine Inspector Goals The patient will improve her cognitive functional level for safety and independence. Speech-Plan Patient/Family Goals Patient/Family Goals: The patient will discharge to a SNF in [place] post rehab. Treatment Plan Speech Therapy Treatment Plan: Continue Plan of Care The patient has made progress with skilled ST services. Treatment Duration: Dec 20, 2018 Frequency: 5 times per week Estimated Hrs Per Day: .5 hour per day Rehab Potential: Guarded Barriers to Learning: The patient has mild cognitive deficits. Pt/Family Agrees to Plan: Yes Safety Risks/Education Teaching Recipient: Patient Teaching Methods: Demonstration, Discussion Response to Teaching: Verbalize Understanding, Return Demonstration Education Topics Provided: Continued safety upon discharge Time Speech Therapy Time In: 10:30 Speech Therapy Time Out: 11:00 Total Billed Time: 30 Billed Treatment Time 1, ANDREW Perales Dec 13, 2018 11:14
--- NOTE | 2018-12-13 12:18 | NUR ---
ZAYDA sent updated clinical information to patients insurance provider of [facility] requesting 7 additional days. Addendum: 12/13/18 at 1620 by DEMETRICE THAYER FAMILY ASSESSMENT WORKER received contact from Demetrice, bilingual patient support caseworker at [facility] with approval of 7 additional days. Next update due on 830.
--- NOTE | 2018-12-13 14:20 | Therapy Group Daily Note ---
Therapy Daily Group Note Patient Education Topic Home Safety, Fall Prevention, Home Safety, Energy Cons Session Ratio (pt:therapist): 3:1 Goal of Session: Education on ARU Expectations, Energy Conservation Tech., Home Safety Strategies, Memory Strategies Goal Met for this Session: Yes Pt Benefit of Group: Contributions to Others, F/U Use of Strategies @Home, Increased Functional Safety, Improved Cognition, Recognition of Peers, Socialization Other/Notes Pt transported via windows migration technician to [facility] for OT group. Group consisted of introductions (name, and fun fact about patient), socialization, ARU expe ctations, energy conservation techniques, home safety strategies, and memory strategies. Pt introduced self appropriately and actively listened to peers. pt participate in matching memory game with peer with moderate difficulty with task. pt given handout of energy conservation techniques to incorporate in every day living. Pt acknowledged understanding of hand out by giving personal strategies of how to incorporate techniques within person daily life. After therapy, pt sitting in recliner chair, with call light/phone in reach. All needs met in room. Start Time: 13:00 Stop Time: 14:05 Total Billed Treatment GRP 65 minutes ROSENDO BARROSO OT Dec 13, 2018 14:20
[2018-12-13 16:00] VITALS: BP 113/68
[2018-12-13] MEDS: HYDROcodone/APAP 5 MG/325 MG (LORTAB) TAB PO PRN (21:24)
[2018-12-13] MEDS: MIRTAZAPINE 15 MG (REMERON) TAB PO SCH (21:25)
[2018-12-13] MEDS: GABAPENTIN 100 MG (NEURONTIN) CAP PO SCH (21:25)
[2018-12-13] MEDS: SINEMET CR 50/200 (CARBIDOPA/LEVODOPA SA) TAB PO SCH (21:25)
[2018-12-13 21:31] VITALS: BP 144/76
[2018-12-14 06:00] VITALS: BP 132/71
[2018-12-14] MEDS: ETODOLAC 200 MG (LODINE) CAP PO SCH ×2 (06:11→18:50)
[2018-12-14] MEDS: SINEMET 25/100 (CARBIDOPA/LEVODOPA) TAB PO SCH ×4 (06:11→18:51)
[2018-12-14] MEDS: LACTOBACILLUS ACIDOPHILUS (PROBIOTIC) CAPSULE PO SCH ×2 (06:11→18:50)
--- NOTE | 2018-12-14 08:37 | Physical Therapy Daily Note ---
PT Daily Note-Current Subjective Pt agreeable to PT session. States she would like to work on standing and walking today Pain Numeric Pain Scale: 0-No Pain Appearance Pt in bed asleep, easily aroused but "groggy". Pt assisted to bathroom as requested. At end of session, pt sitting up in recliner with call light, phone and bedside table within reach. Mental Status Patient Orientation: Person, Place, Time, Situation Transfers Therapy Code Descriptions/Definitions Functional [place] Measure: 0=Not Assessed/NA 4=Minimal Assistance 1=Total Assistance 5=Supervision or Setup 2=Maximal Assistance 6=Modified [place] 3=Moderate Assistance 7=Complete [place] Therapy Quality Codes: 6 Independent with activity with or without an assistive device 5 Patient requires set up or clean up by helper. Patient completes activity by themselves 4 Supervision or touching assist (CGA). [place] provide cues , steadying assist 3 The helper provides less than half the effort to complete the activity 2 The helper provides more than half the effort to complete the activity 1 Dependent. The helper does all the effort to complete an activity 7 Patient refused to complete or attempt activity 9 The patient did not perform the activity before the current illness or injury 88 Not attempted due to Medical conditions or safety concerns Transfers (B, C, W/C) (FIM): 2 Scootin Rollin Supine to/from Sit: 4 (SBA for safety, use of bedrail, HOB elevated) Sit to/from Stand: 2 Bed to/from Chair: 2 increasing fatigue toward end of session requiring increased physical assist of 2, blocking of knees sage LLE, verb inst required to straighten knees and stand straight. x10 sit to from stand transfers and x4 stand pivot transfers performed throughout tx session Weight Bearing Right Lower Extremity: Right Weight Bearing/Tolerated Left Lower Extremity: Left Weight Bearing/Tolerated Exercises Standing Reps: 5 (standing balance in // bars x25 min with sitting rest breaks, assist of 2, unable to maintain grasp on bars with hands, inst for posture, straightening knees, wt shifting fwd retro L and R) Treatments bed mobility, transfers, safety, education, toileting, dressing, amairani care, standing balance, balance righting techniques, functional mobility, activity tolerance Assessment increasing fatigue toward end of session requiring increased physical assist of 2 PT Short Term Goals Short Term Goals Time Frame: Dec 20, 2018 Transfers (B,C,W/C) (FIM): 3 (3) Gait (FIM): 2 Distance (FIM): 3=474-56 ft Gait Assistive Device: FWW Wheelchair (FIM): 4 Wheelchair distance (FIM): 3=150 ft Wheelchair Distance: 50' PT Brush Sander Goals Brush [place]ander Goals PT Residential Goals Time Frame: Jan 03, 2019 Transfers (B,C,W/C) (FIM): 6 Sit to Lying (QC): 6 Lying-Sitting on Side/Bed(QC): 6 Sit to Stand (QC): 6 Rollin Roll Left to Right (QC): 6 Chair/Ycx-oa-Oozup Xfer(QC): 6 Car Transfer (QC): 5 Does the Patient Walk: No and Walking Goal IS indicated Gait (FIM): 6 Gait distance (FIM): 3=150 ft Walk 10 feet (QC): 6 Walk 10ft-Uneven Surface(QC): 6 Walk 50ft with 2 Turns (QC): 6 Walk 150 ft (QC): 6 Gait Assistive Device: FWW Does the Pt use WC or Scooter?: Yes Wheelchair (FIM): 6 Wheelchair distance (FIM): 3=150 ft Wheel 50 feet with 2 turns (QC: 6 Stairs (FIM): 5 # of Steps: 4 1 Step (curb) (QC): 6 4 Steps (QC): 6 12 Steps (QC): 88 Picking up an Object (QC): 5 PT Plan Treatment/Plan Treatment Plan: Continue Plan of Care Treatment Plan: Bed Mobility, Education, Functional Activity Bakari, Functional Strength, Group Therapy, Gait, Safety, Therapeutic Exercise, Transfers Treatment Duration: Jan 03, 2019 Frequency: At least 5 of 7 days/Wk (IRF) Estimated Hrs Per Day: 1.5 hours per day Patient and/or Family Agrees t: Yes Safety Risks/Education Patient Education: Transfer Techniques, Correct Positioning, Safety Issues Teaching Recipient: Patient Teaching Methods: Demonstration, Discussion Response to Teaching: Verbalize Understanding, Return Demonstration, Reinforcement Needed Time/GCodes Time In: 835 Time Out: 913 Total Billed Treatment Time: 38 Total Billed Treatment 1 visit, FA x13 min, EX x 25 min REED BARLOW PTA Dec 14, 2018 08:37
[2018-12-14] MEDS: LEVETIRACETAM 500 MG (KEPPRA) TAB PO SCH ×2 (09:52→20:32)
[2018-12-14] MEDS: ENOXAPARIN 40 MG/0.4 ML (LOVENOX) SYR SC SCH (09:53)
[2018-12-14] MEDS: meTOprolol TARTRATE 25 MG (LOPRESSOR) TABLET PO SCH ×2 (09:53→20:32)
[2018-12-14] MEDS: lisINopril 10 MG (PRINIVIL) TABLET PO SCH (09:54)
--- NOTE | 2018-12-14 12:27 | PM&R Progress Note ---
Subjective HPI/CC On Admission Date Seen by Provider: Dec 14, 2018 Time Seen by Provider: 12:10 Chief complaint: Debility History of present illness: This is a 63-year-old white female known to me from a severe sepsis episode when she had arrived to go to inpatient rehab when she was transferred from last month after severe encephalopathy and parkinsonism rigidity with left foot wound status post bunionectomy with severe complications so she eventually stabilized went to inpatient rehab after insurance approval and spent 2 weeks there but continued to have difficulty with the pace of therapy so she was moved to the halfway closer to home in [place] but she is returned in need of full therapy services since she is not on weight restricted on the left foot now and she can weight-bear as tolerated and currently is much improved. Son is at the bedside and told me that she needs intensive therapy since she fully intends to return to work and then return to independent living along with family monitoring. Subjective/Events-last exam Social work and nursing met with son about not making any progress as far as dependency for ambulation and ADLs Severe Parkinson's places her at risk for complete decompensation after a very severe and long-standing acute issue that has occurred starting with the bunion surgery Long-term care will need to be set up Medicaid application in process Seems to be doing well today No bowel incontinence Urinary incontinence at times Check meds and labs Conferred with RN Reviewed therapy notes Review of Systems Neurological: Weakness, Incoordination Objective Exam Vital Signs Vital Signs Date Time Temp Pulse Resp B/P (MAP) Pulse Ox O2 Delivery O2 Flow Rate FiO2 12/14/18 17:19 98.2 78 18 135/78 (97) 97 Room Air Capillary Refill : Less Than 3 Seconds General Appearance: No Apparent Distress, WD/WN, Chronically ill, Thin HEENT: PERRL/EOMI, Normal ENT Inspection, Pharynx Normal, Moist Mucous Membranes Neck: Full Range of Motion, Normal Inspection, Non Tender, Supple Respiratory: Chest Non Tender, Lungs Clear, Normal Breath Sounds, No Accessory Muscle Use, No Respiratory Distress Cardiovascular: Regular Rate, Rhythm, No Edema, No Gallop, No JVD, No Murmur Gastrointestinal: Normal Bowel Sounds, No Organomegaly, No Pulsatile Mass, Non Tender, Soft Back: Normal Inspection, No CVA Tenderness, No Vertebral Tenderness Extremity: Normal Capillary Refill, Normal Inspection, Normal Range of Motion, Non Tender, No Calf Tenderness, No Pedal Edema, Other (hand contractures noted) Neurologic/Psychiatric: Alert, Oriented x3, No Motor/Sensory Deficits, Normal 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 FIM Transfers Therapy Code Descriptions/Definitions Functional [place] Measure: 0=Not Assessed/NA 4=Minimal Assistance 1=Total Assistance 5=Supervision or Setup 2=Maximal Assistance 6=Modified [place] 3=Moderate Assistance 7=Complete [place] Therapy Quality Codes: 6 Independent with activity with or without an assistive device 5 Patient requires set up or clean up by helper. Patient completes activity by themselves 4 Supervision or touching assist (CGA). [place] provide cues , steadying assist 3 The helper provides less than half the effort to complete the activity 2 The helper provides more than half the effort to complete the activity 1 Dependent. The helper does all the effort to complete an activity 7 Patient refused to complete or attempt activity 9 The patient did not perform the activity before the current illness or injury 88 Not attempted due to Medical conditions or safety concerns Transfers (B, C, W/C) (FIM): 2 Scootin Rollin Roll Left to Right (QC): 3 Supine to/from Sit: 4 (SBA for safety, use of bedrail, HOB elevated) Sit to/from Stand: 2 Sit to Lying (QC): 1 Sit to Stand (QC): 1 Chair/Iva-ce-Mcpyo Xfer(QC): 1 Bed to/from Chair: 2 Car Transfer (QC): 1 Gait Training Does the Patient Walk?: Yes Gait (FIM): 1 Distance (FIM): 1=up to 49 ft (4fx2) Distance: 20'x3 Walk 10 feet (QC): 88 Walk 50 ft with 2 Turns(QC): 88 Walk 150 ft (QC): 88 Walking 10ft/uneven surface-QC: 88 Gait Level of Assist: 2 Gait Persons Needed: 2 Gait Assistive Device: Parallel Bars Wheelchair Training Does the Pt Use a Wheelchair?: Yes Wheelchair (FIM): 2 Wheelchair Distance: 1=up to 49 ft (12ftx3) Distance: 50' Wheelchair Level of Assist: 2 Wheel 50 ft with 2 turns (QC): 1 Wheel 150 ft (QC): 1 Type of Wheelchair: Manual Stair Training Stairs (FIM): 0 (pt unable to walk) 1 Step (curb) (QC): 88 4 Steps (QC): 88 12 Steps (QC): 88 Balance Picking up an Object (QC): 88 Mental Status/Objective Comprehension: 5 Expression: 4 Social Interaction: 5 Problem Solvin Memory: 5 ADL-Treatment Feedin Eating (QC): 4 Groomin Oral Hygiene (QC): 4 Bathin Bathing Location: Chest, Abdomen Shower/Bathe Self (QC): 1 Upper Extremity Dressin Upper Body Dressing (QC): 2 Lower Extremity Dressin Lower Body Dressing (QC): 1 On/Off Footwear (QC): 2 Toiletin Toileting Hygiene (QC): 1 Toilet/Commode Transfer: 1 Toilet Transfer (QC): 2 Shower: 2 Assessment/Plan Assessment and Plan Assess & Plan/Chief Complaint Assessment: Debility s/p encephalopathy much improved Cachexia Anemia Left foot wound Hand contractures Plan: IRF protocol Pain control Home meds Check labs prn 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 (1) Other encephalopathy (2) Leukocytosis Status: Acute (3) Cachexia Status: Acute (4) Anemia of chronic disease Status: Chronic (5) Confusion Status: Acute (6) Parkinson disease Status: Chronic (7) Incontinence of urine Status: Acute (8) Visual hallucinations Status: Acute (9) Debility Status: Acute (10) Thrombocytosis Status: Acute (11) Incontinence of bowel Status: Acute (12) Rigidity Status: Acute (13) Polymicrobial bacterial infection Status: Acute (14) Osteomyelitis of foot Status: Acute (15) Witnessed seizure-like activity Status: Acute (16) Wound of left foot Status: Acute (17) Anemia Status: Chronic SHANNON LIMA DO Dec 14, 2018 12:27
[2018-12-14 17:19] VITALS: BP 135/78
[2018-12-14] MEDS: MIRTAZAPINE 15 MG (REMERON) TAB PO SCH (20:32)
[2018-12-14] MEDS: GABAPENTIN 100 MG (NEURONTIN) CAP PO SCH (20:33)
[2018-12-14] MEDS: SINEMET CR 50/200 (CARBIDOPA/LEVODOPA SA) TAB PO SCH (20:33)
[2018-12-14] MEDS: HYDROcodone/APAP 5 MG/325 MG (LORTAB) TAB PO PRN (20:35)
[2018-12-15 06:03] VITALS: BP 163/88
[2018-12-15] MEDS: LACTOBACILLUS ACIDOPHILUS (PROBIOTIC) CAPSULE PO SCH ×2 (06:04→16:32)
[2018-12-15] MEDS: SINEMET 25/100 (CARBIDOPA/LEVODOPA) TAB PO SCH ×4 (06:04→18:13)
[2018-12-15] MEDS: ETODOLAC 200 MG (LODINE) CAP PO SCH ×2 (06:04→16:32)
[2018-12-15] MEDS: LEVETIRACETAM 500 MG (KEPPRA) TAB PO SCH ×2 (08:35→20:48)
[2018-12-15] MEDS: lisINopril 10 MG (PRINIVIL) TABLET PO SCH (08:36)
[2018-12-15] MEDS: ENOXAPARIN 40 MG/0.4 ML (LOVENOX) SYR SC SCH (08:39)
[2018-12-15] MEDS: meTOprolol TARTRATE 25 MG (LOPRESSOR) TABLET PO SCH ×2 (08:39→19:36)
[2018-12-15 08:41] VITALS: BP 158/80
--- NOTE | 2018-12-15 12:02 | PM&R Progress Note ---
Subjective HPI/CC On Admission Date Seen by Provider: Dec 15, 2018 Time Seen by Provider: 11:40 Chief complaint: Debility History of present illness: This is a 63-year-old white female known to me from a severe sepsis episode when she had arrived to go to inpatient rehab when she was transferred from last month after severe encephalopathy and parkinsonism rigidity with left foot wound status post bunionectomy with severe complications so she eventually stabilized went to inpatient rehab after insurance approval and spent 2 weeks there but continued to have difficulty with the pace of therapy so she was moved to the detention closer to home in [place] but she is returned in need of full therapy services since she is not on weight restricted on the left foot now and she can weight-bear as tolerated and currently is much improved. Son is at the bedside and told me that she needs intensive therapy since she fully intends to return to work and then return to independent living along with family monitoring. Subjective/Events-last exam No major changes to her dependency issues Long-term care will need to be set up Medicaid application in process Seems to be doing well today and just taking a nap when I saw her No bowel incontinence Urinary incontinence at times Check meds and labs Conferred with RN Reviewed therapy notes Review of Systems Neurological: Weakness, Numbness, Incoordination Objective Exam Vital Signs Vital Signs Date Time Temp Pulse Resp B/P (MAP) Pulse Ox O2 Delivery O2 Flow Rate FiO2 12/15/18 09:59 Room Air 12/15/18 08:41 73 158/80 (106) 12/15/18 06:03 98.1 20 96 Capillary Refill : Less Than 3 Seconds General Appearance: No Apparent Distress, WD/WN, Chronically ill, Thin HEENT: PERRL/EOMI, Normal ENT Inspection, Pharynx Normal, Moist Mucous Membranes Neck: Full Range of Motion, Normal Inspection, Non Tender, Supple Respiratory: Chest Non Tender, Lungs Clear, Normal Breath Sounds, No Accessory Muscle Use, No Respiratory Distress Cardiovascular: Regular Rate, Rhythm, No Edema, No Gallop, No JVD, No Murmur Gastrointestinal: Normal Bowel Sounds, No Organomegaly, No Pulsatile Mass, Non Tender, Soft Back: Normal Inspection, No CVA Tenderness, No Vertebral Tenderness Extremity: Normal Capillary Refill, Normal Inspection, Normal Range of Motion, Non Tender, No Calf Tenderness, No Pedal Edema, Other (hand contractures noted) Neurologic/Psychiatric: Alert, Oriented x3, No Motor/Sensory Deficits, Normal 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 FIM Transfers Therapy Code Descriptions/Definitions Functional [place] Measure: 0=Not Assessed/NA 4=Minimal Assistance 1=Total Assistance 5=Supervision or Setup 2=Maximal Assistance 6=Modified [place] 3=Moderate Assistance 7=Complete [place] Therapy Quality Codes: 6 Independent with activity with or without an assistive device 5 Patient requires set up or clean up by helper. Patient completes activity by themselves 4 Supervision or touching assist (CGA). [place] provide cues , steadying assist 3 The helper provides less than half the effort to complete the activity 2 The helper provides more than half the effort to complete the activity 1 Dependent. The helper does all the effort to complete an activity 7 Patient refused to complete or attempt activity 9 The patient did not perform the activity before the current illness or injury 88 Not attempted due to Medical conditions or safety concerns Transfers (B, C, W/C) (FIM): 1 Scootin Rollin Roll Left to Right (QC): 3 Supine to/from Sit: 4 (SBA for safety, use of bedrail, HOB elevated) Sit to/from Stand: 2 Sit to Lying (QC): 1 Sit to Stand (QC): 1 Chair/Wsr-rs-Swmbp Xfer(QC): 1 Bed to/from Chair: 1 Car Transfer (QC): 1 Gait Training Does the Patient Walk?: Yes Gait (FIM): 1 Distance (FIM): 1=up to 49 ft (4fx2) Distance: 20'x3 Walk 10 feet (QC): 88 Walk 50 ft with 2 Turns(QC): 88 Walk 150 ft (QC): 88 Walking 10ft/uneven surface-QC: 88 Gait Level of Assist: 2 Gait Persons Needed: 2 Gait Assistive Device: Parallel Bars Wheelchair Training Does the Pt Use a Wheelchair?: Yes Wheelchair (FIM): 2 Wheelchair Distance: 1=up to 49 ft (12ftx3) Distance: 50' Wheelchair Level of Assist: 2 Wheel 50 ft with 2 turns (QC): 1 Wheel 150 ft (QC): 1 Type of Wheelchair: Manual Stair Training Stairs (FIM): 0 (pt unable to walk) 1 Step (curb) (QC): 88 4 Steps (QC): 88 12 Steps (QC): 88 Balance Picking up an Object (QC): 88 Mental Status/Objective Comprehension: 5 Expression: 4 Social Interaction: 5 Problem Solvin Memory: 5 ADL-Treatment Feedin Eating (QC): 4 Groomin Oral Hygiene (QC): 4 Bathin Bathing Location: Chest, Abdomen Shower/Bathe Self (QC): 1 Upper Extremity Dressin Upper Body Dressing (QC): 2 Lower Extremity Dressin Lower Body Dressing (QC): 1 On/Off Footwear (QC): 2 Toiletin Toileting Hygiene (QC): 1 Toilet/Commode Transfer: 1 Toilet Transfer (QC): 2 Shower: 2 Assessment/Plan Assessment and Plan Assess & Plan/Chief Complaint Assessment: Debility s/p encephalopathy much improved Cachexia Anemia Left foot wound Hand contractures Plan: IRF protocol Pain control Home meds Check labs in am NHP permanent at [facility] care home (1) Other encephalopathy (2) Leukocytosis Status: Acute (3) Cachexia Status: Acute (4) Anemia of chronic disease Status: Chronic (5) Confusion Status: Acute (6) Parkinson disease Status: Chronic (7) Incontinence of urine Status: Acute (8) Visual hallucinations Status: Acute (9) Debility Status: Acute (10) Thrombocytosis Status: Acute (11) Incontinence of bowel Status: Acute (12) Rigidity Status: Acute (13) Polymicrobial bacterial infection Status: Acute (14) Osteomyelitis of foot Status: Acute (15) Witnessed seizure-like activity Status: Acute (16) Wound of left foot Status: Acute (17) Anemia Status: Chronic SHANNON LIMA DO Dec 15, 2018 12:02
[2018-12-15 17:27] VITALS: BP 112/77
[2018-12-15] MEDS: GABAPENTIN 100 MG (NEURONTIN) CAP PO SCH (20:48)
[2018-12-15] MEDS: HYDROcodone/APAP 5 MG/325 MG (LORTAB) TAB PO PRN (20:48)
[2018-12-15] MEDS: SINEMET CR 50/200 (CARBIDOPA/LEVODOPA SA) TAB PO SCH (20:48)
[2018-12-15] MEDS: MIRTAZAPINE 15 MG (REMERON) TAB PO SCH (20:48)
[2018-12-16] MEDS: ETODOLAC 200 MG (LODINE) CAP PO SCH ×2 (05:16→17:46)
[2018-12-16] MEDS: SINEMET 25/100 (CARBIDOPA/LEVODOPA) TAB PO SCH ×4 (05:17→17:54)
[2018-12-16] MEDS: LACTOBACILLUS ACIDOPHILUS (PROBIOTIC) CAPSULE PO SCH ×2 (05:17→17:46)
[2018-12-16 05:25] LABS: BASOPHILS % (AUTO) 0 % (0-10); EOSINOPHILS # (AUTO) 0.3 10^3/uL (0.0-0.3); EOSINOPHILS % (AUTO) 4 % (0-10); HEMATOCRIT 34 % (35-52); HEMOGLOBIN 10.3 G/DL (11.5-16.0); LYMPHOCYTES # (AUTO) 1.5 X 10^3 (1.0-4.0); LYMPHOCYTES % (AUTO) 21 % (12-44); MEAN CORPUSCULAR HEMOGLOBIN 28 PG (25-34); MEAN CORPUSCULAR HGB CONC 31 G/DL (32-36); MEAN CORPUSCULAR VOLUME 90 FL (80-99); MONOCYTES # (AUTO) 0.5 X 10^3 (0.0-1.0); MONOCYTES % (AUTO) 7 % (0-12); NEUTROPHILS # (AUTO) 4.9 X 10^3 (1.8-7.8); NEUTROPHILS % (AUTO) 68 % (42-75); PLATELET COUNT 280 10^3/uL (130-400); RED CELL DISTRIBUTION WIDTH 17.2 % (10.0-14.5); WHITE BLOOD COUNT 7.2 10^3/uL (4.3-11.0)
[2018-12-16 05:36] VITALS: BP 136/75
[2018-12-16 05:53] LABS: ALANINE AMINOTRANSFERASE 8 U/L (0-55); ALBUMIN 3.1 GM/DL (3.2-4.5); ALKALINE PHOSPHATASE 96 U/L (40-136); BILIRUBIN,TOTAL 0.2 MG/DL (0.1-1.0); BUN/CREATININE RATIO 29; CALCIUM 8.5 MG/DL (8.5-10.1); CARBON DIOXIDE 24 MMOL/L (21-32); CHLORIDE 110 MMOL/L (98-107); CREATININE SERUM 0.68 MG/DL (0.60-1.30); GFR ESTIMATED > 60; GLUCOSE 89 MG/DL (70-105); POTASSIUM 4.1 MMOL/L (3.6-5.0); SODIUM 142 MMOL/L (135-145); TOTAL PROTEIN 5.6 GM/DL (6.4-8.2)
--- NOTE | 2018-12-16 08:08 | PM&R Progress Note ---
Subjective HPI/CC On Admission Date Seen by Provider: Dec 16, 2018 Time Seen by Provider: 08:00 Chief complaint: Debility History of present illness: This is a 63-year-old white female known to me from a severe sepsis episode when she had arrived to go to inpatient rehab when she was transferred from last month after severe encephalopathy and parkinsonism rigidity with left foot wound status post bunionectomy with severe complications so she eventually stabilized went to inpatient rehab after insurance approval and spent 2 weeks there but continued to have difficulty with the pace of therapy so she was moved to the custodial closer to home in [place] but she is returned in need of full therapy services since she is not on weight restricted on the left foot now and she can weight-bear as tolerated and currently is much improved. Son is at the bedside and told me that she needs intensive therapy since she fully intends to return to work and then return to independent living along with family monitoring. Subjective/Events-last exam Held BP because her BP was slightly low No incontinence of urinary system last night Still a two person transfer Labs were reviewed all within normal limits Check meds and labs Conferred with RN Reviewed therapy notes Review of Systems General: Fatigue Neurological: Weakness, Numbness, Incoordination Objective Exam Vital Signs Vital Signs Date Time Temp Pulse Resp B/P (MAP) Pulse Ox O2 Delivery O2 Flow Rate FiO2 12/16/18 17:47 99.3 85 20 139/88 (105) 96 Room Air Capillary Refill : Less Than 3 Seconds General Appearance: No Apparent Distress, WD/WN, Chronically ill, Thin HEENT: PERRL/EOMI, Normal ENT Inspection, Pharynx Normal, Moist Mucous Membranes Neck: Full Range of Motion, Normal Inspection, Non Tender, Supple Respiratory: Chest Non Tender, Lungs Clear, Normal Breath Sounds, No Accessory Muscle Use, No Respiratory Distress Cardiovascular: Regular Rate, Rhythm, No Edema, No Gallop, No JVD, No Murmur Gastrointestinal: Normal Bowel Sounds, No Organomegaly, No Pulsatile Mass, Non Tender, Soft Back: Normal Inspection, No CVA Tenderness, No Vertebral Tenderness Extremity: Normal Capillary Refill, Normal Inspection, Normal Range of Motion, Non Tender, No Calf Tenderness, No Pedal Edema, Other (hand contractures noted) Neurologic/Psychiatric: Alert, Oriented x3, No Motor/Sensory Deficits, Normal 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 FIM Transfers Therapy Code Descriptions/Definitions Functional [place] Measure: 0=Not Assessed/NA 4=Minimal Assistance 1=Total Assistance 5=Supervision or Setup 2=Maximal Assistance 6=Modified [place] 3=Moderate Assistance 7=Complete [place] Therapy Quality Codes: 6 Independent with activity with or without an assistive device 5 Patient requires set up or clean up by helper. Patient completes activity by themselves 4 Supervision or touching assist (CGA). [place] provide cues , steadying assist 3 The helper provides less than half the effort to complete the activity 2 The helper provides more than half the effort to complete the activity 1 Dependent. The helper does all the effort to complete an activity 7 Patient refused to complete or attempt activity 9 The patient did not perform the activity before the current illness or injury 88 Not attempted due to Medical conditions or safety concerns Transfers (B, C, W/C) (FIM): 1 Scootin Rollin Roll Left to Right (QC): 3 Supine to/from Sit: 4 (SBA for safety, use of bedrail, HOB elevated) Sit to/from Stand: 2 Sit to Lying (QC): 1 Sit to Stand (QC): 1 Chair/Sqa-fo-Iikne Xfer(QC): 1 Bed to/from Chair: 1 Car Transfer (QC): 1 Gait Training Does the Patient Walk?: Yes Gait (FIM): 1 Distance (FIM): 1=up to 49 ft (4fx2) Distance: 20'x3 Walk 10 feet (QC): 88 Walk 50 ft with 2 Turns(QC): 88 Walk 150 ft (QC): 88 Walking 10ft/uneven surface-QC: 88 Gait Level of Assist: 2 Gait Persons Needed: 2 Gait Assistive Device: Parallel Bars Wheelchair Training Does the Pt Use a Wheelchair?: Yes Wheelchair (FIM): 2 Wheelchair Distance: 1=up to 49 ft (12ftx3) Distance: 50' Wheelchair Level of Assist: 2 Wheel 50 ft with 2 turns (QC): 1 Wheel 150 ft (QC): 1 Type of Wheelchair: Manual Stair Training Stairs (FIM): 0 (pt unable to walk) 1 Step (curb) (QC): 88 4 Steps (QC): 88 12 Steps (QC): 88 Balance Picking up an Object (QC): 88 Mental Status/Objective Comprehension: 4 Expression: 3 Social Interaction: 4 Problem Solvin Memory: 3 ADL-Treatment Feedin Eating (QC): 4 Groomin Oral Hygiene (QC): 4 Bathin Bathing Location: Chest, Abdomen Shower/Bathe Self (QC): 1 Upper Extremity Dressin Upper Body Dressing (QC): 2 Lower Extremity Dressin Lower Body Dressing (QC): 1 On/Off Footwear (QC): 2 Toiletin Toileting Hygiene (QC): 1 Toilet/Commode Transfer: 1 Toilet Transfer (QC): 2 Shower: 2 Assessment/Plan Assessment and Plan Assess & Plan/Chief Complaint Assessment: Debility s/p encephalopathy much improved Cachexia Anemia Left foot wound Hand contractures Plan: IRF protocol Pain control Home meds Check labs prn 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 (1) Other encephalopathy (2) Leukocytosis Status: Acute (3) Cachexia Status: Acute (4) Anemia of chronic disease Status: Chronic (5) Confusion Status: Acute (6) Parkinson disease Status: Chronic (7) Incontinence of urine Status: Acute (8) Visual hallucinations Status: Acute (9) Debility Status: Acute (10) Thrombocytosis Status: Acute (11) Incontinence of bowel Status: Acute (12) Rigidity Status: Acute (13) Polymicrobial bacterial infection Status: Acute (14) Osteomyelitis of foot Status: Acute (15) Witnessed seizure-like activity Status: Acute (16) Wound of left foot Status: Acute (17) Anemia Status: Chronic SHANNON LIMA DO Dec 16, 2018 08:08
[2018-12-16] MEDS: ENOXAPARIN 40 MG/0.4 ML (LOVENOX) SYR SC SCH (08:25)
[2018-12-16] MEDS: LEVETIRACETAM 500 MG (KEPPRA) TAB PO SCH ×2 (08:25→19:55)
[2018-12-16] MEDS: lisINopril 10 MG (PRINIVIL) TABLET PO SCH ×2 (08:34→09:33)
[2018-12-16] MEDS: meTOprolol TARTRATE 25 MG (LOPRESSOR) TABLET PO SCH ×3 (08:34→19:56)
--- NOTE | 2018-12-16 08:58 | Physical Therapy Daily Note ---
PT Daily Note-Current Subjective Patient in bed pre tx, agrees to PT, has no complaints of pain at rest. Patient needs to get shorts on. Will be co-treating with OT due to poor patient mobility, strength, endurance, balance, coordination, the need to coordinate UE and LE during activity. Appearance Patient in wheelchair in room post tx, has OT for grooming for just a little longer. Mental Status Patient Orientation: Person, Place, Situation Transfers Therapy Code Descriptions/Definitions Functional [place] Measure: 0=Not Assessed/NA 4=Minimal Assistance 1=Total Assistance 5=Supervision or Setup 2=Maximal Assistance 6=Modified [place] 3=Moderate Assistance 7=Complete [place] Therapy Quality Codes: 6 Independent with activity with or without an assistive device 5 Patient requires set up or clean up by helper. Patient completes activity by themselves 4 Supervision or touching assist (CGA). [place] provide cues , steadying assist 3 The helper provides less than half the effort to complete the activity 2 The helper provides more than half the effort to complete the activity 1 Dependent. The helper does all the effort to complete an activity 7 Patient refused to complete or attempt activity 9 The patient did not perform the activity before the current illness or injury 88 Not attempted due to Medical conditions or safety concerns Transfers (B, C, W/C) (FIM): 2 Scootin Rollin Supine to/from Sit: 4 Sit to/from Stand: 2 Bed to/from Chair: 2 Weight Bearing Right Lower Extremity: Right Weight Bearing/Tolerated Left Lower Extremity: Left Weight Bearing/Tolerated Gait Training Gait (FIM): 1 Distance: 10' Gait Level of Assist: 2 Gait Persons Needed: 2 Gait Assistive Device: Walker Platform (bilateral platform with modifications) Patient ambulated 10' with a bilateral platform with modifications to keep feet from scissoring, but patient bears almost all weight through her arms and mostly dangles her legs and takes steps, very little weight bearing through legs. 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 When sitting patient's knee completely buckle, she cannot moderate her strength to go slowly. Wheelchair Training Does the Pt Use a Wheelchair?: Yes Wheelchair (FIM): 2 Distance: 100' Wheelchair Level of Assist: 2 Type of Wheelchair: Manual Exercises Standing in parallel bars x3 with PT help while OT performs UE exercise with cones. Treatments WC mobility, ambulation, standing, bed mobility and transfers Assessment Current Status: Poor Progress very poor coordination PT Short Term Goals Short Term Goals Time Frame: Dec 20, 2018 Transfers (B,C,W/C) (FIM): 3 (3) Gait (FIM): 2 Distance (FIM): 8=915-39 ft Gait Assistive Device: FWW Wheelchair (FIM): 4 Wheelchair distance (FIM): 3=150 ft Wheelchair Distance: 50' PT Long-Term Goals Customer Service Voice Goals PT Long-Term Goals Time Frame: Jan 03, 2019 Transfers (B,C,W/C) (FIM): 6 Sit to Lying (QC): 6 Lying-Sitting on Side/Bed(QC): 6 Sit to Stand (QC): 6 Rollin Roll Left to Right (QC): 6 Chair/Rib-tu-Hquev Xfer(QC): 6 Car Transfer (QC): 5 Does the Patient Walk: No and Walking Goal IS indicated Gait (FIM): 6 Gait distance (FIM): 3=150 ft Walk 10 feet (QC): 6 Walk 10ft-Uneven Surface(QC): 6 Walk 50ft with 2 Turns (QC): 6 Walk 150 ft (QC): 6 Gait Assistive Device: FWW Does the Pt use WC or Scooter?: Yes Wheelchair (FIM): 6 Wheelchair distance (FIM): 3=150 ft Wheel 50 feet with 2 turns (QC: 6 Stairs (FIM): 5 # of Steps: 4 1 Step (curb) (QC): 6 4 Steps (QC): 6 12 Steps (QC): 88 Picking up an Object (QC): 5 PT Plan Problem List Problem List: Activity Tolerance, Functional Strength, Safety, Balance, Gait, Transfer, Bed Mobility, ROM Treatment/Plan Treatment Plan: Continue Plan of Care Treatment Plan: Bed Mobility, Education, Functional Activity [place], Functional Strength, Group Therapy, Gait, Safety, Therapeutic Exercise, Transfers Treatment Duration: Jan 03, 2019 Frequency: At least 5 of 7 days/Wk (IRF) Estimated Hrs Per Day: 1.5 hours per day Patient and/or Family Agrees t: Yes Safety Risks/Education Patient Education: Gait Training, Transfer Techniques, Correct Positioning, W/C Management, Safety Issues Teaching Recipient: Patient Teaching Methods: Demonstration, Discussion Response to Teaching: Reinforcement Needed Time/GCodes Time In: 0800 Time Out: 0900 Total Billed Treatment Time: 60 Total Billed Treatment 1 visit GT 30' FA 30' Co-treated for 60' TIGIST PAIGE PT Dec 16, 2018 08:58
[2018-12-16 09:29] VITALS: BP 107/54
--- NOTE | 2018-12-16 11:48 | Speech Therapy Daily Note ---
Speech Daily Progress Note Subjective Date Seen by Provider: Dec 16, 2018 Time Seen by Provider: 00:30 The patient was resting in her chair watching television when I entered the room. Objective The patient completed a series of safety scenario cards for "what is wrong with this picture" with 90% accuracy given minimal verbal cues. Assessment Assessment Current Status: Good Progress Treatment Plan Continue Plan of Care Communication Comprehension: 4 Expression: 3 Social Cognition Social Interaction: 4 Problem Solvin Memory: 3 Speech Short Term Goals Short Term Goals Short Term Goals 1) The patient will complete memory tasks related to his daily needs at 90% or greater with minimal cues. 2) The patient will complete problem solving tasks related to his daily needs at 90% or greater with minimal cues. 3) The patient will complete safety awareness tasks related to his daily needs at 90% or greater with minimal cues. Speech Snf Goals Snf Goals The patient will improve her cognitive functional level for safety and independe nce. Speech-Plan Patient/Family Goals Patient/Family Goals: The patient plans on returning to the SNF upon discharge from rehab. Treatment Plan Speech Therapy Treatment Plan: Continue Plan of Care The patient continues to progress with ST goals. Treatment Duration: Dec 20, 2018 Frequency: 5 times per week Estimated Hrs Per Day: .5 hour per day Rehab Potential: Guarded Barriers to Learning: Patient has mild cognitive deficits, however these are resolving Pt/Family Agrees to Plan: Yes Safety Risks/Education Teaching Recipient: Patient Teaching Methods: Demonstration, Discussion Response to Teaching: Verbalize Understanding, Return Demonstration Education Topics Provided: Continued safety within her room. Time Speech Therapy Time In: 11:00 Speech Therapy Time Out: 11:30 Total Billed Time: 30 Billed Treatment Time 1[address] [facility] Dec 16, 2018 11:48
--- NOTE | 2018-12-16 12:30 | Occupational Ther Daily Note ---
OT Current Status-Daily Note Subjective Pt alert, lying in bed. Pt agrees to therapy. No c/o pain. Mental Status/Objective Patient Orientation: Person, Place, Time, Situation Therapy Code Descriptions/Definitions Functional [place] Measure: 0=Not Assessed/NA 4=Minimal Assistance 1=Total Assistance 5=Supervision or Setup 2=Maximal Assistance 6=Modified [place] 3=Moderate Assistance 7=Complete [place] ADL-Treatment Pt required set up for eating then assist to eat toast due to decreased fine motor/dexterity. After therapy, pt sitting in recliner with call light/phone in reach. All needs met in room. Therapy Code Descriptions/Definitions Functional [place] Measure: 0=Not Assessed/NA 4=Minimal Assistance 1=Total Assistance 5=Supervision or Setup 2=Maximal Assistance 6=Modified [place] 3=Moderate Assistance 7=Complete [place] Therapy Quality Codes: 6 Independent with activity with or without an assistive device 5 Patient requires set up or clean up by helper. Patient completes activity by themselves 4 Supervision or touching assist (CGA). [place] provide cues , steadying assist 3 The helper provides less than half the effort to complete the activity 2 The helper provides more than half the effort to complete the activity 1 Dependent. The helper does all the effort to complete an activity 7 Patient refused to complete or attempt activity 9 The patient did not perform the activity before the current illness or injury 88 Not attempted due to Medical conditions or safety concerns Other Treatment Co-treat with PT for 60 min. Skills of 2 clinicians required for skilled instructions and care to complete coordinated total body movements during ambulating, dressing, standing and functional tasks. PT working on transfers, ambulation, coordination, dynamic sitting balance and standing. OT working on dressing, UE coordination, functional transfers, dynamic sitting balance and positioning UE's during ambulation and standing while completing UE grasp/release task. . Max A for lower body dressing, pt attempts to assist though decreased grasp increased difficulty with holding onto materials. Pt used B UE to hold onto large cones to place in designated areas. See PT notes for ambulation. OT positioned UE and assist with full body coordination during ambulation. OT Short Term Goals Short Term Goals Time Frame: Dec 20, 2018 Eating(FIM): 3 Grooming(FIM): 3 Bathing(FIM): 3 Upper Body Dressing(FIM): 3 Lower Body Dressing(FIM): 2 Toileting(FIM): 2 Transfers (B,C,W/C) (FIM): 3 (3) Toilet/Commode Transfer(FIM): 3 Shower Transfer(FIM): 3 1=Demonstrate adherence to instructed precautions during ADL tasks. 2=Patient will verbalize/demonstrate understanding of assistive devices/modifications for ADL. 3=Patient will improve strength/tolerance for activity to enable patient to perform ADL's. OT Detention Goals Detention Goals Time Frame: Jan 03, 2019 Eating (FIM): 5 Eating (QC): 5 Groomin Oral Hygiene (QC): 4 Bathing(FIM): 5 Bathing Location: L Arm, R Arm, L Upper Leg, R Upper Leg, L Lower Leg (including foot), R Lower Leg (including foot), Chest, Abdomen, Buttocks, Perineal Area Shower/Bathe Self (QC): 4 Upper Body Dressing(FIM): 5 Upper Body Dressing (QC): 4 Lower Body Dressing(FIM): 5 Lower Body Dressing (QC): 4 On/Off Footwear (QC): 4 Toileting(FIM): 5 Toileting Hygiene (QC): 4 Transfers (B,C,W/C) (FIM): 5 Toilet/Commode Transfer(FIM): 5 Toilet/Commode Transfer (QC): 4 Shower Transfer(FIM): 4 Additional Goals: 1-Demonstrate ADL Tasks, 2-Verbalize Understanding, 3-ImproveStrength/Bakari 1=Demonstrate adherence to instructed precautions during ADL tasks. 2=Patient will verbalize/demonstrate understanding of assistive devices/modifications for ADL. 3=Patient will improve strength/tolerance for activity to enable patient to perform ADL's. OT Education/Plan Problem List/Assessment Assessment: Decreased Activ Tolerance, Decreased Safety Aware, Impaired Coordination, Impaired Funct Balance, Impaired Self-Care Skills, Restricted Funct UE ROM pt presents with functional limitations affecting areas of ADLS and functional transfers with deficits in the above mention including decrease proprioception, decrease light touch, and decrease overall safety with functional tasks. pt is motivated to participate in therapy. pt would benefit from skilled OT services to increase independence with ADLS and functional transfers. Discharge Recommendations Plan/Recommendations: Continue POC Treatment Plan/Plan of Care Patient would benefit from OT for education, treatment and training to promote independence in ADL's, mobility, safety and/or upper extremity function for ADL's. Plan of Care: ADL Retraining, Caregiver Training, Cognitive Retraining, Functional Mobility, Group Exercise/Act as Ind, UE Funct Exercise/Act, UE Neuromus Re-Ed/Coord, W/C Management Training Treatment Duration: Jan 03, 2019 Frequency: At least 5 of 7 days/Wk (IRF) Estimated Hrs Per Day: 1 hour per day (60-90 minutes per day ) Agreement: Yes Rehab Potential: Guarded Time/GCodes Start Time: 08:00 Stop Time: 09:15 Total Time Billed (hr/min): 75 Billed Treatment Time 1 visit-ADL 2 (25 min) NM 3 (50 min) MARCY BOUDREAUX Dec 16, 2018 12:30
--- NOTE | 2018-12-16 14:59 | Physical Therapy Daily Note ---
PT Daily Note-Current Subjective Agreeable to PT. Reports she is tired this afternoon. Transfers Therapy Code Descriptions/Definitions Functional [place] Measure: 0=Not Assessed/NA 4=Minimal Assistance 1=Total Assistance 5=Supervision or Setup 2=Maximal Assistance 6=Modified [place] 3=Moderate Assistance 7=Complete [place] Therapy Quality Codes: 6 Independent with activity with or without an assistive device 5 Patient requires set up or clean up by helper. Patient completes activity by themselves 4 Supervision or touching assist (CGA). [place] provide cues , steadying assist 3 The helper provides less than half the effort to complete the activity 2 The helper provides more than half the effort to complete the activity 1 Dependent. The helper does all the effort to complete an activity 7 Patient refused to complete or attempt activity 9 The patient did not perform the activity before the current illness or injury 88 Not attempted due to Medical conditions or safety concerns Weight Bearing Right Lower Extremity: Right Weight Bearing/Tolerated Left Lower Extremity: Left Weight Bearing/Tolerated Treatments Treatment consisted of work on sit to stand transfers with focus on hand and foot placement and focus on full hip and knee extension. Pt required mod and to max assist to come to a stand and mod assist to remain standing with FWW; assist with hand plcement andholding walker as well as cues for posture and positioning. Required max assist to sit down and pt unable to differentiate hip flex from knee flexion and essentially drops into the chair without executing hip flexion. She tends to drop straight down and requires heavy cues to reach the chair. Pt in chair post treatment with needs met. Assessment Pt follows cues but has difficulty coordinating movements of her LE's to safely transition stand to sit. PT Short Term Goals Short Term Goals Time Frame: Dec 20, 2018 Transfers (B,C,W/C) (FIM): 3 (3) Gait (FIM): 2 Distance (FIM): 2=969-46 ft Gait Assistive Device: FWW Wheelchair (FIM): 4 Wheelchair distance (FIM): 3=150 ft Wheelchair Distance: 100' PT Tongue Carrier Goals Group Home Goals PT Tongue Carrier Goals Time Frame: Jan 03, 2019 Transfers (B,C,W/C) (FIM): 6 Sit to Lying (QC): 6 Lying-Sitting on Side/Bed(QC): 6 Sit to Stand (QC): 6 Rollin Roll Left to Right (QC): 6 Chair/Ovo-tj-Jstkg Xfer(QC): 6 Car Transfer (QC): 5 Does the Patient Walk: No and Walking Goal IS indicated Gait (FIM): 6 Gait distance (FIM): 3=150 ft Walk 10 feet (QC): 6 Walk 10ft-Uneven Surface(QC): 6 Walk 50ft with 2 Turns (QC): 6 Walk 150 ft (QC): 6 Gait Assistive Device: FWW Does the Pt use WC or Scooter?: Yes Wheelchair (FIM): 6 Wheelchair distance (FIM): 3=150 ft Wheel 50 feet with 2 turns (QC: 6 Stairs (FIM): 5 # of Steps: 4 1 Step (curb) (QC): 6 4 Steps (QC): 6 12 Steps (QC): 88 Picking up an Object (QC): 5 PT Plan Problem List Problem List: Activity Tolerance, Functional Strength, Safety, Balance, Gait, Transfer, Bed Mobility Treatment/Plan Treatment Plan: Bed Mobility, Education, Functional Activity Bakari, Functional Strength, Group Therapy, Gait, Safety, Therapeutic Exercise, Transfers Treatment Duration: Jan 03, 2019 Frequency: At least 5 of 7 days/Wk (IRF) Estimated Hrs Per Day: 1.5 hours per day Patient and/or Family Agrees t: Yes Safety Risks/Education Patient Education: Safety Issues Teaching Recipient: Patient Teaching Methods: Demonstration, Discussion Response to Teaching: Reinforcement Needed Time/GCodes Time In: 1330 Time Out: 1400 Total Billed Treatment Time: 30 Total Billed Treatment visit FA 30 MARCY RO PT Dec 16, 2018 14:59
--- NOTE | 2018-12-16 15:13 | NUR ---
EDUCATION CONSULTANT has requested that patient's son, Isidro bring supporting documentation for [employer]K and Disability application. If information is provided by Sunday, EDUCATION CONSULTANT will assist patient in completing online applications.
[2018-12-16 17:47] VITALS: BP 139/88
[2018-12-16] MEDS: SINEMET CR 50/200 (CARBIDOPA/LEVODOPA SA) TAB PO SCH (19:55)
[2018-12-16] MEDS: MIRTAZAPINE 15 MG (REMERON) TAB PO SCH (19:55)
[2018-12-16] MEDS: GABAPENTIN 100 MG (NEURONTIN) CAP PO SCH (19:55)
[2018-12-16] MEDS: HYDROcodone/APAP 5 MG/325 MG (LORTAB) TAB PO PRN (19:55)
[2018-12-17 06:02] VITALS: BP 154/71
[2018-12-17] MEDS: ETODOLAC 200 MG (LODINE) CAP PO SCH ×2 (06:31→16:19)
[2018-12-17] MEDS: SINEMET 25/100 (CARBIDOPA/LEVODOPA) TAB PO SCH ×4 (06:31→18:20)
[2018-12-17] MEDS: LACTOBACILLUS ACIDOPHILUS (PROBIOTIC) CAPSULE PO SCH ×2 (06:31→16:20)
--- NOTE | 2018-12-17 08:45 | PM&R Progress Note ---
Subjective HPI/CC On Admission Date Seen by Provider: Dec 17, 2018 Time Seen by Provider: 08:30 Chief complaint: Debility History of present illness: This is a 63-year-old white female known to me from a severe sepsis episode when she had arrived to go to inpatient rehab when she was transferred from last month after severe encephalopathy and parkinsonism rigidity with left foot wound status post bunionectomy with severe complications so she eventually stabilized went to inpatient rehab after insurance approval and spent 2 weeks there but continued to have difficulty with the pace of therapy so she was moved to the shelter closer to home in [place] but she is returned in need of full therapy services since she is not on weight restricted on the left foot now and she can weight-bear as tolerated and currently is much improved. Son is at the bedside and told me that she needs intensive therapy since she fully intends to return to work and then return to independent living along with family monitoring. Subjective/Events-last exam She had a shower this morning and was up with a Karolina lift. Weight keeps on increasing so will evaluate her admission weight. Has some off behaviors, she orders her meals and doesn't eat it for two hours. Disposition pending. Check meds and labs Conferred with RN Reviewed therapy notes Review of Systems General: Fatigue Neurological: Weakness, Numbness, Incoordination Objective Exam Vital Signs Vital Signs Date Time Temp Pulse Resp B/P (MAP) Pulse Ox O2 Delivery O2 Flow Rate FiO2 12/17/18 20:05 Room Air 12/17/18 18:02 99.1 85 18 128/76 (93) 98 Capillary Refill : Less Than 3 Seconds General Appearance: No Apparent Distress, WD/WN, Chronically ill, Thin HEENT: PERRL/EOMI, Normal ENT Inspection, Pharynx Normal, Moist Mucous Membranes Neck: Full Range of Motion, Normal Inspection, Non Tender, Supple Respiratory: Chest Non Tender, Lungs Clear, Normal Breath Sounds, No Accessory Muscle Use, No Respiratory Distress Cardiovascular: Regular Rate, Rhythm, No Edema, No Gallop, No JVD, No Murmur Gastrointestinal: Normal Bowel Sounds, No Organomegaly, No Pulsatile Mass, Non Tender, Soft Back: Normal Inspection, No CVA Tenderness, No Vertebral Tenderness Extremity: Normal Capillary Refill, Normal Inspection, Normal Range of Motion, Non Tender, No Calf Tenderness, No Pedal Edema, Other (hand contractures noted) Neurologic/Psychiatric: Alert, Oriented x3, No Motor/Sensory Deficits, Normal Mood/Affect, latin dancer II-XII Norm as Tested, Motor Weakness Skin: Normal Color, Warm/Dry Lymphatic: No Adenopathy Results/Procedures Lab Patient resulted labs reviewed. FIM Transfers Therapy Code Descriptions/Definitions Functional [place] Measure: 0=Not Assessed/NA 4=Minimal Assistance 1=Total Assistance 5=Supervision or Setup 2=Maximal Assistance 6=Modified [place] 3=Moderate Assistance 7=Complete [place] Therapy Quality Codes: 6 Independent with activity with or without an assistive device 5 Patient requires set up or clean up by helper. Patient completes activity by themselves 4 Supervision or touching assist (CGA). [place] provide cues , steadying assist 3 The helper provides less than half the effort to complete the activity 2 The helper provides more than half the effort to complete the activity 1 Dependent. The helper does all the effort to complete an activity 7 Patient refused to complete or attempt activity 9 The patient did not perform the activity before the current illness or injury 88 Not attempted due to Medical conditions or safety concerns Transfers (B, C, W/C) (FIM): 1 Scootin Rollin Roll Left to Right (QC): 3 Supine to/from Sit: 4 Sit to/from Stand: 2 Sit to Lying (QC): 1 Sit to Stand (QC): 1 Chair/Dnf-mt-[place] Xfer(QC): 1 Bed to/from Chair: 1 Car Transfer (QC): 1 Gait Training Does the Patient Walk?: Yes Gait (FIM): 1 Distance (FIM): 1=up to 49 ft Distance: 10' Walk 10 feet (QC): 88 Walk 50 ft with 2 Turns(QC): 88 Walk 150 ft (QC): 88 Walking 10ft/uneven surface-QC: 88 Gait Level of Assist: 2 Gait Persons Needed: 2 Gait Assistive Device: Walker Platform (bilateral platform with modifications) Wheelchair Training Does the Pt Use a Wheelchair?: Yes Wheelchair (FIM): 2 Wheelchair Distance: 1=up to 49 ft (12ftx3) Distance: 100' Wheelchair Level of Assist: 2 Wheel 50 ft with 2 turns (QC): 1 Wheel 150 ft (QC): 1 Type of Wheelchair: Manual Stair Training Stairs (FIM): 0 (pt unable to walk) 1 Step (curb) (QC): 88 4 Steps (QC): 88 12 Steps (QC): 88 Balance Picking up an Object (QC): 88 Mental Status/Objective Comprehension: 4 Expression: 3 Social Interaction: 4 Problem Solvin Memory: 3 ADL-Treatment Feedin Eating (QC): 4 Groomin Oral Hygiene (QC): 4 Bathin Bathing Location: Chest, Abdomen Shower/Bathe Self (QC): 1 Upper Extremity Dressin Upper Body Dressing (QC): 2 Lower Extremity Dressin Lower Body Dressing (QC): 1 On/Off Footwear (QC): 2 Toiletin Toileting Hygiene (QC): 1 Toilet/Commode Transfer: 1 Toilet Transfer (QC): 2 Shower: 2 Assessment/Plan Assessment and Plan Assess & Plan/Chief Complaint Assessment: Debility s/p encephalopathy much improved Cachexia Anemia Left foot wound Hand contractures Dependent Plan: IRF protocol Pain control Home meds Check labs prn NHP permanent at DC [facility] (1) Other encephalopathy (2) Leukocytosis Status: Acute (3) Cachexia Status: Acute (4) Anemia of chronic disease Status: Chronic (5) Confusion Status: Acute (6) Parkinson disease Status: Chronic (7) Incontinence of urine Status: Acute (8) Visual hallucinations Status: Acute (9) Debility Status: Acute (10) Thrombocytosis Status: Acute (11) Incontinence of bowel Status: Acute (12) Rigidity Status: Acute (13) Polymicrobial bacterial infection Status: Acute (14) Osteomyelitis of foot Status: Acute (15) Witnessed seizure-like activity Status: Acute (16) Wound of left foot Status: Acute (17) Anemia Status: Chronic SHANNON LIMA DO Dec 17, 2018 08:45
--- NOTE | 2018-12-17 09:01 | Physical Therapy Daily Note ---
PT Daily Note-Current Subjective Patient in recliner pre tx, agrees to PT, has no complaints of pain. Will be co-treating with OT due to poor patient mobility, strength, endurance, balance, coordination, the need to coordinate UE and LE during activity. Appearance Patient in wheelchair post tx to finish up with OT. Mental Status Patient Orientation: Person, Place, Situation Transfers Therapy Code Descriptions/Definitions Functional [place] Measure: 0=Not Assessed/NA 4=Minimal Assistance 1=Total Assistance 5=Supervision or Setup 2=Maximal Assistance 6=Modified [place] 3=Moderate Assistance 7=Complete [place] Therapy Quality Codes: 6 Independent with activity with or without an assistive device 5 Patient requires set up or clean up by helper. Patient completes activity by themselves 4 Supervision or touching assist (CGA). [place] provide cues , steadying assist 3 The helper provides less than half the effort to complete the activity 2 The helper provides more than half the effort to complete the activity 1 Dependent. The helper does all the effort to complete an activity 7 Patient refused to complete or attempt activity 9 The patient did not perform the activity before the current illness or injury 88 Not attempted due to Medical conditions or safety concerns Transfers (B, C, W/C) (FIM): 2 Sit to/from Stand: 2 Bed to/from Chair: 2 Patient got a shower and needed to stand several times for dressing and undressing and transferring into and out of shower. When patient sits she vira at the knee but does not bend at the waist, so she will not sit on a chair even if it is directly against her legs. Weight Bearing Right Lower Extremity: Right Weight Bearing/Tolerated Left Lower Extremity: Left Weight Bearing/Tolerated Gait Training Gait (FIM): 1 attempted to ambulate in the LiteGait weight supported gait system but patient could not take steps and bear weight on her legs at the same time, she sat in the sling and just flexed and extended her knees, it was ineffective for gait tr aining. Patient did practice standing in the litegait, she has much difficulty coordinating movement in the LE's and it is difficult to bear weight. Wheelchair Training Does the Pt Use a Wheelchair?: Yes Wheelchair (FIM): 2 Distance: 10' Type of Wheelchair: Manual Treatments bathing, transfers, ambulation, WC mobility Assessment Current Status: Poor Progress no change in mobility PT Short Term Goals Short Term Goals Time Frame: Dec 20, 2018 Transfers (B,C,W/C) (FIM): 3 (3) Gait (FIM): 2 Distance (FIM): 9=295-07 ft Gait Assistive Device: FWW Wheelchair (FIM): 4 Wheelchair distance (FIM): 3=150 ft Wheelchair Distance: 100' PT Geological E Logger Goals Geological E Logger Goals PT Geological E Logger Goals Time Frame: Jan 03, 2019 Transfers (B,C,W/C) (FIM): 6 Sit to Lying (QC): 6 Lying-Sitting on Side/Bed(QC): 6 Sit to Stand (QC): 6 Rollin Roll Left to Right (QC): 6 Chair/Jps-nb-Wmnyy Xfer(QC): 6 Car Transfer (QC): 5 Does the Patient Walk: No and Walking Goal IS indicated Gait (FIM): 6 Gait distance (FIM): 3=150 ft Walk 10 feet (QC): 6 Walk 10ft-Uneven Surface(QC): 6 Walk 50ft with 2 Turns (QC): 6 Walk 150 ft (QC): 6 Gait Assistive Device: FWW Does the Pt use WC or Scooter?: Yes Wheelchair (FIM): 6 Wheelchair distance (FIM): 3=150 ft Wheel 50 feet with 2 turns (QC: 6 Stairs (FIM): 5 # of Steps: 4 1 Step (curb) (QC): 6 4 Steps (QC): 6 12 Steps (QC): 88 Picking up an Object (QC): 5 PT Plan Problem List Problem List: Activity Tolerance, Functional Strength, Safety, Balance, Gait, Transfer, Bed Mobility, ROM Treatment/Plan Treatment Plan: Continue Plan of Care Treatment Plan: Bed Mobility, Education, Functional Activity Bakari, Functional Strength, Group Therapy, Gait, Safety, Therapeutic Exercise, Transfers Treatment Duration: Jan 03, 2019 Frequency: At least 5 of 7 days/Wk (IRF) Estimated Hrs Per Day: 1.5 hours per day Patient and/or Family Agrees t: Yes Safety Risks/Education Patient Education: Gait Training, Transfer Techniques, Correct Positioning, W/C Management, Safety Issues Teaching Recipient: Patient Teaching Methods: Demonstration, Discussion Response to Teaching: Reinforcement Needed Time/GCodes Time In: 0800 Time Out: 0900 Total Billed Treatment Time: 60 Total Billed Treatment 1 visit GT 15' WCH 10' FA 35' Co-treated with OT for the whole 60'. PT performed transfers, standing, ambulation, WC mobility, OT performed dressing, bathing, assist with ambulation TIGIST PAIGE PT Dec 17, 2018 09:01
[2018-12-17] MEDS: LEVETIRACETAM 500 MG (KEPPRA) TAB PO SCH ×2 (09:08→19:57)
[2018-12-17] MEDS: meTOprolol TARTRATE 25 MG (LOPRESSOR) TABLET PO SCH ×2 (09:08→19:58)
[2018-12-17] MEDS: lisINopril 10 MG (PRINIVIL) TABLET PO SCH (09:09)
[2018-12-17] MEDS: ENOXAPARIN 40 MG/0.4 ML (LOVENOX) SYR SC SCH (09:09)
--- NOTE | 2018-12-17 09:15 | Occupational Ther Daily Note ---
OT Current Status-Daily Note Subjective Pt alert, sitting in recliner. Pt agrees to therapy. No c/o pain. Mental Status/Objective Patient Orientation: Person, Place, Time, Situation Therapy Code Descriptions/Definitions Functional [place] Measure: 0=Not Assessed/NA 4=Minimal Assistance 1=Total Assistance 5=Supervision or Setup 2=Maximal Assistance 6=Modified [place] 3=Moderate Assistance 7=Complete [place] ADL-Treatment Co-treat with PT for part of session. Skills of 2 clinicians required for skilled instructions and care to complete coordinated total body movements during ambulating, bathing/dressing, standing and functional tasks. PT working on transfers, ambulation, coordination and standing during bathing/dressing. OT working on ADLs, UE coordination, functional transfers and positioning UE's during ambulation and standing. Pt attempts to assist during bathing and dressing though is inefficient due to uncoordinated movements, decreased fine motor skills and decreased grasp. Pt is mod A for upper body bathing/dressing. Dependent for lower body bathing/dressing. OT working on completing UE gross motor movements and grasping during standing activities. Working on w/c chair mobility with mod A and assist to steer. Pt requires set up for eating and modified utensils. Max A for SPT from w/c to recliner. After therapy, pt sitting in recliner with call light/phone in reach. All needs met in room. Therapy Code Descriptions/Definitions Functional [place] Measure: 0=Not Assessed/NA 4=Minimal Assistance 1=Total Assistance 5=Supervision or Setup 2=Maximal Assistance 6=Modified [place] 3=Moderate Assistance 7=Complete [place] Therapy Quality Codes: 6 Independent with activity with or without an assistive device 5 Patient requires set up or clean up by helper. Patient completes activity by themselves 4 Supervision or touching assist (CGA). [place] provide cues , steadying assist 3 The helper provides less than half the effort to complete the activity 2 The helper provides more than half the effort to complete the activity 1 Dependent. The helper does all the effort to complete an activity 7 Patient refused to complete or attempt activity 9 The patient did not perform the activity before the current illness or injury 88 Not attempted due to Medical conditions or safety concerns Eating (FIM): 5 Eating (QC): 4 Bathing (FIM): 1 (Assist x2 to cleanse buttocks.) Shower/Bathe Self (QC): 1 Upper Body (FIM): 3 Upper Body Dressing (QC): 3 Lower Body Dressing (FIM): 1 Lower Body Dressing (QC): 1 Shower Transfer(FIM): 1 (Assist x2 to transfer into shower.) OT Short Term Goals Short Term Goals Time Frame: Dec 20, 2018 Eating(FIM): 3 Grooming(FIM): 3 Bathing(FIM): 3 Upper Body Dressing(FIM): 3 Lower Body Dressing(FIM): 2 Toileting(FIM): 2 Transfers (B,C,W/C) (FIM): 3 (3) Toilet/Commode Transfer(FIM): 3 Shower Transfer(FIM): 3 1=Demonstrate adherence to instructed precautions during ADL tasks. 2=Patient will verbalize/demonstrate understanding of assistive devices/modifications for ADL. 3=Patient will improve strength/tolerance for activity to enable patient to perform ADL's. OT Pneumatic Hoist Operator Goals Pneumatic Hoist Operator Goals Time Frame: Jan 03, 2019 Eating (FIM): 5 Eating (QC): 5 Groomin Oral Hygiene (QC): 4 Bathing(FIM): 5 Bathing Location: L Arm, R Arm, L Upper Leg, R Upper Leg, L Lower Leg (including foot), R Lower Leg (including foot), Chest, Abdomen, Buttocks, Perineal Area Shower/Bathe Self (QC): 4 Upper Body Dressing(FIM): 5 Upper Body Dressing (QC): 4 Lower Body Dressing(FIM): 5 Lower Body Dressing (QC): 4 On/Off Footwear (QC): 4 Toileting(FIM): 5 Toileting Hygiene (QC): 4 Transfers (B,C,W/C) (FIM): 5 Toilet/Commode Transfer(FIM): 5 Toilet/Commode Transfer (QC): 4 Shower Transfer(FIM): 4 Additional Goals: 1-Demonstrate ADL Tasks, 2-Verbalize Understanding, 3- ImproveStrength/Bakari 1=Demonstrate adherence to instructed precautions during ADL tasks. 2=Patient will verbalize/demonstrate understanding of assistive devices/modifications for ADL. 3=Patient will improve strength/tolerance for activity to enable patient to perform ADL's. OT Education/Plan Problem List/Assessment Assessment: Decreased Activ Tolerance, Decreased Safety Aware, Decreased UE Strength, Dependent Transfers, Impaired Cognition, Impaired Coordination, Impaired Funct Balance, Impaired Self-Care Skills, Restricted Funct UE ROM pt presents with functional limitations affecting areas of ADLS and functional transfers with deficits in the above mention including decrease proprioception, decrease light touch, and decrease overall safety with functional tasks. pt is motivated to participate in therapy. pt would benefit from skilled OT services to increase independence with ADLS and functional transfers. Discharge Recommendations Plan/Recommendations: Continue POC Treatment Plan/Plan of Care Patient would benefit from OT for education, treatment and training to promote independence in ADL's, mobility, safety and/or upper extremity function for ADL's. Plan of Care: ADL Retraining, Caregiver Training, Cognitive Retraining, Functional Mobility, Group Exercise/Act as Ind, UE Funct Exercise/Act, UE Neuromus Re-Ed/Coord, W/C Management Training Treatment Duration: Jan 03, 2019 Frequency: At least 5 of 7 days/Wk (IRF) Estimated Hrs Per Day: 1 hour per day (60-90 minutes per day ) Agreement: Yes Rehab Potential: Guarded Time/GCodes Start Time: 08:00 Stop Time: 09:15 Total Time Billed (hr/min): 75 Billed Treatment Time 1 visit-ADL 2 (35 min) FA 3 (40 min) co-treat with PT [id number] individual [id number] MARCY BOUDREAUX Dec 17, 2018 09:15
[2018-12-17 09:18] VITALS: BP 115/65
--- NOTE | 2018-12-17 14:14 | Physical Therapy Daily Note ---
PT Daily Note-Current Subjective Patient in recliner pre tx, agrees to PT, no complaints of pain. Appearance Patient in recliner post tx with nurse call, phone, tray, all needs met. Mental Status Patient Orientation: Person, Place, Situation Transfers Therapy Code Descriptions/Definitions Functional [place] Measure: 0=Not Assessed/NA 4=Minimal Assistance 1=Total Assistance 5=Supervision or Setup 2=Maximal Assistance 6=Modified [place] 3=Moderate Assistance 7=Complete [place] Therapy Quality Codes: 6 Independent with activity with or without an assistive device 5 Patient requires set up or clean up by helper. Patient completes activity by themselves 4 Supervision or touching assist (CGA). [place] provide cues , steadying assist 3 The helper provides less than half the effort to complete the activity 2 The helper provides more than half the effort to complete the activity 1 Dependent. The helper does all the effort to complete an activity 7 Patient refused to complete or attempt activity 9 The patient did not perform the activity before the current illness or injury 88 Not attempted due to Medical conditions or safety concerns Weight Bearing Right Lower Extremity: Right Weight Bearing/Tolerated Left Lower Extremity: Left Weight Bearing/Tolerated Exercises Seated Therapy Exercises: Ankle pumps, Hip flexion, Hip abd/add (add with pillow) Seated Reps: 20 LAQ alternating for 5 min Treatments LE exercise Assessment Current Status: Poor Progress poor coordination PT Short Term Goals Short Term Goals Time Frame: Dec 20, 2018 Transfers (B,C,W/C) (FIM): 3 (3) Gait (FIM): 2 Distance (FIM): 6=791-94 ft Gait Assistive Device: FWW Wheelchair (FIM): 4 Wheelchair distance (FIM): 3=150 ft Wheelchair Distance: 10' PT Nursing Home Goals Electroless Plater Goals PT Electroless Plater Goals Time Frame: Jan 03, 2019 Transfers (B,C,W/C) (FIM): 6 Sit to Lying (QC): 6 Lying-Sitting on Side/Bed(QC): 6 Sit to Stand (QC): 6 Rollin Roll Left to Right (QC): 6 Chair/[id number] Xfer(QC): 6 Car Transfer (QC): 5 Does the Patient Walk: No and Walking Goal IS indicated Gait (FIM): 6 Gait distance (FIM): 3=150 ft Walk 10 feet (QC): 6 Walk 10ft-Uneven Surface(QC): 6 Walk 50ft with 2 Turns (QC): 6 Walk 150 ft (QC): 6 Gait Assistive Device: FWW Does the Pt use WC or Scooter?: Yes Wheelchair (FIM): 6 Wheelchair distance (FIM): 3=150 ft Wheel 50 feet with 2 turns (QC: 6 Stairs (FIM): 5 # of Steps: 4 1 Step (curb) (QC): 6 4 Steps (QC): 6 12 Steps (QC): 88 Picking up an Object (QC): 5 PT Plan Problem List Problem List: Activity Tolerance, Functional Strength, Safety, Balance, Gait, Transfer, Bed Mobility, ROM Treatment/Plan Treatment Plan: Continue Plan of Care Treatment Plan: Bed Mobility, Education, Functional Activity Bakari, Functional Strength, Group Therapy, Gait, Safety, Therapeutic Exercise, Transfers Treatment Duration: Jan 03, 2019 Frequency: At least 5 of 7 days/Wk (IRF) Estimated Hrs Per Day: 1.5 hours per day Patient and/or Family Agrees t: Yes Safety Risks/Education Patient Education: Correct Positioning, Safety Issues Teaching Recipient: Patient Teaching Methods: Demonstration, Discussion Response to Teaching: Reinforcement Needed Time/GCodes Time In: 1355 Time Out: 1410 Total Billed Treatment Time: 15 Total Billed Treatment 1 visit EX Lorenza' TIGIST PAIEG PT Dec 17, 2018 14:14
--- NOTE | 2018-12-17 16:05 | Speech Therapy Daily Note ---
Speech Daily Progress Note Subjective Date Seen by Provider: Dec 17, 2018 Time Seen by Provider: 00:30 The patient was waking up from a nap when I entered her room. Objective The patient completed problem solving tasks with sequencing cards at 90% with minimal verbal and/or verbal cues. Assessment Assessment Current Status: Good Progress Treatment Plan Continue Plan of Care Communication Comprehension: 4 Expression: 3 Social Cognition Social Interaction: 4 Problem Solvin Memory: 3 Speech Short Term Goals Short Term Goals Short Term Goals 1) The patient will complete memory tasks related to his daily needs at 90% or greater with minimal cues. 2) The patient will complete problem solving tasks related to his daily needs at 90% or greater with minimal cues. 3) The patient will complete safety awareness tasks related to his daily needs at 90% or greater with minimal cues. Speech Dieing Out Machine Operator Goals Dieing Out Machine Operator Goals The patient will improve her cognitive functional level for safety and independence. Speech-Plan Patient/Family Goals Patient/Family Goals: The patient will be returning to the SNF she was admitted from. Treatment Plan Speech Therapy Treatment Plan: Continue Plan of Care The patient has made good progress on meeting ST goals. Treatment Duration: Dec 20, 2018 Frequency: 5 times per week Estimated Hrs Per Day: .5 hour per day Rehab Potential: Guarded Barriers to Learning: Patient has mild cognitive deficits, however this is improving. Pt/Family Agrees to Plan: Yes Safety Risks/Education Teaching Recipient: Patient Teaching Methods: Demonstration, Discussion Response to Teaching: Verbalize Understanding, Return Demonstration Education Topics Provided: Continued safety within her room and upon discharge. Time Speech Therapy Time In: 13:00 Speech Therapy Time Out: 13:30 Total Billed Time: 30 Billed Treatment Time 1AURELIO [address] ST Dec 17, 2018 16:05
[2018-12-17 18:02] VITALS: BP 128/76
[2018-12-17] MEDS: SINEMET CR 50/200 (CARBIDOPA/LEVODOPA SA) TAB PO SCH (19:57)
[2018-12-17] MEDS: HYDROcodone/APAP 5 MG/325 MG (LORTAB) TAB PO PRN (19:57)
[2018-12-17] MEDS: GABAPENTIN 100 MG (NEURONTIN) CAP PO SCH (19:57)
[2018-12-17] MEDS: MIRTAZAPINE 15 MG (REMERON) TAB PO SCH (19:57)
[2018-12-18 05:02] VITALS: BP 152/82
[2018-12-18] MEDS: SINEMET 25/100 (CARBIDOPA/LEVODOPA) TAB PO SCH ×4 (05:47→17:08)
[2018-12-18] MEDS: LACTOBACILLUS ACIDOPHILUS (PROBIOTIC) CAPSULE PO SCH ×2 (05:47→16:40)
[2018-12-18] MEDS: ETODOLAC 200 MG (LODINE) CAP PO SCH ×2 (05:47→16:40)
[2018-12-18 08:19] VITALS: BP 139/75
[2018-12-18] MEDS: LEVETIRACETAM 500 MG (KEPPRA) TAB PO SCH ×2 (08:23→20:03)
[2018-12-18] MEDS: ENOXAPARIN 40 MG/0.4 ML (LOVENOX) SYR SC SCH (08:24)
[2018-12-18] MEDS: meTOprolol TARTRATE 25 MG (LOPRESSOR) TABLET PO SCH ×2 (08:24→20:03)
[2018-12-18] MEDS: lisINopril 10 MG (PRINIVIL) TABLET PO SCH (08:24)
[2018-12-18 09:42] VITALS: BP 129/74
[2018-12-18 09:50] VITALS: BP 123/74
--- NOTE | 2018-12-18 09:53 | NUR ---
ALL FALL NOTES WERE CHARTED ON THIS PT IN ERROR
--- NOTE | 2018-12-18 09:57 | PM&R Progress Note ---
Subjective HPI/CC On Admission Date Seen by Provider: Dec 18, 2018 Time Seen by Provider: 09:00 Chief complaint: Debility History of present illness: This is a 63-year-old white female known to me from a severe sepsis episode when she had arrived to go to inpatient rehab when she was transferred from last month after severe encephalopathy and parkinsonism rigidity with left foot wound status post bunionectomy with severe complications so she eventually stabilized went to inpatient rehab after insurance approval and spent 2 weeks there but continued to have difficulty with the pace of therapy so she was moved to the long term closer to home in [place] but she is returned in need of full therapy services since she is not on weight restricted on the left foot now and she can weight-bear as tolerated and currently is much improved. Son is at the bedside and told me that she needs intensive therapy since she fully intends to return to work and then return to independent living along with family monitoring. Subjective/Events-last exam Lortab taken at night. Incontinence noted at times. Weight-loss of 3lbs. Draws legs up in the night, just really can't understand how to bear weight on her legs when she is up at night to the commode. Remains a two person assist. Will need to go to the long term, Medicaid pending, hopefully Sunday. Check meds and labs Conferred with RN Reviewed therapy notes Review of Systems Neurological: Weakness, Numbness, Incoordination Objective Exam Vital Signs Vital Signs Date Time Temp Pulse Resp B/P (MAP) Pulse Ox O2 Delivery O2 Flow Rate FiO2 12/18/18 20:30 Room Air 12/18/18 18:00 97.8 78 14 145/79 (101) 99 Capillary Refill : Less Than 3 Seconds General Appearance: No Apparent Distress, WD/WN, Chronically ill, Thin HEENT: PERRL/EOMI, Normal ENT Inspection, Pharynx Normal, Moist Mucous Membranes Neck: Full Range of Motion, Normal Inspection, Non Tender, Supple Respiratory: Chest Non Tender, Lungs Clear, Normal Breath Sounds, No Accessory Muscle Use, No Respiratory Distress Cardiovascular: Regular Rate, Rhythm, No Edema, No Gallop, No JVD, No Murmur Gastrointestinal: Normal Bowel Sounds, No Organomegaly, No Pulsatile Mass, Non Tender, Soft Back: Normal Inspection, No CVA Tenderness, No Vertebral Tenderness Extremity: Normal Capillary Refill, Normal Inspection, Normal Range of Motion, Non Tender, No Calf Tenderness, No Pedal Edema, Other (hand contractures noted) Neurologic/Psychiatric: Alert, Oriented x3, No Motor/Sensory Deficits, Normal Mood/Affect, [place] II-XII Norm as Tested, Motor Weakness Skin: Normal Color, Warm/Dry Lymphatic: No Adenopathy Results/Procedures Lab Patient resulted labs reviewed. FIM Transfers Therapy Code Descriptions/Definitions Functional [place] Measure: 0=Not Assessed/NA 4=Minimal Assistance 1=Total Assistance 5=Supervision or Setup 2=Maximal Assistance 6=Modified [place] 3=Moderate Assistance 7=Complete [place] Therapy Quality Codes: 6 Independent with activity with or without an assistive device 5 Patient requires set up or clean up by helper. Patient completes activity by themselves 4 Supervision or touching assist (CGA). [place] provide cues , steadying assist 3 The helper provides less than half the effort to complete the activity 2 The helper provides more than half the effort to complete the activity 1 Dependent. The helper does all the effort to complete an activity 7 Patient refused to complete or attempt activity 9 The patient did not perform the activity before the current illness or injury 88 Not attempted due to Medical conditions or safety concerns Transfers (B, C, W/C) (FIM): 1 Scootin Rollin Roll Left to Right (QC): 3 Supine to/from Sit: 4 Sit to/from Stand: 2 Sit to Lying (QC): 1 Sit to Stand (QC): 1 Chair/Kmq-gh-Kvvcg Xfer(QC): 1 Bed to/from Chair: 1 Car Transfer (QC): 1 Gait Training Does the Patient Walk?: Yes Gait (FIM): 1 Distance (FIM): 1=up to 49 ft Distance: 10' Walk 10 feet (QC): 88 Walk 50 ft with 2 Turns(QC): 88 Walk 150 ft (QC): 88 Walking 10ft/uneven surface-QC: 88 Gait Level of Assist: 2 Gait Persons Needed: 2 Gait Assistive Device: Walker Platform (bilateral platform with modifications) Wheelchair Training Does the Pt Use a Wheelchair?: Yes Wheelchair (FIM): 2 Wheelchair Distance: 1=up to 49 ft (12ftx3) Distance: 10' Wheelchair Level of Assist: 2 Wheel 50 ft with 2 turns (QC): 1 Wheel 150 ft (QC): 1 Type of Wheelchair: Manual Stair Training Stairs (FIM): 0 (pt unable to walk) 1 Step (curb) (QC): 88 4 Steps (QC): 88 12 Steps (QC): 88 Balance Picking up an Object (QC): 88 Mental Status/Objective Comprehension: 4 Expression: 3 Social Interaction: 4 Problem Solvin Memory: 3 ADL-Treatment Feedin Eating (QC): 4 Groomin Oral Hygiene (QC): 4 Bathin (Assist x2 to cleanse buttocks.) Bathing Location: Chest, Abdomen Shower/Bathe Self (QC): 1 Upper Extremity Dressin Upper Body Dressing (QC): 3 Lower Extremity Dressin Lower Body Dressing (QC): 1 On/Off Footwear (QC): 2 Toiletin Toileting Hygiene (QC): 1 Toilet/Commode Transfer: 1 Toilet Transfer (QC): 2 Shower: 1 (Assist x2 to transfer into shower.) Assessment/Plan Assessment and Plan Assess & Plan/Chief Complaint Assessment: Debility s/p encephalopathy much improved Cachexia Anemia Left foot wound Hand contractures Dependent Plan: IRF protocol Pain control Home meds Check labs prn NHP permanent at DC halfway (1) Other encephalopathy (2) Leukocytosis Status: Acute (3) Cachexia Status: Acute (4) Anemia of chronic disease Status: Chronic (5) Confusion Status: Acute (6) Parkinson disease Status: Chronic (7) Incontinence of urine Status: Acute (8) Visual hallucinations Status: Acute (9) Debility Status: Acute (10) Thrombocytosis Status: Acute (11) Incontinence of bowel Status: Acute (12) Rigidity Status: Acute (13) Polymicrobial bacterial infection Status: Acute (14) Osteomyelitis of foot Status: Acute (15) Witnessed seizure-like activity Status: Acute (16) Wound of left foot Status: Acute (17) Anemia Status: Chronic SHANNON LMIA DO Dec 18, 2018 09:57
--- NOTE | 2018-12-18 09:58 | Occupational Ther Daily Note ---
OT Current Status-Daily Note Subjective Pt alert, lying in bed. Pt agrees to therapy. No c/o pain. Mental Status/Objective Therapy Code Descriptions/Definitions Functional [place] Measure: 0=Not Assessed/NA 4=Minimal Assistance 1=Total Assistance 5=Supervision or Setup 2=Maximal Assistance 6=Modified [place] 3=Moderate Assistance 7=Complete [place] ADL-Treatment Min A supine to EOB. Verbal cues to use palms of hands placed on bed to scoot to EOB. Pt attempts to use gross grasp (claw) to pull shirt off and lateral pinch to pull shirt on. Pt unable to efficiently use either one to don shirt by self, max A. Assist to don/doff socks and shoes. Therapy Code Descriptions/Definitions Functional [place] Measure: 0=Not Assessed/NA 4=Minimal Assistance 1=Total Assistance 5=Supervision or Setup 2=Maximal Assistance 6=Modified [place] 3=Moderate Assistance 7=Complete [place] Therapy Quality Codes: 6 Independent with activity with or without an assistive device 5 Patient requires set up or clean up by helper. Patient completes activity by themselves 4 Supervision or touching assist (CGA). [place] provide cues , steadying assist 3 The helper provides less than half the effort to complete the activity 2 The helper provides more than half the effort to complete the activity 1 Dependent. The helper does all the effort to complete an activity 7 Patient refused to complete or attempt activity 9 The patient did not perform the activity before the current illness or injury 88 Not attempted due to Medical conditions or safety concerns Eating (FIM): 5 (Set up and use of AE to eat. Uses fork to spear toast due to inability to slate picker with fingers.) Other Treatment Pt transported in w/c to therapy gym. Pt participated in UE gross motor and dynamic sitting balance activity to increase daily activity tasks. Pt participated in upper body exercises against gravity to increase coordination and strength for daily functional activities, 3 rep 10x flexion/extension, arm circles. shoulder shrugs, abd/adduction, and tricep (punches, sustained finger flexion). Pt placed L hand over R hand on table and made figure 8 pattern to increased B UE coordination. Pt transported in w/c back to room. Pt in w/c after therapy. Call light/phone in reach. All needs met. OT Short Term Goals Short Term Goals Time Frame: Dec 20, 2018 Eating(FIM): 3 Grooming(FIM): 3 Bathing(FIM): 3 Upper Body Dressing(FIM): 3 Lower Body Dressing(FIM): 2 Toileting(FIM): 2 Transfers (B,C,W/C) (FIM): 3 (3) Toilet/Commode Transfer(FIM): 3 Shower Transfer(FIM): 3 1=Demonstrate adherence to instructed precautions during ADL tasks. 2=Patient will verbalize/demonstrate understanding of assistive devices/modifications for ADL. 3=Patient will improve strength/tolerance for activity to enable patient to perform ADL's. OT Alf Goals Mechanics Supervisor Goals Time Frame: Jan 03, 2019 Eating (FIM): 5 Eating (QC): 5 Groomin Oral Hygiene (QC): 4 Bathing(FIM): 5 Bathing Location: L Arm, R Arm, L Upper Leg, R Upper Leg, L Lower Leg (including foot), R Lower Leg (including foot), Chest, Abdomen, Buttocks, Perineal Area Shower/Bathe Self (QC): 4 Upper Body Dressing(FIM): 5 Upper Body Dressing (QC): 4 Lower Body Dressing(FIM): 5 Lower Body Dressing (QC): 4 On/Off Footwear (QC): 4 Toileting(FIM): 5 Toileting Hygiene (QC): 4 Transfers (B,C,W/C) (FIM): 5 Toilet/Commode Transfer(FIM): 5 Toilet/Commode Transfer (QC): 4 Shower Transfer(FIM): 4 Additional Goals: 1-Demonstrate ADL Tasks, 2-Verbalize Understanding, 3- ImproveStrength/Bakari 1=Demonstrate adherence to instructed precautions during ADL tasks. 2=Patient will verbalize/demonstrate understanding of assistive devices/modific ations for ADL. 3=Patient will improve strength/tolerance for activity to enable patient to perform ADL's. OT Education/Plan Problem List/Assessment pt presents with functional limitations affecting areas of ADLS and functional transfers with deficits in the above mention including decrease proprioception, decrease light touch, and decrease overall safety with functional tasks. pt is motivated to participate in therapy. pt would benefit from skilled OT services to increase independence with ADLS and functional transfers. Discharge Recommendations Plan/Recommendations: Continue POC Treatment Plan/Plan of Care Patient would benefit from OT for education, treatment and training to promote independence in ADL's, mobility, safety and/or upper extremity function for ADL's. Plan of Care: ADL Retraining, Caregiver Training, Cognitive Retraining, Functional Mobility, Group Exercise/Act as Ind, UE Funct Exercise/Act, UE Neuromus Re-Ed/Coord, W/C Management Training Treatment Duration: Jan 03, 2019 Frequency: At least 5 of 7 days/Wk (IRF) Estimated Hrs Per Day: 1 hour per day (60-90 minutes per day ) Agreement: Yes Rehab Potential: Guarded Time/GCodes Start Time: 08:00 Stop Time: 09:00 Total Time Billed (hr/min): 60 Billed Treatment Time 1 visit-ADL 2 (30 min) EX 2 (30 min) MARCY BOUDREAUX Dec 18, 2018 09:58
--- NOTE | 2018-12-18 10:45 | NUR ---
Pastoral care visit.
--- NOTE | 2018-12-18 12:10 | Physical Therapy Daily Note ---
PT Daily Note-Current Subjective Pt. emotional and cries today stating she feels she has made progress cognitively but physically she is helpless, states her hands and feet feel numb and she cannot control them for gait etc. Pt. also inquires as to whether she could use an electric chair like she sees another pt. using. Pt. states " I cant even really wipe my own nose" Pt. states her Mother has provided all the funds needed for her to have care at home if that is necessary Pain Location: No Pain Reported Appearance nails and hands soiled, pt. comments on this. Mental Status Patient Orientation: Person, Place, Situation, M[place] Transfers Therapy Code Descriptions/Definitions Functional [place] Measure: 0=Not Assessed/NA 4=Minimal Assistance 1=Total Assistance 5=Supervision or Setup 2=Maximal Assistance 6=Modified [place] 3=Moderate Assistance 7=Complete [place] Therapy Quality Codes: 6 Independent with activity with or without an assistive device 5 Patient requires set up or clean up by helper. Patient completes activity by themselves 4 Supervision or touching assist (CGA). [place] provide cues , steadying assist 3 The helper provides less than half the effort to complete the activity 2 The helper provides more than half the effort to complete the activity 1 Dependent. The helper does all the effort to complete an activity 7 Patient refused to complete or attempt activity 9 The patient did not perform the activity before the current illness or injury 88 Not attempted due to Medical conditions or safety concerns Transfers (B, C, W/C) (FIM): 2 Scootin Supine to/from Sit: 3 Sit to/from Stand: 2 Bed to/from Chair: 2 unable to coordinate useful 1-2 steps toward target when SPTing, needs assist to move feet etc Weight Bearing Right Lower Extremity: Right Weight Bearing/Tolerated Left Lower Extremity: Left Weight Bearing/Tolerated Gait Training non functional, dance fashion 2-4 steps max assist Wheelchair Training Does the Pt Use a Wheelchair?: Yes Wheelchair (FIM): 1 Wheelchair Distance: 1=up to 49 ft (20ftx3) Wheelchair Level of Assist: 2 Type of Wheelchair: Manual very poor control of LEs and UEs renders poor w/c mobility Exercises hand exercises for passive stretches for extension etc of wrist and fingers NuStep Minutes: 8 NuStep Workload: 5 Treatments assist to stay on nustep for reciprocal motion UEs and LEs, shoes even come off Assessment Current Status: Poor Progress dependent for all mob PT Short Term Goals Short Term Goals Time Frame: Dec 20, 2018 Transfers (B,C,W/C) (FIM): 3 (3) Gait (FIM): 2 Distance (FIM): 9=646-58 ft Gait Assistive Device: FWW Wheelchair (FIM): 4 Wheelchair distance (FIM): 3=150 ft Wheelchair Distance: 10' PT Trenching Machine Operator Goals Trenching Machine Operator Goals PT Alf Goals Time Frame: Jan 03, 2019 Transfers (B,C,W/C) (FIM): 6 Sit to Lying (QC): 6 Lying-Sitting on Side/Bed(QC): 6 Sit to Stand (QC): 6 Rollin Roll Left to Right (QC): 6 Chair/Zke-fz-Phajj Xfer(QC): 6 Car Transfer (QC): 5 Does the Patient Walk: No and Walking Goal IS indicated Gait (FIM): 6 Gait distance (FIM): 3=150 ft Walk 10 feet (QC): 6 Walk 10ft-Uneven Surface(QC): 6 Walk 50ft with 2 Turns (QC): 6 Walk 150 ft (QC): 6 Gait Assistive Device: FWW Does the Pt use WC or Scooter?: Yes Wheelchair (FIM): 6 Wheelchair distance (FIM): 3=150 ft Wheel 50 feet with 2 turns (QC: 6 Stairs (FIM): 5 # of Steps: 4 1 Step (curb) (QC): 6 4 Steps (QC): 6 12 Steps (QC): 88 Picking up an Object (QC): 5 PT Plan Treatment/Plan Treatment Plan: Continue Plan of Care Treatment Plan: Bed Mobility, Education, Functional Activity Bakari, Functional Strength, Group Therapy, Gait, Safety, Therapeutic Exercise, Transfers Treatment Duration: Jan 03, 2019 Frequency: At least 5 of 7 days/Wk (IRF) Estimated Hrs Per Day: 1.5 hours per day Patient and/or Family Agrees t: Yes Safety Risks/Education Patient Education: Transfer Techniques, Correct Positioning, Disease Process, Safety Issues Teaching Recipient: Patient Teaching Methods: Demonstration, Discussion Response to Teaching: Verbalize Understanding, Reinforcement Needed Time/GCodes Time In: 1100 Time Out: 1200 Total Billed Treatment Time: 60 Total Billed Treatment 1,FA30m,wc15m,EX15m ADIN NICHOLAS VOCATIONAL REHABILITATION COUNSELOR Dec 18, 2018 12:09
--- NOTE | 2018-12-18 12:26 | Speech Therapy Daily Note ---
Speech Daily Progress Note Subjective Date Seen by Provider: Dec 18, 2018 Time Seen by Provider: 00:30 The patient was sitting in her chair watching television when I entered her room. Objective The patient completed safety awareness tasks presented verbally "What would you do if....?" at 85% with min verbal cues. Assessment Assessment Current Status: Good Progress Treatment Plan Continue Plan of Care Communication Comprehension: 4 Expression: 3 Social Cognition Social Interaction: 4 Problem Solvin Memory: 3 Speech Short Term Goals Short Term Goals Short Term Goals 1) The patient will complete memory tasks related to his daily needs at 90% or greater with minimal cues. 2) The patient will complete problem solving tasks related to his daily needs at 90% or greater with minimal cues. 3) The patient will complete safety awareness tasks related to his daily needs at 90% or greater with minimal cues. Speech Jail Goals Professional Fighter Goals The patient will improve her cognitive functional level for safety and independence. Speech-Plan Patient/Family Goals Patient/Family Goals: The patient plans on returning to the SNF she was admitted to ARU from upon discharge. Treatment Plan Speech Therapy Treatment Plan: Continue Plan of Care The patient has made good progress toward ST goals. Treatment Duration: Dec 20, 2018 Frequency: 5 times per week Estimated Hrs Per Day: .5 hour per day Rehab Potential: Guarded Barriers to Learning: Patient has mild cognitive deficits Pt/Family Agrees to Plan: Yes Safety Risks/Education Teaching Recipient: Patient Teaching Methods: Demonstration, Discussion Response to Teaching: Verbalize Understanding, Return Demonstration Education Topics Provided: Continued safety within her room and upon discharge to the SNF Time Speech Therapy Time In: 09:30 Speech Therapy Time Out: 10:00 Total Billed Time: 30 Billed Treatment Time 1AURELIO BETHAN[address] ST Dec 18, 2018 12:26
--- NOTE | 2018-12-18 14:18 | Therapy Group Daily Note ---
Therapy Daily Group Note Patient Education Topic Home Safety Session Ratio (pt:therapist): 3:1 Goal of Session: Use of Adaptive Equipment Goal Met for this Session: Yes Pt Benefit of Group: Contributions to Others, F/U Use of Strategies @Home, Increased Functional Safety, Improved Cognition, Recognition of Peers, Socialization Other/Notes Pt transported via w/c to OT/PT group. Group consisted of introductions (name, place living, favorite invention), socialization, education for AE for home and community use. Pt introduced self appropriately and actively listened to peers. Pt acknowledged understanding of educational topic by giving own personal story and a strategy that worked for them personally. After group, pt lying in bed with call light/phone in reach. All needs met in room. Start Time: 12:40 Stop Time: 13:50 Total Billed Treatment Time: 70 Total Billed Treatment 1-GRP MARCY BOUDREAUX Dec 18, 2018 14:18
--- NOTE | 2018-12-18 16:30 | NUR ---
SCALPER OPERATOR met with patient to review team conference summary. Unfortunately patient assessment. Progress within the last week and insurance updates. SCALPER OPERATOR is fearful that insurance will no longer provide authorization as patient is not tolerating or making significant progress. With anticipation of insurance denial, SCALPER OPERATOR spoke with patient and son, Isidro regarding discharge destination. As patient is unsafe to return home at this time and the necessary modifications and caregiving arrangements have not been established, home would not be a viable option. Prior to returning to ARU from [facility] it was discussed the patient may need to return to facility at ARU discharge. Patient and son are agreeable to this, if insurance does not approve additional days. SCALPER OPERATOR sent clinical information to [facility] for review for long-term care placement. Facility requests a Medicaid application be submitted prior to acceptance as patient has no remaining insurance coverage. SCALPER OPERATOR is awaiting necessary documents from patients son.
[2018-12-18 18:00] VITALS: BP 145/79
[2018-12-18] MEDS: MIRTAZAPINE 15 MG (REMERON) TAB PO SCH (20:03)
[2018-12-18] MEDS: GABAPENTIN 100 MG (NEURONTIN) CAP PO SCH (20:03)
[2018-12-18] MEDS: SINEMET CR 50/200 (CARBIDOPA/LEVODOPA SA) TAB PO SCH (20:03)
[2018-12-18] MEDS: HYDROcodone/APAP 5 MG/325 MG (LORTAB) TAB PO PRN (20:04)
[2018-12-19] MEDS: SINEMET 25/100 (CARBIDOPA/LEVODOPA) TAB PO SCH ×4 (05:36→18:42)
[2018-12-19] MEDS: ETODOLAC 200 MG (LODINE) CAP PO SCH ×2 (05:36→17:32)
[2018-12-19] MEDS: LACTOBACILLUS ACIDOPHILUS (PROBIOTIC) CAPSULE PO SCH ×2 (05:37→17:32)
[2018-12-19 06:24] VITALS: BP 170/83
--- NOTE | 2018-12-19 08:00 | Physical Therapy Daily Note ---
PT Daily Note-Current Subjective Pt agreeable to PT session. States she has a very bad [place] and requested pain med from nurse at beginning of tx session. Pain Numeric Pain Scale: 8 Comment: headache, req pain pill, nsg administered Appearance Upon arrival, pt in bed, easily aroused but very tired. Co Tx with OT. At end of session, pt in room continuing tx with OT staff. Mental Status Patient Orientation: Person, Place, Time, Situation Transfers Therapy Code Descriptions/Definitions Functional [place] Measure: 0=Not Assessed/NA 4=Minimal Assistance 1=Total Assistance 5=Supervision or Setup 2=Maximal Assistance 6=Modified [place] 3=Moderate Assistance 7=Complete [place] Therapy Quality Codes: 6 Independent with activity with or without an assistive device 5 Patient requires set up or clean up by helper. Patient completes activity by themselves 4 Supervision or touching assist (CGA). [place] provide cues , steadying assist 3 The helper provides less than half the effort to complete the activity 2 The helper provides more than half the effort to complete the activity 1 Dependent. The helper does all the effort to complete an activity 7 Patient refused to complete or attempt activity 9 The patient did not perform the activity before the current illness or injury 88 Not attempted due to Medical conditions or safety concerns Transfers (B, C, W/C) (FIM): 2 Scootin (skilled verb inst required) Rollin (skilled verb inst req, physical assist due to decreased ability to use hands) Roll Left to Right (QC): 4 Supine to/from Sit: 4 Sit to/from Stand: 3 Sit to Lying (QC): 4 Sit to Stand (QC): 3 Chair/Qix-ev-Hnssg Xfer(QC): 2 Bed to/from Chair: 2 Car Transfer (QC): 2 (mod A due to pivot transfer, once pt sitting edge of seat is able to maneuver LE's in and out of car) Weight Bearing Right Lower Extremity: Right Weight Bearing/Tolerated Left Lower Extremity: Left Weight Bearing/Tolerated Wheelchair Training Does the Pt Use a Wheelchair?: Yes Wheelchair (FIM): 1 Distance: 60, 40 Wheelchair Level of Assist: 2 Wheel 50 ft with 2 turns (QC): 2 Type of Wheelchair: Manual Pt has difficulty with UE use on wheels to assist propelling due to decreased ability to use hands. Difficulty propelling with LE's due to ~ataxic movements of LE's. Pt with most difficulty performing turns in w/c Exercises Seated Therapy Exercises: Ankle pumps, Sit to stand, Long arc quads (30), Chair press-ups, Hip flexion (30), Hip abd/add (30 with knees extended) Treatments co-tx with OT, bed mobility, transfers, safety, bathing, dressing, functional mobility, car transfers, chair transfers, bed transfers, strengthening, sitting and standing balance, activity tolerance Co-treat with OT for part of session. Skills of 2 clinicians required for skilled instructions and care to complete coordinated total body movements during ambulating, bathing/dressing, standing and functional tasks. PT working on transfers, ambulation, coordination and standing during bathing/dressing. OT working on ADLs, UE coordination, functional transfers and positioning UE's during ambulation and standing. Min A for sit to stand with verbal cues for hand and foot placement. Max A for toilet transfer. Dependent for clothing manipulation and cleansing after toileting. Pt attempts to assist during bathing and dressing though is inefficient due to uncoordinated movements, decreased fine motor skills and decreased grasp. Pt is mod A for upper body bathing/dressing. Dependent for lower body bathing/dressing, one clinician to stand pt and one clinician to manipulate clothing. OT working on completing UE gross motor movements, ADLs and grasping during daily functional activities. Working on w/c chair mobility with mod A and assist to steer. After therapy, pt sitting in recliner with call light/phone in reach. All needs met in room. PT Short Term Goals Short Term Goals Time Frame: Dec 20, 2018 Transfers (B,C,W/C) (FIM): 3 (3) Gait (FIM): 2 Distance (FIM): 9=857-91 ft Gait Assistive Device: FWW Wheelchair (FIM): 4 Wheelchair distance (FIM): 3=150 ft Wheelchair Distance: 10' PT Prison Goals Neon Sign Worker Goals PT Prison Goals Time Frame: Jan 03, 2019 Transfers (B,C,W/C) (FIM): 6 Sit to Lying (QC): 6 Lying-Sitting on Side/Bed(QC): 6 Sit to Stand (QC): 6 Rollin Roll Left to Right (QC): 6 Chair/Ftb-dw-Ovpub Xfer(QC): 6 Car Transfer (QC): 5 Does the Patient Walk: No and Walking Goal IS indicated Gait (FIM): 6 Gait distance (FIM): 3=150 ft Walk 10 feet (QC): 6 Walk 10ft-Uneven Surface(QC): 6 Walk 50ft with 2 Turns (QC): 6 Walk 150 ft (QC): 6 Gait Assistive Device: FWW Does the Pt use WC or Scooter?: Yes Wheelchair (FIM): 6 Wheelchair distance (FIM): 3=150 ft Wheel 50 feet with 2 turns (QC: 6 Stairs (FIM): 5 # of Steps: 4 1 Step (curb) (QC): 6 4 Steps (QC): 6 12 Steps (QC): 88 Picking up an Object (QC): 5 PT Plan Treatment/Plan Treatment Plan: Continue Plan of Care Treatment Plan: Bed Mobility, Education, Functional Activity Bakari, Functional Strength, Group Therapy, Gait, Safety, Therapeutic Exercise, Transfers Treatment Duration: Jan 03, 2019 Frequency: At least 5 of 7 days/Wk (IRF) Estimated Hrs Per Day: 1.5 hours per day Patient and/or Family Agrees t: Yes Safety Risks/Education Patient Education: Transfer Techniques, Correct Positioning, Safety Issues Teaching Recipient: Patient Teaching Methods: Demonstration, Discussion Response to Teaching: Verbalize Understanding, Return Demonstration, Reinforcement Needed Time/GCodes Time In: 755 (AM: 0755PM: 1300) Time Out: 900 (AM: 0900PM: 1320) Total Billed Treatment Time: 95 Total Billed Treatment AM: 1 visit, FA x50 min, W/C x15 min PM: 1 visit, EX x20 min REED BARLOW PTA Dec 19, 2018 08:00
[2018-12-19] MEDS: lisINopril 10 MG (PRINIVIL) TABLET PO SCH (08:26)
[2018-12-19] MEDS: ENOXAPARIN 40 MG/0.4 ML (LOVENOX) SYR SC SCH (08:26)
[2018-12-19] MEDS: meTOprolol TARTRATE 25 MG (LOPRESSOR) TABLET PO SCH ×2 (08:26→21:26)
[2018-12-19] MEDS: LEVETIRACETAM 500 MG (KEPPRA) TAB PO SCH ×2 (08:26→21:26)
[2018-12-19] MEDS: HYDROcodone/APAP 5 MG/325 MG (LORTAB) TAB PO PRN ×2 (08:27→21:23)
--- NOTE | 2018-12-19 09:05 | PM&R Progress Note ---
Subjective HPI/CC On Admission Date Seen by Provider: Dec 19, 2018 Time Seen by Provider: 08:30 Chief complaint: Debility History of present illness: This is a 63-year-old white female known to me from a severe sepsis episode when she had arrived to go to inpatient rehab when she was transferred from last month after severe encephalopathy and parkinsonism rigidity with left foot wound status post bunionectomy with severe complications so she eventually stabilized went to inpatient rehab after insurance approval and spent 2 weeks there but continued to have difficulty with the pace of therapy so she was moved to the fpc closer to home in [place] but she is returned in need of full therapy services since she is not on weight restricted on the left foot now and she can weight-bear as tolerated and currently is much improved. Son is at the bedside and told me that she needs intensive therapy since she fully intends to return to work and then return to independent living along with family monitoring. Subjective/Events-last exam No issues. BM yesterday. Asking for her neurologist appointment up at and I will have Yulia obtain that and let me know when that will be. No significant changes over night. Check meds and labs Conferred with RN Reviewed therapy notes Review of Systems General: Fatigue Neurological: Weakness, Numbness, Incoordination Objective Exam Vital Signs Vital Signs Date Time Temp Pulse Resp B/P (MAP) Pulse Ox O2 Delivery O2 Flow Rate FiO2 12/19/18 16:42 99.2 80 16 96/58 (71) 96 Room Air Capillary Refill : Less Than 3 Seconds General Appearance: No Apparent Distress, WD/WN, Chronically ill, Thin HEENT: PERRL/EOMI, Normal ENT Inspection, Pharynx Normal, Moist Mucous Membranes Neck: Full Range of Motion, Normal Inspection, Non Tender, Supple Respiratory: Chest Non Tender, Lungs Clear, Normal Breath Sounds, No Accessory Muscle Use, No Respiratory Distress Cardiovascular: Regular Rate, Rhythm, No Edema, No Gallop, No JVD, No Murmur Gastrointestinal: Normal Bowel Sounds, No Organomegaly, No Pulsatile Mass, Non Tender, Soft Back: Normal Inspection, No CVA Tenderness, No Vertebral Tenderness Extremity: Normal Capillary Refill, Normal Inspection, Normal Range of Motion, Non Tender, No Calf Tenderness, No Pedal Edema, Other (hand contractures noted) Neurologic/Psychiatric: Alert, Oriented x3, No Motor/Sensory Deficits, Normal Mood/Affect, plastic tubing 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 FIM Transfers Therapy Code Descriptions/Definitions Functional [place] Measure: 0=Not Assessed/NA 4=Minimal Assistance 1=Total Assistance 5=Supervision or Setup 2=Maximal Assistance 6=Modified [place] 3=Moderate Assistance 7=Complete [place] Therapy Quality Codes: 6 Independent with activity with or without an assistive device 5 Patient requires set up or clean up by helper. Patient completes activity by themselves 4 Supervision or touching assist (CGA). [place] provide cues , steadying assist 3 The helper provides less than half the effort to complete the activity 2 The helper provides more than half the effort to complete the activity 1 Dependent. The helper does all the effort to complete an activity 7 Patient refused to complete or attempt activity 9 The patient did not perform the activity before the current illness or injury 88 Not attempted due to Medical conditions or safety concerns Transfers (B, C, W/C) (FIM): 1 Scootin Rollin Roll Left to Right (QC): 3 Supine to/from Sit: 3 Sit to/from Stand: 2 Sit to Lying (QC): 1 Sit to Stand (QC): 1 Chair/Nxd-ac-Hfdzo Xfer(QC): 1 Bed to/from Chair: 1 Car Transfer (QC): 1 Gait Training Does the Patient Walk?: Yes Gait (FIM): 1 Distance: 10' Walk 10 feet (QC): 88 Walk 50 ft with 2 Turns(QC): 88 Walk 150 ft (QC): 88 Walking 10ft/uneven surface-QC: 88 Gait Level of Assist: 2 Gait Persons Needed: 2 Gait Assistive Device: Walker Platform (bilateral platform with modifications) Wheelchair Training Does the Pt Use a Wheelchair?: Yes Wheelchair (FIM): 1 Wheelchair Distance: 1=up to 49 ft (20ftx3) Distance: 10' Wheelchair Level of Assist: 2 Wheel 50 ft with 2 turns (QC): 1 Wheel 150 ft (QC): 1 Type of Wheelchair: Manual Stair Training Stairs (FIM): 0 (pt unable to walk) 1 Step (curb) (QC): 88 4 Steps (QC): 88 12 Steps (QC): 88 Balance Picking up an Object (QC): 88 Mental Status/Objective Comprehension: 5 Expression: 4 Social Interaction: 4 Problem Solvin Memory: 4 ADL-Treatment Feedin Eating (QC): 4 Groomin Oral Hygiene (QC): 4 Bathin (Assist x2 to cleanse buttocks.) Bathing Location: Chest, Abdomen Shower/Bathe Self (QC): 1 Upper Extremity Dressin Upper Body Dressing (QC): 3 Lower Extremity Dressin Lower Body Dressing (QC): 1 On/Off Footwear (QC): 2 Toiletin Toileting Hygiene (QC): 1 Toilet/Commode Transfer: 1 Toilet Transfer (QC): 2 Shower: 1 (Assist x2 to transfer into shower.) Assessment/Plan Assessment and Plan Assess & Plan/Chief Complaint Assessment: Debility s/p encephalopathy much improved Cachexia Anemia Left foot wound Hand contractures Dependent Plan: IRF protocol Pain control Home meds Check labs prn NHP permanent at [place] supervisor tomorrow (1) Other encephalopathy (2) Leukocytosis Status: Acute (3) Cachexia Status: Acute (4) Anemia of chronic disease Status: Chronic (5) Confusion Status: Acute (6) Parkinson disease Status: Chronic (7) Incontinence of urine Status: Acute (8) Visual hallucinations Status: Acute (9) Debility Status: Acute (10) Thrombocytosis Status: Acute (11) Incontinence of bowel Status: Acute (12) Rigidity Status: Acute (13) Polymicrobial bacterial infection Status: Acute (14) Osteomyelitis of foot Status: Acute (15) Witnessed seizure-like activity Status: Acute (16) Wound of left foot Status: Acute (17) Anemia Status: Chronic SHANNON LIMA DO Dec 19, 2018 09:05
--- NOTE | 2018-12-19 09:16 | Occupational Ther Daily Note ---
OT Current Status-Daily Note Subjective Pt alert, lying in bed. Mental Status/Objective Patient Orientation: Person, Place, Time, Situation Therapy Code Descriptions/Definitions Functional [place] Measure: 0=Not Assessed/NA 4=Minimal Assistance 1=Total Assistance 5=Supervision or Setup 2=Maximal Assistance 6=Modified [place] 3=Moderate Assistance 7=Complete [place] ADL-Treatment Co-treat with PT for part of session. Skills of 2 clinicians required for s killed instructions and care to complete coordinated total body movements during ambulating, bathing/dressing, standing and functional tasks. PT working on transfers, ambulation, coordination and standing during bathing/dressing. OT working on ADLs, UE coordination, functional transfers and positioning UE's during ambulation and standing. Min A for sit to stand with verbal cues for hand and foot placement. Max A for toilet transfer. Dependent for clothing manipulation and cleansing after toileting. Pt attempts to assist during bathing and dressing though is inefficient due to uncoordinated movements, decreased fine motor skills and decreased grasp. Pt is mod A for upper body bathing/dressing. Dependent for lower body bathing/dressing, one clinician to stand pt and one clinician to manipulate clothing. OT working on completing UE gross motor movements, ADLs and grasping during daily functional activities. Working on w/c chair mobility with mod A and assist to steer. After set up, pt requires built up handle with strap on toothbrush for pt to be able to coordinate movement. Pt does require a strap on handles of utensils due to inability to sustain grasp. Pt requires set up for eating and modified utensils (built up handle with strap). See PT note for transfers. After therapy, pt sitting in recliner with call light/phone in reach. All needs met in room. Therapy Code Descriptions/Definitions Functional [place] Measure: 0=Not Assessed/NA 4=Minimal Assistance 1=Total Assistance 5=Supervision or Setup 2=Maximal Assistance 6=Modified [place] 3=Moderate Assistance 7=Complete [place] Therapy Quality Codes: 6 Independent with activity with or without an assistive device 5 Patient requires set up or clean up by helper. Patient completes activity by themselves 4 Supervision or touching assist (CGA). [place] provide cues , steadying assist 3 The helper provides less than half the effort to complete the activity 2 The helper provides more than half the effort to complete the activity 1 Dependent. The helper does all the effort to complete an activity 7 Patient refused to complete or attempt activity 9 The patient did not perform the activity before the current illness or injury 88 Not attempted due to Medical conditions or safety concerns Eating (FIM): 5 Eating (QC): 5 Grooming (FIM): 5 Oral Hygiene (QC): 4 Bathing (FIM): 1 Shower/Bathe Self (QC): 1 Upper Body (FIM): 3 Upper Body Dressing (QC): 3 Lower Body Dressing (FIM): 1 Lower Body Dressing (QC): 1 On/Off Footwear (QC): 2 Toileting (FIM): 1 Toileting Hygiene (QC): 1 Transfers (B, C, W/C) (FIM): 2 Toilet/Commode Transfer (FIM): 2 Toilet Transfer (QC): 2 Shower Transfer(FIM): 2 OT Short Term Goals Short Term Goals Time Frame: Dec 20, 2018 Eating(FIM): 3 Grooming(FIM): 3 Bathing(FIM): 3 Upper Body Dressing(FIM): 3 Lower Body Dressing(FIM): 2 Toileting(FIM): 2 Transfers (B,C,W/C) (FIM): 3 (3) Toilet/Commode Transfer(FIM): 3 Shower Transfer(FIM): 3 1=Demonstrate adherence to instructed precautions during ADL tasks. 2=Patient will verbalize/demonstrate understanding of assistive devices/modifications for ADL. 3=Patient will improve strength/tolerance for activity to enable patient to perform ADL's. OT Senior Care Goals Welding Operator Goals Time Frame: Jan 03, 2019 Eating (FIM): 5 (not met) Eating (QC): 5 (not met) Groomin (not met) Oral Hygiene (QC): 4 (not met) Bathing(FIM): 5 (not met) Bathing Location: L Arm, R Arm, L Upper Leg, R Upper Leg, L Lower Leg (including foot), R Lower Leg (including foot), Chest, Abdomen, Buttocks, Perineal Area Shower/Bathe Self (QC): 4 (not met) Upper Body Dressing(FIM): 5 (not met) Upper Body Dressing (QC): 4 (not met) Lower Body Dressing(FIM): 5 (not met) Lower Body Dressing (QC): 4 (not met) On/Off Footwear (QC): 4 (not met) Toileting(FIM): 5 (not met) Toileting Hygiene (QC): 4 (not met) Transfers (B,C,W/C) (FIM): 4 (not met) Toilet/Commode Transfer(FIM): 5 (not met) Toilet/Commode Transfer (QC): 4 (not met) Shower Transfer(FIM): 4 (not met) Additional Goals: 1-Demonstrate ADL Tasks, 2-Verbalize Understanding, 3- ImproveStrength/Bak[place] 1=Demonstrate adherence to instructed precautions during ADL tasks. 2=Patient will verbalize/demonstrate understanding of assistive devices/modifications for ADL. 3=Patient will improve strength/tolerance for activity to enable patient to perform ADL's. OT Education/Plan Problem List/Assessment Assessment: Decreased Activ Tolerance, Impaired Coordination, Impaired Funct Balance, Impaired I ADL's, Impaired Self-Care Skills, Restricted Funct UE ROM pt presents with functional limitations affecting areas of ADLS and functional transfers with deficits in the above mention including decrease proprioception, decrease light touch, and decrease overall safety with functional tasks. pt is motivated to participate in therapy. pt would benefit from skilled OT services to increase independence with ADLS and functional transfers. Discharge Recommendations Plan/Recommendations: Continue POC Therapy Discharge Recommendati: 24 Hour Supervision, Post Acute OT Treatment Plan/Plan of Care Patient would benefit from OT for education, treatment and training to promote independence in ADL's, mobility, safety and/or upper extremity function for ADL's. Plan of Care: ADL Retraining, Caregiver Training, Cognitive Retraining, Functional Mobility, Group Exercise/Act as Ind, UE Funct Exercise/Act, UE Neur omus Re-Ed/Coord, W/C Management Training Treatment Duration: Jan 03, 2019 Frequency: At least 5 of 7 days/Wk (IRF) Estimated Hrs Per Day: 1 hour per day (60-90 minutes per day ) Agreement: Yes Rehab Potential: Guarded Time/GCodes Start Time: 08:00 Stop Time: 09:25 Total Time Billed (hr/min): 85 Billed Treatment Time 1 visit-ADL 5 (70 min) FA 1 (15 min) MARCY BOUDREAUX Dec 19, 2018 09:15
--- NOTE | 2018-12-19 11:59 | NUR ---
AUDIO EXPERIENCE EXPERT made contact with regulatory administrator, Marco at [facility] to inquire about patient returning to long-term care. Following lengthy discussion with billing department and patient's son, Isidro they're able to except patient tomorrow, 830. Per the regulatory administrator and admission coordinator, financial arrangements have been made with Isidro AUDIO EXPERIENCE EXPERT did receive documents from Tracie In the billing office at [facility] with request of signature from patient for Medicaid submission. AUDIO EXPERIENCE EXPERT provided documents to patient and obtained an "x" in place of a signature, as patient cannot utilize hand to provide appropriate signature. Information was witnessed by this AUDIO EXPERIENCE EXPERT as well as another staff member. Information was faxed back to Tracie. AUDIO EXPERIENCE EXPERT then attempted to complete a social security disability application online; however, as patient currently has SSI an online application cannot be submitted. AUDIO EXPERIENCE EXPERT was able to reach out to SS office and obtain a phone interview for February 13 at 1 p.m. Facility will need to assist patient in completing a paper application as this will need to be submitted prior to phone interview. Patient is agreeable to discharge plan for tomorrow, but is hopeful to complete only a short stay at facility before returning home. Son states he is working to obtain 24 hour care and complete necessary home modifications. AUDIO EXPERIENCE EXPERT reviewed IMM and patient choice letter for placement. Patient expresses no concerns at this time. Facility intends to provide wheelchair van transportation tomorrow at 930 a.m. Please see discharge summary for further information.
--- NOTE | 2018-12-19 13:44 | Speech Therapy Daily Note ---
Speech Daily Progress Note Subjective Date Seen by Provider: Dec 19, 2018 Time Seen by Provider: 00:30 The patient had just received her late breakfast when I entered her room. Objective The patient completed a series of fill in the blanks to statements/questions related to daily routine at 90% with minimal cues and/or repetitions. Assessment Assessment Current Status: Good Progress Treatment Plan Continue Plan of Care Communication Comprehension: 7 Expression: 6 Social Cognition Social Interaction: 7 Problem Solvin Memory: 6 Speech Short Term Goals Short Term Goals Short Term Goals 1) The patient will complete memory tasks related to his daily needs at 90% or greater with minimal cues. 2) The patient will complete problem solving tasks related to his daily needs at 90% or greater with minimal cues. 3) The patient will complete safety awareness tasks related to his daily needs at 90% or greater with minimal cues. Speech Detention Goals Detention Goals The patient will improve her cognitive functional level for safety and independe nce. Speech-Plan Patient/Family Goals Patient/Family Goals: The patient is being discharged to SNF within the next few days. Treatment Plan Speech Therapy Treatment Plan: Continue Plan of Care The patient has progressed well toward meeting all ST goals. Treatment Duration: Dec 20, 2018 Frequency: 5 times per week Estimated Hrs Per Day: .5 hour per day Rehab Potential: Guarded Barriers to Learning: The patient has mild cognitive deficits which are resolving. Pt/Family Agrees to Plan: Yes Safety Risks/Education Teaching Recipient: Patient Teaching Methods: Demonstration, Discussion Response to Teaching: Verbalize Understanding, Return Demonstration Education Topics Provided: Continued safety even upon discharge Time Speech Therapy Time In: 09:30 Speech Therapy Time Out: 10:00 Total Billed Time: 30 Billed Treatment Time 1, ANDREW Perales Dec 19, 2018 13:44
[2018-12-19 16:42] VITALS: BP 96/58
--- NOTE | 2018-12-19 19:20 | NUR ---
bedside report received from MIKAELA CISSE, assume care of pt
--- NOTE | 2018-12-19 20:20 | NUR ---
assessments & interventions completed, see assessments & interventions, remains up in the chair
[2018-12-19] MEDS ORDERED: CITA10TA7 PO (21:05)
[2018-12-19] MEDS ORDERED: HYDR-3812 PO (21:05)
--- NOTE | 2018-12-19 21:07 | Discharge Inst-Skilled Nursing ---
Discharge Inst-Skilled NF Reconcile Patient Problems Problems Reviewed?: Yes Patient Instructions Patient Problems: Severe debility Severe Parkinson's Goal: Return to independent ADL's Consult/Follow Up/Orders Follow Up Appt.: PCP 1 week Neurologist as scheduled Skilled NF Admit to: Certification (SNF) I certify that SNF services are required to be given on an inpatient basis because of the above named patient's need for correction care on a continuing basis for the conditions(s) for which he/she was receiving inpatient hospital services prior to his/her transfer to the SNF. Alf Facility Order: Nursing Services, Elderly Caregiver-Evaluate & Treat, Physical Therapy-Evaluate & Treat, Speech Language-Evaluate & Treat Oxygen Delivery Method: Room Air Discharge Diet: No Restrictions Daily Activity as Tolerated: Yes New & Resume Previous Orders Roxanne Edwards Dec 19, 2018 21:06 Pneu Vac Indicated: Yes ROXANNE EDWARDS DO Dec 19, 2018 21:07
[2018-12-19 21:20] VITALS: BP 127/78
[2018-12-19] MEDS: GABAPENTIN 100 MG (NEURONTIN) CAP PO SCH (21:23)
[2018-12-19] MEDS: SINEMET CR 50/200 (CARBIDOPA/LEVODOPA SA) TAB PO SCH (21:23)
--- NOTE | 2018-12-19 21:23 | NUR ---
Lopressor 12.5mg held b/p 127/78 requesting pain pill pain level 7/10 on numeric scale Lortab 5 1 tab po given
[2018-12-19] MEDS: MIRTAZAPINE 15 MG (REMERON) TAB PO SCH (21:24)
--- NOTE | 2018-12-19 22:15 | NUR ---
rates pain level 2/10 on numeric scale
[2018-12-20 06:56] VITALS: BP 139/76
[2018-12-20] MEDS: ETODOLAC 200 MG (LODINE) CAP PO SCH (06:58)
[2018-12-20] MEDS: SINEMET 25/100 (CARBIDOPA/LEVODOPA) TAB PO SCH (06:58)
[2018-12-20] MEDS: LACTOBACILLUS ACIDOPHILUS (PROBIOTIC) CAPSULE PO SCH (06:58)
--- NOTE | 2018-12-20 07:27 | NUR ---
bedside report given to SANCHEZ CISSE
[2018-12-20] MEDS: lisINopril 10 MG (PRINIVIL) TABLET PO SCH (08:18)
[2018-12-20] MEDS: LEVETIRACETAM 500 MG (KEPPRA) TAB PO SCH (08:18)
[2018-12-20] MEDS: meTOprolol TARTRATE 25 MG (LOPRESSOR) TABLET PO SCH (08:19)
[2018-12-20] MEDS: ENOXAPARIN 40 MG/0.4 ML (LOVENOX) SYR SC SCH (08:21)
--- NOTE | 2018-12-20 09:40 | Discharge Summary ---
Diagnosis/Chief Complaint Date of Admission Dec 06, 2018 at 10:30 Date of Discharge Discharge Date: Dec 20, 2018 Discharge Diagnosis Assessment: Debility s/p encephalopathy much improved Cachexia Anemia Left foot wound Hand contractures Dependent Plan: IRF protocol Pain control Home meds Check labs prn NHP permanent at DC correction tomorrow (1) Other encephalopathy (2) Leukocytosis Status: Acute (3) Cachexia Status: Acute (4) Anemia of chronic disease Status: Chronic (5) Confusion Status: Acute (6) Parkinson disease Status: Chronic (7) Incontinence of urine Status: Acute (8) Visual hallucinations Status: Acute (9) Debility Status: Acute (10) Thrombocytosis Status: Acute (11) Incontinence of bowel Status: Acute (12) Rigidity Status: Acute (13) Polymicrobial bacterial infection Status: Acute (14) Osteomyelitis of foot Status: Acute (15) Witnessed seizure-like activity Status: Acute (16) Wound of left foot Status: Acute (17) Anemia Status: Chronic Reason Hospital Visit Verification and Attestation of Medical Student E/M Service A medical student performed and documented this service in my presence. I reviewed and verified all information documented by the medical student and made modifications to such information, when appropriate. I personally performed the physical exam and medical decision making. Roxanne Edwards, Dec 07, 2018,15:38 Discharge Summary Discharge Physical Examination Allergies: Coded Allergies: No Known Drug Allergies (Unverified , 11/03/18) Vitals & I&Os Vital Signs Date Time Temp Pulse Resp B/P (MAP) Pulse Ox O2 Delivery O2 Flow Rate FiO2 12/20/18 10:05 12/20/18 08:00 Room Air 12/20/18 06:56 97.0 66 16 98 General Appearance: Alert, Oriented X3, Cooperative Respiratory: Clear to Auscultation Cardiovascular: Regular Rate Neuro: Other (contractures of hands and abnormal gait unable to ambulate, w/c bound) Psych/Mental Status: Mental Status NL, Mood NL Hospital Course Was the Problem List Reviewed?: Yes Hospital course: Patient had a long 2-week hospital course in inpatient rehab after transferred back to the facility from the group home for intensive therapy since the encephalopathy had cleared. She started out with appearing to make some progress but a few days after arrival she became plateaued with her activity and overall not improving at all even after aggressive treatment and creative techniques by physical therapy. She is wheelchair-bound but was unable to have any type of reasonable gait. At night when she was asleep and needed to go to the bathroom the withdrawal of her arms and legs requiring 2 person assist. She will have close follow-up with her Parkinson's neurological specialist and group home placement was recommended due to full dependence of all ADLs and wheelchair-bound status. She had no clinical decompensation during her hospital stay labs remained stable and she was deemed stable for discharge to the group home. Labs (last 24 hrs) Laboratory Tests 12/07/18 11:04: White Blood Count 11.8H, Red Blood Count 4.00L, Hemoglobin 11.1L, Hematocrit 35, Mean Corpuscular Volume 88, Mean Corpuscular Hemoglobin 28, Mean Corpuscular Hemoglobin Concent 32, Red Cell Distribution Width 18.7H, Platelet Count 368, Mean Platelet Volume 10.5H, Neutrophils (%) (Auto) 77H, Lymphocytes (%) (Auto) 16, Monocytes (%) (Auto) 6, Eosinophils (%) (Auto) 2, Basophils (%) (Auto) 0, Neutrophils # (Auto) 9.0H, Lymphocytes # (Auto) 1.9, Monocytes # (Auto) 0.7, Eosinophils # (Auto) 0.2, Basophils # (Auto) 0.0, Sodium Level 141, Potassium Level 4.5, Chloride Level 109H, Carbon Dioxide Level 21, Anion Gap 11, Blood Urea Nitrogen 22H, Creatinine 0.72, Estimat Glomerular Filtration Rate > 60, BUN/Creatinine Ratio 31, Glucose Level 85, Calcium Level 9.6, Corrected Calcium 10.0, Total Bilirubin 0.3, Aspartate Amino Transf (AST/SGOT) 28, Alanine Aminotransferase (ALT/SGPT) 9, Alkaline Phosphatase 137H, Total Protein 6.6, Albumin 3.5 12/09/18 05:11: White Blood Count 7.2, Red Blood Count 3.48L, Hemoglobin 9.5L, Hematocrit 31L, Mean Corpuscular Volume 89, Mean Corpuscular Hemoglobin 27, Mean Corpuscular Hemoglobin Concent 31L, Red Cell Distribution Width 18.4H, Platelet Count 327, Mean Platelet Volume 10.1, Neutrophils (%) (Auto) 64, Lymphocytes (%) (Auto) 23, Monocytes (%) (Auto) 8, Eosinophils (%) (Auto) 5, Basophils (%) (Auto) 0, Neutrophils # (Auto) 4.6, Lymphocytes # (Auto) 1.7, Monocytes # (Auto) 0.5, Eosinophils # (Auto) 0.3, Basophils # (Auto) 0.0, Sodium Level 141, Potassium Level 4.3, Chloride Level 110H, Carbon Dioxide Level 22, Anion Gap 9, Blood Urea Nitrogen 23H, Creatinine 0.63, Estimat Glomerular Filtration Rate > 60, BUN/Creatinine Ratio 37, Glucose Level 90, Calcium Level 8.7, Corrected Calcium 9.6, Total Bilirubin 0.2, Aspartate Amino Transf (AST/SGOT) 18, Alanine Aminotransferase (ALT/SGPT) < 6, Alkaline Phosphatase 118, Total Protein 5.6L, Albumin 2.9L, Erythrocyte Sedimentation Rate 39H 12/16/18 05:04: White Blood Count 7.2, Red Blood Count 3.73L, Hemoglobin 10.3L, Hematocrit 34L, Mean Corpuscular Volume 90, Mean Corpuscular Hemoglobin 28, Mean Corpuscular Hemoglobin Concent 31L, Red Cell Distribution Width 17.2H, Platelet Count 280, Mean Platelet Volume 11.0H, Neutrophils (%) (Auto) 68, Lymphocytes (%) (Auto) 21, Monocytes (%) (Auto) 7, Eosinophils (%) (Auto) 4, Basophils (%) (Auto) 0, Neutrophils # (Auto) 4.9, Lymphocytes # (Auto) 1.5, Monocytes # (Auto) 0.5, Eosinophils # (Auto) 0.3, Basophils # (Auto) 0.0, Sodium Level 142, Potassium Level 4.1, Chloride Level 110H, Carbon Dioxide Level 24, Anion Gap 8, Blood Urea Nitrogen 20H, Creatinine 0.68, Estimat Glomerular Filtration Rate > 60, BUN/Creatinine Ratio 29, Glucose Level 89, Calcium Level 8.5, Corrected Calcium 9.2, Total Bilirubin 0.2, Aspartate Amino Transf (AST/SGOT) 9, Alanine Aminotransferase (ALT/SGPT) 8, Alkaline Phosphatase 96, Total Protein 5.6L, Albumin 3.1L Pending Labs Laboratory Tests 12/07/18 11:04: White Blood Count 11.8, Red Blood Count 4.00, Hemoglobin 11.1, Hematocrit 35, Mean Corpuscular Volume 88, Mean Corpuscular Hemoglobin 28, Mean Corpuscular Hemoglobin Concent 32, Red Cell Distribution Width 18.7, Platelet Count 368, Mean Platelet Volume 10.5, Neutrophils (%) (Auto) 77, Lymphocytes (%) (Auto) 16, Monocytes (%) (Auto) 6, Eosinophils (%) (Auto) 2, Basophils (%) (Auto) 0, Neutrophils # (Auto) 9.0, Lymphocytes # (Auto) 1.9, Monocytes # (Auto) 0.7, Eosinophils # (Auto) 0.2, Basophils # (Auto) 0.0, Sodium Level 141, Potassium Level 4.5, Chloride Level 109, Carbon Dioxide Level 21, Anion Gap 11, Blood Urea Nitrogen 22, Creatinine 0.72, Estimat Glomerular Filtration Rate > 60, BUN/Creatinine Ratio 31, Glucose Level 85, Calcium Level 9.6, Corrected Calcium 10.0, Total Bilirubin 0.3, Aspartate Amino Transf (AST/SGOT) 28, Alanine Aminotransferase (ALT/SGPT) 9, Alkaline Phosphatase 137, Total Protein 6.6, Albumin 3.5 12/09/18 05:11: White Blood Count 7.2, Red Blood Count 3.48, Hemoglobin 9.5, Hematocrit 31, Mean Corpuscular Volume 89, Mean Corpuscular Hemoglobin 27, Mean Corpuscular Hemoglobin Concent 31, Red Cell Distribution Width 18.4, Platelet Count 327, Mean Platelet Volume 10.1, Neutrophils (%) (Auto) 64, Lymphocytes (%) (Auto) 23, Monocytes (%) (Auto) 8, Eosinophils (%) (Auto) 5, Basophils (%) (Auto) 0, Neutrophils # (Auto) 4.6, Lymphocytes # (Auto) 1.7, Monocytes # (Auto) 0.5, Eosinophils # (Auto) 0.3, Basophils # (Auto) 0.0, Sodium Level 141, Potassium Level 4.3, Chloride Level 110, Carbon Dioxide Level 22, Anion Gap 9, Blood Urea Nitrogen 23, Creatinine 0.63, Estimat Glomerular Filtration Rate > 60, BUN/Creatinine Ratio 37, Glucose Level 90, Calcium Level 8.7, Corrected Calcium 9.6, Total Bilirubin 0.2, Aspartate Amino Transf (AST/SGOT) 18, Alanine Aminotransferase (ALT/SGPT) < 6, Alkaline Phosphatase 118, Total Protein 5.6, Albumin 2.9, Erythrocyte Sedimentation Rate 39 12/16/18 05:04: White Blood Count 7.2, Red Blood Count 3.73, Hemoglobin 10.3, Hematocrit 34, Mean Corpuscular Volume 90, Mean Corpuscular Hemoglobin 28, Mean Corpuscular Hemoglobin Concent 31, Red Cell Distribution Width 17.2, Platelet Count 280, Me an Platelet Volume 11.0, Neutrophils (%) (Auto) 68, Lymphocytes (%) (Auto) 21, Monocytes (%) (Auto) 7, Eosinophils (%) (Auto) 4, Basophils (%) (Auto) 0, Neutrophils # (Auto) 4.9, Lymphocytes # (Auto) 1.5, Monocytes # (Auto) 0.5, Eosinophils # (Auto) 0.3, Basophils # (Auto) 0.0, Sodium Level 142, Potassium Level 4.1, Chloride Level 110, Carbon Dioxide Level 24, Anion Gap 8, Blood Urea Nitrogen 20, Creatinine 0.68, Estimat Glomerular Filtration Rate > 60, BUN/Creatinine Ratio 29, Glucose Level 89, Calcium Level 8.5, Corrected Calcium 9.2, Total Bilirubin 0.2, Aspartate Amino Transf (AST/SGOT) 9, Alanine Aminotransferase (ALT/SGPT) 8, Alkaline Phosphatase 96, Total Protein 5.6, Albumin 3.1 Discharge Home Medications: Active Scripts Active Citalopram HBr (Citalopram Hydrobromide) 10 Mg Tablet 10 Mg PO DAILY Hydrocodone-Acetamin 5-325 mg (Hydrocodone/Acetaminophen) 1 Each Tablet 1 Tab PO Q4H PRN Reported Carbidopa-Levodopa 25-100 Tab (Carbidopa/Levodopa) 1 Each Tablet 2.5 Tab PO 0700,1100,1500,1900 Levetiracetam 250 Mg Tablet 250 Mg PO BID Floranex Tablet (L. Acidophilus/Bulgaricus) 1 Each Tablet 1 Tab PO BID Mirtazapine 15 Mg Tablet 15 Mg PO HS Metoprolol Tartrate 25 Mg Tablet 12.5 Mg PO BID TAKES 1/2 (25MG) TABLET Lisinopril 10 Mg Tablet 10 Mg PO DAILY Lovenox (Enoxaparin Sodium) 40 Mg/0.4 Ml Syringe 40 Mg SQ DAILY Carbidopa-Levo ER 50-200 Tab (Carbidopa/Levodopa) 1 Each Tablet.er 1 Tab PO HS Gabapentin 100 Mg Capsule 100 Mg PO HS Diclofenac Sodium 50 Mg Tablet.dr 50 Mg PO BID PRN Instructions to patient/family Please see electronic discharge instructions given to patient. Diagnosis/Problems Diagnosis/Problems (1) Other encephalopathy (2) Leukocytosis Status: Acute (3) Cachexia Status: Acute (4) Anemia of chronic disease Status: Chronic (5) Confusion Status: Acute (6) Parkinson disease Status: Chronic (7) Incontinence of urine Status: Acute (8) Visual hallucinations Status: Acute (9) Debility Status: Acute (10) Thrombocytosis Status: Acute (11) Incontinence of bowel Status: Acute (12) Rigidity Status: Acute (13) Polymicrobial bacterial infection Status: Acute (14) Osteomyelitis of foot Status: Acute (15) Witnessed seizure-like activity Status: Acute (16) Wound of left foot Status: Acute (17) Anemia Status: Chronic Clinical Quality Measures DVT/VTE Risk/Contraindication: Risk Factor Score Per Nursin RFS Level Per Nursing on Admit: 4+=Very High ROXANNE EDWARDS DO Dec 20, 2018 09:39
--- NOTE | 2018-12-20 11:06 | Therapy Team Discharge Summary ---
Therapy Discharge Summary Discharge Recommendations Date of Discharge 12/20/2018 Therapy D/C Recommendations: Other, See Comments (recommend continued skilled therapy services) Physical Therapy This patient was re admitted to this unit post recent discharge from this unit to a LTC facility. She returned with the goal to aggressively address functional mobility to improve her function. 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 Upon admission to this unit, she was dependent wtih transfers, unable to ambulae and dependent with wc mobility. Treatment has focused on functional strength, functional transfer training with addressing coordinated movments of he U/LE to best facilitate transfers and attempt to progress gait. Much effort placed on varied techniques to facilitate gait, however pt remains at a max to dependent level for ambulation. PT/OT co treatment was utilized frequently due to the complexity of her process and significant impairment of U/LE to coordinate best progression. In addition, wc mobility was incorporated in which at dc , she was max assist to complete. Due to poor coordinated movment of U/LE propulsion is very diffiucult. She made slight progress but did not achieve goals and is unable to mobilize without extensive assist. Pt to discharge to LTC facility a nd recommend continued therapy services to attempt to continue to improve mobility to the highest level to promote environmental interaction and general well being for this patient. DC from ARU at this time. Occupational Therapy Decreased Activ Tolerance, Impaired Coordination, Impaired Funct Balance, Impaired I ADL's, Impaired Self-Care Skills, Restricted Funct UE ROM PT Assisted Goals Assisted Goals PT Assisted Goals Time Frame: Jan 03, 2019 Transfers (B,C,W/C) (FIM): 6 Roll Left to Right (QC): 6 Sit to Lying (QC): 6 Lying-Sitting on Side/Bed(QC): 6 Sit to Stand (QC): 6 Chair/Dnl-vs-Roqwg Xfer(QC): 6 Car Transfer (QC): 5 Does the Patient Walk: No and Walking Goal IS indicated Gait (FIM): 6 Gait distance (FIM): 3=150 ft Walk 10 feet (QC): 6 Walk 10ft-Uneven Surface(QC): 6 Walk 50ft with 2 Turns (QC): 6 Walk 150 ft (QC): 6 Gait Assistive Device: FWW Does the Pt use WC or Scooter?: Yes Wheelchair (FIM): 6 Wheelchair distance (FIM): 3=150 ft Wheel 50 feet with 2 turns (QC: 6 Stairs (FIM): 5 # of Steps: 4 1 Step (curb) (QC): 6 4 Steps (QC): 6 12 Steps (QC): 88 Picking up an Object (QC): 5 no goals achieved. OT Dehydrator Operator Goals Assisted Goals Time Frame: Jan 03, 2019 Eating (FIM): 5 (not met) Eating (QC): 5 (not met) Oral Hygiene (QC): 4 (not met) Grooming(FIM): 5 (not met) Bathing(FIM): 5 (not met) Bathing Location: L Arm, R Arm, L Upper Leg, R Upper Leg, L Lower Leg (including foot), R Lower Leg (including foot), Chest, Abdomen, Buttocks, Perineal Area Shower/Bathe Self (QC): 4 (not met) Upper Body Dressing(FIM): 5 (not met) Upper Body Dressing (QC): 4 (not met) Lower Body Dressing(FIM): 5 (not met) Lower Body Dressing (QC): 4 (not met) On/Off Footwear (QC): 4 (not met) Toileting(FIM): 5 (not met) Toileting Hygiene (QC): 4 (not met) Transfers (B,C,W/C) (FIM): 4 (not met) Toilet/Commode Transfer(FIM): 5 (not met) Toilet/Commode Transfer (QC): 4 (not met) Shower Transfer(FIM): 4 (not met) Additional Goals: 1-Demonstrate ADL Tasks, 2-Verbalize Understanding, 3- ImproveStrength/Bakari 1=Demonstrate adherence to instructed precautions during ADL tasks. 2=Patient will verbalize/demonstrate understanding of assistive devices/modifications for ADL. 3=Patient will improve strength/tolerance for activity to enable patient to perform ADL's. Speech Dehydrator Operator Goals Assisted Goals The patient will improve her cognitive functional level for safety and independence. MARCY RO PT Dec 20, 2018 11:06
--- NOTE | 2018-12-20 13:29 | Therapy Team Discharge Summary ---
Therapy Discharge Summary Discharge Recommendations Date of Discharge Therapy D/C Recommendations: Other, See Comments (recommend continued skilled therapy services) Occupational Therapy Decreased Activ Tolerance, Impaired Coordination, Impaired Funct Balance, Impaired I ADL's, Impaired Self-Care Skills, Restricted Funct UE ROM Speech-Language Pathology The patient was admitted to the ARU due to debility related to Parkinson's. The patient was given the SLUMS which resulted in mild neurocognitive disorder score. The patient received skilled ST for cognitive function with focus on safety awareness and communication of wants/needs. The patient was discharged to a SNF today and is discharged from skilled ST as well. PT Alf Goals Hydroelectric Production Manager Goals PT Alf Goals Time Frame: Jan 03, 2019 Transfers (B,C,W/C) (FIM): 6 Roll Left to Right (QC): 6 Sit to Lying (QC): 6 Lying-Sitting on Side/Bed(QC): 6 Sit to Stand (QC): 6 Chair/Dwo-rz-Dhdpx Xfer(QC): 6 Car Transfer (QC): 5 Does the Patient Walk: No and Walking Goal IS indicated Gait (FIM): 6 Gait distance (FIM): 3=150 ft Walk 10 feet (QC): 6 Walk 10ft-Uneven Surface(QC): 6 Walk 50ft with 2 Turns (QC): 6 Walk 150 ft (QC): 6 Gait Assistive Device: FWW Does the Pt use WC or Scooter?: Yes Wheelchair (FIM): 6 Wheelchair distance (FIM): 3=150 ft Wheel 50 feet with 2 turns (QC: 6 Stairs (FIM): 5 # of Steps: 4 1 Step (curb) (QC): 6 4 Steps (QC): 6 12 Steps (QC): 88 Picking up an Object (QC): 5 OT Alf Goals Hydroelectric Production Manager Goals Time Frame: Jan 03, 2019 Eating (FIM): 5 (not met) Eating (QC): 5 (not met) Oral Hygiene (QC): 4 (not met) Grooming(FIM): 5 (not met) Bathing(FIM): 5 (not met) Bathing Location: L Arm, R Arm, L Upper Leg, R Upper Leg, L Lower Leg (including foot), R Lower Leg (including foot), Chest, Abdomen, Buttocks, Perineal Area Shower/Bathe Self (QC): 4 (not met) Upper Body Dressing(FIM): 5 (not met) Upper Body Dressing (QC): 4 (not met) Lower Body Dressing(FIM): 5 (not met) Lower Body Dressing (QC): 4 (not met) On/Off Footwear (QC): 4 (not met) Toileting(FIM): 5 (not met) Toileting Hygiene (QC): 4 (not met) Transfers (B,C,W/C) (FIM): 4 (not met) Toilet/Commode Transfer(FIM): 5 (not met) Toilet/Commode Transfer (QC): 4 (not met) Shower Transfer(FIM): 4 (not met) Additional Goals: 1-Demonstrate ADL Tasks, 2-Verbalize Understanding, 3- ImproveStrength/Bakari 1=Demonstrate adherence to instructed precautions during ADL tasks. 2=Patient will verbalize/demonstrate understanding of assistive devices/modifications for ADL. 3=Patient will improve strength/tolerance for activity to enable patient to perform ADL's. Speech Alf Goals Hydroelectric Production Manager Goals The patient will improve her cognitive functional level for safety and independence. ANDREW ROMAN Dec 20, 2018 13:29
--- NOTE | 2018-12-25 11:56 | Therapy Team Discharge Summary ---
Therapy Discharge Summary Discharge Recommendations Date of Discharge Dec 20, 2018 at 10:05 Therapy D/C Recommendations: Other, See Comments (recommend continued skilled therapy services) Occupational Therapy pt seen by OT services with focus increasing indep with ADLs, functional transfers, use if AE/ DME, coordination, UE ROM/ Strength,and overall safety with functional tasks. at time of discharge pt was able to perform eating and grooming with setup, UB dressing with MOD A, and required TA for bathing, LB dressing, and functional transfers. pt d/c to SNF. recommend additional OT services to continue address deficits and to increase overall indep with self care. Decreased Activ Tolerance, Impaired Coordination, Impaired Funct Balance, Impaired I ADL's, Impaired Self-Care Skills, Restricted Funct UE ROM PT Chcf Goals Chief Port Director Goals PT Chief Port Director Goals Time Frame: Jan 03, 2019 Transfers (B,C,W/C) (FIM): 6 Roll Left to Right (QC): 6 Sit to Lying (QC): 6 Lying-Sitting on Side/Bed(QC): 6 Sit to Stand (QC): 6 Chair/Fsg-ct-Iizev Xfer(QC): 6 Car Transfer (QC): 5 Does the Patient Walk: No and Walking Goal IS indicated Gait (FIM): 6 Gait distance (FIM): 3=150 ft Walk 10 feet (QC): 6 Walk 10ft-Uneven Surface(QC): 6 Walk 50ft with 2 Turns (QC): 6 Walk 150 ft (QC): 6 Gait Assistive Device: FWW Does the Pt use WC or Scooter?: Yes Wheelchair (FIM): 6 Wheelchair distance (FIM): 3=150 ft Wheel 50 feet with 2 turns (QC: 6 Stairs (FIM): 5 # of Steps: 4 1 Step (curb) (QC): 6 4 Steps (QC): 6 12 Steps (QC): 88 Picking up an Object (QC): 5 OT Chcf Goals Chcf Goals Time Frame: Jan 03, 2019 Eating (FIM): 5 (not met) Eating (QC): 5 (not met) Oral Hygiene (QC): 4 (not met) Grooming(FIM): 5 (not met) Bathing(FIM): 5 (not met) Bathing Location: L Arm, R Arm, L Upper Leg, R Upper Leg, L Lower Leg (including foot), R Lower Leg (including foot), Chest, Abdomen, Buttocks, Perineal Area Shower/Bathe Self (QC): 4 (not met) Upper Body Dressing(FIM): 5 (not met) Upper Body Dressing (QC): 4 (not met) Lower Body Dressing(FIM): 5 (not met) Lower Body Dressing (QC): 4 (not met) On/Off Footwear (QC): 4 (not met) Toileting(FIM): 5 (not met) Toileting Hygiene (QC): 4 (not met) Transfers (B,C,W/C) (FIM): 4 (not met) Toilet/Commode Transfer(FIM): 5 (not met) Toilet/Commode Transfer (QC): 4 (not met) Shower Transfer(FIM): 4 (not met) Additional Goals: 1-Demonstrate ADL Tasks, 2-Verbalize Understanding, 3-ImproveStrength/Bakari 1=Demonstrate adherence to instructed precautions during ADL tasks. 2=Patient will verbalize/demonstrate understanding of assistive devices/modifications for ADL. 3=Patient will improve strength/tolerance for activity to enable patient to perform ADL's. Speech Chcf Goals Chcf Goals The patient will improve her cognitive functional level for safety and independence. ROSENDO BARROSO OT Dec 25, 2018 11:55
== END 2018-12-20 10:05 | DRG 57 ==
PROVIDERS: ADMIT Internal Medicine; ATTEND Internal Medicine
DX: G20 Parkinson's disease (principal); R64 Cachexia; L97.529 Non-pressure chronic ulcer of other part of left foot with unspecified severity; F41.9 Anxiety disorder, unspecified; F32.9 Major depressive disorder, single episode, unspecified; D63.8 Anemia in other chronic diseases classified elsewhere; R32 Unspecified urinary incontinence; M62.441 Contracture of muscle, right hand; M62.442 Contracture of muscle, left hand
CPT/HCPCS: 36415; 80053; 85025; 85652